=== PATIENT | male | born 1960 | race Hispanic/Latino ===

== ENCOUNTER 2021-09-02 14:38 | Inpatient (IN) | payer MEDICARE ==
[2021-09-02] MEDS ORDERED: FUROSEMIDE 40 MG/4 ML INJ IV ONE ×2 (15:43→17:25)
[2021-09-02] MEDS ORDERED: IPRATROPIUM/ALBUTEROL SULFATE 3 ML AMPUL.NEB IH ONE ×2 (15:46)
--- NOTE | 2021-09-02 15:52 | Emergency Department Report ---
HPI - General Chief Complaint: Dyspnea/Respdistress PUI?: Yes Time Seen by Provider: 09/02/21 15:32 - HPI HPI: 61-year-old morbidly obese male, per nursing staff has past medical history of end stage COPD, on home oxygen with unknown number of liters required daily, current tobacco smoker, congestive heart failure, brought in by EMS for difficulty breathing or shortness of breath. EMS personnel are not readily available as this patient arrived 1 hour prior to the start of this provider shift time. Per nursing report, the patient was given Solu-Medrol and magnesium by EMS prior to arrival and the patient was placed on BiPAP upon arrival to the emergency department. Remainder of HPI and complete ROS are limited from perspective of patient secondary to respiratory distress. ED Past Medical Hx - Past Medical History Hx Congestive Heart Failure: Yes Hx COPD: Yes Additional medical history: Morbid obesity - Family History Family history: other (Unknown patient unable to answer) - Social History Smoking Status: Current Every Day Smoker Substance Use Type: None ED Review of Systems ROS: Stated complaint: LILIANE Other details as noted in HPI Comment: Unobtainable due to pts medical conditions Physical Exam - Physical Exam Vital Signs: Vital Signs 09/02/21 09/02/21 09/02/21 14:55 15:00 15:01 Pulse Rate 101 H 108 H 108 H Respiratory 35 H 34 H 43 H Rate O2 Sat by Pulse 87 94 96 Oximetry 09/02/21 09/02/21 09/02/21 15:15 15:31 15:36 Pulse Rate 109 H 109 H Respiratory 40 H 38 H Rate O2 Sat by Pulse 97 97 97 Oximetry General: Gen: Morbidly obese male, disheveled, clothes are soiled, sitting up in stretcher, BiPAP mask in place, moderate respiratory distress, speaking in moderately short sentences, no drooling no stridor, no accessory muscle usage HEENT: Normocephalic atraumatic pupils equally round and reactive to light extraocular muscles intact sclera anicteric Neck: Full range of motion, no midline spinal tenderness palpation, no JVD, no carotid bruits, no nuchal rigidity CVS: S1-S2 regular rate and rhythm with no gallops rubs or murmurs, chest wall nontender Pulmonary: Diffuse end expiratory wheezes as well as rales or rhonchi auscultated in lung lung seymour Abdomen: Soft nondistended nontender no guarding or rebound tenderness, no palpable deformities or step-offs, normal active bowel sounds, no hepatosplenomegaly, no pulsatile masses : Deferred Extremities: No cyanosis +1 pitting edema to bilateral lower extremities, intact distal peripheral pulses, Integumentary: Skin normal, no petechia no purpura no abscess no lacerations no evidence of trauma no evidence of infection Neuro: Patient is awake alert and oriented to person place time situation, mentating well, cranial nerves II through XII intact, no focal neurodeficits, sensation grossly tact; unable to test gait at this time secondary to patient's current clinical condition Psych: Calm cooperative, mood affect normal ED Course Vital Signs 09/02/21 09/02/21 09/02/21 14:55 15:00 15:01 Pulse Rate 101 H 108 H 108 H Respiratory 35 H 34 H 43 H Rate O2 Sat by Pulse 87 94 96 Oximetry 09/02/21 09/02/21 09/02/21 15:15 15:31 15:36 Pulse Rate 109 H 109 H Respiratory 40 H 38 H Rate O2 Sat by Pulse 97 97 97 Oximetry - Reevaluation(s) Reevaluation #1: 09/02/21 15:52 pt continues to remain on bipap; pt ordered to receive duonebs INH x2 and furosemide 40m IVP - Consultations Consultation #1: 09/02/21 18:14 Case reviewed with vp outcomes, Dr. Felipe. Pt will be evaluated by him in the MICU. - Intubation Time Out Performed: Yes Sedative: Etomidate Mg Given: 20 Paralytic: Rocuronium Mg Given: 125 Laryngoscope: Yobany Size: 4 Assist Device Used: other (none) ET Tube Size: 8 Other Airway Intervention: none Tube Secured Depth (cm): 24 Tube Secured Location: lips Tube Placement Confirmation: visualized tube passing t, equal breath sounds bilat, no breath sounds over epi, confirmation by capnometr Patient Tolerated Procedure: well Intubation Complications: none Additional Comments: pt tolerated procedure without difficulty ED Medical Decision Making - Lab Data Result diagrams: 09/02/21 16:21 09/02/21 16:21 - EKG Data -: EKG Interpreted by Me EKG shows normal: sinus rhythm Rate: tachycardia - EKG Data When compared to previous EKG there are: previous EKG unavailable Interpretation: other (RBBB; q waves in anteroseptal leads; no prior ekg availabe for comparison) 09/02/21 18:15 Patient has EKG interpreted by me: Ventricular rate 103 bpm. P waves are present and proceed every QRS complex. Patient has right bundle branch block. No ST segment depressions elevations. No T wave flattening or inversions. No ectopy. No arrhythmia. Sinus tachycardia with right bundle branch block. No prior EKG available in electronic health record for comparison - Radiology Data Radiology results: report reviewed - Medical Decision Making 61-year-old morbidly obese male with a history of congestive heart failure with unknown EF, end-stage COPD and emphysema on home oxygen, brought in by EMS for shortness of breath and cough. Patient severely dyspneic and tachypneic here with a respiratory rate ranging from 30-44. He was placed on BiPAP by respiratory therapy and given multiple treatments but patient demonstrated no improvement. He manifested declining in his mental status as well as respiratory status. Due to patient's high risk of impending respiratory arrest, he was emergently intubated in the emergency department. Labs reviewed. Hyperkalemia treated. Patient has been accepted by Dr. Barber, admitting hospitalist, to the intensive care unit, for further management. Critical Care Time: Yes Critical care time in (mins) excluding proc time.: 30 Critical care attestation.: If time is entered above; I have spent that time in minutes in the direct care of this critically ill patient, excluding procedure time. ED Disposition Clinical Impression: Acute on chronic respiratory failure with hypoxia and hypercapnia, Acute decompensated heart failure Disposition: ADMITTED INPATIENT Is pt being admited?: Yes Does the pt Need Aspirin: No Condition: Stable Referrals: PRIMARY CARE, [Primary Care Provider] - 3-5 Days
[2021-09-02 16:01] LABS: ABG Base Excess 10.8 mmol/L (-2.0-3.0); ABG HCO3 42.4 mmol/L (20.0-26.0); ABG Methemoglobin 0.6 % (0.0-1.5); ABG Oxygen Saturation 96.7 % (95.0-99.0); ABG PCO2 111.9 mm Hg; ABG PO2 98.8 mm Hg (80.0-90.0)
[2021-09-02 16:04] LABS: ABG PH 7.197 pH Units (7.350-7.450)
--- NOTE | 2021-09-02 16:19 | XRay Report ---
CHEST 1 VIEW 09/02/2021 3:51 PM INDICATION / CLINICAL INFORMATION: COPD, P/W SOB. COMPARISON: None available. FINDINGS: SUPPORT DEVICES: None. HEART / MEDIASTINUM: There is mild generalized cardiomegaly with prominence of the central pulmonary vessels. There is deviation of the trachea to the right. LUNGS / PLEURA: There is right upper lobe atelectasis with associated volume loss. There are mild to moderate patchy parenchymal opacities in both mid to lower lung zones. No significant pleural effusio n. No pneumothorax. ADDITIONAL FINDINGS: No significant additional findings. IMPRESSION: 1. Right upper lobe atelectasis is of uncertain chronicity. Old studies would be invaluable for asiya rison if available. Otherwise CT of the chest with intravenous contrast may be helpful in further hortencia luation. 2. Patchy parenchymal opacities in both mid to lower lung zones may be related to atypical causes of infection or edema. Signer Name: Tremayne Eli MD Signed: 09/02/2021 4:15 PM Workstation Name: [id number]
[2021-09-02] MEDS ORDERED: LORazepam 2 MG/ML VIAL IV ONE (17:08)
[2021-09-02 17:09] LABS: Hemoglobin 11.4 gm/dl (11.8-15.2); Mean Corpuscular HGB Conc 32 % (32-34); Mean Corpuscular Volume 84 fl (84-94); Platelet Count 224 K/mm3 (140-440); Red Blood Count 4.27 M/mm3 (3.65-5.03); Red Cell Distribution Width 18.6 % (13.2-15.2)
[2021-09-02] MEDS ORDERED: ETOMIDATE 20 MG/10 ML INJ IV ONE (17:19)
[2021-09-02] MEDS ORDERED: ROCURONIUM 50 MG/5 ML INJ IV ONE ×2 (17:19→18:03)
[2021-09-02 17:23] LABS: BUN/Creatinine Ratio 23; Blood Urea Nitrogen 18 mg/dL (9-20); Calcium 8.9 mg/dL (8.4-10.2); Hemolysis Index 105
[2021-09-02] MEDS ORDERED: INSULIN REGULAR, HUMAN 100 UNITS/1 ML IV ONE (17:28)
[2021-09-02] MEDS ORDERED: DEXTROSE 50% IN WATER (25GM) 50 ML SYRINGE IV ONE (17:28)
[2021-09-02] MEDS ORDERED: SODIUM BICARB 8.4% 50 MEQ/50 ML SYRINGE IV ONE (17:32)
[2021-09-02] MEDS ORDERED: CALC GLUCONATE 1GM/NS 100 ML 1 GM/100 ML BAG IV ONE (18:00)
--- NOTE | 2021-09-02 18:00 | History and Physical Report ---
History of Present Illness Chief complaint: I cannot breathe History of present illness: 61 YO Male with CHF, COPD on Home Oxygen via [place], Nicotine Dependence, Obesity Hypoventilation Syndrome presents ED for evaluation. Patient reports "cannot breathe". No further history is obtainable due to patient in severe respiratory distress. EMS was notified and upon arrival the patient was found to be in distress with a pulse oximetry in the 60s. Patient placed on submental oxygen and subsequently transported to [facility] for further care and evaluation of the aforementioned symptoms. The patient was seen and evaluated in the emergency department. All lab and imaging studies reviewed. Patient was found to have a pulse oximetry in the 70s on supplemental oxygen without improvement in symptoms. Patient separately placed on noninvasive positive pressure ventilation without improvement in symptoms. Patient was subsequently intubated and placed on ventilatory support. Patient underwent chest x-ray which revealed bilateral pneumonia. Patient also found to have clinical findings consistent with CHF decompensation. Patient admitted to ICU and initiated on CHF protocol as well as pneumonia protocol. No further history is obtainable. Patient was found to be retracting, unable to speak, using accessory muscles to breathe, with audible wheezing. No prior admission for review. No medication listed at time of admission for reconciliation. Advanced care planning conducted in ED. Critical care team consulted in ED, cardiology team consulted in ED. Past History Past Medical History: COPD, heart failure, other (See HPI) Past Surgical History: No surgical history, Other (Reviewed) Social history: single, smoking Family history: hypertension Medications and Allergies Allergies Allergy/AdvReac Type Severity Reaction Status Date / Time levofloxacin [From Levaquin] Allergy Rash Verified 09/02/21 15:43 Active Meds: Active Medications Propofol (Diprivan 10 Mg/Ml) 1,000 mg in 100 mls @ 4.082 mls/hr IV TITR MAE; Pr otocol CALC GLUCONATE 1GM/NS 100 ML (Calcium Gluonate/Ns 1,000mg/100ml) 1 gm in 100 mls @ 600 mls/hr IV ONCE ONE Stop: 09/02/21 18:09 Review of Systems ROS unobtainable: due to endotracheal tube, due to mental status Exam - Constitutional Vitals: Temp Pulse Resp BP Pulse Ox 109 H 38 H 97 09/02/21 15:31 09/02/21 15:31 07/24/22 15:36 General appearance: Present: severe distress - EENT Eyes: Present: PERRL ENT: clear oral mucosa, hearing decreased - Neck Neck: Present: supple - Respiratory Respiratory effort: labored, pursed lips, accessory muscle use, stridor Respiratory: bilateral: diminished, rhonchi - Cardiovascular Heart Sounds: Present: S1 & S2. Absent: rub, click - Extremities Extremity abnormal: edema Peripheral Pulses: within normal limits - Abdominal General gastrointestinal: Present: soft, non-tender, non-distended, normal bowel sounds Male genitourinary: Present: normal - Integumentary Integumentary: Present: clear, dry - Musculoskeletal Musculoskeletal: generalized weakness - Psychiatric Psychiatric: no appropriate mood/affect, no intact judgment & insight, no memory intact - Neurologic Neurologic: CNII-XII intact, no focal deficits, moves all extremities, no gait normal HEART Score - HEART Score Troponin: Troponin T < 0.010 ng/mL (0.00-0.029) 09/02/21 16:21 Results - Labs CBC & Chem 7: 09/02/21 16:21 09/02/21 16:21 Labs: Abnormal lab results 09/02/21 09/02/21 09/02/21 Range/Units 15:50 16:21 16:21 Hgb 11.4 L (11.8-15.2) gm/dl MCH 27 L (28-32) pg RDW 18.6 H (13.2-15.2) % ABG pH 7.197 L* (7.350-7.450) pH Units ABG pO2 98.8 H (80.0-90.0) mm Hg ABG HCO3 42.4 H (20.0-26.0) mmol/L ABG Base Excess 10.8 H (-2.0-3.0) mmol/L ABG Hemoglobin 11.3 L (14.0-18.0) gm/dl Oxyhemoglobin 93.6 L (95.0-99.0) % Potassium 5.9 H (3.6-5.0) mmol/L Chloride 96.4 L (98-107) mmol/L Carbon Dioxide 32 H (22-30) mmol/L Glucose 101 H (75-100) mg/dL POC Glucose (70-105) mg/dL Lactic Acid (0.7-2.0) mmol/L NT-Pro-B Natriuret Pep 4080 H (0-900) pg/mL 09/02/21 09/02/21 Range/Units 16:21 17:42 Hgb (11.8-15.2) gm/dl MCH (28-32) pg RDW (13.2-15.2) % ABG pH (7.350-7.450) pH Units ABG pO2 (80.0-90.0) mm Hg ABG HCO3 (20.0-26.0) mmol/L ABG Base Excess (-2.0-3.0) mmol/L ABG Hemoglobin (14.0-18.0) gm/dl Oxyhemoglobin (95.0-99.0) % Potassium (3.6-5.0) mmol/L Chloride (98-107) mmol/L Carbon Dioxide (22-30) mmol/L Glucose (75-100) mg/dL POC Glucose 113 H (70-105) mg/dL Lactic Acid 0.60 L (0.7-2.0) mmol/L NT-Pro-B Natriuret Pep (0-900) pg/mL Assessment and Plan - Patient Problems (1) Acute on chronic respiratory failure with hypoxia and hypercapnia Current Visit: Yes Status: Acute Plan to address problem: Chest x-ray, supplemental oxygen, pulse oximetry, nebulizer therapy, patient intubated and on ventilatory support. Wean vent as tolerated, daily spontaneous breathing trial, sedation holiday, daily arterial blood gas. The high probability of a clinically significant, sudden or life threatening deterioration of the [cardiac, pulmonary, neuro,] system(s) required my full and direct attention, intervention and personal management. The aggregate critical care time was [95] minutes. This time is in addition to time spent performing reported procedures but includes the following: [x] Data Review and interpretation [x] Patient assessment and monitoring of vital signs [x] Documentation [x] Medication orders and management (2) Acute decompensated heart failure Current Visit: Yes Status: Acute Plan to address problem: Strict I/O, monitor urine output every shift, daily weight, afterload reduction, blood pressure control, diuresis, echocardiogram ordered and pending at time of admission, thyroid panel, magnesium level, cardiology team consulted in ED. (3) Pneumonia Current Visit: Yes Status: Acute Plan to address problem: Pneumonia protocol: Chest x-ray, CBC, CMP, nebulizer therapy, IV antibiotic therapy, pulmonary toilet. (4) Obesity hypoventilation syndrome Current Visit: Yes Status: Acute Plan to address problem: Balanced diet, increase physical activity discharge, outpatient pulmonary follow-up for sleep study. (5) Nicotine dependence Current Visit: Yes Status: Acute Qualifiers: Nicotine product type: cigarettes Substance use status: in withdrawal Qualified Code(s): F17.213 - Nicotine dependence, cigarettes, with withdrawal Plan to address problem: Supportive care, smoking cessation, +15 minutes (6) DVT prophylaxis Current Visit: Yes Status: Acute Plan to address problem: SCDs bilateral lower extremities while in bed, prophylactic anticoagulation (7) Advance care planning Current Visit: Yes Status: Acute Plan to address problem: Disease education done, care plan discussed, diagnoses discussed, prognosis discussed, patient is full code, +30 minutes. (8) Preventative health care Current Visit: Yes Status: Acute Plan to address problem: Patient to follow-up with primary care physician as outpatient for all age and risk factor appropriate screening test, balanced diet, increase physical activity discharge, outpatient follow-up with bariatric surgery. +30 minutes.
--- NOTE | 2021-09-02 18:26 | XRay Report ---
ABDOMEN 1 VIEW 09/02/2021 6:04 PM INDICATION / CLINICAL INFORMATION: NGT placement. COMPARISON: None available. FINDINGS: TUBES / LINES: There is a nasogastric tube with the tip overlying the proximal stomach and the proxim al sidehole below the gastroesophageal junction. BOWEL GAS PATTERN: No significant abnormality. FREE AIR / EXTRALUMINAL GAS: None. ADDITIONAL FINDINGS: No significant additional findings. IMPRESSION: Nasogastric tube tip overlies the proximal stomach. Signer Name: Tremayne Eli MD Signed: 09/02/2021 6:22 PM Workstation Name: [id number]
--- NOTE | 2021-09-02 18:30 | XRay Report ---
CHEST 1 VIEW 09/02/2021 5:15 PM INDICATION / CLINICAL INFORMATION: ET tube placement. COMPARISON: Earlier today at 3:51 PM. FINDINGS: SUPPORT DEVICES: There is a new endotracheal tube with the tip approximately 4 cm above the janett. T here is a new nasogastric tube coursing towards the stomach with the tip not seen. HEART / MEDIASTINUM: Unchanged. LUNGS / PLEURA: Unchanged. No pneumothorax. ADDITIONAL FINDINGS: No significant additional findings. IMPRESSION: New endotracheal tube in satisfactory position. Signer Name: Tremayne Eli MD Signed: 09/02/2021 6:26 PM Workstation Name: [id number]
[2021-09-02] MEDS ORDERED: HYDROmorphone 0.5 MG/0.5 ML INJ IV PRN (18:31)
[2021-09-02] MEDS ORDERED: ACETAMINOPHEN 325 MG TAB PO PRN (18:31)
[2021-09-02] MEDS ORDERED: oxyCODONE /ACETAMINOPHEN 5-325MG TAB PO PRN (18:31)
[2021-09-02] MEDS ORDERED: ALBUTEROL 2.5 MG/3 ML NEBU IH PRN (18:31)
[2021-09-02 18:34] LABS: Band Neutrophils # (Manual) 0.1 K/mm3; Basophils % (Manual) 0 % (0.0-1.8); Eosinophils % (Manual) 0 % (0.0-4.3); Total Cells Counted 100
[2021-09-02 18:36] LABS: Hypochromasia Few; Platelet Estimate Consistent w Auto; Stomatocytes Rare
[2021-09-02 19:04] LABS: ABG Base Excess 11.8 mmol/L (-2.0-3.0); ABG HCO3 39.2 mmol/L (20.0-26.0); ABG Methemoglobin 0.6 % (0.0-1.5); ABG Oxygen Saturation 99.2 % (95.0-99.0); ABG PCO2 66.9 mm Hg; ABG PH 7.385 pH Units (7.350-7.450); ABG PO2 202.5 mm Hg (80.0-90.0)
[2021-09-02 19:23] LABS: Free T4 (Free Thyroxine) 1.27 ng/dL (0.76-1.46)
--- NOTE | 2021-09-02 19:28 | Procedure Note ---
Date of procedure: 09/02/21 Pre-op diagnosis: Acute respiratory failure Post-op diagnosis: same Procedure: Right internal jugular vein triple-lumen catheter under ultrasound guidance The patient was prepped and draped in usual sterile fashion. A timeout was taken with the patient's nurse at bedside to verify the correct patient, the correct procedure, and then the correct operative site. Local anesthesia obtained with 1% lidocaine. The Seldinger technique was utilized under ult rasound guidance to advance a seeker needle into the right internal jugular vein without difficulty. A guidewire was then advanced via the seeker needle into the right internal jugular vein and the seeker needle subsequently removed over the guidewire. A scalpel was used to incise the skin at the insertion site. A dilator was then passed over the guidewire into the right internal jugular vein and subsequently removed. A preflush triple-lumen catheter was then advanced into the right internal jugular vein and the guidewire subsequently removed. A Biopatch was placed at the insertion site. 3-0 silk suture was utilized to suture the triple-lumen catheter in place. All 3 ports flush and drawl with ease. A sterile dressing was placed over the top of the central mid catheter. Postoperative chest x-ray reveals 6 lm catheter in expected position. No evidence of pneumothorax. Estimated blood loss minimal. Specimens none. Complications none. Anesthesia: local Surgeon: ELVIN DE LEÓN Estimated blood loss: minimal Pathology: none Condition: critical Disposition: ICU
--- NOTE | 2021-09-02 19:39 | XRay Report ---
CHEST 1 VIEW INDICATION / CLINICAL INFORMATION: central line placement. COMPARISON: 09/02/2021 FINDINGS: SUPPORT DEVICES: New right internal jugular central line overlies the right upper thorax. Endotrachea l and nasogastric tubes in expected position HEART / MEDIASTINUM: Rightward shift of heart and mediastinum again noted LUNGS / PLEURA: Right upper lobe volume loss with probable mass right hilar region and nodular right pleural thickening suggestive for underlying lung cancer No pneumothorax. ADDITIONAL FINDINGS: No significant additional findings. IMPRESSION: 1. No significant change. Suspect right-sided lung cancer with complete right upper lobe atelectasis, right hilar mass and nodular right pleural thickening, unchanged. 2. Right CVL overlies the right upper hemithorax. Due to the distorted anatomy, the exact location of the CVL is difficult to ascertain but is likely within the SVC which is shifted towards the right. N o pneumothorax Signer Name: Keshawn Garcia MD Signed: 09/02/2021 7:35 PM Workstation Name: [id number]
[2021-09-02] MEDS ORDERED: HEPARIN 5,000 UNIT/1 ML VIAL SUB-Q SCH (22:00)
--- NOTE | 2021-09-02 22:05 | Cat Scan Report ---
CTA CHEST WITH CONTRAST INDICATION / CLINICAL INFORMATION: pt intubated; resp acidosis/failure; eval for PE. TECHNIQUE: Axial CT images were obtained through the chest after injection of 100 cc IV contrast. 3 p maxwell MIP and/or 3D reconstructions were produced. All CT scans at this location are performed using C T dose reduction for ALARA by means of automated exposure control. COMPARISON: None available. FINDINGS: PULMONARY EMBOLUS: None. THORACIC AORTA: No significant abnormality. HEART: No significant abnormality. CORONARY ARTERY CALCIFICATION: Present -- Mild. MEDIASTINUM / LOVE: Enlarged right upper and lower paratracheal nodes up to 1.7 cm PLEURA: No pleural effusion. No pneumothorax. LUNGS: Complete right upper lobe atelectasis likely secondary to obstructing endobronchial mass. Patc hy airspace disease medial aspect left upper, right middle and both lower lobes characteristic for pn eumonia. Moderate scarring right lower lobe ADDITIONAL FINDINGS: The right internal jugular central line has tip in SVC. Endotracheal and nasogas tric tubes in expected position. UPPER ABDOMEN: No acute findings. SKELETAL STRUCTURES: Previous right lower thoracotomy IMPRESSION: 1. No CT evidence for pulmonary embolism. 2. Complete right upper lobe atelectasis possibly secondary to lung cancer with associated right para tracheal adenopathy. Recommend correlation with prior surgical history and/or bronchoscopy 3. Mild bronchopneumonia medial aspect left upper, right middle and both lower lobes Signer Name: Keshawn Garcia MD Signed: 09/02/2021 10:00 PM Workstation Name: [id number]
[2021-09-03 03:09] LABS: Amphetamine Screen,Urine PRESUMPTIVE NEGATIVE; Benzodiazepines Screen,Urine PRESUMPTIVE NEGATIVE; Cannabinoid Screen,Urine PRESUMPTIVE POSITIVE; Cocaine Screen,Urine PRESUMPTIVE NEGATIVE; Methadone Screen,Urine PRESUMPTIVE NEGATIVE; Opiate Screen,Urine PRESUMPTIVE NEGATIVE
[2021-09-03 03:20] LABS: Mucus,Urine FEW /HPF
[2021-09-03 03:23] LABS: Bilirubin,Urine Negative (Negative); Blood,Urine Negative (Negative); Color,Urine Yellow (Yellow); Protein,Urine <15 mg/dL mg/dL (Negative)
[2021-09-03 03:24] LABS: Urobilinogen,Urine < 2.0 mg/dL (<2.0)
[2021-09-03 04:25] LABS: ABG Base Excess 15.7 mmol/L (-2.0-3.0); ABG HCO3 42.5 mmol/L (20.0-26.0); ABG Methemoglobin 0.5 % (0.0-1.5); ABG Oxygen Saturation 96.6 % (95.0-99.0); ABG PCO2 64.6 mm Hg; ABG PH 7.436 pH Units (7.350-7.450)
[2021-09-03] MEDS: methylPREDNISolone Sod Succinate 40 MG/1 ML INJ IV SCH ×3 (04:55→20:23)
[2021-09-03 05:27] LABS: Hematocrit 32.1 % (35.5-45.6); Hemoglobin 10.3 gm/dl (11.8-15.2); Mean Corpuscular HGB Conc 32 % (32-34); Mean Corpuscular Volume 83 fl (84-94); Platelet Count 216 K/mm3 (140-440); Red Blood Count 3.88 M/mm3 (3.65-5.03); Red Cell Distribution Width 18.3 % (13.2-15.2)
[2021-09-03 05:31] LABS: BUN/Creatinine Ratio 31; Blood Urea Nitrogen 25 mg/dL (9-20); Calcium 9.1 mg/dL (8.4-10.2); Hemolysis Index 2
[2021-09-03] MEDS: FUROSEMIDE 20 MG/2 ML INJ IV SCH ×2 (05:55→18:21)
[2021-09-03 06:42] LABS: Anisocytosis 1+; Basophils % (Manual) 0 % (0.0-1.8); Eosinophils % (Manual) 0 % (0.0-4.3); Platelet Estimate Consistent w Auto; Total Cells Counted 100
[2021-09-03] MEDS: ARFORMOTEROL 15 MCG/2 ML NEBU IH SCH ×2 (09:37→22:43)
[2021-09-03] MEDS: BUDESONIDE 0.5 MG/2 ML NEBU IH SCH ×2 (09:37→22:43)
[2021-09-03] MEDS: AZITHROMYCIN 250 MG TAB PO SCH (10:07)
[2021-09-03] MEDS: LEVOTHYROXINE 100 MCG TAB PO SCH (10:10)
--- NOTE | 2021-09-03 11:01 | Consultation ---
History of Present Illness Consult date: 09/03/21 Requesting physician: ELVIN DE LEÓN Reason for consult: other (AHRF on MVS) History of present illness: PULMONARY/CCM CONSULT NOTE (Full dictation # [id number]) Please see dictated notes for full details Past History Past Medical History: COPD, heart failure, other (See HPI) Past Surgical History: No surgical history, Other (Reviewed) Social history: single, smoking Family history: hypertension Medications and Allergies Allergies Allergy/AdvReac Type Severity Reaction Status Date / Time levofloxacin [From Levaquin] Allergy Rash Verified 09/02/21 15:43 Home Medications Medication Instructions Recorded Confirmed Last Taken Type ALBUTEROL NEB's [Proventil 0.083% 2.5 mg IH TID PRN 09/02/21 09/02/21 Unknown History NEBS] Arformoterol Nebu [Brovana Nebu] 15 mcg IH Q12HR 09/02/21 09/02/21 Unknown History Budesonide [Pulmicort] 0.5 mg IH Q12HR 09/02/21 09/02/21 Unknown History Levothyroxine [Synthroid] 100 mcg PO QAM 09/02/21 09/02/21 Unknown History Mometasone/Formoterol [Dulera 200 8.8 gm IH BID 09/02/21 09/02/21 Unknown History Mcg-5 Mcg Inhaler] Active Meds: Active Medications Acetaminophen (Acetaminophen 325 Mg Tab) 650 mg PO Q6H PRN PRN Reason: Pain MILD(1-3)/Fever >100.5/ZAVALA Albuterol (Albuterol 2.5 Mg/3 Ml Nebu) 2.5 mg IH Q3HRT PRN PRN Reason: Shortness Of Breath Last Admin: 09/03/21 00:23 Dose: 2.5 mg Arformoterol Tartrate (Arformoterol 15 Mcg/2 Ml Nebu) 15 mcg IH Q12HR MAE Last Admin: 09/03/21 09:37 Dose: 15 mcg Azithromycin (Azithromycin 250 Mg Tab) 500 mg PO QDAY MAE; Protocol Last Admin: 09/03/21 10:07 Dose: 500 mg Budesonide (Budesonide 0.5 Mg/2 Ml Nebu) 0.5 mg IH Q12HR MAE Last Admin: 09/03/21 09:37 Dose: 0.5 mg Furosemide (Furosemide 20 Mg/2 Ml Inj) 20 mg IV BID@0600,1800 [facility] Last Admin: 09/03/21 05:55 Dose: 20 mg Heparin Sodium (Porcine) (Heparin 5,000 Unit/1 Ml Vial) 5,000 unit SUB-Q Q12HR [facility] Last Admin: 09/03/21 10:06 Dose: 5,000 unit Hydromorphone HCl (Hydromorphone 0.5 Mg/0.5 Ml Inj) 0.5 mg IV Q8H PRN PRN Reason: Pain , Severe (7-10) Propofol (Diprivan 10 Mg/Ml) 1,000 mg in 100 mls @ 4.082 mls/hr IV TITR [facility]; Protocol Last Admin: 09/03/21 06:56 Dose: 25 mcg/kg/min, 20.412 mls/hr Ceftriaxone Sodium (Rocephin/Ns 2 Gm/100 Ml) 2 gm in 100 mls @ 200 mls/hr IV Q24H [facility]; Protocol Levothyroxine Sodium (Levothyroxine 100 Mcg Tab) 100 mcg PO QAM@0600 [facility] Last Admin: 09/03/21 10:10 Dose: 100 mcg Methylprednisolone Sodium Succinate (Methylprednisolone Sod Succinate 40 Mg/1 Ml Inj) 40 mg IV Q8H [facility] Last Admin: 09/03/21 04:55 Dose: 40 mg Oxycodone/Acetaminophen (Oxycodone /Acetaminophen 5-325mg Tab) 1 tab PO Q6H PRN PRN Reason: Pain, Moderate (4-6) Sodium Chloride (Sodium Chloride 0.9% 10 Ml Flush Syringe) 10 ml IV BID [facility] Last Admin: 09/03/21 10:06 Dose: 10 ml Sodium Chloride (Sodium Chloride 0.9% 10 Ml Flush Syringe) 10 ml IV PRN PRN PRN Reason: LINE FLUSH Physical Examination Vital signs: Vital Signs Pulse Resp Pulse Ox 101 H 35 H 87 09/02/21 14:55 09/02/21 14:55 09/02/21 14:55 Results - Laboratory Findings CBC and BMP: 09/03/21 04:53 09/03/21 04:53 ABG ABG pH 7.436 pH Units (7.350-7.450) 09/03/21 04:08 ABG pCO2 64.6 mm Hg 09/03/21 04:08 ABG pO2 69.0 mm Hg (80.0-90.0) L 09/03/21 04:08 ABG O2 Saturation 96.6 % (95.0-99.0) 09/03/21 04:08 Abnormal lab findings: Abnormal Labs 09/02/21 09/02/21 09/02/21 15:50 16:21 16:21 Hgb 11.4 L Hct MCV MCH 27 L RDW 18.6 H Seg Neuts % (Manual) 92.0 H Lymphocytes % (Manual) 1.0 L Seg Neutrophils # Man 7.9 H Lymphocytes # (Manual) 0.1 L ABG pH 7.197 L* ABG pO2 98.8 H ABG HCO3 42.4 H ABG O2 Saturation ABG Base Excess 10.8 H ABG Hemoglobin 11.3 L Oxyhemoglobin 93.6 L Potassium 5.9 H Chloride 96.4 L Carbon Dioxide 32 H BUN Glucose 101 H POC Glucose Lactic Acid NT-Pro-B Natriuret Pep 4080 H 09/02/21 09/02/21 09/02/21 16:21 17:42 18:40 Hgb Hct MCV MCH RDW Seg Neuts % (Manual) Lymphocytes % (Manual) Seg Neutrophils # Man Lymphocytes # (Manual) ABG pH ABG pO2 202.5 H ABG HCO3 39.2 H ABG O2 Saturation 99.2 H ABG Base Excess 11.8 H ABG Hemoglobin 11.0 L Oxyhemoglobin Potassium Chloride Carbon Dioxide BUN Glucose POC Glucose 113 H Lactic Acid 0.60 L NT-Pro-B Natriuret Pep 09/02/21 09/03/21 09/03/21 23:09 04:08 04:53 Hgb 10.3 L Hct 32.1 L MCV 83 L MCH 27 L RDW 18.3 H Seg Neuts % (Manual) 94.0 H Lymphocytes % (Manual) 3.0 L Seg Neutrophils # Man Lymphocytes # (Manual) 0.2 L ABG pH ABG pO2 69.0 L ABG HCO3 42.5 H ABG O2 Saturation ABG Base Excess 15.7 H ABG Hemoglobin 10.6 L Oxyhemoglobin 94.5 L Potassium Chloride Carbon Dioxide BUN Glucose POC Glucose 154 H Lactic Acid NT-Pro-B Natriuret Pep 09/03/21 09/03/21 04:53 06:05 Hgb Hct MCV MCH RDW Seg Neuts % (Manual) Lymphocytes % (Manual) Seg Neutrophils # Man Lymphocytes # (Manual) ABG pH ABG pO2 ABG HCO3 ABG O2 Saturation ABG Base Excess ABG Hemoglobin Oxyhemoglobin Potassium Chloride 96.6 L Carbon Dioxide 38 H BUN 25 H Glucose 130 H POC Glucose 145 H Lactic Acid NT-Pro-B Natriuret Pep
[2021-09-03] MEDS ORDERED: fentaNYL 100 MCG/2 ML INJ IV PRN (12:47)
[2021-09-03] MEDS: fentaNYL DRIP Premix 2,000 MCG/100 ML BAG IV SCH ×3 (13:09→23:30)
[2021-09-03] MEDS ORDERED: METOPROLOL TARTRATE 5 MG/5 ML INJ IV SCH (13:45)
[2021-09-03 13:50] LABS: Albumin 3.2 g/dL (3.9-5); Bilirubin,Direct 0.2 mg/dL (0-0.2)
--- NOTE | 2021-09-03 13:54 | Progress Note ---
<SAVANNAHDAVIS RohitNaomi - Last Filed: 09/03/21 13:54> Assessment and Plan Assessment and plan: This is a 61-year-old male with CHF, COPD on home O2, nicotine dependence and OHS admitted with CHF exacerbation and CAP Neuro: Sedated -Sedated with propofol -add fentanyl for analgesia -RASS goal 0 to -1 -Reorientation as needed -Maintain sleep-wake cycle Cardiac: ST, Acute on Chronic CHF -Cardiology consulted, appreciate recommendations -Blood pressure monitoring per protocol -Echocardiogram shows LVEF of 50 to 55%, flattened septum consistent with right ventricular volume overload, RVSP 37 mmhg -This evening HR went into 140s -Stat EKG showed no changes, RBBB evident on admit EKG, did not respond to vagal -Cardiology aware -ordered 2.5 Metoprolol but converted to SR without intervention -Lasix twice daily -Admit proBNP 4080 Respiratory: Acute on chronic hypoxic respiratory failure, RUL mass, h/o COPD, OHS, nicotine dependence, stage IV lung CA (in remission according to ) -CCM consulted, appreciate recommendations -Intubated on 09/02 with 8.0 OETT at 22 at the lips -A.m. vent settings: AC rate 24, TV 500, Peep 6, FiO2 50% -See RT notes for titration -A.m. ABG and CXR noted -VAP bundle -SPO2 monitoring -Solu-Medrol 40 mg every 8 GI: Morbid obesity, mild protein calorie nutrition -24 hours -1100 mL -PPI -NTR consulted for tube feedings -BR: Colace : NAD, hyperkalemia (resolved) -Monitor intake and output -Renally dose medications -Avoid nephrotoxic medications -Trend BMP ID: CAP, COVID 19 PNA PUI -Covid 19 pcr pending -Antibiotic therapy with azithro and rocephin -Admit CXR showed right upper lobe atelectasis, patchy parenchymal opacities in both mid to lower lung zones -Chest CTA showed complete right upper lobe atelectasis, mild bronchopneumonia medial aspect left upper, right middle and both lower lobes -Droplet and contact precautions -f/u blood culture -Monitor WBC and temperature curve Endo: h/o hypothyroidism -Avoid hypoglycemia -SSI -Accu-Cheks q. 6hr -Restarted home levothyroxine Heme/Oncology: h/o stage IV lung CA -CT chest shows RUL mass -According to patient is in remission -Hem/Onc consulted, appreciate recommendations -Records requested from [facility] and Dr[facility] [address] -Trend CBC -Transfuse hemoglobin less than 7 -SCDs to BLE while in bed The high probability of a clinically significant, sudden or life threatening deterioration of the [cardiac, pulmonary] system(s) required my full and direct attention, intervention and personal management. The aggregate critical care time was [60] minutes. This time is in addition to time spent performing repo rted procedures but includes the following: [x] Data Review and interpretation [x] Patient assessment and monitoring of vital signs [x] Documentation [x] Medication orders and management Disposition Plan: icu Total Time Spent with Patient (Minutes): 60 History Interval history: This is a 71-year-old male with CHF, COPD on home O2, hypothyroidism, stage IV lung CA, nicotine dependence and OHS who presented to the emergency department on 09/02 with complaints of " cannot breathe" via EMS. On EMS arrival patient had a SPO2 in the 60s and was placed on supplemental oxygenation and transported to [facility]. In the emergency department patient's SPO2 was in the 70s with supplemental oxygenation and he did not have much improvement in symptoms and was placed on NiPPV and was intubated in the ED as he was found to be retracting, unable to speak, using accessory muscles to breathe, with audible wheezing and placed on ventilatory support and CXR showed bilateral PNA. He was admitted with CHF excerbation and with PNA to the hospitalist service with consults cardiology and CCM. Hospital course to date: 09/03: Remains on ventilatory support. The afternoon patient heart rate went into the 140s/150s, cardiology aware, stat ECG obtained which showed no acute findings, 2.5 metoprolol ordered. Started on fentanyl drip. Records requested from [facility] and Dr[address], [place] catheter discontinued. Ventilator changes per CCM. Hospitalist Physical - Constitutional Vitals: Temp Pulse Resp BP Pulse Ox 98.4 F 148 H 24 125/74 97 09/03/21 11:36 09/03/21 13:11 09/03/21 13:11 09/03/21 13:11 09/03/21 13:11 General appearance: Present: no acute distress, obese - EENT Eyes: Present: PERRL, EOM intact ENT: hearing intact, clear oral mucosa, dentition normal - Neck Neck: Present: normal ROM - Respiratory Respiratory effort: normal Respiratory: right: wheezing, bilateral: diminished - Cardiovascular Rhythm: regular Heart Sounds: Present: S1 & S2. Absent: systolic murmur, diastolic murmur - Extremities Extremities: no ischemia, pulses intact, pulses symmetrical, normal temperature, normal color Peripheral Pulses: within normal limits - Abdominal General gastrointestinal: soft, tender, normal bowel sounds - Integumentary Integumentary: Present: warm, dry - Psychiatric Psychiatric: cooperative - Neurologic Neurologic: moves all extremities, other (follows commands, perrl) - Allied Health Allied health notes reviewed: nursing, RT, social work HEART Score - HEART Score Troponin: Troponin T < 0.010 ng/mL (0.00-0.029) 09/02/21 16:21 Results - Labs CBC & Chem 7: 09/03/21 04:53 09/03/21 04:53 Labs: Laboratory Last Values WBC 5.8 K/mm3 (4.5-11.0) 09/03/21 04:53 RBC 3.88 M/mm3 (3.65-5.03) 09/03/21 04:53 Hgb 10.3 gm/dl (11.8-15.2) L 09/03/21 04:53 Hct 32.1 % (35.5-45.6) L 09/03/21 04:53 MCV 83 fl (84-94) L 09/03/21 04:53 MCH 27 pg (28-32) L 09/03/21 04:53 MCHC 32 % (32-34) 09/03/21 04:53 RDW 18.3 % (13.2-15.2) H 09/03/21 04:53 Plt Count 216 K/mm3 (140-440) 09/03/21 04:53 Add Manual Diff Complete 09/03/21 04:53 Total Counted 100 09/03/21 04:53 Seg Neutrophils % Career Placement Services Counselor 09/03/21 04:53 Seg Neuts % (Manual) 94.0 % (40.0-70.0) H 09/03/21 04:53 Band Neutrophils % 0 % 09/03/21 04:53 Lymphocytes % (Manual) 3.0 % (13.4-35.0) L 09/03/21 04:53 Reactive Lymphs % (Man) 0 % 09/03/21 04:53 Monocytes % (Manual) 3.0 % (0.0-7.3) 09/03/21 04:53 Eosinophils % (Manual) 0 % (0.0-4.3) 09/03/21 04:53 Basophils % (Manual) 0 % (0.0-1.8) 09/03/21 04:53 Metamyelocytes % 0 % 09/03/21 04:53 Myelocytes % 0 % 09/03/21 04:53 Promyelocytes % 0 % 09/03/21 04:53 Blast Cells % 0 % 09/03/21 04:53 Nucleated RBC % Not Reportable 09/03/21 04:53 Seg Neutrophils # Man 5.5 K/mm3 (1.8-7.7) 09/03/21 04:53 Band Neutrophils # 0.0 K/mm3 09/03/21 04:53 Lymphocytes # (Manual) 0.2 K/mm3 (1.2-5.4) L 09/03/21 04:53 Abs React Lymphs (Man) 0.0 K/mm3 09/03/21 04:53 Monocytes # (Manual) 0.2 K/mm3 (0.0-0.8) 09/03/21 04:53 Eosinophils # (Manual) 0.0 K/mm3 (0.0-0.4) 09/03/21 04:53 Basophils # (Manual) 0.0 K/mm3 (0.0-0.1) 09/03/21 04:53 Metamyelocytes # 0.0 K/mm3 09/03/21 04:53 Myelocytes # 0.0 K/mm3 09/03/21 04:53 Promyelocytes # 0.0 K/mm3 09/03/21 04:53 Blast Cells # 0.0 K/mm3 09/03/21 04:53 WBC Morphology Not Reportable 09/03/21 04:53 Hypersegmented Neuts Not Reportable 09/03/21 04:53 Hyposegmented Neuts Not Reportable 09/03/21 04:53 Hypogranular Neuts Not Reportable 09/03/21 04:53 Smudge Cells Not Reportable 09/03/21 04:53 Toxic Granulation Not Reportable 09/03/21 04:53 Toxic Vacuolation Not Reportable 09/03/21 04:53 Dohle Bodies Not Reportable 09/03/21 04:53 Pelger-Huet Anomaly Not Reportable 09/03/21 04:53 Kaushik Rods Not Reportable 09/03/21 04:53 Platelet Estimate Consistent w auto 09/03/21 04:53 Clumped Platelets Not Reportable 09/03/21 04:53 Plt Clumps, EDTA Not Reportable 09/03/21 04:53 Large Platelets Not Reportable 09/03/21 04:53 Giant Platelets Not Reportable 09/03/21 04:53 Platelet Satelliting Not Reportable 09/03/21 04:53 Plt Morphology Comment Not Reportable 09/03/21 04:53 RBC Morphology Not Reportable 09/03/21 04:53 Dimorphic RBCs Not Reportable 09/03/21 04:53 Polychromasia Not Reportable 09/03/21 04:53 Hypochromasia Not Reportable 09/03/21 04:53 Poikilocytosis Not Reportable 09/03/21 04:53 Anisocytosis 1+ 09/03/21 04:53 Microcytosis Not Reportable 09/03/21 04:53 Macrocytosis Not Reportable 09/03/21 04:53 Spherocytes Not Reportable 09/03/21 04:53 Pappenheimer Bodies Not Reportable 09/03/21 04:53 Sickle Cells Not Reportable 09/03/21 04:53 Target Cells Not Reportable 09/03/21 04:53 Tear Drop Cells Not Reportable 09/03/21 04:53 Ovalocytes Not Reportable 09/03/21 04:53 Stomatocytes Rare 09/02/21 16:21 Helmet Cells Not Reportable 09/03/21 04:53 [place] Bodies Not Reportable 09/03/21 04:53 [place] Rings Not Reportable 09/03/21 04:53 [place] Cells Not Reportable 09/03/21 04:53 Bite Cells Not Reportable 09/03/21 04:53 Crenated Cell Not Reportable 09/03/21 04:53 Elliptocytes Not Reportable 09/03/21 04:53 Acanthocytes (Spur) Not Reportable 09/03/21 04:53 Rouleaux Not Reportable 09/03/21 04:53 Hemoglobin C Crystals Not Reportable 09/03/21 04:53 Schistocytes Not Reportable 09/03/21 04:53 Malaria parasites Not Reportable 09/03/21 04:53 Tanner Bodies Not Reportable 09/03/21 04:53 Hem Pathologist Commnt No 09/03/21 04:53 ABG pH 7.436 pH Units (7.350-7.450) 09/03/21 04:08 ABG pCO2 64.6 mm Hg 09/03/21 04:08 ABG pO2 69.0 mm Hg (80.0-90.0) L 09/03/21 04:08 ABG HCO3 42.5 mmol/L (20.0-26.0) H 09/03/21 04:08 ABG O2 Saturation 96.6 % (95.0-99.0) 09/03/21 04:08 ABG O2 Content 14.1 (0.0-44) 09/03/21 04:08 ABG Base Excess 15.7 mmol/L (-2.0-3.0) H 09/03/21 04:08 ABG Hemoglobin 10.6 gm/dl (14.0-18.0) L 09/03/21 04:08 ABG Carboxyhemoglobin 1.7 % (0.0-5.0) 09/03/21 04:08 ABG Methemoglobin 0.5 % (0.0-1.5) 09/03/21 04:08 Oxyhemoglobin 94.5 % (95.0-99.0) L 09/03/21 04:08 FiO2 45 % 09/03/21 04:08 Sodium 144 mmol/L (137-145) 09/03/21 04:53 Potassium 4.2 mmol/L (3.6-5.0) D 09/03/21 04:53 Chloride 96.6 mmol/L (98-107) L 09/03/21 04:53 Carbon Dioxide 38 mmol/L (22-30) H 09/03/21 04:53 Anion Gap 14 mmol/L 09/03/21 04:53 BUN 25 mg/dL (9-20) H 09/03/21 04:53 Creatinine 0.8 mg/dL (0.8-1.3) 09/03/21 04:53 Estimated GFR > 60 ml/min 09/03/21 04:53 BUN/Creatinine Ratio 31 % 09/03/21 04:53 Glucose 130 mg/dL (75-100) H 09/03/21 04:53 POC Glucose 158 mg/dL (70-105) H 09/03/21 11:11 Lactic Acid 0.60 mmol/L (0.7-2.0) L 09/02/21 16:21 Calcium 9.1 mg/dL (8.4-10.2) 09/03/21 04:53 Magnesium 2.20 mg/dL (1.7-2.3) 09/02/21 18:44 Troponin T < 0.010 ng/mL (0.00-0.029) 09/02/21 16:21 NT-Pro-B Natriuret Pep 4080 pg/mL (0-900) H 09/02/21 16:21 Procalcitonin 0.27 ng/mL (<0.15) 09/03/21 10:13 TSH 0.501 mlU/mL (0.270-4.200) 09/02/21 18:44 Free T4 1.27 ng/dL (0.76-1.46) 09/02/21 18:44 Urine Color Yellow (Yellow) 09/03/21 02:49 Urine Turbidity Slightly cloudy (Clear) 09/03/21 02:49 Urine pH 6.0 (5.0-7.0) 09/03/21 02:49 Ur Specific [place] 1.030 (1.003-1.030) 09/03/21 02:49 Urine Protein <15 mg/dl mg/dL (Negative) 09/03/21 02:49 Urine Glucose (UA) Negative mg/dL (Negative) 09/03/21 02:49 Urine Ketones Negative mg/dL (Negative) 09/03/21 02:49 Urine Blood Negative (Negative) 09/03/21 02:49 Urine Nitrite Negative (Negative) 09/03/21 02:49 Ur Reducing Substances Not Reportable 09/03/21 02:49 Urine Bilirubin Negative (Negative) 09/03/21 02:49 Urine Ictotest Not Reportable 09/03/21 02:49 Urine Urobilinogen < 2.0 mg/dL (<2.0) 09/03/21 02:49 Ur Leukocyte Esterase Negative (Negative) 09/03/21 02:49 Urine WBC (Auto) 1.0 /HPF (0.0-6.0) 09/03/21 02:49 Urine RBC (Auto) 2.0 /HPF (0.0-6.0) 09/03/21 02:49 Urine Mucus Few /HPF 09/03/21 02:49 Urine Opiates Screen Presumptive negative 09/03/21 02:49 Urine Methadone Screen Presumptive negative 09/03/21 02:49 Ur Barbiturates Screen Presumptive negative 09/03/21 02:49 Ur Phencyclidine Scrn Presumptive negative 09/03/21 02:49 Ur Amphetamines Screen Presumptive negative 09/03/21 02:49 U Benzodiazepines Scrn Presumptive negative 09/03/21 02:49 Urine Cocaine Screen Presumptive negative 09/03/21 02:49 U Marijuana (THC) Screen Presumptive positive 09/03/21 02:49 Drugs of Abuse Note Disclamer 09/03/21 02:49 Microbiology: Microbiology 09/02/21 18:50 Sputum - Expectorated Sputum Sputum Culture - Preliminary [place]/IV: Voiding Method Condom Catheter Active Medications - Current Medications Current Medications: Generic Name Dose Route Start Last Admin Trade Name Freq PRN Reason Stop Dose Admin Acetaminophen 650 mg 09/02/21 18:31 Acetaminophen 325 Mg Tab PO Q6H PRN Pain MILD(1-3)/Fever >100.5/ZAVALA Albuterol 2.5 mg 09/02/21 18:31 09/03/21 00:23 Albuterol 2.5 Mg/3 Ml Nebu IH 2.5 mg Q3HRT PRN Administration Shortness Of Breath Arformoterol Tartrate 15 mcg 09/03/21 10:00 09/03/21 09:37 Arformoterol 15 Mcg/2 Ml Nebu IH 15 mcg Q12HR MAE Administration Azithromycin 500 mg 09/02/21 20:00 09/03/21 10:07 Azithromycin 250 Mg Tab PO 500 mg QDAY MAE Administration Protocol Budesonide 0.5 mg 09/03/21 10:00 09/03/21 09:37 Budesonide 0.5 Mg/2 Ml Nebu IH 0.5 mg Q12HR MAE Administration Famotidine 20 mg 09/03/21 22:00 Famotidine 20 Mg Tab FEEDTUBE BID MAE Fentanyl 50 mcg 09/03/21 12:47 09/03/21 13:09 Fentanyl 100 Mcg/2 Ml Inj IV 50 mcg Q10MIN PRN Administration ANALGESIA Furosemide 20 mg 09/03/21 06:00 09/03/21 05:55 Furosemide 20 Mg/2 Ml Inj IV 20 mg BID@0600,1800 [facility] Administration Heparin Sodium (Porcine) 5,000 unit 09/02/21 22:00 09/03/21 10:06 Heparin 5,000 Unit/1 Ml Vial SUB-Q 5,000 unit Q12HR [facility] Administration Hydromorphone HCl 0.5 mg 09/02/21 18:31 Hydromorphone 0.5 Mg/0.5 Ml Inj IV Q8H PRN Pain , Severe (7-10) Propofol 1,000 mg in 100 mls @ 4.082 mls/hr 09/02/21 18:00 09/03/21 13:15 Diprivan 10 Mg/Ml IV 12 mcg/kg/min TITR MAE 9.798 mls/hr Titration Protocol 5 MCG/KG/MIN Ceftriaxone Sodium 2 gm in 100 mls @ 200 mls/hr 09/02/21 20:00 Rocephin/Ns 2 Gm/100 Ml IV Q24H [facility] Protocol Fentanyl Citrate 2,000 mcg in 100 mls @ 6.352 mls/hr 09/03/21 13:00 09/03/21 13:09 Fentanyl Drip Premix IV 1 mcg/kg/hr TITR MAE 6.352 mls/hr Administration Protocol 1 MCG/KG/HR Levothyroxine Sodium 100 mcg 09/03/21 10:00 09/03/21 10:10 Levothyroxine 100 Mcg Tab PO 100 mcg QAM@0600 [facility] Administration Methylprednisolone Sodium Succinate 40 mg 09/02/21 20:00 09/03/21 12:24 Methylprednisolone Sod Succinate 40 Mg/1 Ml Inj IV 40 mg Q8H [facility] Administration Metoprolol Tartrate 2.5 mg 09/03/21 13:45 Metoprolol Tartrate 5 Mg/5 Ml Inj IV 09/03/21 17:45 ONCE@1345 [facility] Oxycodone/Acetaminophen 1 tab 09/02/21 18:31 Oxycodone /Acetaminophen 5-325mg Tab PO Q6H PRN Pain, Moderate (4-6) Sodium Chloride 10 ml 09/02/21 22:00 09/03/21 10:06 Sodium Chloride 0.9% 10 Ml Flush Syringe IV 10 ml BID MAE Administration Sodium Chloride 10 ml 09/02/21 18:31 Sodium Chloride 0.9% 10 Ml Flush Syringe IV PRN PRN LINE FLUSH Nutrition/Malnutrition Assess - Dietary Evaluation Nutrition/Malnutrition Findings: Nutrition Notes Start: 09/03/21 10:38 Freq: Status: Active Protocol: Document 09/03/21 10:39 DALE (Rec: 09/03/21 11:11 DALE [id number]) Nutrition Notes Need for Assessment generated from: MD Order Current Diagnosis COPD,Respiratory Failure Other Pertinent Diagnosis CHF, Pneumonia, OHS. Current Diet NPO (since 09/02 18:32), TF- Promote @ 70 ml/hr (from L ). Labs/Tests 09/03: Cl 96.6, CO2 38, BUN 25 , Glu 130. Pertinent Medications 09/03: Levothyroxine, Propofol @ 20.412 ml/hr (539 Kcal). others nutritionally unremarkable. 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 Weight Status Obese Subjective/Other Information RD consult for write/manage TF . Pt currently on NPO. I will prescribe TF to provide Pt with energy/protein needs during LOS. Pt is on Mechanical Ventilation, O2 saturation @ 99%, according to Physical Assessment History notes. Procedure on 09/02: R-IJV triple-lumen catheter placement, wel tolerated, according to Operative Report notes. Percent of energy/protein needs met: Pt currently on NPO. Prescribed TF-Promote @ 70 ml/ hr provides for energy/protein needs (1,670 Kcal/104 g) during LOS, 77% Kcal; 101% AA. Including Propofol: 102% Kcal ; 101% AA. Burn Absent Trauma Absent GI Symptoms None Food Allergy No Skin Integrity/Comment Assessment WNL. 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 As Evidenced by Signs and Symptoms Pt is currently on NPO. Is patient on ventilator? Yes Is Patient Ambulatory and/or Out of Bed No REE-([facility]-confined to bed) 2533.248 Kcal/Kg value to use for calculation 17 Approximate Energy Requirements Using 2160 kcal/Kg Calculation Used for Recommendations Kcal/kg Additional Notes Protein: 0.8-1 g/Kg AdjBW; 82- 103 g/day. Fluids: 1 ml/Kcal, or as per MD. Nutrition Intervention Nutrition Support: Start TF-Promote @ 70 ml/hr. Flush: 120 ml water Q 4 hr, or as per MD. Kcal 1,595 Protein (gm) 100 Carbohydrates (gm) 147 Fat (gm) 72 Fluid (mL) 1,078 Fiber (gm) 7 % RDI: 77% Kcal; 101% AA. Goal #1 Provide at least 75% of energy /protein needs through Enteral Feeding during LOS. Follow-Up By: 09/05/21 Additional Comments Start monitoring TF tolerance and BM. <CRISTY KING - Last Filed: 09/04/21 07:58> Assessment and Plan Assessment and plan: I saw and evaluated the patient. I agree with the findings and the plan of care as documented in the Nurse Practitioner's~note, with the following corrections and additions. Hospitalist Physical - Constitutional Vitals: Temp Pulse Resp BP Pulse Ox 99.3 F 60 18 114/53 96 09/04/21 07:09 09/04/21 06:01 09/04/21 06:01 09/04/21 06:01 09/04/21 06:01 HEART Score - HEART Score Troponin: Troponin T < 0.010 ng/mL (0.00-0.029) 09/02/21 16:21 Results - Labs CBC & Chem 7: 09/03/21 15:00 09/04/21 04:12 Labs: Laboratory Last Values WBC 5.8 K/mm3 (4.5-11.0) 09/03/21 04:53 RBC 3.88 M/mm3 (3.65-5.03) 09/03/21 04:53 Hgb 10.7 gm/dl (11.8-15.2) L 09/03/21 15:00 Hct 33.1 % (35.5-45.6) L 09/03/21 15:00 MCV 83 fl (84-94) L 09/03/21 04:53 MCH 27 pg (28-32) L 09/03/21 04:53 MCHC 32 % (32-34) 09/03/21 04:53 RDW 18.3 % (13.2-15.2) H 09/03/21 04:53 Plt Count 212 K/mm3 (140-440) 09/03/21 15:00 Add Manual Diff Complete 09/03/21 04:53 Total Counted 100 09/03/21 04:53 Seg Neutrophils % Career Placement Services Counselor 09/03/21 04:53 Seg Neuts % (Manual) 94.0 % (40.0-70.0) H 09/03/21 04:53 Band Neutrophils % 0 % 09/03/21 04:53 Lymphocytes % (Manual) 3.0 % (13.4-35.0) L 09/03/21 04:53 Reactive Lymphs % (Man) 0 % 09/03/21 04:53 Monocytes % (Manual) 3.0 % (0.0-7.3) 09/03/21 04:53 Eosinophils % (Manual) 0 % (0.0-4.3) 09/03/21 04:53 Basophils % (Manual) 0 % (0.0-1.8) 09/03/21 04:53 Metamyelocytes % 0 % 09/03/21 04:53 Myelocytes % 0 % 09/03/21 04:53 Promyelocytes % 0 % 09/03/21 04:53 Blast Cells % 0 % 09/03/21 04:53 Nucleated RBC % Not Reportable 09/03/21 04:53 Seg Neutrophils # Man 5.5 K/mm3 (1.8-7.7) 09/03/21 04:53 Band Neutrophils # 0.0 K/mm3 09/03/21 04:53 Lymphocytes # (Manual) 0.2 K/mm3 (1.2-5.4) L 09/03/21 04:53 Abs React Lymphs (Man) 0.0 K/mm3 09/03/21 04:53 Monocytes # (Manual) 0.2 K/mm3 (0.0-0.8) 09/03/21 04:53 Eosinophils # (Manual) 0.0 K/mm3 (0.0-0.4) 09/03/21 04:53 Basophils # (Manual) 0.0 K/mm3 (0.0-0.1) 09/03/21 04:53 Metamyelocytes # 0.0 K/mm3 09/03/21 04:53 Myelocytes # 0.0 K/mm3 09/03/21 04:53 Promyelocytes # 0.0 K/mm3 09/03/21 04:53 Blast Cells # 0.0 K/mm3 09/03/21 04:53 WBC Morphology Not Reportable 09/03/21 04:53 Hypersegmented Neuts Not Reportable 09/03/21 04:53 Hyposegmented Neuts Not Reportable 09/03/21 04:53 Hypogranular Neuts Not Reportable 09/03/21 04:53 Smudge Cells Not Reportable 09/03/21 04:53 Toxic Granulation Not Reportable 09/03/21 04:53 Toxic Vacuolation Not Reportable 09/03/21 04:53 Dohle Bodies Not Reportable 09/03/21 04:53 Pelger-Huet Anomaly Not Reportable 09/03/21 04:53 Kaushik Rods Not Reportable 09/03/21 04:53 Platelet Estimate Consistent w auto 09/03/21 04:53 Clumped Platelets Not Reportable 09/03/21 04:53 Plt Clumps, EDTA Not Reportable 09/03/21 04:53 Large Platelets Not Reportable 09/03/21 04:53 Giant Platelets Not Reportable 09/03/21 04:53 Platelet Satelliting Not Reportable 09/03/21 04:53 Plt Morphology Comment Not Reportable 09/03/21 04:53 RBC Morphology Not Reportable 09/03/21 04:53 Dimorphic RBCs Not Reportable 09/03/21 04:53 Polychromasia Not Reportable 09/03/21 04:53 Hypochromasia Not Reportable 09/03/21 04:53 Poikilocytosis Not Reportable 09/03/21 04:53 Anisocytosis 1+ 09/03/21 04:53 Microcytosis Not Reportable 09/03/21 04:53 Macrocytosis Not Reportable 09/03/21 04:53 Spherocytes Not Reportable 09/03/21 04:53 Pappenheimer Bodies Not Reportable 09/03/21 04:53 Sickle Cells Not Reportable 09/03/21 04:53 Target Cells Not Reportable 09/03/21 04:53 Tear Drop Cells Not Reportable 09/03/21 04:53 Ovalocytes Not Reportable 09/03/21 04:53 Stomatocytes Rare 09/02/21 16:21 Helmet Cells Not Reportable 09/03/21 04:53 [place] Bodies Not Reportable 09/03/21 04:53 [place] Rings Not Reportable 09/03/21 04:53 [place] Cells Not Reportable 09/03/21 04:53 Bite Cells Not Reportable 09/03/21 04:53 Crenated Cell Not Reportable 09/03/21 04:53 Elliptocytes Not Reportable 09/03/21 04:53 Acanthocytes (Spur) Not Reportable 09/03/21 04:53 Rouleaux Not Reportable 09/03/21 04:53 Hemoglobin C Crystals Not Reportable 09/03/21 04:53 Schistocytes Not Reportable 09/03/21 04:53 Malaria parasites Not Reportable 09/03/21 04:53 Tanner Bodies Not Reportable 09/03/21 04:53 Hem Pathologist Commnt No 09/03/21 04:53 PT 14.3 Sec. (12.2-14.9) 09/03/21 15:00 INR 1.00 (0.87-1.13) 09/03/21 15:00 APTT 22.9 Sec. (24.2-36.6) L 09/03/21 15:00 Heparin Anti-Xa Level 0.21 U.I./ml (0.3-0.7) L 09/04/21 06:21 ABG pH 7.361 pH Units (7.350-7.450) 09/04/21 06:35 ABG pCO2 79.7 mm Hg 09/04/21 06:35 ABG pO2 72.2 mm Hg (80.0-90.0) L 09/04/21 06:35 ABG HCO3 44.2 mmol/L (20.0-26.0) H 09/04/21 06:35 ABG O2 Saturation 94.9 % (95.0-99.0) L 09/04/21 06:35 ABG O2 Content 16.0 (0.0-44) 09/04/21 06:35 ABG Base Excess 15.2 mmol/L (-2.0-3.0) H 09/04/21 06:35 ABG Hemoglobin 12.2 gm/dl (14.0-18.0) L 09/04/21 06:35 ABG Carboxyhemoglobin 1.5 % (0.0-5.0) 09/04/21 06:35 ABG Methemoglobin 0.5 % (0.0-1.5) 09/04/21 06:35 Oxyhemoglobin 93.0 % (95.0-99.0) L 09/04/21 06:35 FiO2 50 % 09/04/21 06:35 Sodium 141 mmol/L (137-145) 09/04/21 04:12 Potassium 4.8 mmol/L (3.6-5.0) 09/04/21 04:12 Chloride 95.3 mmol/L (98-107) L 09/04/21 04:12 Carbon Dioxide 37 mmol/L (22-30) H 09/04/21 04:12 Anion Gap 14 mmol/L 09/04/21 04:12 BUN 43 mg/dL (9-20) H 09/04/21 04:12 Creatinine 1.0 mg/dL (0.8-1.3) 09/04/21 04:12 Estimated GFR > 60 ml/min 09/04/21 04:12 BUN/Creatinine Ratio 43 % 09/04/21 04:12 Glucose 149 mg/dL (75-100) H 09/04/21 04:12 POC Glucose 157 mg/dL (70-105) H 09/04/21 06:13 Lactic Acid 0.60 mmol/L (0.7-2.0) L 09/02/21 16:21 Calcium 8.9 mg/dL (8.4-10.2) 09/04/21 04:12 Phosphorus 4.70 mg/dL (2.5-4.5) H 09/04/21 04:12 Magnesium 2.40 mg/dL (1.7-2.3) H 09/04/21 04:12 Iron 63 ug/dL (49-181) 09/04/21 04:12 TIBC 176 mcg/dL (250-450) L 09/04/21 04:12 Ferritin 194.9 ng/mL (30.0-300.0) 09/04/21 04:12 Total Bilirubin 0.50 mg/dL (0.1-1.2) 09/03/21 10:13 Direct Bilirubin 0.2 mg/dL (0-0.2) 09/03/21 10:13 Indirect Bilirubin 0.3 mg/dL 09/03/21 10:13 AST 18 units/L (5-40) 09/03/21 10:13 ALT 16 units/L (7-56) 09/03/21 10:13 Alkaline Phosphatase 110 units/L (35-129) 09/03/21 10:13 Lactate Dehydrogenase 283 units/L (91-180) H 09/04/21 04:12 Troponin T < 0.010 ng/mL (0.00-0.029) 09/02/21 16:21 NT-Pro-B Natriuret Pep 4080 pg/mL (0-900) H 09/02/21 16:21 Total Protein 6.4 g/dL (6.3-8.2) 09/03/21 10:13 Albumin 3.2 g/dL (3.9-5) L 09/03/21 10:13 Albumin/Globulin Ratio 1.0 % 09/03/21 10:13 Procalcitonin 0.27 ng/mL (<0.15) 09/03/21 10:13 TSH 0.501 mlU/mL (0.270-4.200) 09/02/21 18:44 Free T4 1.27 ng/dL (0.76-1.46) 09/02/21 18:44 Urine Color Yellow (Yellow) 09/03/21 02:49 Urine Turbidity Slightly cloudy (Clear) 09/03/21 02:49 Urine pH 6.0 (5.0-7.0) 09/03/21 02:49 Ur Specific [place] 1.030 (1.003-1.030) 09/03/21 02:49 Urine Protein <15 mg/dl mg/dL (Negative) 09/03/21 02:49 Urine Glucose (UA) Negative mg/dL (Negative) 09/03/21 02:49 Urine Ketones Negative mg/dL (Negative) 09/03/21 02:49 Urine Blood Negative (Negative) 09/03/21 02:49 Urine Nitrite Negative (Negative) 09/03/21 02:49 Ur Reducing Substances Not Reportable 09/03/21 02:49 Urine Bilirubin Negative (Negative) 09/03/21 02:49 Urine Ictotest Not Reportable 09/03/21 02:49 Urine Urobilinogen < 2.0 mg/dL (<2.0) 09/03/21 02:49 Ur Leukocyte Esterase Negative (Negative) 09/03/21 02:49 Urine WBC (Auto) 1.0 /HPF (0.0-6.0) 09/03/21 02:49 Urine RBC (Auto) 2.0 /HPF (0.0-6.0) 09/03/21 02:49 Urine Mucus Few /HPF 09/03/21 02:49 Urine Opiates Screen Presumptive negative 09/03/21 02:49 Urine Methadone Screen Presumptive negative 09/03/21 02:49 Ur Barbiturates Screen Presumptive negative 09/03/21 02:49 Ur Phencyclidine Scrn Presumptive negative 09/03/21 02:49 Ur Amphetamines Screen Presumptive negative 09/03/21 02:49 U Benzodiazepines Scrn Presumptive negative 09/03/21 02:49 Urine Cocaine Screen Presumptive negative 09/03/21 02:49 U Marijuana (THC) Screen Presumptive positive 09/03/21 02:49 Drugs of Abuse Note Disclamer 09/03/21 02:49 Coronavirus (PCR) Negative (Negative) 09/04/21 07:18 Microbiology: Microbiology 09/02/21 18:50 Sputum - Expectorated Sputum Sputum Culture - Preliminary [place]/IV: Voiding Method Condom Catheter Active Medications - Current Medications Current Medications: Generic Name Dose Route Start Last Admin Trade Name Freq PRN Reason Stop Dose Admin Acetaminophen 650 mg 09/02/21 18:31 Acetaminophen 325 Mg Tab PO Q6H PRN Pain MILD(1-3)/Fever >100.5/ZAVALA Albuterol 2.5 mg 09/02/21 18:31 09/03/21 00:23 Albuterol 2.5 Mg/3 Ml Nebu IH 2.5 mg Q3HRT PRN Administration Shortness Of Breath Arformoterol Tartrate 15 mcg 09/03/21 10:00 09/03/21 22:43 Arformoterol 15 Mcg/2 Ml Nebu IH 15 mcg Q12HR MAE Administration Azithromycin 500 mg 09/02/21 20:00 09/03/21 10:07 Azithromycin 250 Mg Tab PO 09/06/21 10:01 500 mg QDAY MAE Administration Protocol Budesonide 0.5 mg 09/03/21 10:00 09/03/21 22:43 Budesonide 0.5 Mg/2 Ml Nebu IH 0.5 mg Q12HR MAE Administration Famotidine 20 mg 09/03/21 22:00 09/03/21 22:21 Famotidine 20 Mg Tab FEEDTUBE 20 mg BID MAE Administration Fentanyl 50 mcg 09/03/21 12:47 09/03/21 13:09 Fentanyl 100 Mcg/2 Ml Inj IV 50 mcg Q10MIN PRN Administration ANALGESIA Furosemide 20 mg 09/03/21 06:00 09/04/21 05:16 Furosemide 20 Mg/2 Ml Inj IV 20 mg BID@0600,1800 MAE Administration Hydromorphone HCl 0.5 mg 09/02/21 18:31 Hydromorphone 0.5 Mg/0.5 Ml Inj IV Q8H PRN Pain , Severe (7-10) Hydrophilic Ointment 1 applic 09/03/21 13:55 Lip Therapy Vaseline TP Q2HR PRN Dry Lips Propofol 1,000 mg in 100 mls @ 4.082 mls/hr 09/02/21 18:00 09/03/21 15:12 Diprivan 10 Mg/Ml IV 0 mcg/kg/min TITR MAE 0 mls/hr Titration Protocol 5 MCG/KG/MIN Ceftriaxone Sodium 2 gm in 100 mls @ 200 mls/hr 09/02/21 20:00 09/03/21 20:24 Rocephin/Ns 2 Gm/100 Ml IV 09/06/21 20:29 200 mls/hr Q24H MAE Administration Protocol Fentanyl Citrate 2,000 mcg in 100 mls @ 6.352 mls/hr 09/03/21 13:00 09/04/21 03:45 Fentanyl Drip Premix IV 3 mcg/kg/hr TITR MAE 19.057 mls/hr Administration Protocol 1 MCG/KG/HR Heparin Sodium/Sodium Chloride 25,000 unit in 500 mls @ 30 mls/hr 09/03/21 15:00 09/04/21 07:10 Heparin/ 0.45% Nacl-25,000 Unit/500 Ml IV 1,750 units/hr TITR MAE 35 mls/hr Administration Protocol 1,500 UNITS/HR Levothyroxine Sodium 100 mcg 09/03/21 10:00 09/04/21 05:16 Levothyroxine 100 Mcg Tab PO 100 mcg QAM@0600 MAE Administration Methylprednisolone Sodium Succinate 40 mg 09/02/21 20:00 09/04/21 04:56 Methylprednisolone Sod Succinate 40 Mg/1 Ml Inj IV 40 mg Q8H MAE Administration Metoprolol Tartrate 12.5 mg 09/03/21 15:00 09/03/21 22:21 Metoprolol Tartrate 25 Mg Tab FEEDTUBE 12.5 mg BID MAE Administration Multi-Ingred Cream/Lotion/Oil/Oint 1 applic 09/03/21 13:55 Mineral Oil/Petrolatum, White Ophth Oint 3.5 Gm OU Q4HR PRN Dry Eye(s) Oxycodone/Acetaminophen 1 tab 09/02/21 18:31 Oxycodone /Acetaminophen 5-325mg Tab PO Q6H PRN Pain, Moderate (4-6) Senna/Docusate Sodium 1 tab 09/03/21 22:00 09/03/21 22:21 Sennosides/Docusate Sodium 8.6/50 Mg Tab FEEDTUBE 1 tab BID MAE Administration Sodium Chloride 10 ml 09/02/21 22:00 09/03/21 22:21 Sodium Chloride 0.9% 10 Ml Flush Syringe IV 10 ml BID MAE Administration Sodium Chloride 10 ml 09/02/21 18:31 Sodium Chloride 0.9% 10 Ml Flush Syringe IV PRN PRN LINE FLUSH Nutrition/Malnutrition Assess - Dietary Evaluation Nutrition/Malnutrition Findings: Nutrition Notes Start: 09/03/21 10:38 Freq: Status: Active Protocol: Document 09/03/21 10:39 DALE (Rec: 09/03/21 11:11 DALE [id number]) Nutrition Notes Need for Assessment generated from: MD Order Current Diagnosis COPD,Respiratory Failure Other Pertinent Diagnosis CHF, Pneumonia, OHS. Current Diet NPO (since 09/02 18:32), TF- Promote @ 70 ml/hr (from L ). Labs/Tests 09/03: Cl 96.6, CO2 38, BUN 25 , Glu 130. Pertinent Medications 09/03: Levothyroxine, Propofol @ 20.412 ml/hr (539 Kcal). others nutritionally unremarkable. 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 Weight Status Obese Subjective/Other Information RD consult for write/manage TF . Pt currently on NPO. I will prescribe TF to provide Pt with energy/protein needs during LOS. Pt is on Mechanical Ventilation, O2 saturation @ 99%, according to Physical Assessment History notes. Procedure on 09/02: R-IJV triple-lumen catheter placement, wel tolerated, according to Operative Report notes. Percent of energy/protein needs met: Pt currently on NPO. Prescribed TF-Promote @ 70 ml/ hr provides for energy/protein needs (1,670 Kcal/104 g) during LOS, 77% Kcal; 101% AA. Including Propofol: 102% Kcal ; 101% AA. Burn Absent Trauma Absent GI Symptoms None Food Allergy No Skin Integrity/Comment Assessment WNL. 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 As Evidenced by Signs and Symptoms Pt is currently on NPO. Is patient on ventilator? Yes Is Patient Ambulatory and/or Out of Bed No REE-([facility]-confined to bed) 2533.248 Kcal/Kg value to use for calculation 17 Approximate Energy Requirements Using 2160 kcal/Kg Calculation Used for Recommendations Kcal/kg Additional Notes Protein: 0.8-1 g/Kg AdjBW; 82- 103 g/day. Fluids: 1 ml/Kcal, or as per MD. Nutrition Intervention Nutrition Support: Start TF-Promote @ 70 ml/hr. Flush: 120 ml water Q 4 hr, or as per MD. Kcal 1,595 Protein (gm) 100 Carbohydrates (gm) 147 Fat (gm) 72 Fluid (mL) 1,078 Fiber (gm) 7 % RDI: 77% Kcal; 101% AA. Goal #1 Provide at least 75% of energy /protein needs through Enteral Feeding during LOS. Follow-Up By: 09/05/21 Additional Comments Start monitoring TF tolerance and BM.
[2021-09-03] MEDS ORDERED: LIP THERAPY VASELINE TP PRN (13:55)
[2021-09-03] MEDS ORDERED: MINERAL OIL/PETROLATUM, WHITE OPHTH OINT 3.5 GM OU PRN (13:55)
[2021-09-03] MEDS ORDERED: HEPARIN 10,000 UNITS/10 ML VIAL IV PRN (13:58)
[2021-09-03] MEDS ORDERED: HEPARIN 10,000 UNITS/10 ML VIAL IV SCH (14:30)
--- NOTE | 2021-09-03 14:32 | Hem/Onc Consultation ---
History of Present Illness - Reason for Consult Consult date: 09/03/21 Lung cancer - History of Present Illness Heme/Onc Consult Note Seen via [facility] CPT [id number] Dx Lung cancer This is a 71 yo male who presented via EMS to [facility] ED with complaints of shortness of breath. Patient was noted with hypoxemia and severe respiratory distress and was subsequently intubated and placed on ventilatory support. Past medical history of CHF, COPD on home oxygen, nicotine dependence, obesity hyp oventilation syndrome, and intubation for respiratory distress due to pneumonia 3 years ago. Chest x-ray revealed bilateral pneumonia. Patient also found to have clinical findings consistent with CHF decompensation. Patient admitted to ICU and initiated on CHF protocol as well as pneumonia protocol. Chest CTA consistent with complete upper lobe atelectasis secondary to lung cancer with right paratracheal adenopathy. No evidence of PE. Oncology was consulted for evaluation of lung cancer. Patient examined at bedside in no acute distress noted, awake, alert, intubated. Case was discussed with , Franci, who states patient was diagnosed in 2009 and received chemotherapy and radiation. Denies followed with Oncologist but completed a bronchoscopy around 1 year ago which showed "scarred tissue." DATA REVIEWED BELOW IMP: Lung cancer, s/p chemotherapy and radiation in 2009 Complete upper lobe atelectasis, obstructing endobronchial mass, 1.7cm paratracheal adenopathy Suspecting recurrence of disease PLAN: Labs iron studies, LDH, retic Consider interventions for bronchial obstruction Transfer for radiation is an option Laboratory Last Values WBC 5.8 K/mm3 (4.5-11.0) 09/03/21 04:53 Hgb 10.3 gm/dl (11.8-15.2) L 09/03/21 04:53 Hct 32.1 % (35.5-45.6) L 09/03/21 04:53 MCV 83 fl (84-94) L 09/03/21 04:53 Plt Count 216 K/mm3 (140-440) 09/03/21 04:53 ABG pH 7.436 pH Units (7.350-7.450) 09/03/21 04:08 ABG pCO2 64.6 mm Hg 09/03/21 04:08 ABG pO2 69.0 mm Hg (80.0-90.0) L 09/03/21 04:08 ABG HCO3 42.5 mmol/L (20.0-26.0) H 09/03/21 04:08 ABG O2 Saturation 96.6 % (95.0-99.0) 09/03/21 04:08 ABG O2 Content 14.1 (0.0-44) 09/03/21 04:08 ABG Base Excess 15.7 mmol/L (-2.0-3.0) H 09/03/21 04:08 ABG Hemoglobin 10.6 gm/dl (14.0-18.0) L 09/03/21 04:08 ABG Carboxyhemoglobin 1.7 % (0.0-5.0) 09/03/21 04:08 ABG Methemoglobin 0.5 % (0.0-1.5) 09/03/21 04:08 Oxyhemoglobin 94.5 % (95.0-99.0) L 09/03/21 04:08 FiO2 45 % 09/03/21 04:08 Creatinine 0.8 mg/dL (0.8-1.3) 09/03/21 04:53 AST 18 units/L (5-40) 09/03/21 10:13 ALT 16 units/L (7-56) 09/03/21 10:13 Alkaline Phosphatase 110 units/L (35-129) 09/03/21 10:13 Troponin T < 0.010 ng/mL (0.00-0.029) 09/02/21 16:21 NT-Pro-B Natriuret Pep 4080 pg/mL (0-900) H 09/02/21 16:21 Drugs of Abuse Note Disclamer 09/03/21 02:49 Past History Past Medical History: COPD, heart failure, other (See HPI) Past Surgical History: No surgical history, Other (Reviewed) Social history: single, smoking Family history: hypertension Medications and Allergies Allergies Allergy/AdvReac Type Severity Reaction Status Date / Time levofloxacin [From Levaquin] Allergy Rash Verified 09/02/21 15:43 Home Medications Medication Instructions Recorded Confirmed Last Taken Type ALBUTEROL NEB's [Proventil 0.083% 2.5 mg IH TID PRN 09/02/21 09/02/21 Unknown History NEBS] Arformoterol Nebu [Brovana Nebu] 15 mcg IH Q12HR 09/02/21 09/02/21 Unknown History Budesonide [Pulmicort] 0.5 mg IH Q12HR 09/02/21 09/02/21 Unknown History Levothyroxine [Synthroid] 100 mcg PO QAM 09/02/21 09/02/21 Unknown History Mometasone/Formoterol [Dulera 200 8.8 gm IH BID 09/02/21 09/02/21 Unknown History Mcg-5 Mcg Inhaler] Active Meds: Active Medications Acetaminophen (Acetaminophen 325 Mg Tab) 650 mg PO Q6H PRN PRN Reason: Pain MILD(1-3)/Fever >100.5/ZAVALA Albuterol (Albuterol 2.5 Mg/3 Ml Nebu) 2.5 mg IH Q3HRT PRN PRN Reason: Shortness Of Breath Last Admin: 09/03/21 00:23 Dose: 2.5 mg Arformoterol Tartrate (Arformoterol 15 Mcg/2 Ml Nebu) 15 mcg IH Q12HR [facility] Last Admin: 09/03/21 09:37 Dose: 15 mcg Azithromycin (Azithromycin 250 Mg Tab) 500 mg PO QDAY [facility]; Protocol Stop: 09/06/21 10:01 Last Admin: 09/03/21 10:07 Dose: 500 mg Budesonide (Budesonide 0.5 Mg/2 Ml Nebu) 0.5 mg IH Q12HR [facility] Last Admin: 09/03/21 09:37 Dose: 0.5 mg Famotidine (Famotidine 20 Mg Tab) 20 mg FEEDTUBE BID [facility] Fentanyl (Fentanyl 100 Mcg/2 Ml Inj) 50 mcg IV Q10MIN PRN PRN Reason: ANALGESIA Last Admin: 09/03/21 13:09 Dose: 50 mcg Furosemide (Furosemide 20 Mg/2 Ml Inj) 20 mg IV BID@0600,1800 [facility] Last Admin: 09/03/21 05:55 Dose: 20 mg Heparin Sodium (Porcine) (Heparin 10,000 Units/10 Ml Vial) 8,900 unit 70 unit/kg (8900 unit) IV ONCE@1430 [facility] Stop: 09/03/21 15:30 Hydromorphone HCl (Hydromorphone 0.5 Mg/0.5 Ml Inj) 0.5 mg IV Q8H PRN PRN Reason: Pain , Severe (7-10) Hydrophilic Ointment (Lip Therapy Vaseline) 1 applic TP Q2HR PRN PRN Reason: Dry Lips Propofol (Diprivan 10 Mg/Ml) 1,000 mg in 100 mls @ 4.082 mls/hr IV TITR [facility]; Protocol Last Titration: 09/03/21 13:58 Dose: 10 mcg/kg/min, 8.165 mls/hr Ceftriaxone Sodium (Rocephin/Ns 2 Gm/100 Ml) 2 gm in 100 mls @ 200 mls/hr IV Q24H [facility]; Protocol Stop: 09/06/21 20:29 Fentanyl Citrate (Fentanyl Drip Premix) 2,000 mcg in 100 mls @ 6.352 mls/hr IV TITR [facility]; Protocol Last Titration: 09/03/21 13:56 Dose: 2 mcg/kg/hr, 12.705 mls/hr Heparin Sodium/Sodium Chloride (Heparin/ 0.45% Nacl-25,000 Unit/500 Ml) 25,000 unit in 500 mls @ 30 mls/hr IV TITR [facility]; Protocol Levothyroxine Sodium (Levothyroxine 100 Mcg Tab) 100 mcg PO QAM@0600 [facility] Last Admin: 09/03/21 10:10 Dose: 100 mcg Methylprednisolone Sodium Succinate (Methylprednisolone Sod Succinate 40 Mg/1 Ml Inj) 40 mg IV Q8H [facility] Last Admin: 09/03/21 12:24 Dose: 40 mg Metoprolol Tartrate (Metoprolol Tartrate 5 Mg/5 Ml Inj) 2.5 mg IV ONCE@1345 [facility] Stop: 09/03/21 17:45 Metoprolol Tartrate (Metoprolol Tartrate 25 Mg Tab) 12.5 mg FEEDTUBE BID [facility] Multi-Ingred Cream/Lotion/Oil/Oint (Mineral Oil/Petrolatum, White Ophth Oint 3.5 Gm) 1 applic OU Q4HR PRN PRN Reason: Dry Eye(s) Oxycodone/Acetaminophen (Oxycodone /Acetaminophen 5-325mg Tab) 1 tab PO Q6H PRN PRN Reason: Pain, Moderate (4-6) Senna/Docusate Sodium (Sennosides/Docusate Sodium 8.6/50 Mg Tab) 1 tab FEEDTUBE BID [facility] Sodium Chloride (Sodium Chloride 0.9% 10 Ml Flush Syringe) 10 ml IV BID [facility] Last Admin: 09/03/21 10:06 Dose: 10 ml Sodium Chloride (Sodium Chloride 0.9% 10 Ml Flush Syringe) 10 ml IV PRN PRN PRN Reason: LINE FLUSH Exam - Constitutional Vitals: Last Vital Signs Temp 98.4 F 09/03/21 11:36 Pulse 148 H 09/03/21 13:11 Resp 24 09/03/21 13:11 BP 125/74 09/03/21 13:11 Pulse Ox 97 09/03/21 13:11 Results - Labs lab Results: Laboratory Results - last 24 hr 09/02/21 09/02/21 09/02/21 15:50 16:21 16:21 WBC 8.6 RBC 4.27 Hgb 11.4 L Hct 36.0 MCV 84 MCH 27 L MCHC 32 RDW 18.6 H Plt Count 224 Add Manual Diff Complete Total Counted 100 Seg Neutrophils % Wine Bottle Inspector Seg Neuts % (Manual) 92.0 H Band Neutrophils % 1.0 Lymphocytes % (Manual) 1.0 L Reactive Lymphs % (Man) 0 Monocytes % (Manual) 5.0 Eosinophils % (Manual) 0 Basophils % (Manual) 0 Metamyelocytes % 1.0 Myelocytes % 0 Promyelocytes % 0 Blast Cells % 0 Nucleated RBC % Not Reportable Seg Neutrophils # Man 7.9 H Band Neutrophils # 0.1 Lymphocytes # (Manual) 0.1 L Abs React Lymphs (Man) 0.0 Monocytes # (Manual) 0.4 Eosinophils # (Manual) 0.0 Basophils # (Manual) 0.0 Metamyelocytes # 0.1 Myelocytes # 0.0 Promyelocytes # 0.0 Blast Cells # 0.0 WBC Morphology Not Reportable Hypersegmented Neuts Not Reportable Hyposegmented Neuts Not Reportable Hypogranular Neuts Not Reportable Smudge Cells Not Reportable Toxic Granulation Not Reportable Toxic Vacuolation Not Reportable Dohle Bodies Not Reportable Pelger-Huet Anomaly Not Reportable Kaushik Rods Not Reportable Platelet Estimate Consistent w auto Clumped Platelets Not Reportable Plt Clumps, EDTA Not Reportable Large Platelets Not Reportable Giant Platelets Not Reportable Platelet Satelliting Not Reportable Plt Morphology Comment Not Reportable RBC Morphology Not Reportable Dimorphic RBCs Not Reportable Polychromasia Few Hypochromasia Few Poikilocytosis Not Reportable Anisocytosis Not Reportable Microcytosis Not Reportable Macrocytosis Not Reportable Spherocytes Not Reportable Pappenheimer Bodies Not Reportable Sickle Cells Not Reportable Target Cells Not Reportable Tear Drop Cells Not Reportable Ovalocytes Not Reportable Stomatocytes Rare Helmet Cells Not Reportable Lim-Warner Bodies Not Reportable [place] Rings Not Reportable Star Cells Not Reportable Bite Cells Not Reportable Crenated Cell Not Reportable Elliptocytes Few Acanthocytes (Spur) Not Reportable Rouleaux Not Reportable Hemoglobin C Crystals Not Reportable Schistocytes Not Reportable Malaria parasites Not Reportable Tanner Bodies Not Reportable Hem Pathologist Commnt No ABG pH 7.197 L* ABG pCO2 111.9 ABG pO2 98.8 H ABG HCO3 42.4 H ABG O2 Saturation 96.7 ABG O2 Content 15.0 ABG Base Excess 10.8 H ABG Hemoglobin 11.3 L ABG Carboxyhemoglobin 2.7 ABG Methemoglobin 0.6 Oxyhemoglobin 93.6 L FiO2 50 Sodium 141 Potassium 5.9 H Chloride 96.4 L Carbon Dioxide 32 H Anion Gap 19 BUN 18 Creatinine 0.8 Estimated GFR > 60 BUN/Creatinine Ratio 23 Glucose 101 H POC Glucose Lactic Acid Calcium 8.9 Magnesium Total Bilirubin Direct Bilirubin Indirect Bilirubin AST ALT Alkaline Phosphatase Troponin T < 0.010 NT-Pro-B Natriuret Pep 4080 H Total Protein Albumin Albumin/Globulin Ratio Procalcitonin TSH Free T4 Urine Color Urine Turbidity Urine pH Ur Specific [place] Urine Protein Urine Glucose (UA) Urine Ketones Urine Blood Urine Nitrite Ur Reducing Substances Urine Bilirubin Urine Ictotest Urine Urobilinogen Ur Leukocyte Esterase Urine WBC (Auto) Urine RBC (Auto) Urine Mucus Urine Opiates Screen Urine Methadone Screen Ur Barbiturates Screen Ur Phencyclidine Scrn Ur Amphetamines Screen U Benzodiazepines Scrn Urine Cocaine Screen U Marijuana (THC) Screen Drugs of Abuse Note 09/02/21 09/02/21 09/02/21 16:21 16:21 17:42 WBC RBC Hgb Hct MCV MCH MCHC RDW Plt Count Add Manual Diff Total Counted Seg Neutrophils % Seg Neuts % (Manual) Band Neutrophils % Lymphocytes % (Manual) Reactive Lymphs % (Man) Monocytes % (Manual) Eosinophils % (Manual) Basophils % (Manual) Metamyelocytes % Myelocytes % Promyelocytes % Blast Cells % Nucleated RBC % Seg Neutrophils # Man Band Neutrophils # Lymphocytes # (Manual) Abs React Lymphs (Man) Monocytes # (Manual) Eosinophils # (Manual) Basophils # (Manual) Metamyelocytes # Myelocytes # Promyelocytes # Blast Cells # WBC Morphology TNR Hypersegmented Neuts Hyposegmented Neuts Hypogranular Neuts Smudge Cells Toxic Granulation Toxic Vacuolation Dohle Bodies Pelger-Huet Anomaly Kaushik Rods Platelet Estimate Clumped Platelets Plt Clumps, EDTA Large Platelets Giant Platelets Platelet Satelliting Plt Morphology Comment RBC Morphology Dimorphic RBCs Polychromasia Hypochromasia Poikilocytosis Anisocytosis Microcytosis Macrocytosis Spherocytes Pappenheimer Bodies Sickle Cells Target Cells Tear Drop Cells Ovalocytes Stomatocytes Helmet Cells Lim-Warner Bodies [place] Rings Star Cells Bite Cells Crenated Cell Elliptocytes Acanthocytes (Spur) Rouleaux Hemoglobin C Crystals Schistocytes Malaria parasites Tanner Bodies Hem Pathologist Commnt ABG pH ABG pCO2 ABG pO2 ABG HCO3 ABG O2 Saturation ABG O2 Content ABG Base Excess ABG Hemoglobin ABG Carboxyhemoglobin ABG Methemoglobin Oxyhemoglobin FiO2 Sodium Potassium Chloride Carbon Dioxide Anion Gap BUN Creatinine Estimated GFR BUN/Creatinine Ratio Glucose POC Glucose 113 H Lactic Acid 0.60 L Calcium Magnesium Total Bilirubin Direct Bilirubin Indirect Bilirubin AST ALT Alkaline Phosphatase Troponin T NT-Pro-B Natriuret Pep Total Protein Albumin Albumin/Globulin Ratio Procalcitonin TSH Free T4 Urine Color Urine Turbidity Urine pH Ur Specific [place] Urine Protein Urine Glucose (UA) Urine Ketones Urine Blood Urine Nitrite Ur Reducing Substances Urine Bilirubin Urine Ictotest Urine Urobilinogen Ur Leukocyte Esterase Urine WBC (Auto) Urine RBC (Auto) Urine Mucus Urine Opiates Screen Urine Methadone Screen Ur Barbiturates Screen Ur Phencyclidine Scrn Ur Amphetamines Screen U Benzodiazepines Scrn Urine Cocaine Screen U Marijuana (THC) Screen Drugs of Abuse Note 09/02/21 09/02/21 09/02/21 18:40 18:44 18:44 WBC RBC Hgb Hct MCV MCH MCHC RDW Plt Count Add Manual Diff Total Counted Seg Neutrophils % Seg Neuts % (Manual) Band Neutrophils % Lymphocytes % (Manual) Reactive Lymphs % (Man) Monocytes % (Manual) Eosinophils % (Manual) Basophils % (Manual) Metamyelocytes % Myelocytes % Promyelocytes % Blast Cells % Nucleated RBC % Seg Neutrophils # Man Band Neutrophils # Lymphocytes # (Manual) Abs React Lymphs (Man) Monocytes # (Manual) Eosinophils # (Manual) Basophils # (Manual) Metamyelocytes # Myelocytes # Promyelocytes # Blast Cells # WBC Morphology Hypersegmented Neuts Hyposegmented Neuts Hypogranular Neuts Smudge Cells Toxic Granulation Toxic Vacuolation Dohle Bodies Pelger-Huet Anomaly Kaushik Rods Platelet Estimate Clumped Platelets Plt Clumps, EDTA Large Platelets Giant Platelets Platelet Satelliting Plt Morphology Comment RBC Morphology Dimorphic RBCs Polychromasia Hypochromasia Poikilocytosis Anisocytosis Microcytosis Macrocytosis Spherocytes Pappenheimer Bodies Sickle Cells Target Cells Tear Drop Cells Ovalocytes Stomatocytes Helmet Cells Lim-Warner Bodies [place] Rings Star Cells Bite Cells Crenated Cell Elliptocytes Acanthocytes (Spur) Rouleaux Hemoglobin C Crystals Schistocytes Malaria parasites Tanner Bodies Hem Pathologist Commnt ABG pH 7.385 ABG pCO2 66.9 ABG pO2 202.5 H ABG HCO3 39.2 H ABG O2 Saturation 99.2 H ABG O2 Content 15.4 ABG Base Excess 11.8 H ABG Hemoglobin 11.0 L ABG Carboxyhemoglobin 2.2 ABG Methemoglobin 0.6 Oxyhemoglobin 96.4 FiO2 100 Sodium Potassium Chloride Carbon Dioxide Anion Gap BUN Creatinine Estimated GFR BUN/Creatinine Ratio Glucose POC Glucose Lactic Acid Calcium Magnesium 2.20 Total Bilirubin Direct Bilirubin Indirect Bilirubin AST ALT Alkaline Phosphatase Troponin T NT-Pro-B Natriuret Pep Total Protein Albumin Albumin/Globulin Ratio Procalcitonin TSH 0.501 Free T4 1.27 Urine Color Urine Turbidity Urine pH Ur Specific [place] Urine Protein Urine Glucose (UA) Urine Ketones Urine Blood Urine Nitrite Ur Reducing Substances Urine Bilirubin Urine Ictotest Urine Urobilinogen Ur Leukocyte Esterase Urine WBC (Auto) Urine RBC (Auto) Urine Mucus Urine Opiates Screen Urine Methadone Screen Ur Barbiturates Screen Ur Phencyclidine Scrn Ur Amphetamines Screen U Benzodiazepines Scrn Urine Cocaine Screen U Marijuana (THC) Screen Drugs of Abuse Note 09/02/21 09/03/21 09/03/21 23:09 02:49 02:49 WBC RBC Hgb Hct MCV MCH MCHC RDW Plt Count Add Manual Diff Total Counted Seg Neutrophils % Seg Neuts % (Manual) Band Neutrophils % Lymphocytes % (Manual) Reactive Lymphs % (Man) Monocytes % (Manual) Eosinophils % (Manual) Basophils % (Manual) Metamyelocytes % Myelocytes % Promyelocytes % Blast Cells % Nucleated RBC % Seg Neutrophils # Man Band Neutrophils # Lymphocytes # (Manual) Abs React Lymphs (Man) Monocytes # (Manual) Eosinophils # (Manual) Basophils # (Manual) Metamyelocytes # Myelocytes # Promyelocytes # Blast Cells # WBC Morphology Hypersegmented Neuts Hyposegmented Neuts Hypogranular Neuts Smudge Cells Toxic Granulation Toxic Vacuolation Dohle Bodies Pelger-Huet Anomaly Kaushik Rods Platelet Estimate Clumped Platelets Plt Clumps, EDTA Large Platelets Giant Platelets Platelet Satelliting Plt Morphology Comment RBC Morphology Dimorphic RBCs Polychromasia Hypochromasia Poikilocytosis Anisocytosis Microcytosis Macrocytosis Spherocytes Pappenheimer Bodies Sickle Cells Target Cells Tear Drop Cells Ovalocytes Stomatocytes Helmet Cells Lim-Warner Bodies [place] Rings Jerry Cells Bite Cells Crenated Cell Elliptocytes Acanthocytes (Spur) Rouleaux Hemoglobin C Crystals Schistocytes Malaria parasites Tanner Bodies Hem Pathologist Commnt ABG pH ABG pCO2 ABG pO2 ABG HCO3 ABG O2 Saturation ABG O2 Content ABG Base Excess ABG Hemoglobin ABG Carboxyhemoglobin ABG Methemoglobin Oxyhemoglobin FiO2 Sodium Potassium Chloride Carbon Dioxide Anion Gap BUN Creatinine Estimated GFR BUN/Creatinine Ratio Glucose POC Glucose 154 H Lactic Acid Calcium Magnesium Total Bilirubin Direct Bilirubin Indirect Bilirubin AST ALT Alkaline Phosphatase Troponin T NT-Pro-B Natriuret Pep Total Protein Albumin Albumin/Globulin Ratio Procalcitonin TSH Free T4 Urine Color Yellow Urine Turbidity Slightly cloudy Urine pH 6.0 Ur Specific [place] 1.030 Urine Protein <15 mg/dl Urine Glucose (UA) Negative Urine Ketones Negative Urine Blood Negative Urine Nitrite Negative Ur Reducing Substances Not Reportable Urine Bilirubin Negative Urine Ictotest Not Reportable Urine Urobilinogen < 2.0 Ur Leukocyte Esterase Negative Urine WBC (Auto) 1.0 Urine RBC (Auto) 2.0 Urine Mucus Few Urine Opiates Screen Presumptive negative Urine Methadone Screen Presumptive negative Ur Barbiturates Screen Presumptive negative Ur Phencyclidine Scrn Presumptive negative Ur Amphetamines Screen Presumptive negative U Benzodiazepines Scrn Presumptive negative Urine Cocaine Screen Presumptive negative U Marijuana (THC) Screen Presumptive positive Drugs of Abuse Note Disclamer 09/03/21 09/03/21 09/03/21 04:08 04:53 04:53 WBC 5.8 RBC 3.88 Hgb 10.3 L Hct 32.1 L MCV 83 L MCH 27 L MCHC 32 RDW 18.3 H Plt Count 216 Add Manual Diff Complete Total Counted 100 Seg Neutrophils % Wine Bottle Inspector Seg Neuts % (Manual) 94.0 H Band Neutrophils % 0 Lymphocytes % (Manual) 3.0 L Reactive Lymphs % (Man) 0 Monocytes % (Manual) 3.0 Eosinophils % (Manual) 0 Basophils % (Manual) 0 Metamyelocytes % 0 Myelocytes % 0 Promyelocytes % 0 Blast Cells % 0 Nucleated RBC % Not Reportable Seg Neutrophils # Man 5.5 Band Neutrophils # 0.0 Lymphocytes # (Manual) 0.2 L Abs React Lymphs (Man) 0.0 Monocytes # (Manual) 0.2 Eosinophils # (Manual) 0.0 Basophils # (Manual) 0.0 Metamyelocytes # 0.0 Myelocytes # 0.0 Promyelocytes # 0.0 Blast Cells # 0.0 WBC Morphology Not Reportable Hypersegmented Neuts Not Reportable Hyposegmented Neuts Not Reportable Hypogranular Neuts Not Reportable Smudge Cells Not Reportable Toxic Granulation Not Reportable Toxic Vacuolation Not Reportable Dohle Bodies Not Reportable Pelger-Huet Anomaly Not Reportable Kaushik Rods Not Reportable Platelet Estimate Consistent w auto Clumped Platelets Not Reportable Plt Clumps, EDTA Not Reportable Large Platelets Not Reportable Giant Platelets Not Reportable Platelet Satelliting Not Reportable Plt Morphology Comment Not Reportable RBC Morphology Not Reportable Dimorphic RBCs Not Reportable Polychromasia Not Reportable Hypochromasia Not Reportable Poikilocytosis Not Reportable Anisocytosis 1+ Microcytosis Not Reportable Macrocytosis Not Reportable Spherocytes Not Reportable Pappenheimer Bodies Not Reportable Sickle Cells Not Reportable Target Cells Not Reportable Tear Drop Cells Not Reportable Ovalocytes Not Reportable Stomatocytes Helmet Cells Not Reportable Lim-Warner Bodies Not Reportable [place] Rings Not Reportable Star Cells Not Reportable Bite Cells Not Reportable Crenated Cell Not Reportable Elliptocytes Not Reportable Acanthocytes (Spur) Not Reportable Rouleaux Not Reportable Hemoglobin C Crystals Not Reportable Schistocytes Not Reportable Malaria parasites Not Reportable Tanner Bodies Not Reportable Hem Pathologist Commnt No ABG pH 7.436 ABG pCO2 64.6 ABG pO2 69.0 L ABG HCO3 42.5 H ABG O2 Saturation 96.6 ABG O2 Content 14.1 ABG Base Excess 15.7 H ABG Hemoglobin 10.6 L ABG Carboxyhemoglobin 1.7 ABG Methemoglobin 0.5 Oxyhemoglobin 94.5 L FiO2 45 Sodium 144 Potassium 4.2 D Chloride 96.6 L Carbon Dioxide 38 H Anion Gap 14 BUN 25 H Creatinine 0.8 Estimated GFR > 60 BUN/Creatinine Ratio 31 Glucose 130 H POC Glucose Lactic Acid Calcium 9.1 Magnesium Total Bilirubin Direct Bilirubin Indirect Bilirubin AST ALT Alkaline Phosphatase Troponin T NT-Pro-B Natriuret Pep Total Protein Albumin Albumin/Globulin Ratio Procalcitonin TSH Free T4 Urine Color Urine Turbidity Urine pH Ur Specific [place] Urine Protein Urine Glucose (UA) Urine Ketones Urine Blood Urine Nitrite Ur Reducing Substances Urine Bilirubin Urine Ictotest Urine Urobilinogen Ur Leukocyte Esterase Urine WBC (Auto) Urine RBC (Auto) Urine Mucus Urine Opiates Screen Urine Methadone Screen Ur Barbiturates Screen Ur Phencyclidine Scrn Ur Amphetamines Screen U Benzodiazepines Scrn Urine Cocaine Screen U Marijuana (THC) Screen Drugs of Abuse Note 09/03/21 09/03/21 09/03/21 06:05 10:13 10:13 WBC RBC Hgb Hct MCV MCH MCHC RDW Plt Count Add Manual Diff Total Counted Seg Neutrophils % Seg Neuts % (Manual) Band Neutrophils % Lymphocytes % (Manual) Reactive Lymphs % (Man) Monocytes % (Manual) Eosinophils % (Manual) Basophils % (Manual) Metamyelocytes % Myelocytes % Promyelocytes % Blast Cells % Nucleated RBC % Seg Neutrophils # Man Band Neutrophils # Lymphocytes # (Manual) Abs React Lymphs (Man) Monocytes # (Manual) Eosinophils # (Manual) Basophils # (Manual) Metamyelocytes # Myelocytes # Promyelocytes # Blast Cells # WBC Morphology Hypersegmented Neuts Hyposegmented Neuts Hypogranular Neuts Smudge Cells Toxic Granulation Toxic Vacuolation Dohle Bodies Pelger-Huet Anomaly Kaushik Rods Platelet Estimate Clumped Platelets Plt Clumps, EDTA Large Platelets Giant Platelets Platelet Satelliting Plt Morphology Comment RBC Morphology Dimorphic RBCs Polychromasia Hypochromasia Poikilocytosis Anisocytosis Microcytosis Macrocytosis Spherocytes Pappenheimer Bodies Sickle Cells Target Cells Tear Drop Cells Ovalocytes Stomatocytes Helmet Cells Lim-Warner Bodies [place] Rings Jerry Cells Bite Cells Crenated Cell Elliptocytes Acanthocytes (Spur) Rouleaux Hemoglobin C Crystals Schistocytes Malaria parasites Tanner Bodies Hem Pathologist Commnt ABG pH ABG pCO2 ABG pO2 ABG HCO3 ABG O2 Saturation ABG O2 Content ABG Base Excess ABG Hemoglobin ABG Carboxyhemoglobin ABG Methemoglobin Oxyhemoglobin FiO2 Sodium Potassium Chloride Carbon Dioxide Anion Gap BUN Creatinine Estimated GFR BUN/Creatinine Ratio Glucose POC Glucose 145 H Lactic Acid Calcium Magnesium Total Bilirubin 0.50 Direct Bilirubin 0.2 Indirect Bilirubin 0.3 AST 18 ALT 16 Alkaline Phosphatase 110 Troponin T NT-Pro-B Natriuret Pep Total Protein 6.4 Albumin 3.2 L Albumin/Globulin Ratio 1.0 Procalcitonin 0.27 TSH Free T4 Urine Color Urine Turbidity Urine pH Ur Specific [place] Urine Protein Urine Glucose (UA) Urine Ketones Urine Blood Urine Nitrite Ur Reducing Substances Urine Bilirubin Urine Ictotest Urine Urobilinogen Ur Leukocyte Esterase Urine WBC (Auto) Urine RBC (Auto) Urine Mucus Urine Opiates Screen Urine Methadone Screen Ur Barbiturates Screen Ur Phencyclidine Scrn Ur Amphetamines Screen U Benzodiazepines Scrn Urine Cocaine Screen U Marijuana (THC) Screen Drugs of Abuse Note 09/03/21 11:11 WBC RBC Hgb Hct MCV MCH MCHC RDW Plt Count Add Manual Diff Total Counted Seg Neutrophils % Seg Neuts % (Manual) Band Neutrophils % Lymphocytes % (Manual) Reactive Lymphs % (Man) Monocytes % (Manual) Eosinophils % (Manual) Basophils % (Manual) Metamyelocytes % Myelocytes % Promyelocytes % Blast Cells % Nucleated RBC % Seg Neutrophils # Man Band Neutrophils # Lymphocytes # (Manual) Abs React Lymphs (Man) Monocytes # (Manual) Eosinophils # (Manual) Basophils # (Manual) Metamyelocytes # Myelocytes # Promyelocytes # Blast Cells # WBC Morphology Hypersegmented Neuts Hyposegmented Neuts Hypogranular Neuts Smudge Cells Toxic Granulation Toxic Vacuolation Dohle Bodies Pelger-Huet Anomaly Kaushik Rods Platelet Estimate Clumped Platelets Plt Clumps, EDTA Large Platelets Giant Platelets Platelet Satelliting Plt Morphology Comment RBC Morphology Dimorphic RBCs Polychromasia Hypochromasia Poikilocytosis Anisocytosis Microcytosis Macrocytosis Spherocytes Pappenheimer Bodies Sickle Cells Target Cells Tear Drop Cells Ovalocytes Stomatocytes Helmet Cells [place] B[place] Rings Star Cells Bite Cells Crenated Cell Elliptocytes Acanthocytes (Spur) Rouleaux Hemoglobin C Crystals Schistocytes Malaria parasites Tanner Bodies Hem Pathologist Commnt ABG pH ABG pCO2 ABG pO2 ABG HCO3 ABG O2 Saturation ABG O2 Content ABG Base Excess ABG Hemoglobin ABG Carboxyhemoglobin ABG Methemoglobin Oxyhemoglobin FiO2 Sodium Potassium Chloride Carbon Dioxide Anion Gap BUN Creatinine Estimated GFR BUN/Creatinine Ratio Glucose POC Glucose 158 H Lactic Acid Calcium Magnesium Total Bilirubin Direct Bilirubin Indirect Bilirubin AST ALT Alkaline Phosphatase Troponin T NT-Pro-B Natriuret Pep Total Protein Albumin Albumin/Globulin Ratio Procalcitonin TSH Free T4 Urine Color Urine Turbidity Urine pH Ur Specific [place] Urine Protein Urine Glucose (UA) Urine Ketones Urine Blood Urine Nitrite Ur Reducing Substances Urine Bilirubin Urine Ictotest Urine Urobilinogen Ur Leukocyte Esterase Urine WBC (Auto) Urine RBC (Auto) Urine Mucus Urine Opiates Screen Urine Methadone Screen Ur Barbiturates Screen Ur Phencyclidine Scrn Ur Amphetamines Screen U Benzodiazepines Scrn Urine Cocaine Screen U Marijuana (THC) Screen Drugs of Abuse Note
--- NOTE | 2021-09-03 14:34 | Consultation ---
History of Present Illness Consult date: 09/03/21 Requesting physician: ELVIN DE LEÓN History of present illness: Patient is a 61-year-old male with a reported past medical history of COPD on home O2, CHF, nicotine dependence reported to the ED with a complaint of difficulty in breathing. History was taken from chart due to patient being intubated and sedated at time of interview. Per documentation EMS was notified and came to evaluate patient and found patient to be in respiratory distress with a pulse ox in the 60s patient was transferred to the ED for further evaluation patient was eventually intubated and placed on 2 ventilator support due to respiratory distress. CXR showed pneumonia. CT chest showed suspected lung malignancy. Patient is previously unknown to our practice. Cardiology consulted for CHF. Past History Past Medical History: COPD, heart failure, other (See HPI) Past Surgical History: No surgical history, Other (Reviewed) Social history: single, smoking Family history: hypertension Medications and Allergies Allergies Allergy/AdvReac Type Severity Reaction Status Date / Time levofloxacin [From Levaquin] Allergy Rash Verified 09/02/21 15:43 Home Medications Medication Instructions Recorded Confirmed Last Taken Type ALBUTEROL NEB's [Proventil 0.083% 2.5 mg IH TID PRN 09/02/21 09/02/21 Unknown History NEBS] Arformoterol Nebu [Brovana Nebu] 15 mcg IH Q12HR 09/02/21 09/02/21 Unknown History Budesonide [Pulmicort] 0.5 mg IH Q12HR 09/02/21 09/02/21 Unknown History Levothyroxine [Synthroid] 100 mcg PO QAM 09/02/21 09/02/21 Unknown History Mometasone/Formoterol [Dulera 200 8.8 gm IH BID 09/02/21 09/02/21 Unknown Hi story Mcg-5 Mcg Inhaler] Active Meds: Active Medications Acetaminophen (Acetaminophen 325 Mg Tab) 650 mg PO Q6H PRN PRN Reason: Pain MILD(1-3)/Fever >100.5/ZAVALA Albuterol (Albuterol 2.5 Mg/3 Ml Nebu) 2.5 mg IH Q3HRT PRN PRN Reason: Shortness Of Breath Last Admin: 09/03/21 00:23 Dose: 2.5 mg Arformoterol Tartrate (Arformoterol 15 Mcg/2 Ml Nebu) 15 mcg IH Q12HR MAE Last Admin: 09/03/21 09:37 Dose: 15 mcg Azithromycin (Azithromycin 250 Mg Tab) 500 mg PO QDAY [facility]; Protocol Stop: 09/06/21 10:01 Last Admin: 09/03/21 10:07 Dose: 500 mg Budesonide (Budesonide 0.5 Mg/2 Ml Nebu) 0.5 mg IH Q12HR MAE Last Admin: 09/03/21 09:37 Dose: 0.5 mg Famotidine (Famotidine 20 Mg Tab) 20 mg FEEDTUBE BID MAE Fentanyl (Fentanyl 100 Mcg/2 Ml Inj) 50 mcg IV Q10MIN PRN PRN Reason: ANALGESIA Last Admin: 09/03/21 13:09 Dose: 50 mcg Furosemide (Furosemide 20 Mg/2 Ml Inj) 20 mg IV BID@0600,1800 [facility] Last Admin: 09/03/21 05:55 Dose: 20 mg Heparin Sodium (Porcine) (Heparin 10,000 Units/10 Ml Vial) 8,900 unit 70 unit/kg (8900 unit) IV ONCE@1430 [facility] Stop: 09/03/21 15:30 Hydromorphone HCl (Hydromorphone 0.5 Mg/0.5 Ml Inj) 0.5 mg IV Q8H PRN PRN Reason: Pain , Severe (7-10) Hydrophilic Ointment (Lip Therapy Vaseline) 1 applic TP Q2HR PRN PRN Reason: Dry Lips Propofol (Diprivan 10 Mg/Ml) 1,000 mg in 100 mls @ 4.082 mls/hr IV TITR [facility]; Protocol Last Titration: 09/03/21 13:58 Dose: 10 mcg/kg/min, 8.165 mls/hr Ceftriaxone Sodium (Rocephin/Ns 2 Gm/100 Ml) 2 gm in 100 mls @ 200 mls/hr IV Q24H [facility]; Protocol Stop: 09/06/21 20:29 Fentanyl Citrate (Fentanyl Drip Premix) 2,000 mcg in 100 mls @ 6.352 mls/hr IV TITR [facility]; Protocol Last Titration: 09/03/21 13:56 Dose: 2 mcg/kg/hr, 12.705 mls/hr Heparin Sodium/Sodium Chloride (Heparin/ 0.45% Nacl-25,000 Unit/500 Ml) 25,000 unit in 500 mls @ 30 mls/hr IV TITR [facility]; Protocol Levothyroxine Sodium (Levothyroxine 100 Mcg Tab) 100 mcg PO QAM@0600 [facility] Last Admin: 09/03/21 10:10 Dose: 100 mcg Methylprednisolone Sodium Succinate (Methylprednisolone Sod Succinate 40 Mg/1 Ml Inj) 40 mg IV Q8H [facility] Last Admin: 09/03/21 12:24 Dose: 40 mg Metoprolol Tartrate (Metoprolol Tartrate 5 Mg/5 Ml Inj) 2.5 mg IV ONCE@1345 [facility] Stop: 09/03/21 17:45 Metoprolol Tartrate (Metoprolol Tartrate 25 Mg Tab) 12.5 mg FEEDTUBE BID [facility] Multi-Ingred Cream/Lotion/Oil/Oint (Mineral Oil/Petrolatum, White Ophth Oint 3.5 Gm) 1 applic OU Q4HR PRN PRN Reason: Dry Eye(s) Oxycodone/Acetaminophen (Oxycodone /Acetaminophen 5-325mg Tab) 1 tab PO Q6H PRN PRN Reason: Pain, Moderate (4-6) Senna/Docusate Sodium (Sennosides/Docusate Sodium 8.6/50 Mg Tab) 1 tab FEEDTUBE BID [facility] Sodium Chloride (Sodium Chloride 0.9% 10 Ml Flush Syringe) 10 ml IV BID [facility] Last Admin: 09/03/21 10:06 Dose: 10 ml Sodium Chloride (Sodium Chloride 0.9% 10 Ml Flush Syringe) 10 ml IV PRN PRN PRN Reason: LINE FLUSH Review of Systems ROS unobtainable: due to endotracheal tube Physical Examination Vital Signs Pulse Resp Pulse Ox 101 H 35 H 87 09/02/21 14:55 09/02/21 14:55 09/02/21 14:55 General appearance: other (intubated and sedated) HEENT: Positive: Mucus Membranes Moist Neck: Positive: trachea midline Cardiac: Positive: Reg Rate and Rhythm Lungs: Positive: Ventilated Respirations Neuro: Positive: Other (unable to assess) Abdomen: Positive: Soft Skin: Negative: Rash, Suspicious Lesions, Ulceration Extremities: Present: upper extr. pulses, edema Results 09/03/21 04:53 09/03/21 04:53 Cardiac Enzymes 09/03/21 Range/Units 10:13 AST 18 (5-40) units/L CBC 09/02/21 09/03/21 Range/Units 16:21 04:53 WBC 8.6 5.8 (4.5-11.0) K/mm3 RBC 4.27 3.88 (3.65-5.03) M/mm3 Hgb 11.4 L 10.3 L (11.8-15.2) gm/dl Hct 36.0 32.1 L (35.5-45.6) % Plt Count 224 216 (140-440) K/mm3 Comprehensive Metabolic Panel 09/02/21 09/03/21 09/03/21 Range/Units 16:21 04:53 10:13 Sodium 141 144 (137-145) mmol/L Potassium 5.9 H 4.2 D (3.6-5.0) mmol/L Chloride 96.4 L 96.6 L (98-107) mmol/L Carbon Dioxide 32 H 38 H (22-30) mmol/L BUN 18 25 H (9-20) mg/dL Creatinine 0.8 0.8 (0.8-1.3) mg/dL Glucose 101 H 130 H (75-100) mg/dL Calcium 8.9 9.1 (8.4-10.2) mg/dL Direct Bilirubin 0.2 (0-0.2) mg/dL Indirect Bilirubin 0.3 mg/dL AST 18 (5-40) units/L ALT 16 (7-56) units/L Alkaline Phosphatase 110 (35-129) units/L Total Protein 6.4 (6.3-8.2) g/dL Albumin 3.2 L (3.9-5) g/dL - Imaging and Cardiology Echo: report reviewed EKG interpretations - Telemetry EKG Rhythm: Sinus Rhythm - EKG Sinus rhythms and dysrhythmias: sinus rhythm AV and intraventricular conduction: right bundle branch block Assessment and Plan Patient is a 61-year-old male with a reported past medical history of COPD on home O2, CHF, nicotine dependence reported to the ED with a complaint of difficulty in breathing Acute on chronic respiratory failure-pulmonology following Acute HFpEF Right upper lung mass History of lung cancer (per documentation patient is in remission) A flutter with RVR PUI Obesity Nicotine dependence Echo 09/02/2021-EF 50 to 55% transmitral Doppler flow (impaired relaxation. Flattened septum consistent with right ventricular volume overload. Right ventricle is dilated. Mild aortic stenosis. Trace tricuspid regurgitation. Mild pulmonary hypertension Plan: EKG shows sinus tach with PAC, RBBB. No acute ischemic change. Troponins negative x1 BNP noted to be elevated, and echo consistent with right ventricular volume overload. Agree with diuresis with Lasix IV Strict I&O's, daily weights, close monitoring of renal function This afternoon patient had a brief episode of what appears to be a flutter with 2-1 conduction we will initiate anticoagulation with heparin drip Initiate metoprolol 12.5 mg p.o. twice daily for rate control Will hold ISA or ARB due to soft BPs Patient seen in conjunction with Dr. Lund who agrees with this plan of care 30min of critical care time spent in care and coordination of patient
[2021-09-03] MEDS: HEPARIN/ 0.45% NACL DRIP 25,000 UNIT/500 ML BAG IV SCH (15:10)
[2021-09-03] MEDS: METOPROLOL TARTRATE 25 MG TAB FEEDTUBE SCH ×2 (15:10→22:21)
[2021-09-03 15:53] LABS: Hematocrit 33.1 % (35.5-45.6); Hemoglobin 10.7 gm/dl (11.8-15.2)
[2021-09-03 16:09] LABS: Partial Thromboplastin Time 22.9 Sec. (24.2-36.6)
[2021-09-03] MEDS: cefTRIAXone/NS 2 GM/100 ML 2 GM/100 ML BAG IV SCH (20:24)
[2021-09-03] MEDS: SENNOSIDES/DOCUSATE SODIUM 8.6/50 MG TAB FEEDTUBE SCH (22:21)
[2021-09-03] MEDS: FAMOTIDINE 20 MG TAB FEEDTUBE SCH (22:21)
[2021-09-04] MEDS: fentaNYL DRIP Premix 2,000 MCG/100 ML BAG IV SCH ×4 (03:45→22:09)
[2021-09-04] MEDS: methylPREDNISolone Sod Succinate 40 MG/1 ML INJ IV SCH ×2 (04:56→22:43)
[2021-09-04] MEDS: FUROSEMIDE 20 MG/2 ML INJ IV SCH ×2 (05:16→17:00)
[2021-09-04] MEDS: LEVOTHYROXINE 100 MCG TAB PO SCH (05:16)
[2021-09-04 05:18] LABS: BUN/Creatinine Ratio 43; Blood Urea Nitrogen 43 mg/dL (9-20); Calcium 8.9 mg/dL (8.4-10.2); Hemolysis Index 17; Iron 63 ug/dL (49-181); Total Iron Binding Capacity 176 mcg/dL (250-450)
--- NOTE | 2021-09-04 05:36 | XRay Report ---
CHEST 1 VIEW INDICATION / CLINICAL INFORMATION: follow up respiratory failure. COMPARISON: Chest x-ray 09/02/2021 FINDINGS: SUPPORT DEVICES: Tubes are stable in position and satisfactory in position. HEART / MEDIASTINUM: Cardiomegaly unchanged. LUNGS / PLEURA: Improving basilar markings and improving lung opacities persist opacities right lung base. BONES: No significant osseous abnormality. ADDITIONAL FINDINGS: No significant additional findings. IMPRESSION: 1. Interval improvement. Signer Name: Rip Cresw II, MD Signed: 09/04/2021 5:32 AM Workstation Name: [id number]
[2021-09-04 06:42] LABS: ABG Base Excess 15.2 mmol/L (-2.0-3.0); ABG HCO3 44.2 mmol/L (20.0-26.0); ABG Methemoglobin 0.5 % (0.0-1.5); ABG Oxygen Saturation 94.9 % (95.0-99.0); ABG PCO2 79.7 mm Hg; ABG PH 7.361 pH Units (7.350-7.450); ABG PO2 72.2 mm Hg (80.0-90.0)
[2021-09-04] MEDS: HEPARIN/ 0.45% NACL DRIP 25,000 UNIT/500 ML BAG IV SCH ×2 (07:10→22:42)
[2021-09-04] MEDS ORDERED: LEVOTHYROXINE 100 MCG INJ IV SCH (07:25)
[2021-09-04] MEDS ORDERED: DEXTROSE 50% IN WATER (25GM) 50 ML SYRINGE IV PRN (08:02)
[2021-09-04] MEDS: INSULIN REGULAR, HUMAN 100 UNITS/1 ML SUB-Q SCH ×4 (09:27→17:21)
[2021-09-04] MEDS: SENNOSIDES/DOCUSATE SODIUM 8.6/50 MG TAB FEEDTUBE SCH ×2 (09:33→22:45)
[2021-09-04] MEDS: METOPROLOL TARTRATE 25 MG TAB FEEDTUBE SCH ×2 (09:33→22:44)
[2021-09-04] MEDS: FAMOTIDINE 20 MG TAB FEEDTUBE SCH ×2 (09:34→22:43)
[2021-09-04] MEDS: AZITHROMYCIN 250 MG TAB PO SCH (09:34)
--- NOTE | 2021-09-04 09:39 | Electrocardiograph Report ---
[facility] Test Date: 2021-09-03 Test Time: 12:58:34 Pat Name: LACY DE LA TORRE Department: Room: A256 1 Gender: M Back End Engineer: NURSE : [id number] Requested By: DAVIS NUÑEZ Order Number: [id number] Reading MD: Gregorio Lund Measurements Intervals [place] Rate: 146 P: 0 TN: 34 QRS: 99 QRSD: 138 T: 36 QT: 338 QTc: 527 Interpretive Statements Sinus tachycardia Right bundle branch block Probable posterior infarct, acute Lateral leads are also involved Compared to ECG 09/02/2021 14:54:02 Atrial premature complex(es) no longer present Myocardial infarct finding still present Electronically Signed On 09-04-2021 9:38:53 EDT by Gregorio Lund
[2021-09-04] MEDS: ARFORMOTEROL 15 MCG/2 ML NEBU IH SCH ×2 (10:39→23:31)
[2021-09-04] MEDS: BUDESONIDE 0.5 MG/2 ML NEBU IH SCH ×2 (10:40→23:31)
--- NOTE | 2021-09-04 11:18 | Progress Note ---
Assessment and Plan - reduced FiO2 to 40% - reduced set rate to 20/min - begin Doxazosin re: retention - reduce Solumedrol to 40 mg q12h - 2D ECHO reveals HFpEF and Pulm HTN (mild to moderate) - Heme/Onc evaluation ongoing - continue to wean supplemental oxygen for target O2 sat's > 90% acutely - VAP bundle addressed - continue lung protective strategies - continue bronchodilators with pulmonary hygiene per RT - wean per pulmonary driven protocols otherwise - avoid nephrotoxins, renally dose all medications - continue Daily SAT and SBT assessment as tolerated - continue accuchecks with glycemic control per SSI (While critically ill target blood glucose of 140-180 mg/dL; avoid hypoglycemia) - sedation prn for target RASS 0 to -1 - continue to avoid benzodiazepine's, reduce the possibility of delirium - AB's per ID rec's (Rocephin and Vancomycin) - prn analgesia per CPOT score - Maintenance of sleep-wake cycle, avoid delirium - continue enteral nutritional support at goal rate as tolerated - G.I. & VTE prophylaxis - PT/OT/ROM exercises - continue mobility protocols for pressure ulcer prophylaxis - Monitor hemodynamics closely - continue other care per attending / other consultants - discharge planning ongoing concurrently COVID SPECIFIC INTERVENTIONS - COVID-19 PCR negative .... Re-evaluate in am & prn CONDITION: CRITICAL PROGNOSIS: GUARDED CODE STATUS: FULL CODE The high probability of a clinically significant, sudden or life-threatening deterioration of the [respiratory, cardiovascular, GI & neurologic] system(s) required my full and direct attention, intervention and personal management. The aggregate critical care time was [33] minutes without overlap. Time includes spent on; [x] Data Review and interpretation [x] Patient assessment and monitoring of vital signs [x] Documentation [x] Medication orders and management Subjective Date of service: 09/04/21 Interval history: Patient is seen today for: Seen and examined at bedside; 24hour events reviewed; nursing and respiratory care staff consulted; no adverse overnight events reported to me; resting in bed; remains on MVS; COVID-19 PCR negative; following commands well; FiO2 at 50% with room to wean; gillette replaced due to urinary retention; No N/V/F/C Objective Vital Signs - 12hr 09/03/21 09/03/21 09/03/21 23:19 23:21 23:30 Temperature Pulse Rate 63 63 62 Pulse Rate [ Anterior Left] Pulse Rate [ From Monitor] Respiratory 21 25 H 7 L Rate Respiratory Rate [Anterior Left] Blood Pressure 107/54 107/54 108/46 O2 Sat by Pulse 96 97 96 Oximetry 09/03/21 09/03/21 09/03/21 23:40 23:51 23:56 Temperature 97.6 F Pulse Rate 62 61 Pulse Rate [ Anterior Left] Pulse Rate [ From Monitor] Respiratory 24 10 L Rate Respiratory Rate [Anterior Left] Blood Pressure 108/46 100/41 O2 Sat by Pulse 96 97 Oximetry 09/04/21 09/04/21 09/04/21 00:00 00:11 00:21 Temperature Pulse Rate 60 60 61 Pulse Rate [ Anterior Left] Pulse Rate [ 63 From Monitor] Respiratory 11 L 24 24 Rate Respiratory Rate [Anterior Left] Blood Pressure 107/52 108/46 104/53 O2 Sat by Pulse 96 97 97 Oximetry 09/04/21 09/04/21 09/04/21 00:31 00:41 00:51 Temperature Pulse Rate 62 62 61 Pulse Rate [ Anterior Left] Pulse Rate [ From Monitor] Respiratory 12 8 L 24 Rate Respiratory Rate [Anterior Left] Blood Pressure 98/61 98/61 110/55 O2 Sat by Pulse 97 98 97 Oximetry 09/04/21 09/04/21 09/04/21 01:01 01:11 01:21 Temperature Pulse Rate 61 59 L 61 Pulse Rate [ Anterior Left] Pulse Rate [ From Monitor] Respiratory 24 24 18 Rate Respiratory Rate [Anterior Left] Blood Pressure 106/55 106/55 106/55 O2 Sat by Pulse 98 97 97 Oximetry 09/04/21 09/04/21 09/04/21 01:30 01:41 01:51 Temperature Pulse Rate 60 61 60 Pulse Rate [ Anterior Left] Pulse Rate [ From Monitor] Respiratory 7 L 20 21 Rate Respiratory Rate [Anterior Left] Blood Pressure 101/51 101/51 109/49 O2 Sat by Pulse 97 97 96 Oximetry 09/04/21 09/04/21 09/04/21 02:01 02:11 02:21 Temperature Pulse Rate 60 59 L 62 Pulse Rate [ Anterior Left] Pulse Rate [ From Monitor] Respiratory 21 19 12 Rate Respiratory Rate [Anterior Left] Blood Pressure 103/56 103/56 93/63 O2 Sat by Pulse 97 97 97 Oximetry 09/04/21 09/04/21 09/04/21 02:30 02:41 02:51 Temperature Pulse Rate 60 60 62 Pulse Rate [ Anterior Left] Pulse Rate [ From Monitor] Respiratory 24 11 L 21 Rate Respiratory Rate [Anterior Left] Blood Pressure 105/54 105/54 107/50 O2 Sat by Pulse 97 97 99 Oximetry 09/04/21 09/04/21 09/04/21 03:01 03:11 03:21 Temperature Pulse Rate 64 61 62 Pulse Rate [ Anterior Left] Pulse Rate [ From Monitor] Respiratory 24 18 9 L Rate Respiratory Rate [Anterior Left] Blood Pressure 111/48 111/48 108/54 O2 Sat by Pulse 98 97 97 Oximetry 09/04/21 09/04/21 09/04/21 03:30 03:41 03:51 Temperature Pulse Rate 60 61 65 Pulse Rate [ Anterior Left] Pulse Rate [ From Monitor] Respiratory 14 8 L 19 Rate Respiratory Rate [Anterior Left] Blood Pressure 111/59 108/54 105/59 O2 Sat by Pulse 99 97 99 Oximetry 09/04/21 09/04/21 09/04/21 04:00 04:01 04:11 Temperature 98.6 F Pulse Rate 62 63 Pulse Rate [ Anterior Left] Pulse Rate [ 63 From Monitor] Respiratory 24 24 24 Rate Respiratory Rate [Anterior Left] Blood Pressure 115/69 105/59 O2 Sat by Pulse 99 97 96 Oximetry 09/04/21 09/04/21 09/04/21 04:21 04:29 04:31 Temperature Pulse Rate 62 62 63 Pulse Rate [ Anterior Left] Pulse Rate [ From Monitor] Respiratory 21 14 Rate Respiratory Rate [Anterior Left] Blood Pressure 96/57 118/61 118/61 O2 Sat by Pulse 96 96 96 Oximetry 09/04/21 09/04/21 09/04/21 04:41 04:51 05:01 Temperature Pulse Rate 64 62 62 Pulse Rate [ Anterior Left] Pulse Rate [ From Monitor] Respiratory 18 16 12 Rate Respiratory Rate [Anterior Left] Blood Pressure 115/69 113/56 116/59 O2 Sat by Pulse 100 96 97 Oximetry 09/04/21 09/04/21 09/04/21 05:11 05:21 05:31 Temperature Pulse Rate 65 61 63 Pulse Rate [ Anterior Left] Pulse Rate [ From Monitor] Respiratory 13 6 L 11 L Rate Respiratory Rate [Anterior Left] Blood Pressure 116/59 125/59 118/67 O2 Sat by Pulse 98 96 96 Oximetry 07/26/22 07/26/22 07/26/22 05:41 05:51 06:01 Temperature Pulse Rate 63 60 60 Pulse Rate [ Anterior Left] Pulse Rate [ From Monitor] Respiratory 24 18 18 Rate Respiratory Rate [Anterior Left] Blood Pressure 118/67 106/50 114/53 O2 Sat by Pulse 96 96 96 Oximetry 09/04/21 09/04/21 09/04/21 06:11 06:21 06:31 Temperature Pulse Rate 61 62 62 Pulse Rate [ Anterior Left] Pulse Rate [ From Monitor] Respiratory 11 L 24 12 Rate Respiratory Rate [Anterior Left] Blood Pressure 114/53 113/63 98/60 O2 Sat by Pulse 95 98 96 Oximetry 09/04/21 09/04/21 09/04/21 06:41 06:51 07:01 Temperature Pulse Rate 62 62 61 Pulse Rate [ Anterior Left] Pulse Rate [ From Monitor] Respiratory 20 24 24 Rate Respiratory Rate [Anterior Left] Blood Pressure 98/60 110/57 119/57 O2 Sat by Pulse 96 95 98 Oximetry 09/04/21 09/04/21 09/04/21 07:09 07:11 07:21 Temperature 99.3 F Pulse Rate 62 60 Pulse Rate [ Anterior Left] Pulse Rate [ From Monitor] Respiratory 24 24 Rate Respiratory Rate [Anterior Left] Blood Pressure 119/57 111/52 O2 Sat by Pulse 97 98 Oximetry 09/04/21 09/04/21 09/04/21 07:30 07:40 07:51 Temperature Pulse Rate 60 60 61 Pulse Rate [ Anterior Left] Pulse Rate [ From Monitor] Respiratory 13 17 24 Rate Respiratory Rate [Anterior Left] Blood Pressure 111/58 111/58 120/71 O2 Sat by Pulse 98 97 100 Oximetry 09/04/21 09/04/21 09/04/21 08:00 08:01 08:11 Temperature Pulse Rate 62 59 L Pulse Rate [ Anterior Left] Pulse Rate [ 63 From Monitor] Respiratory 24 12 20 Rate Respiratory Rate [Anterior Left] Blood Pressure 111/51 111/51 O2 Sat by Pulse 99 96 97 Oximetry 09/04/21 09/04/21 09/04/21 08:15 08:21 08:31 Temperature Pulse Rate 60 62 68 Pulse Rate [ Anterior Left] Pulse Rate [ From Monitor] Respiratory 24 13 Rate Respiratory Rate [Anterior Left] Blood Pressure 119/57 103/56 112/69 O2 Sat by Pulse 97 98 100 Oximetry 09/04/21 09/04/21 09/04/21 08:41 08:51 09:01 Temperature Pulse Rate 64 64 63 Pulse Rate [ Anterior Left] Pulse Rate [ From Monitor] Respiratory 21 14 21 Rate Respiratory Rate [Anterior Left] Blood Pressure 112/69 111/73 111/60 O2 Sat by Pulse 97 97 97 Oximetry 09/04/21 09/04/21 09/04/21 09:11 09:33 10:41 Temperature Pulse Rate 61 59 L Pulse Rate [ 66 Anterior Left] Pulse Rate [ From Monitor] Respiratory 24 Rate Respiratory 24 Rate [Anterior Left] Blood Pressure 111/60 O2 Sat by Pulse 97 Oximetry 09/04/21 11:00 Temperature Pulse Rate 63 Pulse Rate [ Anterior Left] Pulse Rate [ From Monitor] Respiratory Rate Respiratory Rate [Anterior Left] Blood Pressure O2 Sat by Pulse 98 Oximetry Constitutional: no acute distress, other (middle aged morbidly obese male with mildly increased respiratory effort at rest) Eyes: non-icteric ENT: oropharynx moist, other (ETT 24 cm KIMBERLYN) Neck: supple, no lymphadenopathy, no JVD, other (large circumference) Effort: mildly labored Ascultation: Bilateral: diminished breath sounds, rhonchi Percussion: Bilateral: not dull Cardiovascular: regular rate and rhythm Gastrointestinal: normoactive bowel sounds, soft, non-tender, non-distended (protuberant) Integumentary: normal Extremities: no cyanosis, pink and warm, pulses normal, no ischemia or petechiae, edema Neurologic: non-focal exam (grossly), pupils equal and round, CN II-XII normal, motor strength normal and Psychiatric: other (unasble to assess re: AMS) CBC and BMP: 09/03/21 15:00 09/04/21 04:12 ABG, PT/INR, D-dimer: ABG ABG pH 7.361 pH Units (7.350-7.450) 09/04/21 06:35 ABG pCO2 79.7 mm Hg 09/04/21 06:35 ABG pO2 72.2 mm Hg (80.0-90.0) L 09/04/21 06:35 ABG O2 Saturation 94.9 % (95.0-99.0) L 09/04/21 06:35 PT/INR, D-dimer PT 14.3 Sec. (12.2-14.9) 09/03/21 15:00 INR 1.00 (0.87-1.13) 09/03/21 15:00 Abnormal lab findings: Abnormal Labs 09/02/21 09/02/21 09/02/21 15:50 16:21 16:21 Hgb 11.4 L Hct MCV MCH 27 L RDW 18.6 H Seg Neuts % (Manual) 92.0 H Lymphocytes % (Manual) 1.0 L Seg Neutrophils # Man 7.9 H Lymphocytes # (Manual) 0.1 L APTT Heparin Anti-Xa Level ABG pH 7.197 L* ABG pO2 98.8 H ABG HCO3 42.4 H ABG O2 Saturation ABG Base Excess 10.8 H ABG Hemoglobin 11.3 L Oxyhemoglobin 93.6 L Potassium 5.9 H Chloride 96.4 L Carbon Dioxide 32 H BUN Glucose 101 H POC Glucose Lactic Acid Phosphorus Magnesium TIBC Lactate Dehydrogenase NT-Pro-B Natriuret Pep 4080 H Albumin 09/02/21 09/02/21 09/02/21 16:21 17:42 18:40 Hgb Hct MCV MCH RDW Seg Neuts % (Manual) Lymphocytes % (Manual) Seg Neutrophils # Man Lymphocytes # (Manual) APTT Heparin Anti-Xa Level ABG pH ABG pO2 202.5 H ABG HCO3 39.2 H ABG O2 Saturation 99.2 H ABG Base Excess 11.8 H ABG Hemoglobin 11.0 L Oxyhemoglobin Potassium Chloride Carbon Dioxide BUN Glucose POC Glucose 113 H Lactic Acid 0.60 L Phosphorus Magnesium TIBC Lactate Dehydrogenase NT-Pro-B Natriuret Pep Albumin 09/02/21 09/03/21 09/03/21 23:09 04:08 04:53 Hgb 10.3 L Hct 32.1 L MCV 83 L MCH 27 L RDW 18.3 H Seg Neuts % (Manual) 94.0 H Lymphocytes % (Manual) 3.0 L Seg Neutrophils # Man Lymphocytes # (Manual) 0.2 L APTT Heparin Anti-Xa Level ABG pH ABG pO2 69.0 L ABG HCO3 42.5 H ABG O2 Saturation ABG Base Excess 15.7 H ABG Hemoglobin 10.6 L Oxyhemoglobin 94.5 L Potassium Chloride Carbon Dioxide BUN Glucose POC Glucose 154 H Lactic Acid Phosphorus Magnesium TIBC Lactate Dehydrogenase NT-Pro-B Natriuret Pep Albumin 09/03/21 09/03/21 09/03/21 04:53 06:05 10:13 Hgb Hct MCV MCH RDW Seg Neuts % (Manual) Lymphocytes % (Manual) Seg Neutrophils # Man Lymphocytes # (Manual) APTT Heparin Anti-Xa Level ABG pH ABG pO2 ABG HCO3 ABG O2 Saturation ABG Base Excess ABG Hemoglobin Oxyhemoglobin Potassium Chloride 96.6 L Carbon Dioxide 38 H BUN 25 H Glucose 130 H POC Glucose 145 H Lactic Acid Phosphorus Magnesium TIBC Lactate Dehydrogenase NT-Pro-B Natriuret Pep Albumin 3.2 L 09/03/21 09/03/21 09/03/21 11:11 15:00 15:00 Hgb 10.7 L Hct 33.1 L MCV MCH RDW Seg Neuts % (Manual) Lymphocytes % (Manual) Seg Neutrophils # Man Lymphocytes # (Manual) APTT 22.9 L Heparin Anti-Xa Level ABG pH ABG pO2 ABG HCO3 ABG O2 Saturation ABG Base Excess ABG Hemoglobin Oxyhemoglobin Potassium Chloride Carbon Dioxide BUN Glucose POC Glucose 158 H Lactic Acid Phosphorus Magnesium TIBC Lactate Dehydrogenase NT-Pro-B Natriuret Pep Albumin 09/03/21 09/03/21 09/03/21 16:39 20:52 23:55 Hgb Hct MCV MCH RDW Seg Neuts % (Manual) Lymphocytes % (Manual) Seg Neutrophils # Man Lymphocytes # (Manual) APTT Heparin Anti-Xa Level < 0.10 L ABG pH ABG pO2 ABG HCO3 ABG O2 Saturation ABG Base Excess ABG Hemoglobin Oxyhemoglobin Potassium Chloride Carbon Dioxide BUN Glucose POC Glucose 139 H 157 H Lactic Acid Phosphorus Magnesium TIBC Lactate Dehydrogenase NT-Pro-B Natriuret Pep Albumin 09/04/21 09/04/21 09/04/21 04:12 06:13 06:21 Hgb Hct MCV MCH RDW Seg Neuts % (Manual) Lymphocytes % (Manual) Seg Neutrophils # Man Lymphocytes # (Manual) APTT Heparin Anti-Xa Level 0.21 L ABG pH ABG pO2 ABG HCO3 ABG O2 Saturation ABG Base Excess ABG Hemoglobin Oxyhemoglobin Potassium Chloride 95.3 L Carbon Dioxide 37 H BUN 43 H Glucose 149 H POC Glucose 157 H Lactic Acid Phosphorus 4.70 H Magnesium 2.40 H TIBC 176 L Lactate Dehydrogenase 283 H NT-Pro-B Natriuret Pep Albumin 09/04/21 06:35 Hgb Hct MCV MCH RDW Seg Neuts % (Manual) Lymphocytes % (Manual) Seg Neutrophils # Man Lymphocytes # (Manual) APTT Heparin Anti-Xa Level ABG pH ABG pO2 72.2 L ABG HCO3 44.2 H ABG O2 Saturation 94.9 L ABG Base Excess 15.2 H ABG Hemoglobin 12.2 L Oxyhemoglobin 93.0 L Potassium Chloride Carbon Dioxide BUN Glucose POC Glucose Lactic Acid Phosphorus Magnesium TIBC Lactate Dehydrogenase NT-Pro-B Natriuret Pep Albumin Chest x-ray: image reviewed (RUL atelectasis; improving interstitial infiltrates) Allied health notes reviewed: nursing
--- NOTE | 2021-09-04 12:32 | Electrocardiograph Report ---
[facility] Test Date: 2021-09-02 Test Time: 14:54:02 Pat Name: LACY DE LA TORRE Department: Room: A256 1 Gender: M Payroll Auditor: JUAN : 1960 Requested By: GWENDOLYN CHESTER Order Number: [id number] Reading MD: Jannie Enamorado Measurements Intervals [place] Rate: 103 P: 62 MD: 147 QRS: 108 QRSD: 141 T: 43 QT: 357 QTc: 466 Interpretive Statements Sinus tachycardia Atrial premature complex Right bundle branch block Anteroseptal infarct, age indeterminate No previous ECG available for comparison Electronically Signed On 09-04-2021 12:32:00 EDT by Jannie Enamorado
--- NOTE | 2021-09-04 12:58 | Progress Note ---
Assessment and Plan Patient is a 61-year-old male with a reported past medical history of COPD on home O2, CHF, nicotine dependence reported to the ED with a complaint of difficulty in breathing Acute on chronic respiratory failure-pulmonology following Acute HFpEF Right upper lung mass History of lung cancer (per documentation patient is in remission) A flutter with RVR PUI Obesity Nicotine dependence Echo 09/02/2021-EF 50 to 55% transmitral Doppler flow (impaired relaxation. Flattened septum consistent with right ventricular volume overload. Right ventricle is dilated. Mild aortic stenosis. Trace tricuspid regurgitation. Mild pulmonary hypertension Plan: BNP noted to be elevated, and echo consistent with right ventricular volume overload. Patient has rales upon examination will increase Lasix to 40 mg IV twice daily Strict I&O's, daily weights, close monitoring of renal function Patient has had no further episodes of a flutter. Continue metoprolol 12.5 mg p.o. twice daily Continue anticoagulation with heparin drip Will hold ISA or ARB due to soft BPs Patient seen in conjunction with Dr. Lund who agrees with this plan of care 30min of critical care time spent in care and coordination of patient - Patient Problems (1) (HFpEF) heart failure with preserved ejection fraction Current Visit: Yes Status: Acute (2) Acute on chronic respiratory failure with hypoxia and hypercapnia Current Visit: Yes Status: Acute (3) Nicotine dependence Current Visit: Yes Status: Acute Qualifiers: Nicotine product type: cigarettes Substance use status: in withdrawal Qualified Code(s): F17.213 - Nicotine dependence, cigarettes, with withdrawal (4) Obesity hypoventilation syndrome Current Visit: Yes Status: Acute (5) Pneumonia Current Visit: Yes Status: Acute Subjective Date of service: 09/04/21 Principal diagnosis: Acute respiratory failure, acute HFpEF Interval history: Patient remains intubated and sedated Sinus 60s on monitor with episode of NSVT Objective Vital Signs Temp Pulse Pulse Pulse Resp Resp BP 09/04/21 12:21 65 17 99/51 09/04/21 12:11 63 24 88/55 09/04/21 12:00 63 24 82/54 09/04/21 11:51 63 23 99/51 09/04/21 11:41 60 12 103/51 09/04/21 11:37 98.4 F 09/04/21 11:30 60 20 103/51 07/26/22 11:21 61 24 97/52 07/26/22 11:11 61 23 110/57 09/04/21 11:01 62 24 110/57 09/04/21 11:00 63 09/04/21 10:51 67 24 112/57 09/04/21 10:41 64 66 21 24 112/52 09/04/21 10:31 62 24 112/52 09/04/21 10:21 63 24 111/57 09/04/21 10:11 66 24 129/60 09/04/21 10:01 77 16 111/58 09/04/21 10:00 64 09/04/21 09:51 73 16 111/58 09/04/21 09:41 62 24 110/59 09/04/21 09:33 59 L 09/04/21 09:31 63 24 110/59 09/04/21 09:21 62 17 111/73 09/04/21 09:11 61 24 111/60 09/04/21 09:01 63 21 111/60 09/04/21 08:51 64 14 111/73 09/04/21 08:41 64 21 112/69 09/04/21 08:31 68 13 112/69 09/04/21 08:21 62 24 103/56 09/04/21 08:15 60 119/57 09/04/21 08:11 59 L 20 111/51 09/04/21 08:01 62 12 111/51 09/04/21 08:00 63 24 09/04/21 07:51 61 24 120/71 09/04/21 07:40 60 17 111/58 09/04/21 07:30 60 13 111/58 09/04/21 07:21 60 24 111/52 09/04/21 07:11 62 24 119/57 09/04/21 07:09 99.3 F 09/04/21 07:01 61 24 119/57 09/04/21 06:51 62 24 110/57 09/04/21 06:41 62 20 98/60 09/04/21 06:31 62 12 98/60 09/04/21 06:21 62 24 113/63 09/04/21 06:11 61 11 L 114/53 09/04/21 06:01 60 18 114/53 09/04/21 05:51 60 18 106/50 09/04/21 05:41 63 24 118/67 09/04/21 05:31 63 11 L 118/67 09/04/21 05:21 61 6 L 125/59 09/04/21 05:11 65 13 116/59 09/04/21 05:01 62 12 116/59 09/04/21 04:51 62 16 113/56 09/04/21 04:41 64 18 115/69 09/04/21 04:31 63 14 118/61 09/04/21 04:29 62 118/61 09/04/21 04:21 62 21 96/57 09/04/21 04:11 63 24 105/59 09/04/21 04:01 62 24 115/69 09/04/21 04:00 98.6 F 63 24 09/04/21 03:51 65 19 105/59 09/04/21 03:41 61 8 L 108/54 09/04/21 03:30 60 14 111/59 09/04/21 03:21 62 9 L 108/54 09/04/21 03:11 61 18 111/48 09/04/21 03:01 64 24 111/48 09/04/21 02:51 62 21 107/50 09/04/21 02:41 60 11 L 105/54 09/04/21 02:30 60 24 105/54 09/04/21 02:21 62 12 93/63 09/04/21 02:11 59 L 19 103/56 09/04/21 02:01 60 21 103/56 09/04/21 01:51 60 21 109/49 09/04/21 01:41 61 20 101/51 09/04/21 01:30 60 7 L 101/51 09/04/21 01:21 61 18 106/55 09/04/21 01:11 59 L 24 106/55 09/04/21 01:01 61 24 106/55 09/04/21 00:51 61 24 110/55 09/04/21 00:41 62 8 L 98/61 09/04/21 00:31 62 12 98/61 09/04/21 00:21 61 24 104/53 09/04/21 00:11 60 24 108/46 09/04/21 00:00 60 63 11 L 107/52 09/03/21 23:56 97.6 F 07/25/22 23:51 61 10 L 100/41 09/03/21 23:40 62 24 108/46 09/03/21 23:30 62 7 L 108/46 09/03/21 23:21 63 25 H 107/54 09/03/21 23:19 63 21 107/54 09/03/21 23:11 62 10 L 115/53 09/03/21 23:05 63 115/53 09/03/21 23:01 63 21 115/53 09/03/21 22:51 61 24 111/52 09/03/21 22:43 63 24 09/03/21 22:41 62 21 102/50 09/03/21 22:31 61 8 L 102/50 09/03/21 22:21 62 18 110/52 09/03/21 22:11 61 20 105/60 09/03/21 22:00 63 18 105/60 09/03/21 21:51 62 8 L 105/53 09/03/21 21:41 64 22 102/49 09/03/21 21:30 62 15 102/49 09/03/21 21:21 63 20 108/52 09/03/21 21:11 65 21 105/50 09/03/21 21:00 63 13 105/50 09/03/21 20:51 65 24 112/57 09/03/21 20:41 63 21 103/56 09/03/21 20:30 63 12 103/56 09/03/21 20:21 63 14 107/51 09/03/21 20:11 63 24 111/51 09/03/21 20:01 64 23 111/51 09/03/21 20:00 98.8 F 63 24 09/03/21 19:51 64 21 106/60 09/03/21 19:41 67 17 96/57 09/03/21 19:30 64 6 L 96/57 09/03/21 19:20 70 16 98/55 09/03/21 19:18 98/55 09/03/21 19:11 67 24 112/52 09/03/21 19:01 65 18 112/52 09/03/21 18:51 64 18 108/54 09/03/21 18:41 63 15 104/52 09/03/21 18:30 63 25 H 104/52 09/03/21 18:21 63 23 107/56 09/03/21 18:11 63 24 101/50 09/03/21 18:00 63 11 L 101/50 09/03/21 17:51 63 18 110/49 09/03/21 17:41 63 21 106/52 09/03/21 17:30 63 17 106/52 09/03/21 17:21 63 17 104/51 09/03/21 17:11 65 11 L 105/53 09/03/21 17:00 63 8 L 105/53 09/03/21 16:51 64 10 L 105/56 09/03/21 16:47 98.9 F 09/03/21 16:41 65 24 109/57 09/03/21 16:30 66 12 109/57 09/03/21 16:21 70 16 107/51 09/03/21 16:11 65 25 H 108/52 09/03/21 16:01 66 18 108/52 09/03/21 16:00 63 24 09/03/21 15:51 66 24 116/51 09/03/21 15:41 67 21 113/54 09/03/21 15:30 72 16 113/54 09/03/21 15:21 73 16 123/60 09/03/21 15:11 74 23 114/62 09/03/21 15:10 72 114/62 09/03/21 15:01 74 19 114/62 09/03/21 14:51 72 24 119/67 09/03/21 14:41 72 13 128/66 09/03/21 14:31 74 12 128/66 09/03/21 14:21 76 8 L 122/64 09/03/21 14:15 71 107/51 09/03/21 14:11 81 15 111/58 09/03/21 14:00 72 32 H 111/58 09/03/21 13:51 74 23 113/60 09/03/21 13:41 70 24 119/71 09/03/21 13:30 146 H 24 119/71 09/03/21 13:21 148 H 24 107/68 09/03/21 13:11 148 H 24 125/74 09/03/21 13:00 146 H 22 125/74 Pulse Ox 09/04/21 12:21 97 09/04/21 12:11 98 09/04/21 12:00 96 09/04/21 11:51 96 09/04/21 11:41 97 09/04/21 11:37 09/04/21 11:30 97 09/04/21 11:21 97 09/04/21 11:11 97 09/04/21 11:01 97 09/04/21 11:00 98 09/04/21 10:51 98 09/04/21 10:41 96 09/04/21 10:31 95 09/04/21 10:21 95 09/04/21 10:11 96 09/04/21 10:01 97 09/04/21 10:00 09/04/21 09:51 99 09/04/21 09:41 98 09/04/21 09:33 09/04/21 09:31 98 09/04/21 09:21 98 09/04/21 09:11 97 09/04/21 09:01 97 09/04/21 08:51 97 09/04/21 08:41 97 09/04/21 08:31 100 09/04/21 08:21 98 09/04/21 08:15 97 09/04/21 08:11 97 09/04/21 08:01 96 09/04/21 08:00 99 09/04/21 07:51 100 09/04/21 07:40 97 09/04/21 07:30 98 09/04/21 07:21 98 09/04/21 07:11 97 09/04/21 07:09 09/04/21 07:01 98 09/04/21 06:51 95 09/04/21 06:41 96 09/04/21 06:31 96 09/04/21 06:21 98 09/04/21 06:11 95 09/04/21 06:01 96 09/04/21 05:51 96 09/04/21 05:41 96 09/04/21 05:31 96 09/04/21 05:21 96 09/04/21 05:11 98 09/04/21 05:01 97 09/04/21 04:51 96 09/04/21 04:41 100 09/04/21 04:31 96 09/04/21 04:29 96 09/04/21 04:21 96 09/04/21 04:11 96 09/04/21 04:01 97 09/04/21 04:00 99 09/04/21 03:51 99 09/04/21 03:41 97 09/04/21 03:30 99 09/04/21 03:21 97 09/04/21 03:11 97 09/04/21 03:01 98 09/04/21 02:51 99 09/04/21 02:41 97 09/04/21 02:30 97 09/04/21 02:21 97 09/04/21 02:11 97 09/04/21 02:01 97 09/04/21 01:51 96 09/04/21 01:41 97 09/04/21 01:30 97 09/04/21 01:21 97 09/04/21 01:11 97 09/04/21 01:01 98 09/04/21 00:51 97 09/04/21 00:41 98 09/04/21 00:31 97 09/04/21 00:21 97 09/04/21 00:11 97 09/04/21 00:00 96 09/03/21 23:56 09/03/21 23:51 97 09/03/21 23:40 96 09/03/21 23:30 96 09/03/21 23:21 97 09/03/21 23:19 96 09/03/21 23:11 97 09/03/21 23:05 96 09/03/21 23:01 99 09/03/21 22:51 100 09/03/21 22:43 09/03/21 22:41 98 09/03/21 22:31 99 09/03/21 22:21 98 09/03/21 22:11 98 09/03/21 22:00 98 09/03/21 21:51 97 09/03/21 21:41 98 09/03/21 21:30 97 09/03/21 21:21 97 09/03/21 21:11 96 09/03/21 21:00 98 09/03/21 20:51 97 09/03/21 20:41 97 09/03/21 20:30 97 09/03/21 20:21 96 09/03/21 20:11 96 09/03/21 20:01 96 09/03/21 20:00 99 09/03/21 19:51 96 09/03/21 19:41 95 09/03/21 19:30 97 09/03/21 19:20 96 09/03/21 19:18 98 09/03/21 19:11 97 09/03/21 19:01 96 09/03/21 18:51 97 09/03/21 18:41 97 09/03/21 18:30 97 09/03/21 18:21 97 09/03/21 18:11 96 09/03/21 18:00 96 09/03/21 17:51 97 09/03/21 17:41 97 09/03/21 17:30 97 09/03/21 17:21 96 09/03/21 17:11 97 09/03/21 17:00 97 09/03/21 16:51 97 09/03/21 16:47 09/03/21 16:41 98 09/03/21 16:30 97 09/03/21 16:21 99 09/03/21 16:11 95 09/03/21 16:01 94 09/03/21 16:00 99 09/03/21 15:51 94 09/03/21 15:41 93 09/03/21 15:30 94 09/03/21 15:21 94 09/03/21 15:11 96 09/03/21 15:10 09/03/21 15:01 97 09/03/21 14:51 100 09/03/21 14:41 97 09/03/21 14:31 99 09/03/21 14:21 97 09/03/21 14:15 99 09/03/21 14:11 100 09/03/21 14:00 98 09/03/21 13:51 98 09/03/21 13:41 97 09/03/21 13:30 96 09/03/21 13:21 96 09/03/21 13:11 97 09/03/21 13:00 98 - Physical Examination General: Other (Intubated and sedated) HEENT: Positive: Mucus Membranes Moist Neck: Positive: trachea midline Cardiac: Positive: Reg Rate and Rhythm Lungs: Positive: Rales, Ventilated Respirations Neuro: Positive: Other (unable to assess) Abdomen: Positive: Soft Skin: Negative: Rash, Suspicious Lesions, Ulceration Extremities: Present: upper extr. pulses, edema - Labs and Meds Cardiac Enzymes 09/03/21 09/04/21 Range/Units 10:13 04:12 AST 18 (5-40) units/L Lactate Dehydrogenase 283 H (91-180) units/L Coagulation 09/03/21 Range/Units 15:00 PT 14.3 (12.2-14.9) Sec. INR 1.00 (0.87-1.13) APTT 22.9 L (24.2-36.6) Sec. CBC 09/03/21 Range/Units 15:00 Hgb 10.7 L (11.8-15.2) gm/dl Hct 33.1 L (35.5-45.6) % Plt Count 212 (140-440) K/mm3 Comprehensive Metabolic Panel 09/03/21 09/04/21 Range/Units 10:13 04:12 Sodium 141 (137-145) mmol/L Potassium 4.8 (3.6-5.0) mmol/L Chloride 95.3 L (98-107) mmol/L Carbon Dioxide 37 H (22-30) mmol/L BUN 43 H (9-20) mg/dL Creatinine 1.0 (0.8-1.3) mg/dL Glucose 149 H (75-100) mg/dL Calcium 8.9 (8.4-10.2) mg/dL Direct Bilirubin 0.2 (0-0.2) mg/dL Indirect Bilirubin 0.3 mg/dL AST 18 (5-40) units/L ALT 16 (7-56) units/L Alkaline Phosphatase 110 (35-129) units/L Total Protein 6.4 (6.3-8.2) g/dL Albumin 3.2 L (3.9-5) g/dL - Imaging and Cardiology Echo: report reviewed - Telemetry EKG Rhythm: Sinus Rhythm - EKG Sinus rhythms and dysrhythmias: sinus rhythm AV and intraventricular conduction: right bundle branch block - Allied health notes Allied health notes reviewed: nursing
[2021-09-04] MEDS ORDERED: SODIUM CHLORIDE 0.9% 1000 ML 1,000 ML IV ONE (13:19)
[2021-09-04] MEDS: DOXAZOSIN 1 MG TAB FEEDTUBE SCH (13:49)
[2021-09-04] MEDS ORDERED: diphenhydrAMINE/ZINC ACET 2% CREAM 28.4 GM TP PRN (13:56)
[2021-09-04] MEDS ORDERED: diphenhydrAMINE 50 MG/ML VIAL IV SCH (14:15)
--- NOTE | 2021-09-04 15:24 | Progress Note ---
<SAVANNAHDAVIS RohitNaomi - Last Filed: 09/04/21 15:20> Assessment and Plan Assessment and plan: This is a 61-year-old male with CHF, COPD on home O2, nicotine dependence and OHS admitted with CHF exacerbation and CAP Neuro: Sedated -Sedated with Fentanyl -RASS goal 0 to -1 -Reorientation as needed -Maintain sleep-wake cycle Cardiac: Aflutter, Acute on Chronic CHF -Cardiology consulted, appreciate recommendations -Blood pressure monitoring per protocol -Echocardiogram shows LVEF of 50 to 55%, flattened septum consistent with right ventricular volume overload, RVSP 37 mmhg -BB PO -Heparin gtt -Lasix twice daily -Admit proBNP 4080 Respiratory: Acute on chronic hypoxic respiratory failure, RUL mass, h/o COPD, OHS, nicotine dependence, stage IV lung CA (in remission according to ) -CCM consulted, appreciate recommendations -Intubated on 09/02 with 8.0 OETT at 22 at the lips -A.m. vent settings: AC rate 20, TV 400, Peep 8, FiO2 40% -See RT notes for titration -A.m. ABG and CXR noted -VAP bundle -SPO2 monitoring -Solu-Medrol 40 mg every 12 GI: Morbid obesity, mild protein calorie nutrition -24 hours -995 mL -PPI -NTR consulted for tube feedings -BR: Colace : Urinary retention -Monitor intake and output -Renally dose medications -Avoid nephrotoxic medications -[place] replaced 09/04 -Doxazosin -Trend BMP ID: CAP, Post obstructive ? -Covid 19 pcr negative -Antibiotic therapy with azithro and rocephin -Admit CXR showed right upper lobe atelectasis, patchy parenchymal opacities in both mid to lower lung zones -Chest CTA showed complete right upper lobe atelectasis, mild bronchopneumonia medial aspect left upper, right middle and both lower lobes -f/u blood culture -Monitor WBC and temperature curve Endo: h/o hypothyroidism -Avoid hypoglycemia -SSI -Accu-Cheks q. 6hr -Restarted home levothyroxine Heme/Oncology: h/o stage IV lung CA -CT chest shows RUL mass -According to patient is in remission pose radiation and chemo -Hem/Onc consulted, appreciate recommendations -Records requested from Dr. Ave Jenkins -Trend CBC -Transfuse hemoglobin less than 7 -SCDs to BLE while in bed The high probability of a clinically significant, sudden or life threatening deterioration of the [cardiac, pulmonary] system(s) required my full and direct attention, intervention and personal management. The aggregate critical care time was [60] minutes. This time is in addition to time spent performing re ported procedures but includes the following: [x] Data Review and interpretation [x] Patient assessment and monitoring of vital signs [x] Documentation [x] Medication orders and management Disposition Plan: icu Total Time Spent with Patient (Minutes): 60 History Interval history: This is a 71-year-old male with CHF, COPD on home O2, hypothyroidism, stage IV lung CA, nicotine dependence and OHS who presented to the emergency department on 09/02 with complaints of " cannot breathe" via EMS. On EMS arrival patient had a SPO2 in the 60s and was placed on supplemental oxygenation and transported to [facility]. In the emergency department patient's SPO2 was in the 70s with supplemental oxygenation and he did not have much improvement in symptoms and was placed on NiPPV and was intubated in the ED as he was found to be retracting, unable to speak, using accessory muscles to breathe, with audible wheezing and placed on ventilatory support and CXR showed bilateral PNA. He was admitted with CHF excerbation and with PNA to the hospitalist service with consults cardiology and CCM. Hospital course to date: 09/03: Remains on ventilatory support. The afternoon patient heart rate went into the 140s/150s, cardiology aware, stat ECG obtained which showed no acute findings, 2.5 metoprolol ordered. Started on fentanyl drip. Records requested from [facility] and Dr. Ave Jenkins, [place] catheter discontinued. Ventilator changes per CCM. 09/04: CCM made vent changes, decrease Solu-Medrol, COVID-19 PCR negative. [place] catheter replaced. Hospitalist Physical - Constitutional Vitals: Temp Pulse Resp BP Pulse Ox 98.4 F 72 18 112/52 93 09/04/21 11:37 09/04/21 15:00 09/04/21 14:21 09/04/21 15:00 09/04/21 15:00 General appearance: Present: obese, other (intubated and sedated) - EENT Eyes: Present: PERRL, EOM intact ENT: dentition normal - Neck Neck: Present: normal ROM - Respiratory Respiratory effort: normal Respiratory: bilateral: diminished, wheezing - Cardiovascular Rhythm: regular Heart Sounds: Present: S1 & S2. Absent: systolic murmur, diastolic murmur - Extremities Extremities: no ischemia, pulses intact, pulses symmetrical, normal temperature, normal color Peripheral Pulses: within normal limits - Abdominal General gastrointestinal: soft, non-tender, non-distended, normal bowel sounds - Integumentary Integumentary: Present: warm, dry - Psychiatric Psychiatric: cooperative - Neurologic Neurologic: CNII-XII intact, no focal deficits, moves all extremities - Allied Health Allied health notes reviewed: nursing, RT, social work HEART Score - HEART Score Troponin: Troponin T < 0.010 ng/mL (0.00-0.029) 09/02/21 16:21 Results - Labs CBC & Chem 7: 09/03/21 15:00 09/04/21 04:12 Labs: Laboratory Last Values WBC 5.8 K/mm3 (4.5-11.0) 09/03/21 04:53 RBC 3.88 M/mm3 (3.65-5.03) 09/03/21 04:53 Hgb 10.7 gm/dl (11.8-15.2) L 09/03/21 15:00 Hct 33.1 % (35.5-45.6) L 09/03/21 15:00 MCV 83 fl (84-94) L 09/03/21 04:53 MCH 27 pg (28-32) L 09/03/21 04:53 MCHC 32 % (32-34) 09/03/21 04:53 RDW 18.3 % (13.2-15.2) H 09/03/21 04:53 Plt Count 212 K/mm3 (140-440) 09/03/21 15:00 Add Manual Diff Complete 09/03/21 04:53 Total Counted 100 09/03/21 04:53 Seg Neutrophils % Keyboard Instrument Repairer 09/03/21 04:53 Seg Neuts % (Manual) 94.0 % (40.0-70.0) H 09/03/21 04:53 Band Neutrophils % 0 % 09/03/21 04:53 Lymphocytes % (Manual) 3.0 % (13.4-35.0) L 09/03/21 04:53 Reactive Lymphs % (Man) 0 % 09/03/21 04:53 Monocytes % (Manual) 3.0 % (0.0-7.3) 09/03/21 04:53 Eosinophils % (Manual) 0 % (0.0-4.3) 09/03/21 04:53 Basophils % (Manual) 0 % (0.0-1.8) 09/03/21 04:53 Metamyelocytes % 0 % 09/03/21 04:53 Myelocytes % 0 % 09/03/21 04:53 Promyelocytes % 0 % 09/03/21 04:53 Blast Cells % 0 % 09/03/21 04:53 Nucleated RBC % Not Reportable 09/03/21 04:53 Seg Neutrophils # Man 5.5 K/mm3 (1.8-7.7) 09/03/21 04:53 Band Neutrophils # 0.0 K/mm3 09/03/21 04:53 Lymphocytes # (Manual) 0.2 K/mm3 (1.2-5.4) L 09/03/21 04:53 Abs React Lymphs (Man) 0.0 K/mm3 09/03/21 04:53 Monocytes # (Manual) 0.2 K/mm3 (0.0-0.8) 09/03/21 04:53 Eosinophils # (Manual) 0.0 K/mm3 (0.0-0.4) 09/03/21 04:53 Basophils # (Manual) 0.0 K/mm3 (0.0-0.1) 09/03/21 04:53 Metamyelocytes # 0.0 K/mm3 09/03/21 04:53 Myelocytes # 0.0 K/mm3 09/03/21 04:53 Promyelocytes # 0.0 K/mm3 09/03/21 04:53 Blast Cells # 0.0 K/mm3 09/03/21 04:53 WBC Morphology Not Reportable 09/03/21 04:53 Hypersegmented Neuts Not Reportable 09/03/21 04:53 Hyposegmented Neuts Not Reportable 09/03/21 04:53 Hypogranular Neuts Not Reportable 09/03/21 04:53 Smudge Cells Not Reportable 09/03/21 04:53 Toxic Granulation Not Reportable 09/03/21 04:53 Toxic Vacuolation Not Reportable 09/03/21 04:53 Dohle Bodies Not Reportable 09/03/21 04:53 Pelger-Huet Anomaly Not Reportable 09/03/21 04:53 Kaushik Rods Not Reportable 09/03/21 04:53 Platelet Estimate Consistent w auto 09/03/21 04:53 Clumped Platelets Not Reportable 09/03/21 04:53 Plt Clumps, EDTA Not Reportable 09/03/21 04:53 Large Platelets Not Reportable 09/03/21 04:53 Giant Platelets Not Reportable 09/03/21 04:53 Platelet Satelliting Not Reportable 09/03/21 04:53 Plt Morphology Comment Not Reportable 09/03/21 04:53 RBC Morphology Not Reportable 09/03/21 04:53 Dimorphic RBCs Not Reportable 09/03/21 04:53 Polychromasia Not Reportable 09/03/21 04:53 Hypochromasia Not Reportable 09/03/21 04:53 Poikilocytosis Not Reportable 09/03/21 04:53 Anisocytosis 1+ 09/03/21 04:53 Microcytosis Not Reportable 09/03/21 04:53 Macrocytosis Not Reportable 09/03/21 04:53 Spherocytes Not Reportable 09/03/21 04:53 Pappenheimer Bodies Not Reportable 09/03/21 04:53 Sickle Cells Not Reportable 09/03/21 04:53 Target Cells Not Reportable 09/03/21 04:53 Tear Drop Cells Not Reportable 09/03/21 04:53 Ovalocytes Not Reportable 09/03/21 04:53 Stomatocytes Rare 09/02/21 16:21 Helmet Cells Not Reportable 09/03/21 04:53 [place] Bodies Not Reportable 09/03/21 04:53 [place] Rings Not Reportable 09/03/21 04:53 [place] Cells Not Reportable 09/03/21 04:53 Bite Cells Not Reportable 09/03/21 04:53 Crenated Cell Not Reportable 09/03/21 04:53 Elliptocytes Not Reportable 09/03/21 04:53 Acanthocytes (Spur) Not Reportable 09/03/21 04:53 Rouleaux Not Reportable 09/03/21 04:53 Hemoglobin C Crystals Not Reportable 09/03/21 04:53 Schistocytes Not Reportable 09/03/21 04:53 Malaria parasites Not Reportable 09/03/21 04:53 Percent Retic 1.37 % (0.78-2.58) 09/04/21 10:56 Tanner Bodies Not Reportable 09/03/21 04:53 Hem Pathologist Commnt No 09/03/21 04:53 PT 14.3 Sec. (12.2-14.9) 09/03/21 15:00 INR 1.00 (0.87-1.13) 09/03/21 15:00 APTT 22.9 Sec. (24.2-36.6) L 09/03/21 15:00 Heparin Anti-Xa Level 0.21 U.I./ml (0.3-0.7) L 09/04/21 06:21 ABG pH 7.361 pH Units (7.350-7.450) 09/04/21 06:35 ABG pCO2 79.7 mm Hg 09/04/21 06:35 ABG pO2 72.2 mm Hg (80.0-90.0) L 09/04/21 06:35 ABG HCO3 44.2 mmol/L (20.0-26.0) H 09/04/21 06:35 ABG O2 Saturation 94.9 % (95.0-99.0) L 09/04/21 06:35 ABG O2 Content 16.0 (0.0-44) 09/04/21 06:35 ABG Base Excess 15.2 mmol/L (-2.0-3.0) H 09/04/21 06:35 ABG Hemoglobin 12.2 gm/dl (14.0-18.0) L 09/04/21 06:35 ABG Carboxyhemoglobin 1.5 % (0.0-5.0) 09/04/21 06:35 ABG Methemoglobin 0.5 % (0.0-1.5) 09/04/21 06:35 Oxyhemoglobin 93.0 % (95.0-99.0) L 09/04/21 06:35 FiO2 50 % 09/04/21 06:35 Sodium 141 mmol/L (137-145) 09/04/21 04:12 Potassium 4.8 mmol/L (3.6-5.0) 09/04/21 04:12 Chloride 95.3 mmol/L (98-107) L 09/04/21 04:12 Carbon Dioxide 37 mmol/L (22-30) H 09/04/21 04:12 Anion Gap 14 mmol/L 09/04/21 04:12 BUN 43 mg/dL (9-20) H 09/04/21 04:12 Creatinine 1.0 mg/dL (0.8-1.3) 09/04/21 04:12 Estimated GFR > 60 ml/min 09/04/21 04:12 BUN/Creatinine Ratio 43 % 09/04/21 04:12 Glucose 149 mg/dL (75-100) H 09/04/21 04:12 POC Glucose 163 mg/dL (70-105) H 09/04/21 12:13 Lactic Acid 0.60 mmol/L (0.7-2.0) L 09/02/21 16:21 Calcium 8.9 mg/dL (8.4-10.2) 09/04/21 04:12 Phosphorus 4.70 mg/dL (2.5-4.5) H 09/04/21 04:12 Magnesium 2.40 mg/dL (1.7-2.3) H 09/04/21 04:12 Iron 63 ug/dL (49-181) 09/04/21 04:12 TIBC 176 mcg/dL (250-450) L 09/04/21 04:12 Ferritin 194.9 ng/mL (30.0-300.0) 09/04/21 04:12 Total Bilirubin 0.50 mg/dL (0.1-1.2) 09/03/21 10:13 Direct Bilirubin 0.2 mg/dL (0-0.2) 09/03/21 10:13 Indirect Bilirubin 0.3 mg/dL 09/03/21 10:13 AST 18 units/L (5-40) 09/03/21 10:13 ALT 16 units/L (7-56) 09/03/21 10:13 Alkaline Phosphatase 110 units/L (35-129) 09/03/21 10:13 Lactate Dehydrogenase 283 units/L (91-180) H 09/04/21 04:12 Troponin T < 0.010 ng/mL (0.00-0.029) 09/02/21 16:21 NT-Pro-B Natriuret Pep 4080 pg/mL (0-900) H 09/02/21 16:21 Total Protein 6.4 g/dL (6.3-8.2) 09/03/21 10:13 Albumin 3.2 g/dL (3.9-5) L 09/03/21 10:13 Albumin/Globulin Ratio 1.0 % 09/03/21 10:13 Procalcitonin 0.27 ng/mL (<0.15) 09/03/21 10:13 TSH 0.501 mlU/mL (0.270-4.200) 09/02/21 18:44 Free T4 1.27 ng/dL (0.76-1.46) 09/02/21 18:44 Urine Color Yellow (Yellow) 09/03/21 02:49 Urine Turbidity Slightly cloudy (Clear) 09/03/21 02:49 Urine pH 6.0 (5.0-7.0) 09/03/21 02:49 Ur Specific [place] 1.030 (1.003-1.030) 09/03/21 02:49 Urine Protein <15 mg/dl mg/dL (Negative) 09/03/21 02:49 Urine Glucose (UA) Negative mg/dL (Negative) 09/03/21 02:49 Urine Ketones Negative mg/dL (Negative) 09/03/21 02:49 Urine Blood Negative (Negative) 09/03/21 02:49 Urine Nitrite Negative (Negative) 09/03/21 02:49 Ur Reducing Substances Not Reportable 09/03/21 02:49 Urine Bilirubin Negative (Negative) 09/03/21 02:49 Urine Ictotest Not Reportable 09/03/21 02:49 Urine Urobilinogen < 2.0 mg/dL (<2.0) 09/03/21 02:49 Ur Leukocyte Esterase Negative (Negative) 09/03/21 02:49 Urine WBC (Auto) 1.0 /HPF (0.0-6.0) 09/03/21 02:49 Urine RBC (Auto) 2.0 /HPF (0.0-6.0) 09/03/21 02:49 Urine Mucus Few /HPF 09/03/21 02:49 Urine Opiates Screen Presumptive negative 09/03/21 02:49 Urine Methadone Screen Presumptive negative 09/03/21 02:49 Ur Barbiturates Screen Presumptive negative 09/03/21 02:49 Ur Phencyclidine Scrn Presumptive negative 09/03/21 02:49 Ur Amphetamines Screen Presumptive negative 09/03/21 02:49 U Benzodiazepines Scrn Presumptive negative 09/03/21 02:49 Urine Cocaine Screen Presumptive negative 09/03/21 02:49 U Marijuana (THC) Screen Presumptive positive 09/03/21 02:49 Drugs of Abuse Note Disclamer 09/03/21 02:49 Coronavirus (PCR) Negative (Negative) 09/04/21 07:18 Microbiology: Microbiology 09/02/21 18:50 Sputum - Expectorated Sputum Sputum Culture - Preliminary [place]/IV: Voiding Method Condom Catheter Active Medications - Current Medications Current Medications: Generic Name Dose Route Start Last Admin Trade Name Freq PRN Reason Stop Dose Admin Acetaminophen 650 mg 09/02/21 18:31 Acetaminophen 325 Mg Tab PO Q6H PRN Pain MILD(1-3)/Fever >100.5/ZAVALA Albuterol 2.5 mg 09/02/21 18:31 09/03/21 00:23 Albuterol 2.5 Mg/3 Ml Nebu IH 2.5 mg Q3HRT PRN Administration Shortness Of Breath Arformoterol Tartrate 15 mcg 09/03/21 10:00 09/04/21 10:39 Arformoterol 15 Mcg/2 Ml Nebu IH 15 mcg Q12HR MAE Administration Azithromycin 500 mg 09/02/21 20:00 09/04/21 09:34 Azithromycin 250 Mg Tab PO 09/06/21 10:01 500 mg QDAY MAE Administration Protocol Budesonide 0.5 mg 09/03/21 10:00 09/04/21 10:40 Budesonide 0.5 Mg/2 Ml Nebu IH 0.5 mg Q12HR MAE Administration Dextrose 50 ml 09/04/21 08:02 Dextrose 50% In Water (25gm) 50 Ml Syringe IV Q30MIN PRN Hypoglycemia Protocol Diphenhydramine HCl 25 mg 09/04/21 14:15 09/04/21 14:16 Diphenhydramine 50 Mg/Ml Vial IV 09/04/21 16:15 25 mg ONCE@1415 MAE Administration Doxazosin Mesylate 1 mg 09/04/21 12:00 09/04/21 13:49 Doxazosin 1 Mg Tab FEEDTUBE 1 mg QDAY MAE Administration Famotidine 20 mg 09/03/21 22:00 09/04/21 09:34 Famotidine 20 Mg Tab FEEDTUBE 20 mg BID MAE Administration Fentanyl 50 mcg 09/03/21 12:47 09/03/21 13:09 Fentanyl 100 Mcg/2 Ml Inj IV 50 mcg Q10MIN PRN Administration ANALGESIA Furosemide 40 mg 09/04/21 12:54 Furosemide 20 Mg/2 Ml Inj IV BID@0600,1800 MAE Hydromorphone HCl 0.5 mg 09/02/21 18:31 Hydromorphone 0.5 Mg/0.5 Ml Inj IV Q8H PRN Pain , Severe (7-10) Hydrophilic Ointment 1 applic 09/03/21 13:55 Lip Therapy Vaseline TP Q2HR PRN Dry Lips Propofol 1,000 mg in 100 mls @ 4.082 mls/hr 09/02/21 18:00 09/03/21 15:12 Diprivan 10 Mg/Ml IV 0 mcg/kg/min TITR MAE 0 mls/hr Titration Protocol 5 MCG/KG/MIN Ceftriaxone Sodium 2 gm in 100 mls @ 200 mls/hr 09/02/21 20:00 09/03/21 20:24 Rocephin/Ns 2 Gm/100 Ml IV 09/06/21 20:29 200 mls/hr Q24H MAE Administration Protocol Fentanyl Citrate 2,000 mcg in 100 mls @ 6.352 mls/hr 09/03/21 13:00 09/04/21 14:16 Fentanyl Drip Premix IV 2 mcg/kg/hr TITR MAE 12.705 mls/hr Administration Protocol 1 MCG/KG/HR Heparin Sodium/Sodium Chloride 25,000 unit in 500 mls @ 30 mls/hr 09/03/21 15:00 09/04/21 07:10 Heparin/ 0.45% Nacl-25,000 Unit/500 Ml IV 1,750 units/hr TITR MAE 35 mls/hr Administration Protocol 1,500 UNITS/HR Insulin Human Regular 0 units 09/04/21 09:00 09/04/21 12:20 Insulin Regular, Human 100 Units/1 Ml SUB-Q 1 units Q6HR MAE Administration Protocol Levothyroxine Sodium 100 mcg 09/03/21 10:00 09/04/21 05:16 Levothyroxine 100 Mcg Tab PO 100 mcg QAM@0600 MAE Administration Methylprednisolone Sodium Succinate 40 mg 09/04/21 22:00 Methylprednisolone Sod Succinate 40 Mg/1 Ml Inj IV Q12HR MAE Metoprolol Tartrate 12.5 mg 09/03/21 15:00 09/04/21 09:33 Metoprolol Tartrate 25 Mg Tab FEEDTUBE Not Given BID MAE Multi-Ingred Cream/Lotion/Oil/Oint 1 applic 09/03/21 13:55 Mineral Oil/Petrolatum, White Ophth Oint 3.5 Gm OU Q4HR PRN Dry Eye(s) Oxycodone/Acetaminophen 1 tab 09/02/21 18:31 Oxycodone /Acetaminophen 5-325mg Tab PO Q6H PRN Pain, Moderate (4-6) Senna/Docusate Sodium 1 tab 09/03/21 22:00 09/04/21 09:33 Sennosides/Docusate Sodium 8.6/50 Mg Tab FEEDTUBE 1 tab BID MAE Administration Sodium Chloride 10 ml 09/02/21 22:00 09/04/21 09:34 Sodium Chloride 0.9% 10 Ml Flush Syringe IV 10 ml BID MAE Administration Sodium Chloride 10 ml 09/02/21 18:31 Sodium Chloride 0.9% 10 Ml Flush Syringe IV PRN PRN LINE FLUSH Nutrition/Malnutrition Assess - Dietary Evaluation Nutrition/Malnutrition Findings: Nutrition Notes Start: 09/03/21 10:38 Freq: Status: Active Protocol: Document 09/03/21 10:39 DALE (Rec: 09/03/21 11:11 DALE [id number]) Nutrition Notes Need for Assessment generated from: MD Order Current Diagnosis COPD,Respiratory Failure Other Pertinent Diagnosis CHF, Pneumonia, OHS. Current Diet NPO (since 09/02 18:32), TF- Promote @ 70 ml/hr (from L ). Labs/Tests 09/03: Cl 96.6, CO2 38, BUN 25 , Glu 130. Pertinent Medications 09/03: Levothyroxine, Propofol @ 20.412 ml/hr (539 Kcal). others nutritionally unremarkable. 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 Weight Status Obese Subjective/Other Information RD consult for write/manage TF . Pt currently on NPO. I will prescribe TF to provide Pt with energy/protein needs during LOS. Pt is on Mechanical Ventilation, O2 saturation @ 99%, according to Physical Assessment History notes. Procedure on 09/02: R-IJV triple-lumen catheter placement, wel tolerated, according to Operative Report notes. Percent of energy/protein needs met: Pt currently on NPO. Prescribed TF-Promote @ 70 ml/ hr provides for energy/protein needs (1,670 Kcal/104 g) during LOS, 77% Kcal; 101% AA. Including Propofol: 102% Kcal ; 101% AA. Burn Absent Trauma Absent GI Symptoms None Food Allergy No Skin Integrity/Comment Assessment WNL. 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 As Evidenced by Signs and Symptoms Pt is currently on NPO. Is patient on ventilator? Yes Is Patient Ambulatory and/or Out of Bed No REE-([facility]-confined to bed) 2533.248 Kcal/Kg value to use for calculation 17 Approximate Energy Requirements Using 2160 kcal/Kg Calculation Used for Recommendations Kcal/kg Additional Notes Protein: 0.8-1 g/Kg AdjBW; 82- 103 g/day. Fluids: 1 ml/Kcal, or as per MD. Nutrition Intervention Nutrition Support: Start TF-Promote @ 70 ml/hr. Flush: 120 ml water Q 4 hr, or as per MD. Kcal 1,595 Protein (gm) 100 Carbohydrates (gm) 147 Fat (gm) 72 Fluid (mL) 1,078 Fiber (gm) 7 % RDI: 77% Kcal; 101% AA. Goal #1 Provide at least 75% of energy /protein needs through Enteral Feeding during LOS. Follow-Up By: 09/05/21 Additional Comments Start monitoring TF tolerance and BM. <BRANDYN VÁZQUEZ - Last Filed: 09/06/21 14:22> Assessment and Plan Assessment and plan: I saw and evaluated the patient. Discussed with the nurse practitioner and agree with their findings and plan as documented in this note. Hospitalist Physical - Constitutional Vitals: Temp Pulse Resp BP Pulse Ox 98 F 66 21 111/63 96 09/06/21 12:00 09/06/21 13:00 09/06/21 13:00 09/06/21 13:00 09/06/21 13:00 HEART Score - HEART Score Troponin: Troponin T < 0.010 ng/mL (0.00-0.029) 09/02/21 16:21 Results - Labs CBC & Chem 7: 09/05/21 03:08 09/06/21 04:14 Labs: Laboratory Last Values WBC 7.9 K/mm3 (4.5-11.0) 09/05/21 03:08 RBC 4.01 M/mm3 (3.65-5.03) 09/05/21 03:08 Hgb 10.5 gm/dl (11.8-15.2) L 09/05/21 03:08 Hct 33.2 % (35.5-45.6) L 09/05/21 03:08 MCV 83 fl (84-94) L 09/05/21 03:08 MCH 26 pg (28-32) L 09/05/21 03:08 MCHC 32 % (32-34) 09/05/21 03:08 RDW 18.2 % (13.2-15.2) H 09/05/21 03:08 Plt Count 213 K/mm3 (140-440) 09/05/21 03:08 Add Manual Diff Complete 09/03/21 04:53 Total Counted 100 09/03/21 04:53 Seg Neutrophils % Keyboard Instrument Repairer 09/03/21 04:53 Seg Neuts % (Manual) 94.0 % (40.0-70.0) H 09/03/21 04:53 Band Neutrophils % 0 % 09/03/21 04:53 Lymphocytes % (Manual) 3.0 % (13.4-35.0) L 09/03/21 04:53 Reactive Lymphs % (Man) 0 % 09/03/21 04:53 Monocytes % (Manual) 3.0 % (0.0-7.3) 09/03/21 04:53 Eosinophils % (Manual) 0 % (0.0-4.3) 09/03/21 04:53 Basophils % (Manual) 0 % (0.0-1.8) 09/03/21 04:53 Metamyelocytes % 0 % 09/03/21 04:53 Myelocytes % 0 % 09/03/21 04:53 Promyelocytes % 0 % 09/03/21 04:53 Blast Cells % 0 % 09/03/21 04:53 Nucleated RBC % Not Reportable 09/03/21 04:53 Seg Neutrophils # Man 5.5 K/mm3 (1.8-7.7) 09/03/21 04:53 Band Neutrophils # 0.0 K/mm3 09/03/21 04:53 Lymphocytes # (Manual) 0.2 K/mm3 (1.2-5.4) L 09/03/21 04:53 Abs React Lymphs (Man) 0.0 K/mm3 09/03/21 04:53 Monocytes # (Manual) 0.2 K/mm3 (0.0-0.8) 09/03/21 04:53 Eosinophils # (Manual) 0.0 K/mm3 (0.0-0.4) 09/03/21 04:53 Basophils # (Manual) 0.0 K/mm3 (0.0-0.1) 09/03/21 04:53 Metamyelocytes # 0.0 K/mm3 09/03/21 04:53 Myelocytes # 0.0 K/mm3 09/03/21 04:53 Promyelocytes # 0.0 K/mm3 09/03/21 04:53 Blast Cells # 0.0 K/mm3 09/03/21 04:53 WBC Morphology Not Reportable 09/03/21 04:53 Hypersegmented Neuts Not Reportable 09/03/21 04:53 Hyposegmented Neuts Not Reportable 09/03/21 04:53 Hypogranular Neuts Not Reportable 09/03/21 04:53 Smudge Cells Not Reportable 09/03/21 04:53 Toxic Granulation Not Reportable 09/03/21 04:53 Toxic Vacuolation Not Reportable 09/03/21 04:53 Dohle Bodies Not Reportable 09/03/21 04:53 Pelger-Huet Anomaly Not Reportable 09/03/21 04:53 Kaushik Rods Not Reportable 09/03/21 04:53 Platelet Estimate Consistent w auto 09/03/21 04:53 Clumped Platelets Not Reportable 09/03/21 04:53 Plt Clumps, EDTA Not Reportable 09/03/21 04:53 Large Platelets Not Reportable 09/03/21 04:53 Giant Platelets Not Reportable 09/03/21 04:53 Platelet Satelliting Not Reportable 09/03/21 04:53 Plt Morphology Comment Not Reportable 09/03/21 04:53 RBC Morphology Not Reportable 09/03/21 04:53 Dimorphic RBCs Not Reportable 09/03/21 04:53 Polychromasia Not Reportable 09/03/21 04:53 Hypochromasia Not Reportable 09/03/21 04:53 Poikilocytosis Not Reportable 09/03/21 04:53 Anisocytosis 1+ 09/03/21 04:53 Microcytosis Not Reportable 09/03/21 04:53 Macrocytosis Not Reportable 09/03/21 04:53 Spherocytes Not Reportable 09/03/21 04:53 Pappenheimer Bodies Not Reportable 09/03/21 04:53 Sickle Cells Not Reportable 09/03/21 04:53 Target Cells Not Reportable 09/03/21 04:53 Tear Drop Cells Not Reportable 09/03/21 04:53 Ovalocytes Not Reportable 09/03/21 04:53 Stomatocytes Rare 09/02/21 16:21 Helmet Cells Not Reportable 09/03/21 04:53 [place] Bodies Not Reportable 09/03/21 04:53 [place] Rings Not Reportable 09/03/21 04:53 Jerry Cells Not Reportable 09/03/21 04:53 Bite Cells Not Reportable 09/03/21 04:53 Crenated Cell Not Reportable 09/03/21 04:53 Elliptocytes Not Reportable 09/03/21 04:53 Acanthocytes (Spur) Not Reportable 09/03/21 04:53 Rouleaux Not Reportable 09/03/21 04:53 Hemoglobin C Crystals Not Reportable 09/03/21 04:53 Schistocytes Not Reportable 09/03/21 04:53 Malaria parasites Not Reportable 09/03/21 04:53 Percent Retic 1.37 % (0.78-2.58) 09/04/21 10:56 [place] Bodies Not Reportable 09/03/21 04:53 Hem Pathologist Commnt No 09/03/21 04:53 PT 14.3 Sec. (12.2-14.9) 09/03/21 15:00 INR 1.00 (0.87-1.13) 09/03/21 15:00 APTT 22.9 Sec. (24.2-36.6) L 09/03/21 15:00 Heparin Anti-Xa Level 0.43 U.I./ml (0.3-0.7) 09/06/21 04:14 ABG pH 7.331 pH Units (7.350-7.450) L 09/05/21 05:45 ABG pCO2 84.1 mm Hg 09/05/21 05:45 ABG pO2 124.8 mm Hg (80.0-90.0) H 09/05/21 05:45 ABG HCO3 43.5 mmol/L (20.0-26.0) H 09/05/21 05:45 ABG O2 Saturation 98.0 % (95.0-99.0) 09/05/21 05:45 ABG O2 Content 14.7 (0.0-44) 09/05/21 05:45 ABG Base Excess 14.5 mmol/L (-2.0-3.0) H 09/05/21 05:45 ABG Hemoglobin 10.7 gm/dl (14.0-18.0) L 09/05/21 05:45 ABG Carboxyhemoglobin 1.5 % (0.0-5.0) 09/05/21 05:45 ABG Methemoglobin 0.4 % (0.0-1.5) 09/05/21 05:45 Oxyhemoglobin 96.1 % (95.0-99.0) 09/05/21 05:45 FiO2 40 % 09/05/21 05:45 Sodium 148 mmol/L (137-145) H 09/06/21 04:14 Potassium 4.5 mmol/L (3.6-5.0) 09/06/21 04:14 Chloride 97.2 mmol/L (98-107) L 09/06/21 04:14 Carbon Dioxide 44 mmol/L (22-30) H* 09/06/21 04:14 Anion Gap 11 mmol/L 09/06/21 04:14 BUN 45 mg/dL (9-20) H 09/06/21 04:14 Creatinine 0.9 mg/dL (0.8-1.3) 09/06/21 04:14 Estimated GFR > 60 ml/min 09/06/21 04:14 BUN/Creatinine Ratio 50 % 09/06/21 04:14 Glucose 89 mg/dL (75-100) 09/06/21 04:14 POC Glucose 110 mg/dL (70-105) H 09/06/21 11:46 Lactic Acid 0.60 mmol/L (0.7-2.0) L 09/02/21 16:21 Calcium 8.9 mg/dL (8.4-10.2) 09/06/21 04:14 Phosphorus 3.90 mg/dL (2.5-4.5) 09/06/21 04:14 Magnesium 2.50 mg/dL (1.7-2.3) H 09/06/21 04:14 Iron 63 ug/dL (49-181) 09/04/21 04:12 TIBC 176 mcg/dL (250-450) L 09/04/21 04:12 Ferritin 194.9 ng/mL (30.0-300.0) 09/04/21 04:12 Total Bilirubin 0.50 mg/dL (0.1-1.2) 09/03/21 10:13 Direct Bilirubin 0.2 mg/dL (0-0.2) 09/03/21 10:13 Indirect Bilirubin 0.3 mg/dL 09/03/21 10:13 AST 18 units/L (5-40) 09/03/21 10:13 ALT 16 units/L (7-56) 09/03/21 10:13 Alkaline Phosphatase 110 units/L (35-129) 09/03/21 10:13 Lactate Dehydrogenase 283 units/L (91-180) H 09/04/21 04:12 Troponin T < 0.010 ng/mL (0.00-0.029) 09/02/21 16:21 NT-Pro-B Natriuret Pep 4080 pg/mL (0-900) H 09/02/21 16:21 Total Protein 6.4 g/dL (6.3-8.2) 09/03/21 10:13 Albumin 3.2 g/dL (3.9-5) L 09/03/21 10:13 Albumin/Globulin Ratio 1.0 % 09/03/21 10:13 Procalcitonin 0.27 ng/mL (<0.15) 09/03/21 10:13 TSH 0.501 mlU/mL (0.270-4.200) 09/02/21 18:44 Free T4 1.27 ng/dL (0.76-1.46) 09/02/21 18:44 Urine Color Yellow (Yellow) 09/03/21 02:49 Urine Turbidity Slightly cloudy (Clear) 09/03/21 02:49 Urine pH 6.0 (5.0-7.0) 09/03/21 02:49 Ur Specific [place] 1.030 (1.003-1.030) 09/03/21 02:49 Urine Protein <15 mg/dl mg/dL (Negative) 09/03/21 02:49 Urine Glucose (UA) Negative mg/dL (Negative) 09/03/21 02:49 Urine Ketones Negative mg/dL (Negative) 09/03/21 02:49 Urine Blood Negative (Negative) 09/03/21 02:49 Urine Nitrite Negative (Negative) 09/03/21 02:49 Ur Reducing Substances Not Reportable 09/03/21 02:49 Urine Bilirubin Negative (Negative) 09/03/21 02:49 Urine Ictotest Not Reportable 09/03/21 02:49 Urine Urobilinogen < 2.0 mg/dL (<2.0) 09/03/21 02:49 Ur Leukocyte Esterase Negative (Negative) 09/03/21 02:49 Urine WBC (Auto) 1.0 /HPF (0.0-6.0) 09/03/21 02:49 Urine RBC (Auto) 2.0 /HPF (0.0-6.0) 09/03/21 02:49 Urine Mucus Few /HPF 09/03/21 02:49 Urine Opiates Screen Presumptive negative 09/03/21 02:49 Urine Methadone Screen Presumptive negative 09/03/21 02:49 Ur Barbiturates Screen Presumptive negative 09/03/21 02:49 Ur Phencyclidine Scrn Presumptive negative 09/03/21 02:49 Ur Amphetamines Screen Presumptive negative 09/03/21 02:49 U Benzodiazepines Scrn Presumptive negative 09/03/21 02:49 Urine Cocaine Screen Presumptive negative 09/03/21 02:49 U Marijuana (THC) Screen Presumptive positive 09/03/21 02:49 Drugs of Abuse Note Disclamer 09/03/21 02:49 Coronavirus (PCR) Negative (Negative) 09/04/21 07:18 Microbiology: Microbiology 09/02/21 18:50 Sputum - Expectorated Sputum Sputum Culture - Preliminary [place]/IV: Voiding Method Indwelling Catheter Active Medications - Current Medications Current Medications: Generic Name Dose Route Start Last Admin Trade Name Freq PRN Reason Stop Dose Admin Acetaminophen 650 mg 09/02/21 18:31 Acetaminophen 325 Mg Tab PO Q6H PRN Pain MILD(1-3)/Fever >100.5/ZAVALA Acetazolamide 250 mg 09/06/21 11:00 09/06/21 12:18 Acetazolamide 500 Mg Vial IV 09/07/21 12:00 250 mg Q12HR MAE Administration Albuterol 2.5 mg 09/06/21 09:42 Albuterol 2.5 Mg/3 Ml Nebu IH Q4HRT PRN Shortness Of Breath Albuterol/Ipratropium 1 ampul 09/06/21 14:00 Ipratropium/Albuterol Sulfate 3 Ml Ampul.Neb IH Q6HRT MAE Budesonide 0.5 mg 09/03/21 10:00 09/06/21 09:13 Budesonide 0.5 Mg/2 Ml Nebu IH 0.5 mg Q12HR MAE Administration Dextrose 50 ml 09/04/21 08:02 Dextrose 50% In Water (25gm) 50 Ml Syringe IV Q30MIN PRN Hypoglycemia Protocol Diphenhydramine HCl 25 mg 09/05/21 00:16 09/06/21 05:41 Diphenhydramine 50 Mg/Ml Vial IV 25 mg Q6H PRN Administration Itching Doxazosin Mesylate 1 mg 09/06/21 10:00 09/06/21 10:15 Doxazosin 1 Mg Tab PO 1 mg QDAY MAE Administration Famotidine 20 mg 09/06/21 10:00 09/06/21 10:14 Famotidine 20 Mg Tab PO 20 mg BID MAE Administration Furosemide 40 mg 09/04/21 12:54 09/06/21 05:27 Furosemide 20 Mg/2 Ml Inj IV 40 mg BID@0600,1800 MAE Administration Heparin Sodium (Porcine) 5,000 unit 09/06/21 22:00 Heparin 5,000 Unit/1 Ml Vial SUB-Q Q12HR [facility] Hydromorphone HCl 0.5 mg 09/02/21 18:31 Hydromorphone 0.5 Mg/0.5 Ml Inj IV Q8H PRN Pain , Severe (7-10) Hydrophilic Ointment 1 applic 09/03/21 13:55 Lip Therapy Vaseline TP Q2HR PRN Dry Lips Ceftriaxone Sodium 2 gm in 100 mls @ 200 mls/hr 09/02/21 20:00 09/05/21 23:00 Rocephin/Ns 2 Gm/100 Ml IV 09/06/21 20:29 200 mls/hr Q24H [facility] Administration Protocol Insulin Human Regular 0 units 09/04/21 09:00 09/06/21 12:05 Insulin Regular, Human 100 Units/1 Ml SUB-Q Not Given Q6HR [facility] Protocol Levothyroxine Sodium 100 mcg 09/03/21 10:00 09/06/21 05:24 Levothyroxine 100 Mcg Tab PO 100 mcg QAM@0600 [facility] Administration Metoprolol Tartrate 12.5 mg 09/06/21 10:00 09/06/21 10:12 Metoprolol Tartrate 25 Mg Tab PO 12.5 mg BID [facility] Administration Multi-Ingred Cream/Lotion/Oil/Oint 1 applic 09/03/21 13:55 Mineral Oil/Petrolatum, White Ophth Oint 3.5 Gm OU Q4HR PRN Dry Eye(s) Nicotine 21 mg 09/06/21 11:00 09/06/21 10:10 Nicotine 21 Mg/24 Hr Patch TD 21 mg QDAY [facility] Administration Oxycodone/Acetaminophen 1 tab 09/02/21 18:31 Oxycodone /Acetaminophen 5-325mg Tab PO Q6H PRN Pain, Moderate (4-6) Prednisone 15 mg 09/07/21 10:00 Prednisone 5 Mg Tab PO 09/07/21 10:01 QDAY [facility] Prednisone 10 mg 09/08/21 10:00 Prednisone 10 Mg Tab PO 09/08/21 10:01 QDAY [facility] Prednisone 7.5 mg 09/09/21 10:00 Prednisone 5 Mg Tab PO 09/09/21 10:01 QDAY [facility] Prednisone 5 mg 09/10/21 10:00 Prednisone 5 Mg Tab PO 09/12/21 10:01 QDAY MAE Senna/Docusate Sodium 1 tab 09/06/21 10:00 09/06/21 10:16 Sennosides/Docusate Sodium 8.6/50 Mg Tab PO 1 tab BID MAE Administration Sodium Chloride 10 ml 09/02/21 22:00 09/06/21 12:18 Sodium Chloride 0.9% 10 Ml Flush Syringe IV 10 ml BID MAE Administration Sodium Chloride 10 ml 09/02/21 18:31 Sodium Chloride 0.9% 10 Ml Flush Syringe IV PRN PRN LINE FLUSH Sterile Water 5 ml 09/06/21 12:26 Water For Inj Sterile (Pf) 10 Ml IV 09/07/21 12:25 Q12H PRN FOR DIAMONX DILUTION Nutrition/Malnutrition Assess - Dietary Evaluation Nutrition/Malnutrition Findings: Nutrition Notes Start: 09/03/21 10:38 Freq: Status: Active Protocol: Document 09/05/21 09:43 DALE (Rec: 09/05/21 10:02 DALE [id number]) Nutrition Notes Initial or Follow up Brief Note Current Diagnosis COPD,Respiratory Failure, Malnutrition Other Pertinent Diagnosis HFpEF, CAP, Atrial Flutter/RVR , OHS, Urinary Retention, Lung Cancer, .... Current Diet TF-Promote @ 70 ml/hr (from L 09/03) Labs/Tests 09/05: Na 146, CO2 40, BUN 54, Glu 141. Pertinent Medications 09/05: Humulin R 1U, Levothyroxine, others nutritionally unremarkable. Height 5 ft 11 in Weight 127.047 kg Drew Body Weight (kg) 78.18 BMI 39.0 Weight change and time frame No body weight change reported in 2 days. Weight Status Obese Subjective/Other Information RD consult for routine F/U on TF tolerance/continuation. TF continues as prescribed, no further information available at the time, will assess at F /U. Pt is on Mechanical Ventilation, O2 saturation @ 96%, according to Physical Assessment History notes. Percent of energy/protein needs met: Prescribed TF-Promote @ 70 ml/ hr provides for energy/protein needs (1,670 Kcal/104 g) during LOS, 77% Kcal; 101% AA. #1 Nutrition Diagnosis Inadequate oral intake Diagnosis Progress(for reassessment Continues documentation) Is patient on ventilator? Yes Is Patient Ambulatory and/or Out of Bed No REE-(Kent-St. Jeor-confined to bed) 2533.248 Kcal/Kg value to use for calculation 17 Approximate Energy Requirements Using 2160 kcal/Kg Calculation Used for Recommendations Kcal/kg Additional Notes Protein: 0.8-1 g/Kg AdjBW; 82- 103 g/day. Fluids: 1 ml/Kcal, or as per MD. Nutrition Intervention Nutrition Support: Continue TF-Promote @ 70 ml/hr . Flush: 120 ml water Q 4 hr, or as per MD. Kcal 1,595 Protein (gm) 100 Carbohydrates (gm) 147 Fat (gm) 72 Fluid (mL) 1,078 Fiber (gm) 7 % RDI: 77% Kcal; 101% AA. Goal #1 Provide at least 75% of energy /protein needs through Enteral Feeding during LOS. Follow-Up By: 09/12/21 Additional Comments Continue monitoring TF tolerance and BM.
--- NOTE | 2021-09-04 17:59 | Consultation ---
DATE OF CONSULTATION: 09/03/2021 PULMONARY CRITICAL CARE CONSULT NOTE CONSULTING PHYSICIAN: Dr. Edgar Barber. REASON FOR CONSULTATION: Acute hypoxemic respiratory failure, on mechanical ventilatory support, history of end-stage chronic obstructive pulmonary disease. CHIEF COMPLAINT AND HISTORY OF PRESENT ILLNESS: As follows. The patient is a now 61-year-old obese male with a past medical history according to the records significant for end-stage COPD, on home oxygen, but according to his , also a history of in her words stage IV lung cancer that was diagnosed in 2009 for which he has been treated and all he has left is scar tissue. 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 He has a history also, it seems a 10+ pack year tobacco smoking history, continues to smoke. Emergency Medical Services were called to the house for shortness of breath. His states he gets recurrent pneumonias. He was treated with COPD exacerbation and in the Emergency Room, he was found to be hypoxemic. O2 sats in the 70s on supplemental oxygen. He had been placed on noninvasive ventilation without improvement in his symptoms. Subsequently, he was intubated and stabilized and transferred to the intensive care unit. When I stopped by to see him, he was resting in bed, was on the mechanical ventilator, assist control. I believe tidal volumes were set at 500. PEEP was set at 6. He was on about 60% FiO2. Mildly increased respiratory effort at rest. He was on a Versed drip, I believe, not really following commands. I do not have any history of vomiting or overt aspiration. That really is as much of the history of presentation as I have. PAST MEDICAL HISTORY: Stage IV lung cancer, chronic obstructive lung disease, cardiomyopathy, obesity hypoventilation syndrome, morbid obesity, home oxygen dependent, COPD, recurrent pneumonias. PAST SURGICAL HISTORY: Unknown. MEDICATIONS: He was on at the time I stopped by to see him, according to the medication administration record included the following: Tylenol 650 mg p.o. q. 6 hours p.r.n. mild pain or fevers. All p.o. meds via the feeding tube. Albuterol 2.5 mg nebulized q. 3 hours p.r.n. shortness of breath, Brovana 15 mcg nebulized q. 12 hours, azithromycin 500 mg p.o. daily, Pulmicort 0.5 mg nebulized q. 12 hours, Pepcid 20 mg p.o. daily. Again, Rocephin 2 grams IV daily, Lasix 20 mg IV b.i.d., heparin 5000 units subcutaneous q. 12 hours, Dilaudid 0.5 mg IV q. 8 hours p.r.n. severe pain, Levoxyl 100 mcg p.o. daily, Solu-Medrol 40 mg IV q. 8 hours, Percocet 5/325 one tablet p.o. q. 6 hours p.r.n. moderate pain, propofol drip was going at 25 mcg per kilogram per minute. ALLERGIES: LEVAQUIN. Nature of this allergy is unknown. DIET: Morbidly obese, acute weight loss or gain history is unknown. FAMILY AND SOCIAL HISTORY: Apparently lives in the community. He is . He continues to smoke tobacco, 10+ pack year tobacco smoking history. Alcohol, illicit drug use or abuse history unknown. REVIEW OF SYSTEMS: Unobtainable secondary to the patient's medical and mental condition. Since he has been here, no gross hematochezia or melena, no gross hematuria, no hematemesis, no bloody tracheal secretions, no witnessed seizures. Review of systems otherwise unobtainable or as in the body of the history above. PHYSICAL EXAMINATION: VITAL SIGNS: At presentation in the Emergency Room revealed vital signs shows that he was afebrile. The first temperature I do have on this gentleman is 98.0 degrees Fahrenheit with a pulse of 101, respiratory rate of 35, blood pressure 120/55, O2 sats were about 95% on 60% FiO2. GENERAL: He is a middle-aged, morbidly obese male. Normocephalic, atraumatic on the mechanical ventilator with mildly increased respiratory effort at rest. HEAD, EYES, EARS, NOSE AND THROAT: Anicteric. No conjunctival erythema. Oropharynx was moist. Endotracheal tube was taped at the lips around 24-25 cm. No gross jugular venous distention, no thyromegaly. He does have a large neck circumference. Grossly, there were no palpable lymph nodes in the supraclavicular or submandibular lymph node chains. LUNGS: Auscultation of both lung seymour significant for bilateral rhonchi and expiratory wheezes bilaterally with a prolonged expiratory phase. HEART: Sounds 1 and 2 are heard, regular; tachycardia at the time of my evaluation without overt rubs or murmurs. ABDOMEN: Soft, full, protuberant. Bowel sounds are positive, nontender, no palpable hepatosplenomegaly. EXTREMITIES: Without overt digital clubbing or cyanosis. He had a trace to 1+ bipedal pitting edema. Pedal pulses are 2+ bilaterally. NEUROLOGIC: Pupils were equal, round, about 3 mm, reactive to light. Extraocular muscle movements cannot be assessed. He did have spontaneous movements to all extremities. I attempted to move his head to verbal stimuli. SKIN: Normal turgor in the areas I examined without overt cellulitis or rash. Please see the wound care nurses' notes for full description of his skin. PSYCHIATRIC: Mood and affect could not be assessed. He had intact judgment and insight. LABORATORY DATA: From my review as follows: White cell count 8600, hemoglobin 11.4, hematocrit 36.0, platelet count 224, 1% band forms on the manual differential. Arterial blood gas showed a pH of 7.39, pCO2 of 67, pO2 of 203 that was on 100% FiO2 and I believe the above-mentioned vent settings. Serum sodium was 141, potassium 5.9, chloride 96, bicarbonate 32, BUN 18, creatinine 0.8, glucose 101. Lactic acid level within normal limits. BNP is elevated at 4080. TSH within normal limits. Urinalysis was negative for nitrites and leukocyte esterase. Urine drug screen was presumptive positive for THC. No microbiology studies for my review. Chest x-ray shows right upper lobe collapse, traction of the trachea to the right side. The film is rotated to the right. He does have gross cardiomegaly, increased interstitial markings, in particular in the bases, and that was the pre-intubation chest x-ray. Post-intubation chest x-ray showed ET tube tip just about 1 cm above the janett. I believe that has been retracted and is now about 5 cm above the janett. A CT angio of the chest was done. I have reviewed the images, not the best contrast phase timing. However, I do not see any large ____ gross filling defects consistent with clear pulmonary emboli. He has what appears to be an endobronchial occlusion of the right upper lobe. There is a mass laterally as well as right upper lobe atelectasis. Lung windows show some areas of bronchiectatic change in the right lower lobe, in particular. Mild ground glass opacification, in particular in the bases, but large bleb in the right lower lobe, some pleural thickening. Radiologist's interpretation, no CT evidence for PE, complete right upper lobe atelectasis, right paratracheal adenopathy, mild bronchopneumonia, medial aspect left upper lobe, and both lower lobes. ASSESSMENT: * Acute hypoxemic respiratory failure, on mechanical ventilatory support. * Acute respiratory distress syndrome. * History of end-stage IV lung cancer. * Acute exacerbation of chronic obstructive pulmonary disease. * Bilateral pneumonia. * History of tobacco abuse. * History of obesity hypoventilation syndrome. * Congestive heart failure exacerbation. * Acute on chronic hypercapnic respiratory failure. * Hyperkalemia, now resolved. PLAN: We will keep him on full mechanical ventilatory support. His peak pressures are running on the high side, but plateau pressures within target range at 27. I will reduce the tidal volume to 450, but increase the PEEP to 8. We will continue long and shorter-acting bronchodilators. Pulmonary hygiene will be per the respiratory therapist. Ventilator-associated pneumonia bundle has been introduced. I will repeat an arterial [facility] and make changes from there. The tentative plan had been to do a bronchoscopy; however, with history obtained from the , I will be recording. 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 I believe the phone number there is [phone]. I will also be trying to get records from [place], [place]. He does not have oncologist as far as his mentions. Glycemic control will be for target blood glucose of about 140-180 mg/dL while critically ill. Again, we will also continue systemic steroids and inhaled corticosteroids. We will complete empiric community-acquired pneumonia therapy. A procalcitonin level will be ordered to help guide clinical decision making. We will continue diuresis while following electrolytes. Chest x-ray also suggests gross cardiomegaly. I will go ahead and get a 2D echo to better understand his cardiovascular hemodynamics. He has not been at this facility before. He has just gotten to [facility]. He does have a right bundle-branch initially at presentation. The 12-lead EKG suggests possible acute myocardial infarction. I really doubt it. A stat troponin will be ordered. Cardiology evaluation and consultation will be placed. Adjusted particulars to also check for significant cor pulmonale. Enteral nutrition will be the feeding modality of choice. He is on GI prophylaxis with Pepcid, DVT prophylaxis with heparin. Flu and pneumonia vaccination will be addressed per protocol. I do think he may benefit from Oncology evaluation. This gentleman with a history of known cancer and does not have oncologist at this point, I will go ahead and consult Hematology/Oncology. The does also mention that he do not have somebody following them at this time. Flu and pneumonia vaccination will be addressed per protocol. Thank you very much for the consult. We will follow along with further recommendations as picture progresses/becomes clearer. He is critically ill on life-sustaining interventions including mechanical ventilatory support. I should mention I will be stopping the Versed drip and go with a fentanyl drip along with the propofol. At this time, I spent about 40 minutes of critical care time without overlap and excluding any procedural time that may be necessary TID: [id number] RECEIPT: [id number] JOSE/DWAYNE/JOSEY/NIS
[2021-09-04] MEDS: cefTRIAXone/NS 2 GM/100 ML 2 GM/100 ML BAG IV SCH (20:45)
[2021-09-05] MEDS: diphenhydrAMINE 50 MG/ML VIAL IV PRN ×2 (00:22→07:35)
[2021-09-05] MEDS: INSULIN REGULAR, HUMAN 100 UNITS/1 ML SUB-Q SCH ×4 (00:52→17:29)
--- NOTE | 2021-09-05 03:44 | XRay Report ---
CHEST 1 VIEW INDICATION / CLINICAL INFORMATION: follow up respiratory failure. COMPARISON: Chest x-ray 09/04/2021 FINDINGS: SUPPORT DEVICES: Endotracheal tube, esophagogastric tube demonstrates satisfactory position. Right IJ central venous catheter tip near the confluence of superior vena cava and subclavian vein. Stable. HEART / MEDIASTINUM: Stable interval appearance of the cardiomediastinal silhouette. LUNGS / PLEURA: Increasing density right upper lung thought to reflect worsening right upper lobe ate lectasis. Mild prominence of left hilar vasculature. Additional airspace opacities right lung base. W orsened BONES: No significant osseous abnormality. ADDITIONAL FINDINGS: No significant additional findings. IMPRESSION: 1. Increasing density right upper lung and right lung base compatible with worsening atelectasis of t he right upper lobe, the lower lobe opacities have additional considerations of edema and infection. 2. Prominence of left perihilar vasculature increased since comparison study may reflect volume overl oad. Signer Name: Rip Crews II, MD Signed: 09/05/2021 3:40 AM Workstation Name: [id number]
[2021-09-05 03:50] LABS: Hematocrit 33.2 % (35.5-45.6); Hemoglobin 10.5 gm/dl (11.8-15.2); Mean Corpuscular HGB Conc 32 % (32-34); Mean Corpuscular Volume 83 fl (84-94); Platelet Count 213 K/mm3 (140-440); Red Blood Count 4.01 M/mm3 (3.65-5.03); Red Cell Distribution Width 18.2 % (13.2-15.2)
[2021-09-05 04:02] LABS: BUN/Creatinine Ratio 49; Blood Urea Nitrogen 54 mg/dL (9-20); Calcium 8.5 mg/dL (8.4-10.2); Hemolysis Index 6
[2021-09-05] MEDS: fentaNYL DRIP Premix 2,000 MCG/100 ML BAG IV SCH (05:34)
[2021-09-05] MEDS: FUROSEMIDE 20 MG/2 ML INJ IV SCH ×2 (05:35→17:16)
[2021-09-05] MEDS: LEVOTHYROXINE 100 MCG TAB PO SCH (05:36)
[2021-09-05 06:44] LABS: ABG Base Excess 14.5 mmol/L (-2.0-3.0); ABG HCO3 43.5 mmol/L (20.0-26.0); ABG Methemoglobin 0.4 % (0.0-1.5); ABG PCO2 84.1 mm Hg; ABG PH 7.331 pH Units (7.350-7.450); ABG PO2 124.8 mm Hg (80.0-90.0)
[2021-09-05] MEDS: cefTRIAXone/NS 2 GM/100 ML 2 GM/100 ML BAG IV SCH ×2 (07:55→23:00)
[2021-09-05] MEDS: DOXAZOSIN 1 MG TAB FEEDTUBE SCH (09:02)
[2021-09-05] MEDS: SENNOSIDES/DOCUSATE SODIUM 8.6/50 MG TAB FEEDTUBE SCH ×2 (09:23→23:01)
[2021-09-05] MEDS: METOPROLOL TARTRATE 25 MG TAB FEEDTUBE SCH ×2 (09:23→23:01)
[2021-09-05] MEDS: AZITHROMYCIN 250 MG TAB PO SCH (09:23)
[2021-09-05] MEDS: methylPREDNISolone Sod Succinate 40 MG/1 ML INJ IV SCH ×2 (09:23→23:00)
[2021-09-05] MEDS: FAMOTIDINE 20 MG TAB FEEDTUBE SCH ×2 (09:24→23:01)
--- NOTE | 2021-09-05 12:18 | Progress Note ---
<SAVANNAHDAVIS RohitNaomi - Last Filed: 09/05/21 16:13> Assessment and Plan Assessment and plan: This is a 61-year-old male with CHF, COPD on home O2, nicotine dependence and OHS admitted with CHF exacerbation and CAP Neuro: Sedated -Sedated with Fentanyl -RASS goal 0 to -1 -Reorientation as needed -Maintain sleep-wake cycle Cardiac: Aflutter, Acute on Chronic CHF -Cardiology consulted, appreciate recommendations -Blood pressure monitoring per protocol -Echocardiogram shows LVEF of 50 to 55%, flattened septum consistent with right ventricular volume overload, RVSP 37 mmhg -BB PO -Heparin gtt -Lasix twice daily -Admit proBNP 4080 Respiratory: Acute on chronic hypoxic respiratory failure, RUL mass, h/o COPD, OHS, nicotine dependence, stage IV lung CA (in remission according to ) -CCM consulted, appreciate recommendations -Intubated on 09/02 with 8.0 OETT at 22 at the lips -A.m. vent settings: AC rate 20, TV 400, Peep 8, FiO2 35 % -See RT notes for titration -A.m. ABG and CXR noted -VAP bundle -SPO2 monitoring -Solu-Medrol 40 mg every 12 GI: Morbid obesity, mild protein calorie nutrition -24 hours +1451 mL -PPI -NTR consulted for tube feedings -BR: Colace : Urinary retention -Monitor intake and output -Renally dose medications -Avoid nephrotoxic medications -[place] replaced 09/04 -Doxazosin -Trend BMP ID: CAP, Post obstructive ? -Covid 19 pcr negative -Antibiotic therapy with azithro and rocephin -Admit CXR showed right upper lobe atelectasis, patchy parenchymal opacities in both mid to lower lung zones -Chest CTA showed complete right upper lobe atelectasis, mild bronchopneumonia medial aspect left upper, right middle and both lower lobes -f/u blood culture -Monitor WBC and temperature curve Endo: h/o hypothyroidism -Avoid hypoglycemia -SSI -Accu-Cheks q. 6hr -Resume home levothyroxine Heme/Oncology: h/o stage IV lung CA -CT chest shows RUL mass -According to patient is in remission pose radiation and chemo -Hem/Onc consulted, appreciate recommendations -Records requested from Dr. Ave Jenkins -unable to get a hold -Trend CBC -Transfuse hemoglobin less than 7 -SCDs to BLE while in bed The high probability of a clinically significant, sudden or life threatening deterioration of the [cardiac, pulmonary] system(s) required my full and direct attention, intervention and personal management. The aggregate critical care time was [60] minutes. This time is in addition to time spent performing reported procedures but includes the following: [x] Data Review and interpretation [x] Patient assessment and monitoring of vital signs [x] Documentation [x] Medication orders and management Disposition Plan: icu Total Time Spent with Patient (Minutes): 60 History Interval history: This is a 71-year-old male with CHF, COPD on home O2, hypothyroidism, stage IV lung CA, nicotine dependence and OHS who presented to the emergency department on 09/02 with complaints of " cannot breathe" via EMS. On EMS arrival patient had a SPO2 in the 60s and was placed on supplemental oxygenation and transported to [facility]. In the emergency department patient's SPO2 was in the 70s with supplemental oxygenation and he did not have much improvement in symptoms and was placed on NiPPV and was intubated in the ED as he was found to be retracting, unable to speak, using accessory muscles to breathe, with audible wheezing and placed on ventilatory support and CXR showed bilateral PNA. He was admitted with CHF excerbation and with PNA to the hospitalist service with consults cardiology and CCM. Hospital course to date: 09/03: Remains on ventilatory support. The afternoon patient heart rate went into the 140s/150s, cardiology aware, stat ECG obtained which showed no acute findings, 2.5 metoprolol ordered. Started on fentanyl drip. Records requested from [facility] and Dr. Ave Jenkins, [place] catheter discontinued. Ventilator changes per CCM. 09/04: CCM made vent changes, decrease Solu-Medrol, COVID-19 PCR negative. [place] catheter replaced. 09/05: Patient currently on vent settings and only sedated on fentanyl. No acute events reported overnight. PSV versus remaining on AC for bronchoscopy. Hospitalist Physical - Constitutional Vitals: Temp Pulse Resp BP Pulse Ox 98.7 F 78 20 116/53 91 09/05/21 12:00 09/05/21 12:00 09/05/21 12:00 09/05/21 12:00 09/05/21 12:00 General appearance: Present: no acute distress, obese, other (intubated ) - EENT Eyes: Present: PERRL, EOM intact ENT: hearing intact, dentition normal - Neck Neck: Present: normal ROM - Respiratory Respiratory effort: normal Respiratory: bilateral: diminished, wheezing - Cardiovascular Rhythm: regular Heart Sounds: Present: S1 & S2. Absent: systolic murmur, diastolic murmur - Extremities Extremities: no ischemia, pulses intact, pulses symmetrical, No edema, normal temperature, normal color Peripheral Pulses: within normal limits - Abdominal General gastrointestinal: soft, non-tender, non-distended, normal bowel sounds - Integumentary Integumentary: Present: warm, dry HEART Score - HEART Score Troponin: Troponin T < 0.010 ng/mL (0.00-0.029) 09/02/21 16:21 Results - Labs CBC & Chem 7: 09/05/21 03:08 09/05/21 03:08 Labs: Laboratory Last Values WBC 7.9 K/mm3 (4.5-11.0) 09/05/21 03:08 RBC 4.01 M/mm3 (3.65-5.03) 09/05/21 03:08 Hgb 10.5 gm/dl (11.8-15.2) L 09/05/21 03:08 Hct 33.2 % (35.5-45.6) L 09/05/21 03:08 MCV 83 fl (84-94) L 09/05/21 03:08 MCH 26 pg (28-32) L 09/05/21 03:08 MCHC 32 % (32-34) 09/05/21 03:08 RDW 18.2 % (13.2-15.2) H 09/05/21 03:08 Plt Count 213 K/mm3 (140-440) 09/05/21 03:08 Add Manual Diff Complete 09/03/21 04:53 Total Counted 100 09/03/21 04:53 Seg Neutrophils % Machine Operator Transplanter 09/03/21 04:53 Seg Neuts % (Manual) 94.0 % (40.0-70.0) H 09/03/21 04:53 Band Neutrophils % 0 % 09/03/21 04:53 Lymphocytes % (Manual) 3.0 % (13.4-35.0) L 09/03/21 04:53 Reactive Lymphs % (Man) 0 % 09/03/21 04:53 Monocytes % (Manual) 3.0 % (0.0-7.3) 09/03/21 04:53 Eosinophils % (Manual) 0 % (0.0-4.3) 09/03/21 04:53 Basophils % (Manual) 0 % (0.0-1.8) 09/03/21 04:53 Metamyelocytes % 0 % 09/03/21 04:53 Myelocytes % 0 % 09/03/21 04:53 Promyelocytes % 0 % 09/03/21 04:53 Blast Cells % 0 % 09/03/21 04:53 Nucleated RBC % Not Reportable 09/03/21 04:53 Seg Neutrophils # Man 5.5 K/mm3 (1.8-7.7) 09/03/21 04:53 Band Neutrophils # 0.0 K/mm3 09/03/21 04:53 Lymphocytes # (Manual) 0.2 K/mm3 (1.2-5.4) L 09/03/21 04:53 Abs React Lymphs (Man) 0.0 K/mm3 09/03/21 04:53 Monocytes # (Manual) 0.2 K/mm3 (0.0-0.8) 09/03/21 04:53 Eosinophils # (Manual) 0.0 K/mm3 (0.0-0.4) 09/03/21 04:53 Basophils # (Manual) 0.0 K/mm3 (0.0-0.1) 09/03/21 04:53 Metamyelocytes # 0.0 K/mm3 09/03/21 04:53 Myelocytes # 0.0 K/mm3 09/03/21 04:53 Promyelocytes # 0.0 K/mm3 09/03/21 04:53 Blast Cells # 0.0 K/mm3 09/03/21 04:53 WBC Morphology Not Reportable 09/03/21 04:53 Hypersegmented Neuts Not Reportable 09/03/21 04:53 Hyposegmented Neuts Not Reportable 09/03/21 04:53 Hypogranular Neuts Not Reportable 09/03/21 04:53 Smudge Cells Not Reportable 09/03/21 04:53 Toxic Granulation Not Reportable 09/03/21 04:53 Toxic Vacuolation Not Reportable 09/03/21 04:53 Dohle Bodies Not Reportable 09/03/21 04:53 Pelger-Huet Anomaly Not Reportable 09/03/21 04:53 Kaushik Rods Not Reportable 09/03/21 04:53 Platelet Estimate Consistent w auto 09/03/21 04:53 Clumped Platelets Not Reportable 09/03/21 04:53 Plt Clumps, EDTA Not Reportable 09/03/21 04:53 Large Platelets Not Reportable 09/03/21 04:53 Giant Platelets Not Reportable 09/03/21 04:53 Platelet Satelliting Not Reportable 09/03/21 04:53 Plt Morphology Comment Not Reportable 09/03/21 04:53 RBC Morphology Not Reportable 09/03/21 04:53 Dimorphic RBCs Not Reportable 09/03/21 04:53 Polychromasia Not Reportable 09/03/21 04:53 Hypochromasia Not Reportable 09/03/21 04:53 Poikilocytosis Not Reportable 09/03/21 04:53 Anisocytosis 1+ 09/03/21 04:53 Microcytosis Not Reportable 09/03/21 04:53 Macrocytosis Not Reportable 09/03/21 04:53 Spherocytes Not Reportable 09/03/21 04:53 Pappenheimer Bodies Not Reportable 09/03/21 04:53 Sickle Cells Not Reportable 09/03/21 04:53 Target Cells Not Reportable 09/03/21 04:53 Tear Drop Cells Not Reportable 09/03/21 04:53 Ovalocytes Not Reportable 09/03/21 04:53 Stomatocytes Rare 09/02/21 16:21 Helmet Cells Not Reportable 09/03/21 04:53 Lim[place] Bodies Not Reportable 09/03/21 04:53 Morris Rings Not Reportable 09/03/21 04:53 Jerry Cells Not Reportable 09/03/21 04:53 Bite Cells Not Reportable 09/03/21 04:53 Crenated Cell Not Reportable 09/03/21 04:53 Elliptocytes Not Reportable 09/03/21 04:53 Acanthocytes (Spur) Not Reportable 09/03/21 04:53 Rouleaux Not Reportable 09/03/21 04:53 Hemoglobin C Crystals Not Reportable 09/03/21 04:53 Schistocytes Not Reportable 09/03/21 04:53 Malaria parasites Not Reportable 09/03/21 04:53 Percent Retic 1.37 % (0.78-2.58) 09/04/21 10:56 Tanner Bodies Not Reportable 09/03/21 04:53 Hem Pathologist Commnt No 09/03/21 04:53 PT 14.3 Sec. (12.2-14.9) 09/03/21 15:00 INR 1.00 (0.87-1.13) 09/03/21 15:00 APTT 22.9 Sec. (24.2-36.6) L 09/03/21 15:00 Heparin Anti-Xa Level 0.28 U.I./ml (0.3-0.7) L 09/05/21 03:08 ABG pH 7.331 pH Units (7.350-7.450) L 09/05/21 05:45 ABG pCO2 84.1 mm Hg 09/05/21 05:45 ABG pO2 124.8 mm Hg (80.0-90.0) H 09/05/21 05:45 ABG HCO3 43.5 mmol/L (20.0-26.0) H 09/05/21 05:45 ABG O2 Saturation 98.0 % (95.0-99.0) 09/05/21 05:45 ABG O2 Content 14.7 (0.0-44) 09/05/21 05:45 ABG Base Excess 14.5 mmol/L (-2.0-3.0) H 09/05/21 05:45 ABG Hemoglobin 10.7 gm/dl (14.0-18.0) L 09/05/21 05:45 ABG Carboxyhemoglobin 1.5 % (0.0-5.0) 09/05/21 05:45 ABG Methemoglobin 0.4 % (0.0-1.5) 09/05/21 05:45 Oxyhemoglobin 96.1 % (95.0-99.0) 09/05/21 05:45 FiO2 40 % 09/05/21 05:45 Sodium 146 mmol/L (137-145) H 09/05/21 03:08 Potassium 5.0 mmol/L (3.6-5.0) 09/05/21 03:08 Chloride 99.8 mmol/L (98-107) 09/05/21 03:08 Carbon Dioxide 40 mmol/L (22-30) H 09/05/21 03:08 Anion Gap 11 mmol/L 09/05/21 03:08 BUN 54 mg/dL (9-20) H 09/05/21 03:08 Creatinine 1.1 mg/dL (0.8-1.3) 09/05/21 03:08 Estimated GFR > 60 ml/min 09/05/21 03:08 BUN/Creatinine Ratio 49 % 09/05/21 03:08 Glucose 141 mg/dL (75-100) H 09/05/21 03:08 POC Glucose 152 mg/dL (70-105) H 09/05/21 11:32 Lactic Acid 0.60 mmol/L (0.7-2.0) L 09/02/21 16:21 Calcium 8.5 mg/dL (8.4-10.2) 09/05/21 03:08 Phosphorus 4.70 mg/dL (2.5-4.5) H 09/04/21 04:12 Magnesium 2.40 mg/dL (1.7-2.3) H 09/04/21 04:12 Iron 63 ug/dL (49-181) 09/04/21 04:12 TIBC 176 mcg/dL (250-450) L 09/04/21 04:12 Ferritin 194.9 ng/mL (30.0-300.0) 09/04/21 04:12 Total Bilirubin 0.50 mg/dL (0.1-1.2) 09/03/21 10:13 Direct Bilirubin 0.2 mg/dL (0-0.2) 09/03/21 10:13 Indirect Bilirubin 0.3 mg/dL 09/03/21 10:13 AST 18 units/L (5-40) 09/03/21 10:13 ALT 16 units/L (7-56) 09/03/21 10:13 Alkaline Phosphatase 110 units/L (35-129) 09/03/21 10:13 Lactate Dehydrogenase 283 units/L (91-180) H 09/04/21 04:12 Troponin T < 0.010 ng/mL (0.00-0.029) 09/02/21 16:21 NT-Pro-B Natriuret Pep 4080 pg/mL (0-900) H 09/02/21 16:21 Total Protein 6.4 g/dL (6.3-8.2) 09/03/21 10:13 Albumin 3.2 g/dL (3.9-5) L 09/03/21 10:13 Albumin/Globulin Ratio 1.0 % 09/03/21 10:13 Procalcitonin 0.27 ng/mL (<0.15) 09/03/21 10:13 TSH 0.501 mlU/mL (0.270-4.200) 09/02/21 18:44 Free T4 1.27 ng/dL (0.76-1.46) 09/02/21 18:44 Urine Color Yellow (Yellow) 09/03/21 02:49 Urine Turbidity Slightly cloudy (Clear) 09/03/21 02:49 Urine pH 6.0 (5.0-7.0) 09/03/21 02:49 Ur Specific [place] 1.030 (1.003-1.030) 09/03/21 02:49 Urine Protein <15 mg/dl mg/dL (Negative) 09/03/21 02:49 Urine Glucose (UA) Negative mg/dL (Negative) 09/03/21 02:49 Urine Ketones Negative mg/dL (Negative) 09/03/21 02:49 Urine Blood Negative (Negative) 09/03/21 02:49 Urine Nitrite Negative (Negative) 09/03/21 02:49 Ur Reducing Substances Not Reportable 09/03/21 02:49 Urine Bilirubin Negative (Negative) 09/03/21 02:49 Urine Ictotest Not Reportable 09/03/21 02:49 Urine Urobilinogen < 2.0 mg/dL (<2.0) 09/03/21 02:49 Ur Leukocyte Esterase Negative (Negative) 09/03/21 02:49 Urine WBC (Auto) 1.0 /HPF (0.0-6.0) 09/03/21 02:49 Urine RBC (Auto) 2.0 /HPF (0.0-6.0) 09/03/21 02:49 Urine Mucus Few /HPF 09/03/21 02:49 Urine Opiates Screen Presumptive negative 09/03/21 02:49 Urine Methadone Screen Presumptive negative 09/03/21 02:49 Ur Barbiturates Screen Presumptive negative 09/03/21 02:49 Ur Phencyclidine Scrn Presumptive negative 09/03/21 02:49 Ur Amphetamines Screen Presumptive negative 09/03/21 02:49 U Benzodiazepines Scrn Presumptive negative 09/03/21 02:49 Urine Cocaine Screen Presumptive negative 09/03/21 02:49 U Marijuana (THC) Screen Presumptive positive 09/03/21 02:49 Drugs of Abuse Note Disclamer 09/03/21 02:49 Coronavirus (PCR) Negative (Negative) 09/04/21 07:18 [place]/IV: Voiding Method Indwelling Catheter Active Medications - Current Medications Current Medications: Generic Name Dose Route Start Last Admin Trade Name Freq PRN Reason Stop Dose Admin Acetaminophen 650 mg 09/02/21 18:31 Acetaminophen 325 Mg Tab PO Q6H PRN Pain MILD(1-3)/Fever >100.5/ZAVALA Albuterol 2.5 mg 09/02/21 18:31 09/03/21 00:23 Albuterol 2.5 Mg/3 Ml Nebu IH 2.5 mg Q3HRT PRN Administration Shortness Of Breath Arformoterol Tartrate 15 mcg 09/03/21 10:00 09/04/21 23:31 Arformoterol 15 Mcg/2 Ml Nebu IH 15 mcg Q12HR MAE Administration Azithromycin 500 mg 09/02/21 20:00 09/05/21 09:23 Azithromycin 250 Mg Tab PO 09/06/21 10:01 500 mg QDAY MAE Administration Protocol Budesonide 0.5 mg 09/03/21 10:00 09/04/21 23:31 Budesonide 0.5 Mg/2 Ml Nebu IH 0.5 mg Q12HR MAE Administration Dextrose 50 ml 09/04/21 08:02 Dextrose 50% In Water (25gm) 50 Ml Syringe IV Q30MIN PRN Hypoglycemia Protocol Diphenhydramine HCl 25 mg 09/05/21 00:16 09/05/21 07:35 Diphenhydramine 50 Mg/Ml Vial IV 25 mg Q6H PRN Administration Itching Doxazosin Mesylate 1 mg 09/04/21 12:00 09/05/21 09:02 Doxazosin 1 Mg Tab FEEDTUBE Not Given QDAY MAE Famotidine 20 mg 09/03/21 22:00 09/05/21 09:24 Famotidine 20 Mg Tab FEEDTUBE 20 mg BID MAE Administration Fentanyl 50 mcg 09/03/21 12:47 09/03/21 13:09 Fentanyl 100 Mcg/2 Ml Inj IV 50 mcg Q10MIN PRN Administration ANALGESIA Furosemide 40 mg 09/04/21 12:54 09/05/21 05:35 Furosemide 20 Mg/2 Ml Inj IV 40 mg BID@0600,1800 MAE Administration Hydromorphone HCl 0.5 mg 09/02/21 18:31 Hydromorphone 0.5 Mg/0.5 Ml Inj IV Q8H PRN Pain , Severe (7-10) Hydrophilic Ointment 1 applic 09/03/21 13:55 Lip Therapy Vaseline TP Q2HR PRN Dry Lips Propofol 1,000 mg in 100 mls @ 4.082 mls/hr 09/02/21 18:00 09/03/21 15:12 Diprivan 10 Mg/Ml IV 0 mcg/kg/min TITR MAE 0 mls/hr Titration Protocol 5 MCG/KG/MIN Ceftriaxone Sodium 2 gm in 100 mls @ 200 mls/hr 09/02/21 20:00 09/05/21 07:55 Rocephin/Ns 2 Gm/100 Ml IV 09/06/21 20:29 Not Given Q24H MAE Protocol Fentanyl Citrate 2,000 mcg in 100 mls @ 6.352 mls/hr 09/03/21 13:00 09/05/21 10:40 Fentanyl Drip Premix IV 0 mcg/kg/hr TITR MAE 0 mls/hr Titration Protocol 1 MCG/KG/HR Heparin Sodium/Sodium Chloride 25,000 unit in 500 mls @ 30 mls/hr 09/03/21 15:00 09/05/21 05:59 Heparin/ 0.45% Nacl-25,000 Unit/500 Ml IV 1,750 units/hr TITR MAE 35 mls/hr Titration Protocol 1,500 UNITS/HR Insulin Human Regular 0 units 09/04/21 09:00 09/05/21 11:35 Insulin Regular, Human 100 Units/1 Ml SUB-Q 1 units Q6HR MAE Administration Protocol Levothyroxine Sodium 100 mcg 09/03/21 10:00 09/05/21 05:36 Levothyroxine 100 Mcg Tab PO 100 mcg QAM@0600 MAE Administration Methylprednisolone Sodium Succinate 40 mg 09/04/21 22:00 09/05/21 09:23 Methylprednisolone Sod Succinate 40 Mg/1 Ml Inj IV 40 mg Q12HR MAE Administration Metoprolol Tartrate 12.5 mg 09/03/21 15:00 09/05/21 09:23 Metoprolol Tartrate 25 Mg Tab FEEDTUBE 12.5 mg BID MAE Administration Multi-Ingred Cream/Lotion/Oil/Oint 1 applic 09/03/21 13:55 Mineral Oil/Petrolatum, White Ophth Oint 3.5 Gm OU Q4HR PRN Dry Eye(s) Oxycodone/Acetaminophen 1 tab 09/02/21 18:31 Oxycodone /Acetaminophen 5-325mg Tab PO Q6H PRN Pain, Moderate (4-6) Senna/Docusate Sodium 1 tab 09/03/21 22:00 09/05/21 09:23 Sennosides/Docusate Sodium 8.6/50 Mg Tab FEEDTUBE 1 tab BID MAE Administration Sodium Chloride 10 ml 09/02/21 22:00 09/05/21 09:24 Sodium Chloride 0.9% 10 Ml Flush Syringe IV 10 ml BID MAE Administration Sodium Chloride 10 ml 09/02/21 18:31 Sodium Chloride 0.9% 10 Ml Flush Syringe IV PRN PRN LINE FLUSH Nutrition/Malnutrition Assess - Dietary Evaluation Nutrition/Malnutrition Findings: Nutrition Notes Start: 09/03/21 10:38 Freq: Status: Active Protocol: Document 09/05/21 09:43 DALE (Rec: 09/05/21 10:02 DALE [id number]) Nutrition Notes Initial or Follow up Brief Note Current Diagnosis COPD,Respiratory Failure, Malnutrition Other Pertinent Diagnosis HFpEF, CAP, Atrial Flutter/RVR , OHS, Urinary Retention, Lung Cancer, .... Current Diet TF-Promote @ 70 ml/hr (from L 09/03) Labs/Tests 09/05: Na 146, CO2 40, BUN 54, Glu 141. Pertinent Medications 09/05: Humulin R 1U, Levothyroxine, others nutritionally unremarkable. Height 5 ft 11 in Weight 127.047 kg [place] Body Weight (kg) 78.18 BMI 39.0 Weight change and time frame No body weight change reported in 2 days. Weight Status Obese Subjective/Other Information RD consult for routine F/U on TF tolerance/continuation. TF continues as prescribed, no further information available at the time, will assess at F /U. Pt is on Mechanical Ventilation, O2 saturation @ 96%, according to Physical Assessment History notes. Percent of energy/protein needs met: Prescribed TF-Promote @ 70 ml/ hr provides for energy/protein needs (1,670 Kcal/104 g) during LOS, 77% Kcal; 101% AA. #1 Nutrition Diagnosis Inadequate oral intake Diagnosis Progress(for reassessment Continues documentation) Is patient on ventilator? Yes Is Patient Ambulatory and/or Out of Bed No REE-([facility]-confined to bed) 2533.248 Kcal/Kg value to use for calculation 17 Approximate Energy Requirements Using 2160 kcal/Kg Calculation Used for Recommendations Kcal/kg Additional Notes Protein: 0.8-1 g/Kg AdjBW; 82- 103 g/day. Fluids: 1 ml/Kcal, or as per MD. Nutrition Intervention Nutrition Support: Continue TF-Promote @ 70 ml/hr . Flush: 120 ml water Q 4 hr, or as per MD. Kcal 1,595 Protein (gm) 100 Carbohydrates (gm) 147 Fat (gm) 72 Fluid (mL) 1,078 Fiber (gm) 7 % RDI: 77% Kcal; 101% AA. Goal #1 Provide at least 75% of energy /protein needs through Enteral Feeding during LOS. Follow-Up By: 09/12/21 Additional Comments Continue monitoring TF tolerance and BM. <BRANDYN VÁZQUEZ - Last Filed: 09/06/21 14:22> Assessment and Plan Assessment and plan: I saw and evaluated the patient. Discussed with the nurse practitioner and agree with their findings and plan as documented in this note. Hospitalist Physical - Constitutional Vitals: Temp Pulse Resp BP Pulse Ox 98 F 66 21 111/63 96 09/06/21 12:00 09/06/21 13:00 09/06/21 13:00 09/06/21 13:00 09/06/21 13:00 HEART Score - HEART Score Troponin: Troponin T < 0.010 ng/mL (0.00-0.029) 09/02/21 16:21 Results - Labs CBC & Chem 7: 09/05/21 03:08 09/06/21 04:14 Labs: Laboratory Last Values WBC 7.9 K/mm3 (4.5-11.0) 09/05/21 03:08 RBC 4.01 M/mm3 (3.65-5.03) 09/05/21 03:08 Hgb 10.5 gm/dl (11.8-15.2) L 09/05/21 03:08 Hct 33.2 % (35.5-45.6) L 09/05/21 03:08 MCV 83 fl (84-94) L 09/05/21 03:08 MCH 26 pg (28-32) L 09/05/21 03:08 MCHC 32 % (32-34) 09/05/21 03:08 RDW 18.2 % (13.2-15.2) H 09/05/21 03:08 Plt Count 213 K/mm3 (140-440) 09/05/21 03:08 Add Manual Diff Complete 09/03/21 04:53 Total Counted 100 09/03/21 04:53 Seg Neutrophils % Machine Operator Transplanter 09/03/21 04:53 Seg Neuts % (Manual) 94.0 % (40.0-70.0) H 09/03/21 04:53 Band Neutrophils % 0 % 09/03/21 04:53 Lymphocytes % (Manual) 3.0 % (13.4-35.0) L 09/03/21 04:53 Reactive Lymphs % (Man) 0 % 09/03/21 04:53 Monocytes % (Manual) 3.0 % (0.0-7.3) 09/03/21 04:53 Eosinophils % (Manual) 0 % (0.0-4.3) 09/03/21 04:53 Basophils % (Manual) 0 % (0.0-1.8) 09/03/21 04:53 Metamyelocytes % 0 % 09/03/21 04:53 Myelocytes % 0 % 09/03/21 04:53 Promyelocytes % 0 % 09/03/21 04:53 Blast Cells % 0 % 09/03/21 04:53 Nucleated RBC % Not Reportable 09/03/21 04:53 Seg Neutrophils # Man 5.5 K/mm3 (1.8-7.7) 09/03/21 04:53 Band Neutrophils # 0.0 K/mm3 09/03/21 04:53 Lymphocytes # (Manual) 0.2 K/mm3 (1.2-5.4) L 09/03/21 04:53 Abs React Lymphs (Man) 0.0 K/mm3 09/03/21 04:53 Monocytes # (Manual) 0.2 K/mm3 (0.0-0.8) 09/03/21 04:53 Eosinophils # (Manual) 0.0 K/mm3 (0.0-0.4) 09/03/21 04:53 Basophils # (Manual) 0.0 K/mm3 (0.0-0.1) 09/03/21 04:53 Metamyelocytes # 0.0 K/mm3 09/03/21 04:53 Myelocytes # 0.0 K/mm3 09/03/21 04:53 Promyelocytes # 0.0 K/mm3 09/03/21 04:53 Blast Cells # 0.0 K/mm3 09/03/21 04:53 WBC Morphology Not Reportable 09/03/21 04:53 Hypersegmented Neuts Not Reportable 09/03/21 04:53 Hyposegmented Neuts Not Reportable 09/03/21 04:53 Hypogranular Neuts Not Reportable 09/03/21 04:53 Smudge Cells Not Reportable 09/03/21 04:53 Toxic Granulation Not Reportable 09/03/21 04:53 Toxic Vacuolation Not Reportable 09/03/21 04:53 Dohle Bodies Not Reportable 09/03/21 04:53 Pelger-Huet Anomaly Not Reportable 09/03/21 04:53 Kaushik Rods Not Reportable 09/03/21 04:53 Platelet Estimate Consistent w auto 09/03/21 04:53 Clumped Platelets Not Reportable 09/03/21 04:53 Plt Clumps, EDTA Not Reportable 09/03/21 04:53 Large Platelets Not Reportable 09/03/21 04:53 Giant Platelets Not Reportable 09/03/21 04:53 Platelet Satelliting Not Reportable 09/03/21 04:53 Plt Morphology Comment Not Reportable 09/03/21 04:53 RBC Morphology Not Reportable 09/03/21 04:53 Dimorphic RBCs Not Reportable 09/03/21 04:53 Polychromasia Not Reportable 09/03/21 04:53 Hypochromasia Not Reportable 09/03/21 04:53 Poikilocytosis Not Reportable 09/03/21 04:53 Anisocytosis 1+ 09/03/21 04:53 Microcytosis Not Reportable 09/03/21 04:53 Macrocytosis Not Reportable 09/03/21 04:53 Spherocytes Not Reportable 09/03/21 04:53 Pappenheimer Bodies Not Reportable 09/03/21 04:53 Sickle Cells Not Reportable 09/03/21 04:53 Target Cells Not Reportable 09/03/21 04:53 Tear Drop Cells Not Reportable 09/03/21 04:53 Ovalocytes Not Reportable 09/03/21 04:53 Stomatocytes Rare 09/02/21 16:21 Helmet Cells Not Reportable 09/03/21 04:53 [place] Bodies Not Reportable 09/03/21 04:53 Morris Rings Not Reportable 09/03/21 04:53 Jerry Cells Not Reportable 09/03/21 04:53 Bite Cells Not Reportable 09/03/21 04:53 Crenated Cell Not Reportable 09/03/21 04:53 Elliptocytes Not Reportable 09/03/21 04:53 Acanthocytes (Spur) Not Reportable 09/03/21 04:53 Rouleaux Not Reportable 09/03/21 04:53 Hemoglobin C Crystals Not Reportable 09/03/21 04:53 Schistocytes Not Reportable 09/03/21 04:53 Malaria parasites Not Reportable 09/03/21 04:53 Percent Retic 1.37 % (0.78-2.58) 09/04/21 10:56 Tanner Bodies Not Reportable 09/03/21 04:53 Hem Pathologist Commnt No 09/03/21 04:53 PT 14.3 Sec. (12.2-14.9) 09/03/21 15:00 INR 1.00 (0.87-1.13) 09/03/21 15:00 APTT 22.9 Sec. (24.2-36.6) L 09/03/21 15:00 Heparin Anti-Xa Level 0.43 U.I./ml (0.3-0.7) 09/06/21 04:14 ABG pH 7.331 pH Units (7.350-7.450) L 09/05/21 05:45 ABG pCO2 84.1 mm Hg 09/05/21 05:45 ABG pO2 124.8 mm Hg (80.0-90.0) H 09/05/21 05:45 ABG HCO3 43.5 mmol/L (20.0-26.0) H 09/05/21 05:45 ABG O2 Saturation 98.0 % (95.0-99.0) 09/05/21 05:45 ABG O2 Content 14.7 (0.0-44) 09/05/21 05:45 ABG Base Excess 14.5 mmol/L (-2.0-3.0) H 09/05/21 05:45 ABG Hemoglobin 10.7 gm/dl (14.0-18.0) L 09/05/21 05:45 ABG Carboxyhemoglobin 1.5 % (0.0-5.0) 09/05/21 05:45 ABG Methemoglobin 0.4 % (0.0-1.5) 09/05/21 05:45 Oxyhemoglobin 96.1 % (95.0-99.0) 09/05/21 05:45 FiO2 40 % 09/05/21 05:45 Sodium 148 mmol/L (137-145) H 09/06/21 04:14 Potassium 4.5 mmol/L (3.6-5.0) 09/06/21 04:14 Chloride 97.2 mmol/L (98-107) L 09/06/21 04:14 Carbon Dioxide 44 mmol/L (22-30) H* 09/06/21 04:14 Anion Gap 11 mmol/L 09/06/21 04:14 BUN 45 mg/dL (9-20) H 09/06/21 04:14 Creatinine 0.9 mg/dL (0.8-1.3) 09/06/21 04:14 Estimated GFR > 60 ml/min 09/06/21 04:14 BUN/Creatinine Ratio 50 % 09/06/21 04:14 Glucose 89 mg/dL (75-100) 09/06/21 04:14 POC Glucose 110 mg/dL (70-105) H 09/06/21 11:46 Lactic Acid 0.60 mmol/L (0.7-2.0) L 09/02/21 16:21 Calcium 8.9 mg/dL (8.4-10.2) 09/06/21 04:14 Phosphorus 3.90 mg/dL (2.5-4.5) 09/06/21 04:14 Magnesium 2.50 mg/dL (1.7-2.3) H 09/06/21 04:14 Iron 63 ug/dL (49-181) 09/04/21 04:12 TIBC 176 mcg/dL (250-450) L 09/04/21 04:12 Ferritin 194.9 ng/mL (30.0-300.0) 09/04/21 04:12 Total Bilirubin 0.50 mg/dL (0.1-1.2) 09/03/21 10:13 Direct Bilirubin 0.2 mg/dL (0-0.2) 09/03/21 10:13 Indirect Bilirubin 0.3 mg/dL 09/03/21 10:13 AST 18 units/L (5-40) 09/03/21 10:13 ALT 16 units/L (7-56) 09/03/21 10:13 Alkaline Phosphatase 110 units/L (35-129) 09/03/21 10:13 Lactate Dehydrogenase 283 units/L (91-180) H 09/04/21 04:12 Troponin T < 0.010 ng/mL (0.00-0.029) 09/02/21 16:21 NT-Pro-B Natriuret Pep 4080 pg/mL (0-900) H 09/02/21 16:21 Total Protein 6.4 g/dL (6.3-8.2) 09/03/21 10:13 Albumin 3.2 g/dL (3.9-5) L 09/03/21 10:13 Albumin/Globulin Ratio 1.0 % 09/03/21 10:13 Procalcitonin 0.27 ng/mL (<0.15) 09/03/21 10:13 TSH 0.501 mlU/mL (0.270-4.200) 09/02/21 18:44 Free T4 1.27 ng/dL (0.76-1.46) 09/02/21 18:44 Urine Color Yellow (Yellow) 09/03/21 02:49 Urine Turbidity Slightly cloudy (Clear) 09/03/21 02:49 Urine pH 6.0 (5.0-7.0) 09/03/21 02:49 Ur Specific [place] 1.030 (1.003-1.030) 09/03/21 02:49 Urine Protein <15 mg/dl mg/dL (Negative) 09/03/21 02:49 Urine Glucose (UA) Negative mg/dL (Negative) 09/03/21 02:49 Urine Ketones Negative mg/dL (Negative) 09/03/21 02:49 Urine Blood Negative (Negative) 09/03/21 02:49 Urine Nitrite Negative (Negative) 09/03/21 02:49 Ur Reducing Substances Not Reportable 09/03/21 02:49 Urine Bilirubin Negative (Negative) 09/03/21 02:49 Urine Ictotest Not Reportable 09/03/21 02:49 Urine Urobilinogen < 2.0 mg/dL (<2.0) 09/03/21 02:49 Ur Leukocyte Esterase Negative (Negative) 09/03/21 02:49 Urine WBC (Auto) 1.0 /HPF (0.0-6.0) 09/03/21 02:49 Urine RBC (Auto) 2.0 /HPF (0.0-6.0) 09/03/21 02:49 Urine Mucus Few /HPF 09/03/21 02:49 Urine Opiates Screen Presumptive negative 09/03/21 02:49 Urine Methadone Screen Presumptive negative 09/03/21 02:49 Ur Barbiturates Screen Presumptive negative 09/03/21 02:49 Ur Phencyclidine Scrn Presumptive negative 09/03/21 02:49 Ur Amphetamines Screen Presumptive negative 09/03/21 02:49 U Benzodiazepines Scrn Presumptive negative 09/03/21 02:49 Urine Cocaine Screen Presumptive negative 09/03/21 02:49 U Marijuana (THC) Screen Presumptive positive 09/03/21 02:49 Drugs of Abuse Note Disclamer 09/03/21 02:49 Coronavirus (PCR) Negative (Negative) 09/04/21 07:18 Microbiology: Microbiology 09/02/21 18:50 Sputum - Expectorated Sputum Sputum Culture - Preliminary [place]/IV: Voiding Method Indwelling Catheter Active Medications - Current Medications Current Medications: Generic Name Dose Route Start Last Admin Trade Name Freq PRN Reason Stop Dose Admin Acetaminophen 650 mg 09/02/21 18:31 Acetaminophen 325 Mg Tab PO Q6H PRN Pain MILD(1-3)/Fever >100.5/ZAVALA Acetazolamide 250 mg 09/06/21 11:00 09/06/21 12:18 Acetazolamide 500 Mg Vial IV 09/07/21 12:00 250 mg Q12HR MAE Administration Albuterol 2.5 mg 09/06/21 09:42 Albuterol 2.5 Mg/3 Ml Nebu IH Q4HRT PRN Shortness Of Breath Albuterol/Ipratropium 1 ampul 09/06/21 14:00 Ipratropium/Albuterol Sulfate 3 Ml Ampul.Neb IH Q6HRT MAE Budesonide 0.5 mg 09/03/21 10:00 09/06/21 09:13 Budesonide 0.5 Mg/2 Ml Nebu IH 0.5 mg Q12HR MAE Administration Dextrose 50 ml 09/04/21 08:02 Dextrose 50% In Water (25gm) 50 Ml Syringe IV Q30MIN PRN Hypoglycemia Protocol Diphenhydramine HCl 25 mg 09/05/21 00:16 09/06/21 05:41 Diphenhydramine 50 Mg/Ml Vial IV 25 mg Q6H PRN Administration Itching Doxazosin Mesylate 1 mg 09/06/21 10:00 09/06/21 10:15 Doxazosin 1 Mg Tab PO 1 mg QDAY MAE Administration Famotidine 20 mg 09/06/21 10:00 09/06/21 10:14 Famotidine 20 Mg Tab PO 20 mg BID MAE Administration Furosemide 40 mg 09/04/21 12:54 09/06/21 05:27 Furosemide 20 Mg/2 Ml Inj IV 40 mg BID@0600,1800 MAE Administration Heparin Sodium (Porcine) 5,000 unit 09/06/21 22:00 Heparin 5,000 Unit/1 Ml Vial SUB-Q Q12HR MAE Hydromorphone HCl 0.5 mg 09/02/21 18:31 Hydromorphone 0.5 Mg/0.5 Ml Inj IV Q8H PRN Pain , Severe (7-10) Hydrophilic Ointment 1 applic 09/03/21 13:55 Lip Therapy Vaseline TP Q2HR PRN Dry Lips Ceftriaxone Sodium 2 gm in 100 mls @ 200 mls/hr 09/02/21 20:00 09/05/21 23:00 Rocephin/Ns 2 Gm/100 Ml IV 09/06/21 20:29 200 mls/hr Q24H MAE Administration Protocol Insulin Human Regular 0 units 09/04/21 09:00 09/06/21 12:05 Insulin Regular, Human 100 Units/1 Ml SUB-Q Not Given Q6HR [facility] Protocol Levothyroxine Sodium 100 mcg 09/03/21 10:00 09/06/21 05:24 Levothyroxine 100 Mcg Tab PO 100 mcg QAM@0600 [facility] Administration Metoprolol Tartrate 12.5 mg 09/06/21 10:00 09/06/21 10:12 Metoprolol Tartrate 25 Mg Tab PO 12.5 mg BID MAE Administration Multi-Ingred Cream/Lotion/Oil/Oint 1 applic 09/03/21 13:55 Mineral Oil/Petrolatum, White Ophth Oint 3.5 Gm OU Q4HR PRN Dry Eye(s) Nicotine 21 mg 09/06/21 11:00 09/06/21 10:10 Nicotine 21 Mg/24 Hr Patch TD 21 mg QDAY [facility] Administration Oxycodone/Acetaminophen 1 tab 09/02/21 18:31 Oxycodone /Acetaminophen 5-325mg Tab PO Q6H PRN Pain, Moderate (4-6) Prednisone 15 mg 09/07/21 10:00 Prednisone 5 Mg Tab PO 09/07/21 [facility] mg 09/08/21 10:00 Prednisone 10 Mg Tab PO 09/08/21 10:01 QDAY [facility] Prednisone 7.5 mg 09/09/21 10:00 Prednisone 5 Mg Tab PO 09/09/21 [facility] 5 mg 09/10/21 10:00 Prednisone 5 Mg Tab PO 09/12/21 10:01 QDAY [facility] Senna/Docusate Sodium 1 tab 09/06/21 10:00 09/06/21 10:16 Sennosides/Docusate Sodium 8.6/50 Mg Tab PO 1 tab BID MAE Administration Sodium Chloride 10 ml 09/02/21 22:00 09/06/21 12:18 Sodium Chloride 0.9% 10 Ml Flush Syringe IV 10 ml BID MAE Administration Sodium Chloride 10 ml 09/02/21 18:31 Sodium Chloride 0.9% 10 Ml Flush Syringe IV PRN PRN LINE FLUSH Sterile Water 5 ml 09/06/21 12:26 Water For Inj Sterile (Pf) 10 Ml IV 09/07/21 12:25 Q12H PRN FOR DIAMONX DILUTION Nutrition/Malnutrition Assess - Dietary Evaluation Nutrition/Malnutrition Findings: Nutrition Notes Start: 09/03/21 10:38 Freq: Status: Active Protocol: Document 09/05/21 09:43 DALE (Rec: 09/05/21 10:02 DALE [id number]) Nutrition Notes Initial or Follow up Brief Note Current Diagnosis COPD,Respiratory Failure, Malnutrition Other Pertinent Diagnosis HFpEF, CAP, Atrial Flutter/RVR , OHS, Urinary Retention, Lung Cancer, .... Current Diet TF-Promote @ 70 ml/hr (from L 09/03) Labs/Tests 09/05: Na 146, CO2 40, BUN 54, Glu 141. Pertinent Medications 09/05: Humulin R 1U, Levothyroxine, others nutritionally unremarkable. Height 5 ft 11 in Weight 127.047 kg [place] Body Weight (kg) 78.18 BMI 39.0 Weight change and time frame No body weight change reported in 2 days. Weight Status Obese Subjective/Other Information RD consult for routine F/U on TF tolerance/continuation. TF continues as prescribed, no further information available at the time, will assess at F /U. Pt is on Mechanical Ventilation, O2 saturation @ 96%, according to Physical Assessment History notes. Percent of energy/protein needs met: Prescribed TF-Promote @ 70 ml/ hr provides for energy/protein needs (1,670 Kcal/104 g) during LOS, 77% Kcal; 101% AA. #1 Nutrition Diagnosis Inadequate oral intake Diagnosis Progress(for reassessment Continues documentation) Is patient on ventilator? Yes Is Patient Ambulatory and/or Out of Bed No REE-([facility]-confined to bed) 2533.248 Kcal/Kg value to use for calculation 17 Approximate Energy Requirements Using 2160 kcal/Kg Calculation Used for Recommendations Kcal/kg Additional Notes Protein: 0.8-1 g/Kg AdjBW; 82- 103 g/day. Fluids: 1 ml/Kcal, or as per MD. Nutrition Intervention Nutrition Support: Continue TF-Promote @ 70 ml/hr . Flush: 120 ml water Q 4 hr, or as per MD. Kcal 1,595 Protein (gm) 100 Carbohydrates (gm) 147 Fat (gm) 72 Fluid (mL) 1,078 Fiber (gm) 7 % RDI: 77% Kcal; 101% AA. Goal #1 Provide at least 75% of energy /protein needs through Enteral Feeding during LOS. Follow-Up By: 09/12/21 Additional Comments Continue monitoring TF tolerance and BM.
--- NOTE | 2021-09-05 12:24 | Progress Note ---
Assessment and Plan Patient is a 61-year-old male with a reported past medical history of COPD on home O2, CHF, nicotine dependence reported to the ED with a complaint of difficulty in breathing Acute on chronic respiratory failure-pulmonology following Acute HFpEF Right upper lung mass History of lung cancer (per documentation patient is in remission)-heme-onc following A flutter with RVR PUI Obesity Nicotine dependence Echo 09/02/2021-EF 50 to 55% transmitral Doppler flow (impaired relaxation. Flattened septum consistent with right ventricular volume overload. Right ventricle is dilated. Mild aortic stenosis. Trace tricuspid regurgitation. Mild pulmonary hypertension Plan: BNP noted to be elevated, and echo consistent with right ventricular volume overload. Per conversation with nurse patient having good urine output and while improved patient continues to rales upon examination Will continue Lasix to 40 mg IV twice daily Strict I&O's, daily weights, close monitoring of renal function Patient has had no further episodes of a flutter. Continue metoprolol 12.5 mg p.o. twice daily Continue anticoagulation with heparin drip Discussed plan of care with patient and patient's was at bedside Patient seen in conjunction with Dr. Lund who agrees with this plan of care 30min of critical care time spent in care and coordination of patient - Patient Problems (1) (HFpEF) heart failure with preserved ejection fraction Current Visit: Yes Status: Acute (2) Acute on chronic respiratory failure with hypoxia and hypercapnia Current Visit: Yes Status: Acute (3) Nicotine dependence Current Visit: Yes Status: Acute Qualifiers: Nicotine product type: cigarettes Substance use status: in withdrawal Qualified Code(s): F17.213 - Nicotine dependence, cigarettes, with withdrawal (4) Obesity hypoventilation syndrome Current Visit: Yes Status: Acute (5) Pneumonia Current Visit: Yes Status: Acute Subjective Date of service: 09/05/21 Principal diagnosis: Acute respiratory failure, acute HFpEF Interval history: Patient remains intubated however patient is awake and appears alert this a.m. Sinus 70s-80s on monitor with episode of NSVT Objective Vital Signs Temp Pulse Pulse Pulse Resp Resp BP 09/05/21 12:00 98.7 F 76 78 16 116/53 09/05/21 11:00 68 15 127/44 09/05/21 10:36 99.6 F 09/05/21 10:00 81 20 118/43 09/05/21 09:23 82 139/66 07/27/22 09:02 84 125/57 09/05/21 09:00 90 19 117/57 09/05/21 08:00 61 77 17 111/52 09/05/21 07:59 67 111/52 09/05/21 07:39 67 09/05/21 07:35 99.9 F H 09/05/21 07:00 67 14 107/54 09/05/21 06:00 72 13 109/49 09/05/21 05:00 60 20 94/50 09/05/21 04:00 62 63 20 88/58 09/05/21 03:48 63 104/52 09/05/21 03:00 63 20 104/52 09/05/21 02:00 66 19 100/49 09/05/21 01:00 67 20 92/55 09/05/21 00:00 77 63 14 89/39 09/04/21 23:32 67 20 09/04/21 23:18 72 110/54 09/04/21 23:02 62 12 85/42 09/04/21 23:00 60 8 L 85/42 09/04/21 22:44 63 94/45 09/04/21 22:00 63 20 102/54 09/04/21 21:00 64 9 L 86/43 09/04/21 20:00 65 63 15 94/52 09/04/21 19:00 70 15 97/47 09/04/21 18:00 75 17 98/53 09/04/21 17:15 64 10 L 101/49 09/04/21 17:00 63 12 91/50 09/04/21 16:45 63 13 96/48 09/04/21 16:41 63 19 91/46 09/04/21 16:35 62 13 91/46 09/04/21 16:31 62 9 L 91/46 09/04/21 16:30 99.3 F 09/04/21 16:25 62 14 107/51 09/04/21 16:21 63 11 L 107/51 09/04/21 16:15 68 15 107/51 09/04/21 16:11 64 19 92/46 09/04/21 16:05 64 14 92/46 09/04/21 16:00 98.5 F 64 63 17 92/46 09/04/21 15:55 65 16 98/50 09/04/21 15:51 65 15 98/50 09/04/21 15:45 67 10 L 98/50 09/04/21 15:41 66 15 93/48 09/04/21 15:35 67 11 L 93/48 09/04/21 15:30 67 12 93/48 09/04/21 15:25 67 14 92/48 09/04/21 15:21 67 14 92/48 09/04/21 15:15 64 15 92/48 09/04/21 15:11 69 12 91/44 09/04/21 15:05 72 20 91/44 09/04/21 15:01 76 16 91/44 09/04/21 15:00 72 112/52 09/04/21 14:55 77 15 92/47 09/04/21 14:51 79 16 92/47 09/04/21 14:45 79 12 112/52 09/04/21 14:41 76 11 L 112/52 09/04/21 14:35 69 14 112/52 09/04/21 14:31 71 20 112/52 09/04/21 14:21 73 18 117/76 09/04/21 14:11 70 13 118/57 09/04/21 14:00 69 12 118/57 09/04/21 13:51 73 13 123/51 09/04/21 13:49 77 123/51 09/04/21 13:41 81 20 118/61 09/04/21 13:31 70 20 118/61 09/04/21 13:21 75 17 143/74 09/04/21 13:11 72 9 L 133/79 09/04/21 13:01 67 14 118/46 09/04/21 12:51 67 20 118/46 09/04/21 12:41 64 20 122/75 09/04/21 12:31 65 21 122/75 Pulse Ox 09/05/21 12:00 93 09/05/21 11:00 94 09/05/21 10:36 09/05/21 10:00 96 09/05/21 09:23 09/05/21 09:02 09/05/21 09:00 92 09/05/21 08:00 94 09/05/21 07:59 97 09/05/21 07:39 09/05/21 07:35 09/05/21 07:00 94 09/05/21 06:00 99 09/05/21 05:00 96 09/05/21 04:00 96 09/05/21 03:48 96 09/05/21 03:00 95 09/05/21 02:00 95 09/05/21 01:00 93 09/05/21 00:00 100 09/04/21 23:32 09/04/21 23:18 96 09/04/21 23:02 98 09/04/21 23:00 98 09/04/21 22:44 09/04/21 22:00 97 09/04/21 21:00 98 09/04/21 20:00 94 09/04/21 19:00 94 09/04/21 18:00 94 09/04/21 17:15 96 09/04/21 17:00 95 09/04/21 16:45 94 09/04/21 16:41 94 09/04/21 16:35 95 09/04/21 16:31 94 09/04/21 16:30 09/04/21 16:25 94 09/04/21 16:21 94 09/04/21 16:15 94 09/04/21 16:11 94 09/04/21 16:05 93 09/04/21 16:00 93 09/04/21 15:55 93 09/04/21 15:51 93 09/04/21 15:45 93 09/04/21 15:41 93 09/04/21 15:35 93 09/04/21 15:30 92 09/04/21 15:25 92 09/04/21 15:21 92 09/04/21 15:15 92 09/04/21 15:11 91 09/04/21 15:05 92 09/04/21 15:01 94 09/04/21 15:00 93 09/04/21 14:55 92 09/04/21 14:51 91 09/04/21 14:45 95 09/04/21 14:41 94 09/04/21 14:35 94 09/04/21 14:31 94 09/04/21 14:21 95 09/04/21 14:11 94 09/04/21 14:00 94 09/04/21 13:51 96 09/04/21 13:49 09/04/21 13:41 96 09/04/21 13:31 96 09/04/21 13:21 94 09/04/21 13:11 98 09/04/21 13:01 95 09/04/21 12:51 94 09/04/21 12:41 95 09/04/21 12:31 96 - Physical Examination General: Other (Intubated and sedated) HEENT: Positive: Mucus Membranes Moist Neck: Positive: trachea midline Cardiac: Positive: Reg Rate and Rhythm Lungs: Positive: Rales, Ventilated Respirations Neuro: Positive: Grossly Intact Abdomen: Positive: Soft Skin: Negative: Rash, Suspicious Lesions, Ulceration Extremities: Present: upper extr. pulses, edema - Labs and Meds CBC 09/05/21 Range/Units 03:08 WBC 7.9 (4.5-11.0) K/mm3 RBC 4.01 (3.65-5.03) M/mm3 Hgb 10.5 L (11.8-15.2) gm/dl Hct 33.2 L (35.5-45.6) % Plt Count 213 (140-440) K/mm3 Comprehensive Metabolic Panel 09/05/21 Range/Units 03:08 Sodium 146 H (137-145) mmol/L Potassium 5.0 (3.6-5.0) mmol/L Chloride 99.8 (98-107) mmol/L Carbon Dioxide 40 H (22-30) mmol/L BUN 54 H (9-20) mg/dL Creatinine 1.1 (0.8-1.3) mg/dL Glucose 141 H (75-100) mg/dL Calcium 8.5 (8.4-10.2) mg/dL - Imaging and Cardiology Echo: report reviewed - Telemetry EKG Rhythm: Sinus Rhythm - EKG Sinus rhythms and dysrhythmias: sinus rhythm AV and intraventricular conduction: right bundle branch block - Allied health notes Allied health notes reviewed: nursing
[2021-09-05] MEDS: HEPARIN/ 0.45% NACL DRIP 25,000 UNIT/500 ML BAG IV SCH (13:10)
[2021-09-05] MEDS: ARFORMOTEROL 15 MCG/2 ML NEBU IH SCH ×2 (14:09→21:18)
[2021-09-05] MEDS: BUDESONIDE 0.5 MG/2 ML NEBU IH SCH ×2 (14:10→21:18)
--- NOTE | 2021-09-05 17:04 | Progress Note ---
Assessment and Plan Acute on chronic hypoxic respiratory failure, RUL mass, COPD on home O2 at 2-3L LEYDA/OHS h/o nicotine dependence stage IV lung CA (in remission according to ) h/o stage IV lung CA -CT chest shows RUL mass Morbid obesity BMI 37.5 Urinary retention CAP vs Post obstructive PNA h/o hypothyroidism SBT today and if he meets criteria, will liberate from MVS. Will need BIPAP support qhs and prn post extubation He does not need bronchoscopy as an inpatient. 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 for possible bronch Needs out patient Oncology follow up - continue to titrate supplemental oxygen to keep SpO2 88-90% - VAP bundle addressed, aspiration precautions HOB >40 - continue lung protective strategies - continue bronchodilators with pulmonary hygiene per RT - wean per pulmonary driven protocols otherwise - Continue wiht LABA/ICS adn steroids - continue accuchecks with glycemic control per SSI (While critically ill target blood glucose of 140-180 mg/dL; avoid hypoglycemia) - continue to avoid benzodiazepines, reduce the possibility of delirium - Antibiotics per ID (Rocephin and Ceftriaxone) - prn analgesia per CPOT score - Maintenance of sleep-wake cycle, avoid delirium - continue enteral nutritional support at goal rate as tolerated - Stress ulcer prophylaxis -VTE prophylaxis - 2D ECHO reveals HFpEF and Pulm HTN (mild to moderate) - Heme/Onc evaluation ongoing - continue mobility, off loading per facility protocol to prevent pressure ulcers - Monitor hemodynamics closely - continue other care per attending / other consultants - discharge planning ongoing concurrently COVID SPECIFIC INTERVENTIONS - COVID-19 PCR negative CONDITION: CRITICAL PROGNOSIS: GUARDED CODE STATUS: FULL CODE The high probability of a clinically significant, sudden or life-threatening deterioration of the respiratory system(s) required my full and direct attention, intervention and personal management. The aggregate critical care time was [33] minutes without overlap. Time includes spent on; [x] Data Review and interpretation [x] Patient assessment and monitoring of vital signs [x] Documentation [x] Medication orders and management Subjective Date of service: 09/05/21 Principal diagnosis: Acute respiratory failure, acute HFpEF Interval history: 61-year-old male with CHF, COPD on home O2, nicotine dependence and OHS admitted with CHF exacerbation and CAP Patient is seen today for: acute and chronic resp failure on MVS; Seen and examined at bedside; 24hour events reviewed; nursing and respiratory care staff consulted; no adverse overnight events reported to me; resting in bed; remains on MVS; following commands well; No N/V/F/C On heparin infusion per Cardiology for Afib/flutter Objective Vital Signs - 12hr 09/05/21 09/05/21 09/05/21 06:00 07:00 07:35 Temperature 99.9 F H Pulse Rate 72 67 Pulse Rate [ Anterior Left] Pulse Rate [ From Monitor] Respiratory 13 14 Rate Respiratory Rate [Anterior Left] Blood Pressure 109/49 107/54 O2 Sat by Pulse 99 94 Oximetry 09/05/21 09/05/21 09/05/21 07:39 07:59 08:00 Temperature Pulse Rate 67 67 61 Pulse Rate [ Anterior Left] Pulse Rate [ 77 From Monitor] Respiratory 17 Rate Respiratory Rate [Anterior Left] Blood Pressure 111/52 111/52 O2 Sat by Pulse 97 94 Oximetry 09/05/21 09/05/21 09/05/21 09:00 09:02 09:23 Temperature Pulse Rate 90 84 82 Pulse Rate [ Anterior Left] Pulse Rate [ From Monitor] Respiratory 19 Rate Respiratory Rate [Anterior Left] Blood Pressure 117/57 125/57 139/66 O2 Sat by Pulse 92 Oximetry 09/05/21 09/05/21 09/05/21 10:00 10:36 11:00 Temperature 99.6 F Pulse Rate 81 68 Pulse Rate [ Anterior Left] Pulse Rate [ From Monitor] Respiratory 20 15 Rate Respiratory Rate [Anterior Left] Blood Pressure 118/43 127/44 O2 Sat by Pulse 96 94 Oximetry 09/05/21 09/05/21 09/05/21 12:00 12:15 12:30 Temperature 98.7 F Pulse Rate 76 82 76 Pulse Rate [ Anterior Left] Pulse Rate [ 78 From Monitor] Respiratory 16 20 16 Rate Respiratory Rate [Anterior Left] Blood Pressure 116/53 111/57 111/57 O2 Sat by Pulse 93 91 95 Oximetry 09/05/21 09/05/21 09/05/21 12:46 13:00 13:16 Temperature Pulse Rate 72 68 88 Pulse Rate [ Anterior Left] Pulse Rate [ From Monitor] Respiratory 20 16 21 Rate Respiratory Rate [Anterior Left] Blood Pressure 109/55 109/55 129/66 O2 Sat by Pulse 97 91 93 Oximetry 09/05/21 09/05/21 09/05/21 13:30 13:46 14:00 Temperature Pulse Rate 68 78 76 Pulse Rate [ Anterior Left] Pulse Rate [ From Monitor] Respiratory 11 L 20 20 Rate Respiratory Rate [Anterior Left] Blood Pressure 42/15 140/55 131/58 O2 Sat by Pulse 93 76 L Oximetry 09/05/21 09/05/21 09/05/21 14:16 14:19 14:30 Temperature Pulse Rate 76 85 Pulse Rate [ 73 Anterior Left] Pulse Rate [ From Monitor] Respiratory 21 24 Rate Respiratory 96 H Rate [Anterior Left] Blood Pressure 163/77 128/42 O2 Sat by Pulse 95 92 Oximetry 09/05/21 09/05/21 09/05/21 14:46 15:00 15:15 Temperature Pulse Rate 80 82 70 Pulse Rate [ Anterior Left] Pulse Rate [ From Monitor] Respiratory 17 23 17 Rate Respiratory Rate [Anterior Left] Blood Pressure 128/42 124/55 119/49 O2 Sat by Pulse 94 90 91 Oximetry 09/05/21 09/05/21 09/05/21 15:30 15:46 16:00 Temperature 99.2 F Pulse Rate 76 67 67 Pulse Rate [ Anterior Left] Pulse Rate [ 67 From Monitor] Respiratory 17 17 13 Rate Respiratory Rate [Anterior Left] Blood Pressure 119/49 119/49 114/50 O2 Sat by Pulse 96 94 93 Oximetry Constitutional: no acute distress, other (middle aged morbidly obese male with mildly increased respiratory effort at rest) Eyes: non-icteric ENT: oropharynx moist, other (ETT 24 cm KIMBERLYN) Neck: supple, no lymphadenopathy, no JVD, other (large circumference) Effort: mildly labored Ascultation: Bilateral: diminished breath sounds, rhonchi Percussion: Bilateral: not dull Cardiovascular: irregular rhythm, other (S1,S2) Gastrointestinal: normoactive bowel sounds, soft, non-tender, non-distended (protuberant) Integumentary: normal Extremities: no cyanosis, pink and warm, pulses normal, no ischemia or petechiae, edema Neurologic: normal mental status, non-focal exam (grossly), pupils equal and round, CN II-XII normal, motor strength normal and Psychiatric: mood appropriate, affect normal, other CBC and BMP: 09/05/21 03:08 09/06/21 04:14 ABG, PT/INR, D-dimer: ABG ABG pH 7.331 pH Units (7.350-7.450) L 09/05/21 05:45 ABG pCO2 84.1 mm Hg 09/05/21 05:45 ABG pO2 124.8 mm Hg (80.0-90.0) H 09/05/21 05:45 ABG O2 Saturation 98.0 % (95.0-99.0) 09/05/21 05:45 PT/INR, D-dimer PT 14.3 Sec. (12.2-14.9) 09/03/21 15:00 INR 1.00 (0.87-1.13) 09/03/21 15:00 Abnormal lab findings: Abnormal Labs 09/02/21 09/02/21 09/02/21 15:50 16:21 16:21 Hgb 11.4 L Hct MCV MCH 27 L RDW 18.6 H Seg Neuts % (Manual) 92.0 H Lymphocytes % (Manual) 1.0 L Seg Neutrophils # Man 7.9 H Lymphocytes # (Manual) 0.1 L APTT Heparin Anti-Xa Level ABG pH 7.197 L* ABG pO2 98.8 H ABG HCO3 42.4 H ABG O2 Saturation ABG Base Excess 10.8 H ABG Hemoglobin 11.3 L Oxyhemoglobin 93.6 L Sodium Potassium 5.9 H Chloride 96.4 L Carbon Dioxide 32 H BUN Glucose 101 H POC Glucose Lactic Acid Phosphorus Magnesium TIBC Lactate Dehydrogenase NT-Pro-B Natriuret Pep 4080 H Albumin 09/02/21 09/02/21 09/02/21 16:21 17:42 18:40 Hgb Hct MCV MCH RDW Seg Neuts % (Manual) Lymphocytes % (Manual) Seg Neutrophils # Man Lymphocytes # (Manual) APTT Heparin Anti-Xa Level ABG pH ABG pO2 202.5 H ABG HCO3 39.2 H ABG O2 Saturation 99.2 H ABG Base Excess 11.8 H ABG Hemoglobin 11.0 L Oxyhemoglobin Sodium Potassium Chloride Carbon Dioxide BUN Glucose POC Glucose 113 H Lactic Acid 0.60 L Phosphorus Magnesium TIBC Lactate Dehydrogenase NT-Pro-B Natriuret Pep Albumin 09/02/21 09/03/21 09/03/21 23:09 04:08 04:53 Hgb 10.3 L Hct 32.1 L MCV 83 L MCH 27 L RDW 18.3 H Seg Neuts % (Manual) 94.0 H Lymphocytes % (Manual) 3.0 L Seg Neutrophils # Man Lymphocytes # (Manual) 0.2 L APTT Heparin Anti-Xa Level ABG pH ABG pO2 69.0 L ABG HCO3 42.5 H ABG O2 Saturation ABG Base Excess 15.7 H ABG Hemoglobin 10.6 L Oxyhemoglobin 94.5 L Sodium Potassium Chloride Carbon Dioxide BUN Glucose POC Glucose 154 H Lactic Acid Phosphorus Magnesium TIBC Lactate Dehydrogenase NT-Pro-B Natriuret Pep Albumin 09/03/21 09/03/21 09/03/21 04:53 06:05 10:13 Hgb Hct MCV MCH RDW Seg Neuts % (Manual) Lymphocytes % (Manual) Seg Neutrophils # Man Lymphocytes # (Manual) APTT Heparin Anti-Xa Level ABG pH ABG pO2 ABG HCO3 ABG O2 Saturation ABG Base Excess ABG Hemoglobin Oxyhemoglobin Sodium Potassium Chloride 96.6 L Carbon Dioxide 38 H BUN 25 H Glucose 130 H POC Glucose 145 H Lactic Acid Phosphorus Magnesium TIBC Lactate Dehydrogenase NT-Pro-B Natriuret Pep Albumin 3.2 L 09/03/21 09/03/21 09/03/21 11:11 15:00 15:00 Hgb 10.7 L Hct 33.1 L MCV MCH RDW Seg Neuts % (Manual) Lymphocytes % (Manual) Seg Neutrophils # Man Lymphocytes # (Manual) APTT 22.9 L Heparin Anti-Xa Level ABG pH ABG pO2 ABG HCO3 ABG O2 Saturation ABG Base Excess ABG Hemoglobin Oxyhemoglobin Sodium Potassium Chloride Carbon Dioxide BUN Glucose POC Glucose 158 H Lactic Acid Phosphorus Magnesium TIBC Lactate Dehydrogenase NT-Pro-B Natriuret Pep Albumin 09/03/21 09/03/21 09/03/21 16:39 20:52 23:55 Hgb Hct MCV MCH RDW Seg Neuts % (Manual) Lymphocytes % (Manual) Seg Neutrophils # Man Lymphocytes # (Manual) APTT Heparin Anti-Xa Level < 0.10 L ABG pH ABG pO2 ABG HCO3 ABG O2 Saturation ABG Base Excess ABG Hemoglobin Oxyhemoglobin Sodium Potassium Chloride Carbon Dioxide BUN Glucose POC Glucose 139 H 157 H Lactic Acid Phosphorus Magnesium TIBC Lactate Dehydrogenase NT-Pro-B Natriuret Pep Albumin 09/04/21 09/04/21 09/04/21 04:12 06:13 06:21 Hgb Hct MCV MCH RDW Seg Neuts % (Manual) Lymphocytes % (Manual) Seg Neutrophils # Man Lymphocytes # (Manual) APTT Heparin Anti-Xa Level 0.21 L ABG pH ABG pO2 ABG HCO3 ABG O2 Saturation ABG Base Excess ABG Hemoglobin Oxyhemoglobin Sodium Potassium Chloride 95.3 L Carbon Dioxide 37 H BUN 43 H Glucose 149 H POC Glucose 157 H Lactic Acid Phosphorus 4.70 H Magnesium 2.40 H TIBC 176 L Lactate Dehydrogenase 283 H NT-Pro-B Natriuret Pep Albumin 09/04/21 09/04/21 09/04/21 06:35 12:13 16:50 Hgb Hct MCV MCH RDW Seg Neuts % (Manual) Lymphocytes % (Manual) Seg Neutrophils # Man Lymphocytes # (Manual) APTT Heparin Anti-Xa Level ABG pH ABG pO2 72.2 L ABG HCO3 44.2 H ABG O2 Saturation 94.9 L ABG Base Excess 15.2 H ABG Hemoglobin 12.2 L Oxyhemoglobin 93.0 L Sodium Potassium Chloride Carbon Dioxide BUN Glucose POC Glucose 163 H 121 H Lactic Acid Phosphorus Magnesium TIBC Lactate Dehydrogenase NT-Pro-B Natriuret Pep Albumin 09/05/21 09/05/21 09/05/21 00:24 03:08 03:08 Hgb 10.5 L Hct 33.2 L MCV 83 L MCH 26 L RDW 18.2 H Seg Neuts % (Manual) Lymphocytes % (Manual) Seg Neutrophils # Man Lymphocytes # (Manual) APTT Heparin Anti-Xa Level ABG pH ABG pO2 ABG HCO3 ABG O2 Saturation ABG Base Excess ABG Hemoglobin Oxyhemoglobin Sodium 146 H Potassium Chloride Carbon Dioxide 40 H BUN 54 H Glucose 141 H POC Glucose 144 H Lactic Acid Phosphorus Magnesium TIBC Lactate Dehydrogenase NT-Pro-B Natriuret Pep Albumin 09/05/21 09/05/21 09/05/21 03:08 05:45 05:58 Hgb Hct MCV MCH RDW Seg Neuts % (Manual) Lymphocytes % (Manual) Seg Neutrophils # Man Lymphocytes # (Manual) APTT Heparin Anti-Xa Level 0.28 L ABG pH 7.331 L ABG pO2 124.8 H ABG HCO3 43.5 H ABG O2 Saturation ABG Base Excess 14.5 H ABG Hemoglobin 10.7 L Oxyhemoglobin Sodium Potassium Chloride Carbon Dioxide BUN Glucose POC Glucose 183 H Lactic Acid Phosphorus Magnesium TIBC Lactate Dehydrogenase NT-Pro-B Natriuret Pep Albumin 09/05/21 11:32 Hgb Hct MCV MCH RDW Seg Neuts % (Manual) Lymphocytes % (Manual) Seg Neutrophils # Man Lymphocytes # (Manual) APTT Heparin Anti-Xa Level ABG pH ABG pO2 ABG HCO3 ABG O2 Saturation ABG Base Excess ABG Hemoglobin Oxyhemoglobin Sodium Potassium Chloride Carbon Dioxide BUN Glucose POC Glucose 152 H Lactic Acid Phosphorus Magnesium TIBC Lactate Dehydrogenase NT-Pro-B Natriuret Pep Albumin Chest x-ray: image reviewed
[2021-09-06] MEDS: INSULIN REGULAR, HUMAN 100 UNITS/1 ML SUB-Q SCH ×3 (00:31→12:05)
[2021-09-06] MEDS: HEPARIN/ 0.45% NACL DRIP 25,000 UNIT/500 ML BAG IV SCH (02:13)
[2021-09-06 05:12] LABS: BUN/Creatinine Ratio 50; Blood Urea Nitrogen 45 mg/dL (9-20); Calcium 8.9 mg/dL (8.4-10.2); Hemolysis Index 20
[2021-09-06] MEDS: LEVOTHYROXINE 100 MCG TAB PO SCH (05:24)
[2021-09-06] MEDS: FUROSEMIDE 20 MG/2 ML INJ IV SCH ×2 (05:27→17:31)
[2021-09-06] MEDS: diphenhydrAMINE 50 MG/ML VIAL IV PRN (05:41)
[2021-09-06] MEDS: BUDESONIDE 0.5 MG/2 ML NEBU IH SCH (09:13)
[2021-09-06] MEDS: ARFORMOTEROL 15 MCG/2 ML NEBU IH SCH (09:13)
[2021-09-06] MEDS ORDERED: ALBUTEROL 2.5 MG/3 ML NEBU IH PRN (09:42)
--- NOTE | 2021-09-06 09:52 | Progress Note ---
Assessment and Plan Acute on chronic hypoxic respiratory failure s/p MVS RUL mass COPD on home O2 at 2-3L LEYDA/OHS h/o nicotine dependence- Tobacco use disorder- ongoing stage IV lung CA (in remission according to ) h/o stage IV lung CA-s/p chemoradiation -CT chest shows RUL mass Morbid obesity BMI 37.5 Urinary retention-[place] catheter CAP vs Post obstructive PNA h/o hypothyroidism HFpEF and Pulm HTN (mild to moderate) Hypernatremia Treat metabolic alkalosis- give a few doses of Acetazolamide Change IV Solumedrol to oral prednisone with taper Smoking cessation counselling done for 8 minutes at the bedside Discuss with Cardiology re oral anticoagulation Trial of void- discontinue [place] tomorrow and monitor with serial bladder scans Stop Brovana and start MARTIN/IVIS OOB to chair CXR,ABG as clinically indicated - continue to titrate supplemental oxygen to keep SpO2 88-90% - continue bronchodilators with pulmonary hygiene per RT - continue accuchecks with glycemic control per SSI (Target blood glucose of 140-180 mg/dL; avoid hypoglycemia) - continue to avoid benzodiazepines, reduce the possibility of delirium - Antibiotics per ID (Rocephin and Ceftriaxone) - Maintenance of sleep-wake cycle, avoid delirium - continue enteral nutritional support at goal rate as tolerated - Stress ulcer prophylaxis -VTE prophylaxis- on therapeutic heparin. - Monitor hemodynamics closely while on Furosemide- monitor electrolytes and renal function -Water for hypernatremia - continue other care per attending / other consultants - discharge planning ongoing concurrently COVID SPECIFIC INTERVENTIONS - COVID-19 PCR negative CONDITION: FAIR PROGNOSIS: GUARDED CODE STATUS: FULL CODE Subjective Date of service: 09/06/21 Principal diagnosis: Acute respiratory failure, acute HFpEF Interval history: 61-year-old male with CHF, COPD on home O2, nicotine dependence and OHS admitted with CHF exacerbation and CAP Patient is seen today for: acute and chronic resp failure on MVS; Seen and examined at bedside; 24hour events reviewed; nursing and respiratory care staff consulted; no adverse overnight events reported to me; resting in bed; s/p extubation, on BIPAP following commands well; No N/V/F/C. Has constipation- no BM since admission On heparin infusion per Cardiology for Afib/flutter He states that he is still smoking 1PPD Objective Vital Signs - 12hr 09/05/21 09/05/21 09/05/21 21:46 22:00 22:16 Temperature Pulse Rate 65 63 65 Pulse Rate [ Anterior Left] Pulse Rate [ From Monitor] Respiratory 18 20 14 Rate Respiratory Rate [Anterior Left] Blood Pressure 103/58 117/57 117/57 O2 Sat by Pulse 94 95 96 Oximetry 09/05/21 09/05/21 09/05/21 22:30 22:46 23:00 Temperature Pulse Rate 64 66 Pulse Rate [ Anterior Left] Pulse Rate [ From Monitor] Respiratory 17 15 Rate Respiratory Rate [Anterior Left] Blood Pressure 117/57 117/57 121/58 O2 Sat by Pulse 94 97 97 Oximetry 09/05/21 09/05/21 09/05/21 23:16 23:30 23:46 Temperature Pulse Rate 67 Pulse Rate [ Anterior Left] Pulse Rate [ From Monitor] Respiratory 13 Rate Respiratory Rate [Anterior Left] Blood Pressure 121/58 121/58 121/58 O2 Sat by Pulse 94 95 95 Oximetry 09/06/21 09/06/21 09/06/21 00:00 00:16 00:30 Temperature 98.9 F Pulse Rate 65 Pulse Rate [ Anterior Left] Pulse Rate [ 65 From Monitor] Respiratory 19 Rate Respiratory Rate [Anterior Left] Blood Pressure 117/59 117/59 117/59 O2 Sat by Pulse 96 95 95 Oximetry 09/06/21 09/06/21 09/06/21 00:46 01:00 01:16 Temperature Pulse Rate Pulse Rate [ Anterior Left] Pulse Rate [ From Monitor] Respiratory Rate Respiratory Rate [Anterior Left] Blood Pressure 117/59 112/57 112/57 O2 Sat by Pulse 95 96 96 Oximetry 09/06/21 09/06/21 09/06/21 01:30 01:46 02:00 Temperature Pulse Rate 64 62 73 Pulse Rate [ Anterior Left] Pulse Rate [ From Monitor] Respiratory 18 19 22 Rate Respiratory Rate [Anterior Left] Blood Pressure 112/57 112/57 125/61 O2 Sat by Pulse 96 95 92 Oximetry 09/06/21 09/06/21 09/06/21 02:16 02:30 02:46 Temperature Pulse Rate 66 67 64 Pulse Rate [ Anterior Left] Pulse Rate [ From Monitor] Respiratory 20 20 13 Rate Respiratory Rate [Anterior Left] Blood Pressure 125/61 125/61 125/61 O2 Sat by Pulse 95 93 96 Oximetry 09/06/21 09/06/21 09/06/21 03:00 03:16 03:30 Temperature Pulse Rate 65 68 67 Pulse Rate [ Anterior Left] Pulse Rate [ From Monitor] Respiratory 18 21 19 Rate Respiratory Rate [Anterior Left] Blood Pressure 112/55 112/55 112/55 O2 Sat by Pulse 93 96 93 Oximetry 09/06/21 09/06/21 09/06/21 03:46 04:00 04:02 Temperature 98.4 F Pulse Rate 65 65 61 Pulse Rate [ Anterior Left] Pulse Rate [ 65 From Monitor] Respiratory 19 22 16 Rate Respiratory Rate [Anterior Left] Blood Pressure 112/55 112/55 110/53 O2 Sat by Pulse 94 98 95 Oximetry 09/06/21 09/06/21 09/06/21 04:16 04:30 04:46 Temperature Pulse Rate 61 66 65 Pulse Rate [ Anterior Left] Pulse Rate [ From Monitor] Respiratory 11 L 20 20 Rate Respiratory Rate [Anterior Left] Blood Pressure 112/49 112/49 112/49 O2 Sat by Pulse 98 90 90 Oximetry 09/06/21 09/06/21 09/06/21 05:00 05:16 05:30 Temperature Pulse Rate 64 76 66 Pulse Rate [ Anterior Left] Pulse Rate [ From Monitor] Respiratory 19 22 15 Rate Respiratory Rate [Anterior Left] Blood Pressure 116/56 116/56 116/56 O2 Sat by Pulse 90 97 97 Oximetry 09/06/21 09/06/21 09/06/21 05:46 06:00 06:16 Temperature Pulse Rate 66 58 L 64 Pulse Rate [ Anterior Left] Pulse Rate [ From Monitor] Respiratory 19 17 24 Rate Respiratory Rate [Anterior Left] Blood Pressure 116/56 126/60 126/60 O2 Sat by Pulse 98 99 99 Oximetry 09/06/21 09/06/21 09/06/21 06:30 06:46 07:00 Temperature Pulse Rate 63 64 60 Pulse Rate [ Anterior Left] Pulse Rate [ From Monitor] Respiratory 19 18 17 Rate Respiratory Rate [Anterior Left] Blood Pressure 126/60 126/60 125/64 O2 Sat by Pulse 98 98 98 Oximetry 09/06/21 09/06/21 09/06/21 07:16 07:30 07:46 Temperature Pulse Rate 65 70 78 Pulse Rate [ Anterior Left] Pulse Rate [ From Monitor] Respiratory 20 14 16 Rate Respiratory Rate [Anterior Left] Blood Pressure 125/64 125/64 125/64 O2 Sat by Pulse 94 93 96 Oximetry 09/06/21 09/06/21 09/06/21 08:00 08:16 09:13 Temperature 98.2 F Pulse Rate 75 74 Pulse Rate [ 67 Anterior Left] Pulse Rate [ From Monitor] Respiratory 18 18 Rate Respiratory 19 Rate [Anterior Left] Blood Pressure 130/59 130/59 O2 Sat by Pulse 97 95 Oximetry Constitutional: no acute distress, alert, other (middle aged morbidly obese male with mildly increased respiratory effort at rest) Eyes: non-icteric ENT: oropharynx moist, other (BIPAP with FFM) Neck: supple, no lymphadenopathy, no JVD, other (large circumference) Effort: mildly labored Ascultation: Bilateral: diminished breath sounds, rhonchi Percussion: Bilateral: not dull Cardiovascular: irregular rhythm, other (S1,S2) Gastrointestinal: normoactive bowel sounds, soft, non-tender, non-distended (protuberant) Integumentary: normal Extremities: no cyanosis, pink and warm, pulses normal, no ischemia or petechiae, edema Neurologic: normal mental status, non-focal exam (grossly), pupils equal and round, CN II-XII normal, motor strength normal and Psychiatric: mood appropriate, affect normal, other CBC and BMP: 09/05/21 03:08 09/06/21 04:14 ABG, PT/INR, D-dimer: ABG ABG pH 7.331 pH Units (7.350-7.450) L 09/05/21 05:45 ABG pCO2 84.1 mm Hg 09/05/21 05:45 ABG pO2 124.8 mm Hg (80.0-90.0) H 09/05/21 05:45 ABG O2 Saturation 98.0 % (95.0-99.0) 09/05/21 05:45 PT/INR, D-dimer PT 14.3 Sec. (12.2-14.9) 09/03/21 15:00 INR 1.00 (0.87-1.13) 09/03/21 15:00 Abnormal lab findings: Abnormal Labs 09/02/21 09/02/21 09/02/21 15:50 16:21 16:21 Hgb 11.4 L Hct MCV MCH 27 L RDW 18.6 H Seg Neuts % (Manual) 92.0 H Lymphocytes % (Manual) 1.0 L Seg Neutrophils # Man 7.9 H Lymphocytes # (Manual) 0.1 L APTT Heparin Anti-Xa Level ABG pH 7.197 L* ABG pO2 98.8 H ABG HCO3 42.4 H ABG O2 Saturation ABG Base Excess 10.8 H ABG Hemoglobin 11.3 L Oxyhemoglobin 93.6 L Sodium Potassium 5.9 H Chloride 96.4 L Carbon Dioxide 32 H BUN Glucose 101 H POC Glucose Lactic Acid Phosphorus Magnesium TIBC Lactate Dehydrogenase NT-Pro-B Natriuret Pep 4080 H Albumin 09/02/21 09/02/21 09/02/21 16:21 17:42 18:40 Hgb Hct MCV MCH RDW Seg Neuts % (Manual) Lymphocytes % (Manual) Seg Neutrophils # Man Lymphocytes # (Manual) APTT Heparin Anti-Xa Level ABG pH ABG pO2 202.5 H ABG HCO3 39.2 H ABG O2 Saturation 99.2 H ABG Base Excess 11.8 H ABG Hemoglobin 11.0 L Oxyhemoglobin Sodium Potassium Chloride Carbon Dioxide BUN Glucose POC Glucose 113 H Lactic Acid 0.60 L Phosphorus Magnesium TIBC Lactate Dehydrogenase NT-Pro-B Natriuret Pep Albumin 09/02/21 09/03/21 09/03/21 23:09 04:08 04:53 Hgb 10.3 L Hct 32.1 L MCV 83 L MCH 27 L RDW 18.3 H Seg Neuts % (Manual) 94.0 H Lymphocytes % (Manual) 3.0 L Seg Neutrophils # Man Lymphocytes # (Manual) 0.2 L APTT Heparin Anti-Xa Level ABG pH ABG pO2 69.0 L ABG HCO3 42.5 H ABG O2 Saturation ABG Base Excess 15.7 H ABG Hemoglobin 10.6 L Oxyhemoglobin 94.5 L Sodium Potassium Chloride Carbon Dioxide BUN Glucose POC Glucose 154 H Lactic Acid Phosphorus Magnesium TIBC Lactate Dehydrogenase NT-Pro-B Natriuret Pep Albumin 09/03/21 09/03/21 09/03/21 04:53 06:05 10:13 Hgb Hct MCV MCH RDW Seg Neuts % (Manual) Lymphocytes % (Manual) Seg Neutrophils # Man Lymphocytes # (Manual) APTT Heparin Anti-Xa Level ABG pH ABG pO2 ABG HCO3 ABG O2 Saturation ABG Base Excess ABG Hemoglobin Oxyhemoglobin Sodium Potassium Chloride 96.6 L Carbon Dioxide 38 H BUN 25 H Glucose 130 H POC Glucose 145 H Lactic Acid Phosphorus Magnesium TIBC Lactate Dehydrogenase NT-Pro-B Natriuret Pep Albumin 3.2 L 09/03/21 09/03/21 09/03/21 11:11 15:00 15:00 Hgb 10.7 L Hct 33.1 L MCV MCH RDW Seg Neuts % (Manual) Lymphocytes % (Manual) Seg Neutrophils # Man Lymphocytes # (Manual) APTT 22.9 L Heparin Anti-Xa Level ABG pH ABG pO2 ABG HCO3 ABG O2 Saturation ABG Base Excess ABG Hemoglobin Oxyhemoglobin Sodium Potassium Chloride Carbon Dioxide BUN Glucose POC Glucose 158 H Lactic Acid Phosphorus Magnesium TIBC Lactate Dehydrogenase NT-Pro-B Natriuret Pep Albumin 09/03/21 09/03/21 09/03/21 16:39 20:52 23:55 Hgb Hct MCV MCH RDW Seg Neuts % (Manual) Lymphocytes % (Manual) Seg Neutrophils # Man Lymphocytes # (Manual) APTT Heparin Anti-Xa Level < 0.10 L ABG pH ABG pO2 ABG HCO3 ABG O2 Saturation ABG Base Excess ABG Hemoglobin Oxyhemoglobin Sodium Potassium Chloride Carbon Dioxide BUN Glucose POC Glucose 139 H 157 H Lactic Acid Phosphorus Magnesium TIBC Lactate Dehydrogenase NT-Pro-B Natriuret Pep Albumin 09/04/21 09/04/21 09/04/21 04:12 06:13 06:21 Hgb Hct MCV MCH RDW Seg Neuts % (Manual) Lymphocytes % (Manual) Seg Neutrophils # Man Lymphocytes # (Manual) APTT Heparin Anti-Xa Level 0.21 L ABG pH ABG pO2 ABG HCO3 ABG O2 Saturation ABG Base Excess ABG Hemoglobin Oxyhemoglobin Sodium Potassium Chloride 95.3 L Carbon Dioxide 37 H BUN 43 H Glucose 149 H POC Glucose 157 H Lactic Acid Phosphorus 4.70 H Magnesium 2.40 H TIBC 176 L Lactate Dehydrogenase 283 H NT-Pro-B Natriuret Pep Albumin 09/04/21 09/04/21 09/04/21 06:35 12:13 16:50 Hgb Hct MCV MCH RDW Seg Neuts % (Manual) Lymphocytes % (Manual) Seg Neutrophils # Man Lymphocytes # (Manual) APTT Heparin Anti-Xa Level ABG pH ABG pO2 72.2 L ABG HCO3 44.2 H ABG O2 Saturation 94.9 L ABG Base Excess 15.2 H ABG Hemoglobin 12.2 L Oxyhemoglobin 93.0 L Sodium Potassium Chloride Carbon Dioxide BUN Glucose POC Glucose 163 H 121 H Lactic Acid Phosphorus Magnesium TIBC Lactate Dehydrogenase NT-Pro-B Natriuret Pep Albumin 09/05/21 09/05/21 09/05/21 00:24 03:08 03:08 Hgb 10.5 L Hct 33.2 L MCV 83 L MCH 26 L RDW 18.2 H Seg Neuts % (Manual) Lymphocytes % (Manual) Seg Neutrophils # Man Lymphocytes # (Manual) APTT Heparin Anti-Xa Level ABG pH ABG pO2 ABG HCO3 ABG O2 Saturation ABG Base Excess ABG Hemoglobin Oxyhemoglobin Sodium 146 H Potassium Chloride Carbon Dioxide 40 H BUN 54 H Glucose 141 H POC Glucose 144 H Lactic Acid Phosphorus Magnesium TIBC Lactate Dehydrogenase NT-Pro-B Natriuret Pep Albumin 09/05/21 09/05/21 09/05/21 03:08 05:45 05:58 Hgb Hct MCV MCH RDW Seg Neuts % (Manual) Lymphocytes % (Manual) Seg Neutrophils # Man Lymphocytes # (Manual) APTT Heparin Anti-Xa Level 0.28 L ABG pH 7.331 L ABG pO2 124.8 H ABG HCO3 43.5 H ABG O2 Saturation ABG Base Excess 14.5 H ABG Hemoglobin 10.7 L Oxyhemoglobin Sodium Potassium Chloride Carbon Dioxide BUN Glucose POC Glucose 183 H Lactic Acid Phosphorus Magnesium TIBC Lactate Dehydrogenase NT-Pro-B Natriuret Pep Albumin 09/05/21 09/05/21 09/06/21 11:32 17:27 04:14 Hgb Hct MCV MCH RDW Seg Neuts % (Manual) Lymphocytes % (Manual) Seg Neutrophils # Man Lymphocytes # (Manual) APTT Heparin Anti-Xa Level ABG pH ABG pO2 ABG HCO3 ABG O2 Saturation ABG Base Excess ABG Hemoglobin Oxyhemoglobin Sodium 148 H Potassium Chloride 97.2 L Carbon Dioxide 44 H* BUN 45 H Glucose POC Glucose 152 H 130 H Lactic Acid Phosphorus Magnesium 2.50 H TIBC Lactate Dehydrogenase NT-Pro-B Natriuret Pep Albumin Chest x-ray: image reviewed Allied health notes reviewed: RT
[2021-09-06] MEDS ORDERED: predniSONE 20 MG TAB PO SCH (10:00)
[2021-09-06] MEDS: NICOTINE 21 MG/24 HR PATCH TD SCH (10:10)
[2021-09-06] MEDS: METOPROLOL TARTRATE 25 MG TAB PO SCH ×2 (10:12→21:20)
[2021-09-06] MEDS: FAMOTIDINE 20 MG TAB PO SCH ×2 (10:14→21:20)
[2021-09-06] MEDS: DOXAZOSIN 1 MG TAB PO SCH (10:15)
[2021-09-06] MEDS: SENNOSIDES/DOCUSATE SODIUM 8.6/50 MG TAB PO SCH ×2 (10:16→21:20)
[2021-09-06] MEDS: AZITHROMYCIN 250 MG TAB PO SCH ×2 (10:16→12:15)
--- NOTE | 2021-09-06 11:44 | Progress Note ---
Assessment and Plan Assessment and plan: This is a 61-year-old male with CHF, COPD on home O2, nicotine dependence and OHS admitted with CHF exacerbation and CAP Neuro: NAD -Reorientation as needed -Maintain sleep-wake cycle Cardiac: Aflutter, Acute on Chronic CHF -Cardiology consulted, appreciate recommendations -Blood pressure monitoring per protocol -Echocardiogram shows LVEF of 50 to 55%, flattened septum consistent with right ventricular volume overload, RVSP 37 mmhg -BB PO -s/p Heparin gtt->subq heparin -Lasix twice daily -Admit proBNP 4080 Respiratory: Acute on chronic hypoxic respiratory failure, RUL mass, h/o COPD, OHS, nicotine dependence, stage IV lung CA (in remission according to ) -CCM consulted, appreciate recommendations -Intubated on 09/02 with 8.0 OETT at 22 at the lips and extubated 09/05 -Currently on NC -Pulmonary hygiene -SPO2 monitoring -Solu-Medrol PO -MARTIN/LABA GI: Morbid obesity, mild protein calorie nutrition -24 hours -1340 mL -PPI -Passed bedside swallow eval and started on PO diet -BR: Colace : Urinary retention -Monitor intake and output -Renally dose medications -Avoid nephrotoxic medications -[place] replaced 09/04 -Doxazosin -Trend BMP ID: CAP, Post obstructive ? -Covid 19 pcr negative -Antibiotic therapy with azithro and rocephin -Admit CXR showed right upper lobe atelectasis, patchy parenchymal opacities in both mid to lower lung zones -Chest CTA showed complete right upper lobe atelectasis, mild bronchopneumonia medial aspect left upper, right middle and both lower lobes -f/u blood culture -Monitor WBC and temperature curve Endo: h/o hypothyroidism -Avoid hypoglycemia -SSI -Accu-Cheks q. 6hr -Resume home levothyroxine Heme/Oncology: h/o stage IV lung CA -CT chest shows RUL mass -According to patient is in remission pose radiation and chemo -Hem/Onc consulted, appreciate recommendations -Records requested from Dr. Ave Jenkins -unable to get a hold -Will need outpatient follow up with out patient oncology -Trend CBC -Transfuse hemoglobin less than 7 -SCDs to BLE while in bed The high probability of a clinically significant, sudden or life threatening deterioration of the [cardiac, pulmonary] system(s) required my full and direct attention, intervention and personal management. The aggregate critical care time was [60] minutes. This time is in addition to time spent performing reported procedures but includes the following: [x] Data Review and interpretation [x] Patient assessment and monitoring of vital signs [x] Documentation [x] Medication orders and management Total Time Spent with Patient (Minutes): 60 History Interval history: This is a 71-year-old male with CHF, COPD on home O2, hypothyroidism, stage IV lung CA, nicotine dependence and OHS who presented to the emergency department on 09/02 with complaints of " cannot breathe" via EMS. On EMS arrival patient had a SPO2 in the 60s and was placed on supplemental oxygenation and transported to [facility]. In the emergency department patient's SPO2 was in the 70s with supplemental oxygenation and he did not have much improvement in symptoms and was placed on NiPPV and was intubated in the ED as he was found to be r etracting, unable to speak, using accessory muscles to breathe, with audible wheezing and placed on ventilatory support and CXR showed bilateral PNA. He was admitted with CHF excerbation and with PNA to the hospitalist service with consults cardiology and CCM. Hospital course to date: 09/03: Remains on ventilatory support. The afternoon patient heart rate went into the 140s/150s, cardiology aware, stat ECG obtained which showed no acute findings, 2.5 metoprolol ordered. Started on fentanyl drip. Records requested from [facility] and Dr. Ave Jenkins, [place] catheter discontinued. Ventilator changes per CCM. 09/04: CCM made vent changes, decrease Solu-Medrol, COVID-19 PCR negative. [place] catheter replaced. 09/05: Patient currently on vent settings and only sedated on fentanyl. No acute events reported overnight. PSV versus remaining on AC for bronchoscopy. 09/06: Patient was extubated yesterday evening and is currently on nasal cannula, steroids will be resumed and transition to p.o., cardiology will continue Lasix. PT/OT consulted. Hospitalist Physical - Constitutional Vitals: Temp Pulse Resp BP Pulse Ox 98.2 F 66 20 113/57 96 09/06/21 08:00 09/06/21 11:00 09/06/21 11:00 09/06/21 11:00 09/06/21 11:00 General appearance: Present: no acute distress, obese, other (intubated ) - EENT Eyes: Present: PERRL, EOM intact ENT: hearing intact, clear oral mucosa - Neck Neck: Present: supple, normal ROM - Respiratory Respiratory effort: normal Respiratory: bilateral: diminished, wheezing - Cardiovascular Rhythm: regular Heart Sounds: Present: S1 & S2. Absent: systolic murmur, diastolic murmur - Extremities Extremities: no ischemia, pulses intact, pulses symmetrical, No edema, normal temperature, normal color, Full ROM Peripheral Pulses: within normal limits - Abdominal General gastrointestinal: soft, non-tender, normal bowel sounds - Integumentary Integumentary: Present: warm, dry - Psychiatric Psychiatric: appropriate mood/affect, cooperative - Neurologic Neurologic: CNII-XII intact, no focal deficits, moves all extremities - Allied Health Allied health notes reviewed: nursing, RT, social work HEART Score - HEART Score Troponin: Troponin T < 0.010 ng/mL (0.00-0.029) 09/02/21 16:21 Results - Labs CBC & Chem 7: 09/05/21 03:08 09/06/21 04:14 Labs: Laboratory Last Values WBC 7.9 K/mm3 (4.5-11.0) 09/05/21 03:08 RBC 4.01 M/mm3 (3.65-5.03) 09/05/21 03:08 Hgb 10.5 gm/dl (11.8-15.2) L 09/05/21 03:08 Hct 33.2 % (35.5-45.6) L 09/05/21 03:08 MCV 83 fl (84-94) L 09/05/21 03:08 MCH 26 pg (28-32) L 09/05/21 03:08 MCHC 32 % (32-34) 09/05/21 03:08 RDW 18.2 % (13.2-15.2) H 09/05/21 03:08 Plt Count 213 K/mm3 (140-440) 09/05/21 03:08 Add Manual Diff Complete 09/03/21 04:53 Total Counted 100 09/03/21 04:53 Seg Neutrophils % Security Operations Engineer 09/03/21 04:53 Seg Neuts % (Manual) 94.0 % (40.0-70.0) H 09/03/21 04:53 Band Neutrophils % 0 % 09/03/21 04:53 Lymphocytes % (Manual) 3.0 % (13.4-35.0) L 09/03/21 04:53 Reactive Lymphs % (Man) 0 % 09/03/21 04:53 Monocytes % (Manual) 3.0 % (0.0-7.3) 09/03/21 04:53 Eosinophils % (Manual) 0 % (0.0-4.3) 09/03/21 04:53 Basophils % (Manual) 0 % (0.0-1.8) 09/03/21 04:53 Metamyelocytes % 0 % 09/03/21 04:53 Myelocytes % 0 % 09/03/21 04:53 Promyelocytes % 0 % 09/03/21 04:53 Blast Cells % 0 % 09/03/21 04:53 Nucleated RBC % Not Reportable 09/03/21 04:53 Seg Neutrophils # Man 5.5 K/mm3 (1.8-7.7) 09/03/21 04:53 Band Neutrophils # 0.0 K/mm3 09/03/21 04:53 Lymphocytes # (Manual) 0.2 K/mm3 (1.2-5.4) L 09/03/21 04:53 Abs React Lymphs (Man) 0.0 K/mm3 09/03/21 04:53 Monocytes # (Manual) 0.2 K/mm3 (0.0-0.8) 09/03/21 04:53 Eosinophils # (Manual) 0.0 K/mm3 (0.0-0.4) 09/03/21 04:53 Basophils # (Manual) 0.0 K/mm3 (0.0-0.1) 09/03/21 04:53 Metamyelocytes # 0.0 K/mm3 09/03/21 04:53 Myelocytes # 0.0 K/mm3 09/03/21 04:53 Promyelocytes # 0.0 K/mm3 09/03/21 04:53 Blast Cells # 0.0 K/mm3 09/03/21 04:53 WBC Morphology Not Reportable 09/03/21 04:53 Hypersegmented Neuts Not Reportable 09/03/21 04:53 Hyposegmented Neuts Not Reportable 09/03/21 04:53 Hypogranular Neuts Not Reportable 09/03/21 04:53 Smudge Cells Not Reportable 09/03/21 04:53 Toxic Granulation Not Reportable 09/03/21 04:53 Toxic Vacuolation Not Reportable 09/03/21 04:53 Dohle Bodies Not Reportable 09/03/21 04:53 Pelger-Huet Anomaly Not Reportable 09/03/21 04:53 Kaushik Rods Not Reportable 09/03/21 04:53 Platelet Estimate Consistent w auto 09/03/21 04:53 Clumped Platelets Not Reportable 09/03/21 04:53 Plt Clumps, EDTA Not Reportable 09/03/21 04:53 Large Platelets Not Reportable 09/03/21 04:53 Giant Platelets Not Reportable 09/03/21 04:53 Platelet Satelliting Not Reportable 09/03/21 04:53 Plt Morphology Comment Not Reportable 09/03/21 04:53 RBC Morphology Not Reportable 09/03/21 04:53 Dimorphic RBCs Not Reportable 09/03/21 04:53 Polychromasia Not Reportable 09/03/21 04:53 Hypochromasia Not Reportable 09/03/21 04:53 Poikilocytosis Not Reportable 09/03/21 04:53 Anisocytosis 1+ 09/03/21 04:53 Microcytosis Not Reportable 09/03/21 04:53 Macrocytosis Not Reportable 09/03/21 04:53 Spherocytes Not Reportable 09/03/21 04:53 Pappenheimer Bodies Not Reportable 09/03/21 04:53 Sickle Cells Not Reportable 09/03/21 04:53 Target Cells Not Reportable 09/03/21 04:53 Tear Drop Cells Not Reportable 09/03/21 04:53 Ovalocytes Not Reportable 09/03/21 04:53 Stomatocytes Rare 09/02/21 16:21 Helmet Cells Not Reportable 09/03/21 04:53 [place] Bodies Not Reportable 09/03/21 04:53 [place] Rings Not Reportable 09/03/21 04:53 Jerry Cells Not Reportable 09/03/21 04:53 Bite Cells Not Reportable 09/03/21 04:53 Crenated Cell Not Reportable 09/03/21 04:53 Elliptocytes Not Reportable 09/03/21 04:53 Acanthocytes (Spur) Not Reportable 09/03/21 04:53 Rouleaux Not Reportable 09/03/21 04:53 Hemoglobin C Crystals Not Reportable 09/03/21 04:53 Schistocytes Not Reportable 09/03/21 04:53 Malaria parasites Not Reportable 09/03/21 04:53 Percent Retic 1.37 % (0.78-2.58) 09/04/21 10:56 Tanner Bodies Not Reportable 09/03/21 04:53 Hem Pathologist Commnt No 09/03/21 04:53 PT 14.3 Sec. (12.2-14.9) 09/03/21 15:00 INR 1.00 (0.87-1.13) 09/03/21 15:00 APTT 22.9 Sec. (24.2-36.6) L 09/03/21 15:00 Heparin Anti-Xa Level 0.43 U.I./ml (0.3-0.7) 09/06/21 04:14 ABG pH 7.331 pH Units (7.350-7.450) L 09/05/21 05:45 ABG pCO2 84.1 mm Hg 09/05/21 05:45 ABG pO2 124.8 mm Hg (80.0-90.0) H 09/05/21 05:45 ABG HCO3 43.5 mmol/L (20.0-26.0) H 09/05/21 05:45 ABG O2 Saturation 98.0 % (95.0-99.0) 09/05/21 05:45 ABG O2 Content 14.7 (0.0-44) 09/05/21 05:45 ABG Base Excess 14.5 mmol/L (-2.0-3.0) H 09/05/21 05:45 ABG Hemoglobin 10.7 gm/dl (14.0-18.0) L 09/05/21 05:45 ABG Carboxyhemoglobin 1.5 % (0.0-5.0) 09/05/21 05:45 ABG Methemoglobin 0.4 % (0.0-1.5) 09/05/21 05:45 Oxyhemoglobin 96.1 % (95.0-99.0) 09/05/21 05:45 FiO2 40 % 09/05/21 05:45 Sodium 148 mmol/L (137-145) H 09/06/21 04:14 Potassium 4.5 mmol/L (3.6-5.0) 09/06/21 04:14 Chloride 97.2 mmol/L (98-107) L 09/06/21 04:14 Carbon Dioxide 44 mmol/L (22-30) H* 09/06/21 04:14 Anion Gap 11 mmol/L 09/06/21 04:14 BUN 45 mg/dL (9-20) H 09/06/21 04:14 Creatinine 0.9 mg/dL (0.8-1.3) 09/06/21 04:14 Estimated GFR > 60 ml/min 09/06/21 04:14 BUN/Creatinine Ratio 50 % 09/06/21 04:14 Glucose 89 mg/dL (75-100) 09/06/21 04:14 POC Glucose 103 mg/dL (70-105) 09/06/21 01:22 Lactic Acid 0.60 mmol/L (0.7-2.0) L 09/02/21 16:21 Calcium 8.9 mg/dL (8.4-10.2) 09/06/21 04:14 Phosphorus 3.90 mg/dL (2.5-4.5) 09/06/21 04:14 Magnesium 2.50 mg/dL (1.7-2.3) H 09/06/21 04:14 Iron 63 ug/dL (49-181) 09/04/21 04:12 TIBC 176 mcg/dL (250-450) L 09/04/21 04:12 Ferritin 194.9 ng/mL (30.0-300.0) 09/04/21 04:12 Total Bilirubin 0.50 mg/dL (0.1-1.2) 09/03/21 10:13 Direct Bilirubin 0.2 mg/dL (0-0.2) 09/03/21 10:13 Indirect Bilirubin 0.3 mg/dL 09/03/21 10:13 AST 18 units/L (5-40) 09/03/21 10:13 ALT 16 units/L (7-56) 09/03/21 10:13 Alkaline Phosphatase 110 units/L (35-129) 09/03/21 10:13 Lactate Dehydrogenase 283 units/L (91-180) H 09/04/21 04:12 Troponin T < 0.010 ng/mL (0.00-0.029) 09/02/21 16:21 NT-Pro-B Natriuret Pep 4080 pg/mL (0-900) H 09/02/21 16:21 Total Protein 6.4 g/dL (6.3-8.2) 09/03/21 10:13 Albumin 3.2 g/dL (3.9-5) L 09/03/21 10:13 Albumin/Globulin Ratio 1.0 % 09/03/21 10:13 Procalcitonin 0.27 ng/mL (<0.15) 09/03/21 10:13 TSH 0.501 mlU/mL (0.270-4.200) 09/02/21 18:44 Free T4 1.27 ng/dL (0.76-1.46) 09/02/21 18:44 Urine Color Yellow (Yellow) 09/03/21 02:49 Urine Turbidity Slightly cloudy (Clear) 09/03/21 02:49 Urine pH 6.0 (5.0-7.0) 09/03/21 02:49 Ur Specific [place] 1.030 (1.003-1.030) 09/03/21 02:49 Urine Protein <15 mg/dl mg/dL (Negative) 09/03/21 02:49 Urine Glucose (UA) Negative mg/dL (Negative) 09/03/21 02:49 Urine Ketones Negative mg/dL (Negative) 09/03/21 02:49 Urine Blood Negative (Negative) 09/03/21 02:49 Urine Nitrite Negative (Negative) 09/03/21 02:49 Ur Reducing Substances Not Reportable 09/03/21 02:49 Urine Bilirubin Negative (Negative) 09/03/21 02:49 Urine Ictotest Not Reportable 09/03/21 02:49 Urine Urobilinogen < 2.0 mg/dL (<2.0) 09/03/21 02:49 Ur Leukocyte Esterase Negative (Negative) 09/03/21 02:49 Urine WBC (Auto) 1.0 /HPF (0.0-6.0) 09/03/21 02:49 Urine RBC (Auto) 2.0 /HPF (0.0-6.0) 09/03/21 02:49 Urine Mucus Few /HPF 09/03/21 02:49 Urine Opiates Screen Presumptive negative 09/03/21 02:49 Urine Methadone Screen Presumptive negative 09/03/21 02:49 Ur Barbiturates Screen Presumptive negative 09/03/21 02:49 Ur Phencyclidine Scrn Presumptive negative 09/03/21 02:49 Ur Amphetamines Screen Presumptive negative 09/03/21 02:49 U Benzodiazepines Scrn Presumptive negative 09/03/21 02:49 Urine Cocaine Screen Presumptive negative 09/03/21 02:49 U Marijuana (THC) Screen Presumptive positive 09/03/21 02:49 Drugs of Abuse Note Disclamer 09/03/21 02:49 Coronavirus (PCR) Negative (Negative) 09/04/21 07:18 Microbiology: Microbiology 09/02/21 18:50 Sputum - Expectorated Sputum Sputum Culture - Preliminary [place]/IV: Voiding Method Indwelling Catheter Active Medications - Current Medications Current Medications: Generic Name Dose Route Start Last Admin Trade Name Freq PRN Reason Stop Dose Admin Acetaminophen 650 mg 09/02/21 18:31 Acetaminophen 325 Mg Tab PO Q6H PRN Pain MILD(1-3)/Fever >100.5/ZAVALA Acetazolamide 250 mg 09/06/21 11:00 Acetazolamide 500 Mg Vial IV 09/07/21 12:00 Q12HR MAE Albuterol 2.5 mg 09/06/21 09:42 Albuterol 2.5 Mg/3 Ml Nebu IH Q4HRT PRN Shortness Of Breath Albuterol/Ipratropium 1 ampul 09/06/21 14:00 Ipratropium/Albuterol Sulfate 3 Ml Ampul.Neb IH Q6HRT MAE Budesonide 0.5 mg 09/03/21 10:00 09/06/21 09:13 Budesonide 0.5 Mg/2 Ml Nebu IH 0.5 mg Q12HR MAE Administration Dextrose 50 ml 09/04/21 08:02 Dextrose 50% In Water (25gm) 50 Ml Syringe IV Q30MIN PRN Hypoglycemia Protocol Diphenhydramine HCl 25 mg 09/05/21 00:16 09/06/21 05:41 Diphenhydramine 50 Mg/Ml Vial IV 25 mg Q6H PRN Administration Itching Doxazosin Mesylate 1 mg 09/06/21 10:00 09/06/21 10:15 Doxazosin 1 Mg Tab PO 1 mg QDAY [facility] Administration Famotidine 20 mg 09/06/21 10:00 09/06/21 10:14 Famotidine 20 Mg Tab PO 20 mg BID [facility] Administration Furosemide 40 mg 09/04/21 12:54 09/06/21 05:27 Furosemide 20 Mg/2 Ml Inj IV 40 mg BID@0600,1800 [facility] Administration Heparin Sodium (Porcine) 5,000 unit 09/06/21 22:00 Heparin 5,000 Unit/1 Ml Vial SUB-Q Q12HR [facility] Hydromorphone HCl 0.5 mg 09/02/21 18:31 Hydromorphone 0.5 Mg/0.5 Ml Inj IV Q8H PRN Pain , Severe (7-10) Hydrophilic Ointment 1 applic 09/03/21 13:55 Lip Therapy Vaseline TP Q2HR PRN Dry Lips Ceftriaxone Sodium 2 gm in 100 mls @ 200 mls/hr 09/02/21 20:00 09/05/21 23:00 Rocephin/Ns 2 Gm/100 Ml IV 09/06/21 20:29 200 mls/hr Q24H [facility] Administration Protocol Insulin Human Regular 0 units 09/04/21 09:00 09/06/21 06:03 Insulin Regular, Human 100 Units/1 Ml SUB-Q Not Given Q6HR [facility] Protocol Levothyroxine Sodium 100 mcg 09/03/21 10:00 09/06/21 05:24 Levothyroxine 100 Mcg Tab PO 100 mcg QAM@0600 [facility] Administration Metoprolol Tartrate 12.5 mg 09/06/21 10:00 09/06/21 10:12 Metoprolol Tartrate 25 Mg Tab PO 12.5 mg BID [facility] Administration Multi-Ingred Cream/Lotion/Oil/Oint 1 applic 09/03/21 13:55 Mineral Oil/Petrolatum, White Ophth Oint 3.5 Gm OU Q4HR PRN Dry Eye(s) Nicotine 21 mg 09/06/21 11:00 09/06/21 10:10 Nicotine 21 Mg/24 Hr Patch TD 21 mg QDAY [facility] Administration Oxycodone/Acetaminophen 1 tab 09/02/21 18:31 Oxycodone /Acetaminophen 5-325mg Tab PO Q6H PRN Pain, Moderate (4-6) Prednisone 15 mg 09/07/21 10:00 Prednisone 5 Mg Tab PO 09/07/21 10:01 QDAY MAE Prednisone 10 mg 09/08/21 10:00 Prednisone 10 Mg Tab PO 09/08/21 10:01 QDAY MAE Prednisone 7.5 mg 09/09/21 10:00 Prednisone 5 Mg Tab PO 09/09/21 10:01 QDAY MAE Prednisone 5 mg 09/10/21 10:00 Prednisone 5 Mg Tab PO 09/12/21 10:01 QDAY MAE Senna/Docusate Sodium 1 tab 09/06/21 10:00 09/06/21 10:16 Sennosides/Docusate Sodium 8.6/50 Mg Tab PO 1 tab BID MAE Administration Sodium Chloride 10 ml 09/02/21 22:00 09/05/21 22:20 Sodium Chloride 0.9% 10 Ml Flush Syringe IV 10 ml BID MAE Administration Sodium Chloride 10 ml 09/02/21 18:31 Sodium Chloride 0.9% 10 Ml Flush Syringe IV PRN PRN LINE FLUSH Nutrition/Malnutrition Assess - Dietary Evaluation Nutrition/Malnutrition Findings: Nutrition Notes Start: 09/03/21 10:38 Freq: Status: Active Protocol: Document 09/05/21 09:43 DALE (Rec: 09/05/21 10:02 DALE [id number]) Nutrition Notes Initial or Follow up Brief Note Current Diagnosis COPD,Respiratory Failure, Malnutrition Other Pertinent Diagnosis HFpEF, CAP, Atrial Flutter/RVR , OHS, Urinary Retention, Lung Cancer, .... Current Diet TF-Promote @ 70 ml/hr (from L 09/03) Labs/Tests 09/05: Na 146, CO2 40, BUN 54, Glu 141. Pertinent Medications 09/05: Humulin R 1U, Levothyroxine, others nutritionally unremarkable. Height 5 ft 11 in Weight 127.047 kg [place] Body Weight (kg) 78.18 BMI 39.0 Weight change and time frame No body weight change reported in 2 days. Weight Status Obese Subjective/Other Information RD consult for routine F/U on TF tolerance/continuation. TF continues as prescribed, no further information available at the time, will assess at F /U. Pt is on Mechanical Ventilation, O2 saturation @ 96%, according to Physical Assessment History notes. Percent of energy/protein needs met: Prescribed TF-Promote @ 70 ml/ hr provides for energy/protein needs (1,670 Kcal/104 g) during LOS, 77% Kcal; 101% AA. #1 Nutrition Diagnosis Inadequate oral intake Diagnosis Progress(for reassessment Continues documentation) Is patient on ventilator? Yes Is Patient Ambulatory and/or Out of Bed No REE-([place]-St. Jeor-confined to bed) 2533.248 Kcal/Kg value to use for calculation 17 Approximate Energy Requirements Using 2160 kcal/Kg Calculation Used for Recommendations Kcal/kg Additional Notes Protein: 0.8-1 g/Kg AdjBW; 82- 103 g/day. Fluids: 1 ml/Kcal, or as per MD. Nutrition Intervention Nutrition Support: Continue TF-Promote @ 70 ml/hr . Flush: 120 ml water Q 4 hr, or as per MD. Kcal 1,595 Protein (gm) 100 Carbohydrates (gm) 147 Fat (gm) 72 Fluid (mL) 1,078 Fiber (gm) 7 % RDI: 77% Kcal; 101% AA. Goal #1 Provide at least 75% of energy /protein needs through Enteral Feeding during LOS. Follow-Up By: 09/12/21 Additional Comments Continue monitoring TF tolerance and BM.
[2021-09-06] MEDS ORDERED: WATER FOR INJ Sterile (PF) 10 ML ONE (12:09)
--- NOTE | 2021-09-06 12:25 | Progress Note ---
Assessment and Plan Patient is a 61-year-old male with a reported past medical history of COPD on home O2, CHF, nicotine dependence reported to the ED with a complaint of difficulty in breathing Acute on chronic respiratory failure-pulmonology following Acute HFpEF Right upper lung mass History of lung cancer (per documentation patient is in remission)-heme-onc following A flutter with RVR vs SVT PUI Obesity Nicotine dependence Echo 09/02/2021-EF 50 to 55% transmitral Doppler flow (impaired relaxation. Flattened septum consistent with right ventricular volume overload. Right ventricle is dilated. Mild aortic stenosis. Trace tricuspid regurgitation. Mild pulmonary hypertension Plan: BNP noted to be elevated, and echo consistent with right ventricular volume overload. Patient having significant urine output and while improved patient continues to rales upon examination Will continue Lasix to 40 mg IV twice daily Strict I&O's, daily weights, close monitoring of renal function Patient had episode of RVR versus SVT previously that lasted only for a few minutes. Patient has had no further events and has remained in sinus rhythm. Anticoagulation not indicated Will discontinue heparin drip. Will initiate heparin subcu for DVT prophylaxis Continue metoprolol 12.5 mg p.o. twice daily Discussed plan of care with patient who verbalized understanding and acknowledgment Patient seen in conjunction with Dr. Lund who agrees with this plan of care 30min of critical care time spent in care and coordination of patient - Patient Problems (1) (HFpEF) heart failure with preserved ejection fraction Current Visit: Yes Status: Acute (2) Acute on chronic respiratory failure with hypoxia and hypercapnia Current Visit: Yes Status: Acute (3) Nicotine dependence Current Visit: Yes Status: Acute Qualifiers: Nicotine product type: cigarettes Substance use status: in withdrawal Qualified Code(s): F17.213 - Nicotine dependence, cigarettes, with withdrawal (4) Obesity hypoventilation syndrome Current Visit: Yes Status: Acute (5) Pneumonia Current Visit: Yes Status: Acute Subjective Date of service: 09/06/21 Principal diagnosis: Acute respiratory failure, acute HFpEF Interval history: Patient extubated. Patient resting in bed in no acute distress patient reports feeling much better Sinus 70s-80s on monitor with no event Objective Vital Signs Temp Pulse Pulse Pulse Resp Resp BP 09/06/21 11:00 66 20 113/57 09/06/21 10:46 67 19 126/58 09/06/21 10:30 69 19 126/58 09/06/21 10:16 70 18 126/58 09/06/21 10:15 73 119/57 09/06/21 10:12 74 119/57 09/06/21 10:00 66 18 119/57 09/06/21 09:46 64 17 126/58 09/06/21 09:30 68 16 126/58 09/06/21 09:16 69 18 126/58 09/06/21 09:13 68 66 18 19 126/58 09/06/21 09:00 69 18 126/58 09/06/21 08:46 74 19 130/59 09/06/21 08:30 76 17 130/59 09/06/21 08:16 74 18 130/59 09/06/21 08:00 98.2 F 75 68 21 130/59 09/06/21 07:46 78 16 125/64 09/06/21 07:30 70 14 125/64 09/06/21 07:16 65 20 125/64 09/06/21 07:00 60 17 125/64 09/06/21 06:46 64 18 126/60 09/06/21 06:30 63 19 126/60 09/06/21 06:16 64 24 126/60 09/06/21 06:00 58 L 17 126/60 09/06/21 05:46 66 19 116/56 09/06/21 05:30 66 15 116/56 09/06/21 05:16 76 22 116/56 09/06/21 05:00 64 19 116/56 09/06/21 04:46 65 20 112/49 09/06/21 04:30 66 20 112/49 09/06/21 04:16 61 11 L 112/49 09/06/21 04:02 61 16 110/53 09/06/21 04:00 98.4 F 65 65 22 112/55 09/06/21 03:46 65 19 112/55 09/06/21 03:30 67 19 112/55 09/06/21 03:16 68 21 112/55 09/06/21 03:00 65 18 112/55 09/06/21 02:46 64 13 125/61 09/06/21 02:30 67 20 125/61 09/06/21 02:16 66 20 125/61 09/06/21 02:00 73 22 125/61 09/06/21 01:46 62 19 112/57 09/06/21 01:30 64 18 112/57 09/06/21 01:16 112/57 09/06/21 01:00 112/57 09/06/21 00:46 117/59 09/06/21 00:30 117/59 09/06/21 00:16 117/59 09/06/21 00:00 98.9 F 65 65 19 117/59 09/05/21 23:46 121/58 09/05/21 23:30 121/58 09/05/21 23:16 67 13 121/58 09/05/21 23:00 121/58 09/05/21 22:46 66 15 117/57 09/05/21 22:30 64 17 117/57 09/05/21 22:16 65 14 117/57 09/05/21 22:00 63 20 117/57 09/05/21 21:46 65 18 103/58 09/05/21 21:30 65 17 103/58 09/05/21 21:18 63 16 09/05/21 21:16 64 15 103/58 09/05/21 21:00 62 18 103/58 09/05/21 20:46 63 18 112/55 09/05/21 20:41 59 L 16 112/55 09/05/21 20:30 112/55 09/05/21 20:16 88 20 112/55 09/05/21 20:00 98.9 F 66 71 19 112/55 09/05/21 19:46 67 22 104/72 09/05/21 19:30 67 17 104/72 09/05/21 19:16 104/72 09/05/21 19:00 75 14 103/58 09/05/21 18:46 70 21 103/58 09/05/21 18:30 78 22 103/58 09/05/21 18:16 103/58 09/05/21 18:00 65 16 103/58 09/05/21 17:46 111/54 09/05/21 17:30 81 25 H 111/54 09/05/21 17:16 67 16 111/54 09/05/21 17:05 09/05/21 17:00 65 11 L 111/54 09/05/21 16:46 70 11 L 114/50 09/05/21 16:30 76 14 114/50 09/05/21 16:16 65 12 114/50 09/05/21 16:00 99.2 F 67 67 13 114/50 09/05/21 15:46 67 17 119/49 09/05/21 15:30 76 17 119/49 09/05/21 15:15 70 17 119/49 09/05/21 15:00 82 23 124/55 09/05/21 14:46 80 17 128/42 09/05/21 14:30 85 24 128/42 09/05/21 14:19 73 96 H 09/05/21 14:16 76 21 163/77 09/05/21 14:00 76 20 131/58 09/05/21 13:46 78 20 140/55 09/05/21 13:30 68 11 L 42/15 09/05/21 13:16 88 21 129/66 09/05/21 13:00 68 16 109/55 09/05/21 12:46 72 20 109/55 09/05/21 12:30 76 16 111/57 Pulse Ox 09/06/21 11:00 96 09/06/21 10:46 96 09/06/21 10:30 93 09/06/21 10:16 94 09/06/21 10:15 09/06/21 10:12 09/06/21 10:00 96 09/06/21 09:46 97 09/06/21 09:30 97 09/06/21 09:16 96 09/06/21 09:13 95 09/06/21 09:00 96 09/06/21 08:46 93 09/06/21 08:30 96 09/06/21 08:16 95 09/06/21 08:00 98 09/06/21 07:46 96 09/06/21 07:30 93 09/06/21 07:16 94 09/06/21 07:00 98 09/06/21 06:46 98 09/06/21 06:30 98 09/06/21 06:16 99 09/06/21 06:00 99 09/06/21 05:46 98 09/06/21 05:30 97 09/06/21 05:16 97 09/06/21 05:00 90 09/06/21 04:46 90 09/06/21 04:30 90 09/06/21 04:16 98 09/06/21 04:02 95 09/06/21 04:00 98 09/06/21 03:46 94 09/06/21 03:30 93 09/06/21 03:16 96 09/06/21 03:00 93 09/06/21 02:46 96 09/06/21 02:30 93 09/06/21 02:16 95 09/06/21 02:00 92 09/06/21 01:46 95 09/06/21 01:30 96 09/06/21 01:16 96 09/06/21 01:00 96 09/06/21 00:46 95 09/06/21 00:30 95 09/06/21 00:16 95 09/06/21 00:00 96 09/05/21 23:46 95 09/05/21 23:30 95 09/05/21 23:16 94 09/05/21 23:00 97 09/05/21 22:46 97 09/05/21 22:30 94 09/05/21 22:16 96 09/05/21 22:00 95 09/05/21 21:46 94 09/05/21 21:30 95 09/05/21 21:18 09/05/21 21:16 95 09/05/21 21:00 97 09/05/21 20:46 93 09/05/21 20:41 95 09/05/21 20:30 94 09/05/21 20:16 93 09/05/21 20:00 97 09/05/21 19:46 96 09/05/21 19:30 94 09/05/21 19:16 97 09/05/21 19:00 94 09/05/21 18:46 94 09/05/21 18:30 94 09/05/21 18:16 93 09/05/21 18:00 96 09/05/21 17:46 94 09/05/21 17:30 89 09/05/21 17:16 97 09/05/21 17:05 93 09/05/21 17:00 91 09/05/21 16:46 94 09/05/21 16:30 92 09/05/21 16:16 94 09/05/21 16:00 93 09/05/21 15:46 94 09/05/21 15:30 96 09/05/21 15:15 91 09/05/21 15:00 90 09/05/21 14:46 94 09/05/21 14:30 92 09/05/21 14:19 09/05/21 14:16 95 09/05/21 14:00 76 L 09/05/21 13:46 09/05/21 13:30 93 09/05/21 13:16 93 09/05/21 13:00 91 09/05/21 12:46 97 09/05/21 12:30 95 - Physical Examination General: No Apparent Distress HEENT: Positive: Normocephaly Neck: Positive: trachea midline Cardiac: Positive: Reg Rate and Rhythm Lungs: Positive: Rales, Wheezes Neuro: Positive: Grossly Intact Abdomen: Positive: Soft Skin: Negative: Rash, Suspicious Lesions, Ulceration Extremities: Present: upper extr. pulses, edema - Labs and Meds Comprehensive Metabolic Panel 09/06/21 Range/Units 04:14 Sodium 148 H (137-145) mmol/L Potassium 4.5 (3.6-5.0) mmol/L Chloride 97.2 L (98-107) mmol/L Carbon Dioxide 44 H* (22-30) mmol/L BUN 45 H (9-20) mg/dL Creatinine 0.9 (0.8-1.3) mg/dL Glucose 89 (75-100) mg/dL Calcium 8.9 (8.4-10.2) mg/dL - Imaging and Cardiology Echo: report reviewed - Telemetry EKG Rhythm: Sinus Rhythm - EKG Sinus rhythms and dysrhythmias: sinus rhythm AV and intraventricular conduction: right bundle branch block - Allied health notes Allied health notes reviewed: RT
[2021-09-06] MEDS ORDERED: WATER FOR INJ Sterile (PF) 10 ML IV PRN (12:26)
[2021-09-06] MEDS: IPRATROPIUM/ALBUTEROL SULFATE 3 ML AMPUL.NEB IH SCH ×2 (15:30→20:21)
[2021-09-06] MEDS: cefTRIAXone/NS 2 GM/100 ML 2 GM/100 ML BAG IV SCH (20:20)
[2021-09-06] MEDS: HEPARIN 5,000 UNIT/1 ML VIAL SUB-Q SCH (21:20)
[2021-09-07] MEDS: IPRATROPIUM/ALBUTEROL SULFATE 3 ML AMPUL.NEB IH SCH ×4 (02:48→19:36)
[2021-09-07 05:14] LABS: Hematocrit 37.7 % (35.5-45.6); Hemoglobin 11.7 gm/dl (11.8-15.2)
[2021-09-07 05:32] LABS: BUN/Creatinine Ratio 44; Blood Urea Nitrogen 40 mg/dL (9-20); Hemolysis Index 2
[2021-09-07] MEDS: FUROSEMIDE 20 MG/2 ML INJ IV SCH (05:50)
[2021-09-07] MEDS: LEVOTHYROXINE 100 MCG TAB PO SCH (05:51)
[2021-09-07] MEDS: BUDESONIDE 0.5 MG/2 ML NEBU IH SCH ×4 (07:02→19:36)
[2021-09-07] MEDS ORDERED: predniSONE 5 MG TAB PO SCH (10:00)
[2021-09-07] MEDS: SENNOSIDES/DOCUSATE SODIUM 8.6/50 MG TAB PO SCH ×2 (10:01→21:44)
[2021-09-07] MEDS: NICOTINE 21 MG/24 HR PATCH TD SCH (10:01)
[2021-09-07] MEDS: METOPROLOL TARTRATE 25 MG TAB PO SCH ×2 (10:02→21:44)
[2021-09-07] MEDS: FAMOTIDINE 20 MG TAB PO SCH ×2 (10:02→21:41)
[2021-09-07] MEDS: HEPARIN 5,000 UNIT/1 ML VIAL SUB-Q SCH ×2 (10:03→21:41)
[2021-09-07] MEDS: DOXAZOSIN 1 MG TAB PO SCH (10:03)
--- NOTE | 2021-09-07 11:23 | Progress Note ---
Assessment and Plan Patient is a 61-year-old male with a reported past medical history of COPD on home O2, CHF, nicotine dependence reported to the ED with a complaint of difficulty in breathing Acute on chronic respiratory failure-pulmonology following Acute HFpEF Right upper lung mass History of lung cancer (per documentation patient is in remission)-heme-onc following A flutter with RVR vs SVT PUI Obesity Nicotine dependence Echo 09/02/2021-EF 50 to 55% transmitral Doppler flow (impaired relaxation. Flattened septum consistent with right ventricular volume overload. Right ventricle is dilated. Mild aortic stenosis. Trace tricuspid regurgitation. Mild pulmonary hypertension Plan: Patient still having significant urine output. Upon auscultation patient has improved but still has some rales and wheezing will continue diuresis however will decrease to Lasix 40 mg IV daily Strict I&O's, daily weights, close monitoring of renal function Patient had episode of RVR versus SVT previously that lasted only for a few minutes. Patient has had no further events and has remained in sinus rhythm. Anticoagulation not indicated Continue heparin subcu for DVT prophylaxis Continue metoprolol 12.5 mg p.o. twice daily Discussed plan of care with patient who verbalized understanding and acknowledgment Patient seen in conjunction with Dr. Lund who agrees with this plan of care 30min of critical care time spent in care and coordination of patient - Patient Problems (1) (HFpEF) heart failure with preserved ejection fraction Current Visit: Yes Status: Acute (2) Acute on chronic respiratory failure with hypoxia and hypercapnia Current Visit: Yes Status: Acute (3) Nicotine dependence Current Visit: Yes Status: Acute Qualifiers: Nicotine product type: cigarettes Substance use status: in withdrawal Qualified Code(s): F17.213 - Nicotine dependence, cigarettes, with withdrawal (4) Obesity hypoventilation syndrome Current Visit: Yes Status: Acute (5) Pneumonia Current Visit: Yes Status: Acute Subjective Date of service: 09/07/21 Principal diagnosis: Acute respiratory failure, acute HFpEF Interval history: Patient resting in bed in no acute distress patient continues to report improvement in respiratory status Sinus 70s-80s on monitor with no event Objective Vital Signs Temp Pulse Pulse Pulse Pulse Resp Resp 09/07/21 10:05 67 23 09/07/21 10:03 69 09/07/21 10:02 70 09/07/21 10:00 70 23 09/07/21 09:55 70 22 09/07/21 09:51 72 24 09/07/21 09:45 72 20 09/07/21 09:41 73 16 09/07/21 09:35 71 26 H 09/07/21 09:31 73 25 H 09/07/21 09:25 74 26 H 09/07/21 09:21 71 17 09/07/21 09:15 68 24 09/07/21 09:11 74 24 09/07/21 09:05 73 24 09/07/21 09:00 73 22 09/07/21 08:55 71 24 09/07/21 08:51 73 24 09/07/21 08:45 71 23 09/07/21 08:41 68 25 H 09/07/21 08:35 70 25 H 09/07/21 08:31 74 16 09/07/21 08:25 66 22 09/07/21 08:21 66 24 09/07/21 08:15 70 14 09/07/21 08:11 69 15 09/07/21 08:05 68 14 09/07/21 08:01 68 16 09/07/21 08:00 97.8 F 09/07/21 07:55 77 16 09/07/21 07:51 76 16 09/07/21 07:45 67 15 09/07/21 07:41 65 18 09/07/21 07:35 67 21 09/07/21 07:31 67 14 09/07/21 07:25 65 17 09/07/21 07:21 68 22 09/07/21 07:15 67 23 09/07/21 07:11 67 21 09/07/21 07:05 71 23 09/07/21 07:03 72 70 24 09/07/21 07:00 69 21 09/07/21 06:55 69 23 09/07/21 06:51 69 21 09/07/21 06:45 65 20 09/07/21 06:41 64 20 09/07/21 06:35 67 20 09/07/21 06:31 66 21 09/07/21 06:25 62 19 09/07/21 06:21 65 22 09/07/21 06:15 62 21 09/07/21 06:11 67 22 09/07/21 06:05 63 22 09/07/21 06:00 59 L 12 09/07/21 05:55 63 18 09/07/21 05:51 66 20 09/07/21 05:45 61 20 09/07/21 05:41 64 21 09/07/21 05:35 64 21 09/07/21 05:31 60 19 09/07/21 05:25 64 19 09/07/21 05:21 65 22 09/07/21 05:15 62 22 09/07/21 05:11 63 22 09/07/21 05:05 64 21 09/07/21 05:00 64 22 09/07/21 04:55 66 21 09/07/21 04:51 59 L 20 09/07/21 04:45 77 20 09/07/21 04:41 64 18 09/07/21 04:35 62 20 09/07/21 04:31 67 15 09/07/21 04:25 68 11 L 09/07/21 04:21 66 20 09/07/21 04:15 62 20 09/07/21 04:11 60 22 09/07/21 04:05 66 22 09/07/21 04:00 62 10 L 09/07/21 03:55 64 14 09/07/21 03:51 59 L 17 09/07/21 03:50 97.9 F 64 16 09/07/21 03:45 64 19 09/07/21 03:41 69 18 09/07/21 03:35 63 20 09/07/21 03:31 64 20 09/07/21 03:25 64 22 09/07/21 03:21 60 19 09/07/21 03:15 66 21 09/07/21 03:11 59 L 16 09/07/21 03:05 65 21 09/07/21 03:00 64 21 09/07/21 02:55 65 22 09/07/21 02:51 66 21 09/07/21 02:45 65 21 09/07/21 02:41 64 21 09/07/21 02:35 63 23 09/07/21 02:31 63 20 09/07/21 02:25 63 22 09/07/21 02:21 60 15 09/07/21 02:15 59 L 9 L 09/07/21 02:11 60 20 09/07/21 02:05 66 22 09/07/21 02:02 59 L 09/07/21 02:00 59 L 64 19 20 09/07/21 01:55 67 21 09/07/21 01:51 66 23 09/07/21 01:45 67 21 09/07/21 01:41 71 10 L 09/07/21 01:35 62 21 09/07/21 01:31 66 13 09/07/21 01:25 59 L 22 09/07/21 01:21 56 L 20 09/07/21 01:15 68 18 09/07/21 01:11 61 22 09/07/21 01:05 57 L 22 09/07/21 01:01 65 13 09/07/21 00:55 61 18 09/07/21 00:51 61 20 09/07/21 00:45 62 19 09/07/21 00:41 63 19 09/07/21 00:35 61 21 09/07/21 00:31 61 21 09/07/21 00:25 59 L 20 09/07/21 00:21 61 19 09/07/21 00:15 63 20 09/07/21 00:11 58 L 18 09/07/21 00:05 61 21 09/07/21 00:00 98 F 61 20 09/06/21 23:55 62 19 09/06/21 23:51 61 20 09/06/21 23:45 61 21 09/06/21 23:41 62 18 09/06/21 23:35 63 22 09/06/21 23:31 63 20 09/06/21 23:25 61 18 09/06/21 23:21 63 19 09/06/21 23:15 61 20 09/06/21 23:11 64 18 09/06/21 23:05 65 11 L 09/06/21 23:00 62 20 09/06/21 22:55 60 19 09/06/21 22:51 66 15 09/06/21 22:45 67 15 09/06/21 22:41 69 8 L 09/06/21 22:35 62 21 09/06/21 22:31 60 19 09/06/21 22:25 61 9 L 09/06/21 22:23 55 L 15 09/06/21 22:21 66 16 09/06/21 22:15 63 22 09/06/21 22:11 61 20 09/06/21 22:05 61 16 09/06/21 22:00 62 18 09/06/21 21:55 62 19 09/06/21 21:51 63 18 09/06/21 21:45 59 L 16 09/06/21 21:41 65 17 09/06/21 21:35 65 22 09/06/21 21:31 69 16 09/06/21 21:25 69 10 L 09/06/21 21:21 66 15 09/06/21 21:15 64 20 09/06/21 21:11 67 21 09/06/21 21:05 70 15 09/06/21 21:00 66 12 09/06/21 20:55 67 16 09/06/21 20:51 65 16 09/06/21 20:45 64 8 L 09/06/21 20:41 64 15 09/06/21 20:35 63 14 09/06/21 20:31 64 17 09/06/21 20:25 59 L 15 09/06/21 20:23 65 15 09/06/21 20:21 64 22 09/06/21 20:15 61 20 09/06/21 20:11 59 L 16 09/06/21 20:05 65 18 09/06/21 20:00 62 21 09/06/21 19:55 63 21 09/06/21 19:51 63 21 09/06/21 19:45 63 20 09/06/21 19:41 62 21 09/06/21 19:35 63 22 09/06/21 19:31 61 20 09/06/21 19:25 64 21 09/06/21 19:21 64 20 09/06/21 19:15 64 19 09/06/21 19:11 67 21 09/06/21 19:10 97.4 F L 63 86 20 09/06/21 19:05 65 11 L 09/06/21 19:00 65 23 09/06/21 18:55 62 20 09/06/21 18:51 62 21 09/06/21 18:45 63 21 09/06/21 18:41 64 22 09/06/21 18:35 63 20 09/06/21 18:30 65 22 09/06/21 18:25 62 20 09/06/21 18:21 68 18 09/06/21 18:15 65 21 09/06/21 18:11 61 16 09/06/21 18:05 60 20 09/06/21 18:03 61 22 09/06/21 17:56 68 21 09/06/21 17:50 64 9 L 09/06/21 17:46 66 12 09/06/21 17:40 64 17 09/06/21 17:36 65 12 09/06/21 17:30 66 12 09/06/21 17:26 65 12 09/06/21 17:20 65 21 09/06/21 17:16 62 14 09/06/21 17:10 61 16 09/06/21 17:00 81 09/06/21 16:00 98.4 F 78 86 15 09/06/21 15:30 68 15 09/06/21 15:00 66 20 09/06/21 14:04 79 09/06/21 13:00 66 21 09/06/21 12:46 65 19 09/06/21 12:30 64 21 09/06/21 12:16 61 22 09/06/21 12:00 98 F 66 68 19 09/06/21 11:46 68 18 09/06/21 11:30 64 20 Resp Resp BP Pulse Ox 09/07/21 10:05 107/46 93 09/07/21 10:03 107/46 09/07/21 10:02 107/46 09/07/21 10:00 107/46 93 09/07/21 09:55 105/45 91 09/07/21 09:51 105/45 90 09/07/21 09:45 105/45 91 09/07/21 09:41 105/45 94 09/07/21 09:35 105/45 92 09/07/21 09:31 105/45 90 09/07/21 09:25 105/45 91 09/07/21 09:21 105/45 95 09/07/21 09:15 105/45 94 09/07/21 09:11 105/45 94 09/07/21 09:05 105/45 92 09/07/21 09:00 105/45 92 09/07/21 08:55 113/36 92 09/07/21 08:51 113/36 91 09/07/21 08:45 113/36 91 09/07/21 08:41 113/36 92 09/07/21 08:35 113/36 90 09/07/21 08:31 113/36 94 09/07/21 08:25 113/36 89 09/07/21 08:21 113/36 89 09/07/21 08:15 113/36 97 09/07/21 08:11 113/36 87 09/07/21 08:05 113/36 91 09/07/21 08:01 113/36 90 09/07/21 08:00 09/07/21 07:55 112/50 90 09/07/21 07:51 112/50 91 09/07/21 07:45 112/50 97 09/07/21 07:41 112/50 95 09/07/21 07:35 112/50 89 09/07/21 07:31 112/50 92 09/07/21 07:25 112/50 93 09/07/21 07:21 112/50 92 09/07/21 07:15 112/50 93 09/07/21 07:11 112/50 92 09/07/21 07:05 112/50 93 09/07/21 07:03 16 09/07/21 07:00 113/56 95 09/07/21 06:55 112/50 93 09/07/21 06:51 112/50 93 09/07/21 06:45 112/50 93 09/07/21 06:41 112/50 97 09/07/21 06:35 112/50 97 09/07/21 06:31 112/50 96 09/07/21 06:25 112/50 94 09/07/21 06:21 112/50 95 09/07/21 06:15 112/50 95 09/07/21 06:11 112/50 93 09/07/21 06:05 112/50 92 09/07/21 06:00 112/50 99 09/07/21 05:55 106/49 96 09/07/21 05:51 106/49 92 09/07/21 05:45 106/49 93 09/07/21 05:41 106/49 93 09/07/21 05:35 106/49 93 09/07/21 05:31 18 106/49 95 09/07/21 05:25 106/49 92 09/07/21 05:21 106/49 92 09/07/21 05:15 106/49 93 09/07/21 05:11 106/49 92 09/07/21 05:05 106/49 92 09/07/21 05:00 106/49 95 09/07/21 04:55 96/49 94 09/07/21 04:51 96/49 98 09/07/21 04:45 96/49 96 09/07/21 04:41 96/49 97 09/07/21 04:35 96/49 96 09/07/21 04:31 96/49 97 09/07/21 04:25 96/49 92 09/07/21 04:21 96/49 91 09/07/21 04:15 96/49 93 09/07/21 04:11 96/49 96 09/07/21 04:05 96/49 95 09/07/21 04:00 96/49 94 09/07/21 03:55 92/42 95 09/07/21 03:51 92/42 97 09/07/21 03:50 97 09/07/21 03:45 92/42 94 09/07/21 03:41 92/42 95 09/07/21 03:35 92/42 93 09/07/21 03:31 92/42 92 09/07/21 03:25 92/42 93 09/07/21 03:21 92/42 97 09/07/21 03:15 92/42 97 09/07/21 03:11 92/42 97 09/07/21 03:05 92/42 95 09/07/21 03:00 92/42 95 09/07/21 02:55 117/52 94 09/07/21 02:51 117/52 94 09/07/21 02:45 117/52 93 09/07/21 02:41 117/52 93 09/07/21 02:35 117/52 93 09/07/21 02:31 117/52 93 09/07/21 02:25 117/52 93 09/07/21 02:21 117/52 99 09/07/21 02:15 117/52 96 09/07/21 02:11 117/52 100 09/07/21 02:05 117/52 97 09/07/21 02:02 09/07/21 02:00 117/52 100 09/07/21 01:55 112/50 99 07/29/22 01:51 112/50 100 09/07/21 01:45 112/50 94 09/07/21 01:41 112/50 92 09/07/21 01:35 112/50 96 09/07/21 01:31 112/50 95 09/07/21 01:25 112/50 94 09/07/21 01:21 112/50 97 09/07/21 01:15 112/50 94 09/07/21 01:11 112/50 95 09/07/21 01:05 112/50 97 09/07/21 01:01 112/50 99 09/07/21 00:55 100/47 96 09/07/21 00:51 100/47 96 09/07/21 00:45 100/47 95 09/07/21 00:41 100/47 95 09/07/21 00:35 100/47 96 09/07/21 00:31 100/47 96 09/07/21 00:25 100/47 95 09/07/21 00:21 100/47 94 09/07/21 00:15 100/47 95 09/07/21 00:11 100/47 98 09/07/21 00:05 100/47 94 09/07/21 00:00 100/47 94 09/06/21 23:55 99/50 94 09/06/21 23:51 99/50 93 09/06/21 23:45 99/50 94 09/06/21 23:41 99/50 95 09/06/21 23:35 99/50 95 09/06/21 23:31 99/50 95 09/06/21 23:25 99/50 95 22 23:21 99/50 94 09/06/21 23:15 99/50 95 22 23:11 99/50 95 09/06/21 23:05 99/50 92 09/06/21 23:00 18 99/50 93 09/06/21 22:55 101/46 98 0722 22:51 101/46 97 09/06/21 22:45 101/46 95 [id number] 22:41 101/46 91 [id number] 22:35 101/46 93 22 22:31 101/46 93 09/06/21 22:25 101/46 95 09/06/21 22:23 101/46 99 09/06/21 22:21 101/46 95 09/06/21 22:15 101/46 94 09/06/21 22:11 101/46 96 09/06/21 22:05 101/46 97 09/06/21 22:00 101/46 97 09/06/21 21:55 95/42 96 09/06/21 21:51 95/42 95 09/06/21 21:45 95/42 95 09/06/21 21:41 95/42 95 09/06/21 21:35 95/42 95 09/06/21 21:31 95/42 94 09/06/21 21:25 95/42 93 09/06/21 21:21 95/42 95 09/06/21 21:15 96/45 93 09/06/21 21:11 96/45 93 09/06/21 21:05 96/45 94 09/06/21 21:00 96/45 94 09/06/21 20:55 95/42 95 09/06/21 20:51 95/42 96 09/06/21 20:45 95/42 98 09/06/21 20:41 95/42 97 09/06/21 20:35 95/42 98 09/06/21 20:31 95/42 98 09/06/21 20:25 95/42 97 09/06/21 20:23 09/06/21 20:21 95/42 96 09/06/21 20:15 95/42 95 09/06/21 20:11 95/42 95 09/06/21 20:05 95/42 95 09/06/21 20:00 95/42 98 09/06/21 19:55 99/50 97 09/06/21 19:51 99/50 97 09/06/21 19:45 99/50 97 09/06/21 19:41 99/50 97 09/06/21 19:35 99/50 97 09/06/21 19:31 99/50 96 09/06/21 19:25 99/50 96 22 19:21 99/50 95 22 19:15 99/50 95 09/06/21 19:11 99/50 94 09/06/21 19:10 97 09/06/21 19:05 99/50 94 09/06/21 19:00 99/50 95 09/06/21 18:55 98/46 95 09/06/21 18:51 98/46 93 09/06/21 18:45 98/46 93 09/06/21 18:41 98/46 93 09/06/21 18:35 98/46 92 09/06/21 18:30 98/46 92 09/06/21 18:25 119/51 94 09/06/21 18:21 119/51 91 09/06/21 18:15 119/51 91 09/06/21 18:11 105/46 91 09/06/21 18:05 105/46 94 09/06/21 18:03 95 09/06/21 17:56 112/55 98 09/06/21 17:50 93 09/06/21 17:46 112/55 92 09/06/21 17:40 112/55 93 09/06/21 17:36 112/55 93 09/06/21 17:30 112/55 94 09/06/21 17:26 112/55 93 09/06/21 17:20 112/55 97 09/06/21 17:16 112/55 97 09/06/21 17:10 112/55 96 09/06/21 17:00 100/48 93 09/06/21 16:00 100/48 96 09/06/21 15:30 09/06/21 15:00 111/63 92 09/06/21 14:04 111/63 91 09/06/21 13:00 111/63 96 09/06/21 12:46 120/65 97 09/06/21 12:30 120/65 95 09/06/21 12:16 120/65 96 09/06/21 12:00 120/65 96 09/06/21 11:46 113/57 95 09/06/21 11:30 113/57 96 - Physical Examination General: No Apparent Distress HEENT: Positive: Normocephaly Neck: Positive: trachea midline Cardiac: Positive: Reg Rate and Rhythm Lungs: Positive: Rales, Wheezes Neuro: Positive: Grossly Intact Abdomen: Positive: Soft Skin: Negative: Rash, Suspicious Lesions, Ulceration Extremities: Present: upper extr. pulses, edema - Labs and Meds CBC 09/07/21 Range/Units 04:09 Hgb 11.7 L (11.8-15.2) gm/dl Hct 37.7 (35.5-45.6) % Plt Count 171 (140-440) K/mm3 Comprehensive Metabolic Panel 09/07/21 Range/Units 04:09 Sodium 140 D (137-145) mmol/L Potassium 4.2 (3.6-5.0) mmol/L Chloride 93.7 L (98-107) mmol/L Carbon Dioxide 40 H (22-30) mmol/L BUN 40 H (9-20) mg/dL Creatinine 0.9 (0.8-1.3) mg/dL Glucose 75 (75-100) mg/dL Calcium 9.0 (8.4-10.2) mg/dL - Imaging and Cardiology Echo: report reviewed - Telemetry EKG Rhythm: Sinus Rhythm - EKG Sinus rhythms and dysrhythmias: sinus rhythm AV and intraventricular conduction: right bundle branch block - Allied health notes Allied health notes reviewed: RT
--- NOTE | 2021-09-07 12:38 | Progress Note ---
Assessment and Plan Assessment and plan: This is a 61-year-old male with CHF, COPD on home O2, nicotine dependence and OHS admitted with CHF exacerbation and CAP Neuro: NAD -Reorientation as needed -Maintain sleep-wake cycle -PT/OT consulted, appreciate recommendations -Home health physical therapy Cardiac: Aflutter, Acute on Chronic CHF -Cardiology consulted, appreciate recommendations -Blood pressure monitoring per protocol -Echocardiogram shows LVEF of 50 to 55%, flattened septum consistent with right ventricular volume overload, RVSP 37 mmhg -BB PO -s/p Heparin gtt->subq heparin -Lasix daily -Admit proBNP 4080 Respiratory: Acute on chronic hypoxic respiratory failure, RUL mass, h/o COPD, OHS, nicotine dependence, stage IV lung CA (in remission according to ) -CCM consulted, appreciate recommendations -Intubated on 09/02 with 8.0 OETT at 22 at the lips and extubated 09/05 -Currently on NC -Bipap qhs -Pulmonary hygiene -SPO2 monitoring -Solu-Medrol PO -MARTIN/LABA GI: Morbid obesity, mild protein calorie nutrition -24 hours -3413 mL -PPI -Passed bedside swallow eval and started on PO diet -BR: Colace : Urinary retention -Monitor intake and output -Renally dose medications -Avoid nephrotoxic medications -[place] replaced 09/04 but DC 09/07 -Doxazosin -s/p Diamox x2 -Trend BMP ID: CAP, Post obstructive ? -Covid 19 pcr negative -Antibiotic therapy with azithro and rocephin -Admit CXR showed right upper lobe atelectasis, patchy parenchymal opacities in both mid to lower lung zones -Chest CTA showed complete right upper lobe atelectasis, mild bronchopneumonia medial aspect left upper, right middle and both lower lobes -f/u blood culture -Monitor WBC and temperature curve Endo: h/o hypothyroidism -Avoid hypoglycemia -Resume home levothyroxine Heme/Oncology: h/o stage IV lung CA -CT chest shows RUL mass -According to patient is in remission pose radiation and chemo -Hem/Onc consulted, appreciate recommendations -Records requested from Dr. Ave Jenkins -unable to get a hold -Will need outpatient follow up with out patient oncology -Trend CBC -Transfuse hemoglobin less than 7 -SCDs to BLE while in bed The high probability of a clinically significant, sudden or life threatening deterioration of the [cardiac, pulmonary] system(s) required my full and direct attention, intervention and personal management. The aggregate critical care time was [60] minutes. This time is in addition to time spent performing reported procedures but includes the following: [x] Data Review and interpretation [x] Patient assessment and monitoring of vital signs [x] Documentation [x] Medication orders and management Disposition Plan: telemetry bed Total Time Spent with Patient (Minutes): 60 History Interval history: This is a 71-year-old male with CHF, COPD on home O2, hypothyroidism, stage IV lung CA, nicotine dependence and OHS who presented to the emergency department on 09/02 with complaints of " cannot breathe" via EMS. On EMS arrival patient had a SPO2 in the 60s and was placed on supplemental oxygenation and transported to [facility]. In the emergency department patient's SPO2 was in the 70s with supplemental oxygenation and he did not have much improvement in symptoms and was placed on NiPPV and was intubated in the ED as he was found to be retracting, unable to speak, using accessory muscles to breathe, with audible wheezing and placed on ventilatory support and CXR showed bilateral PNA. He was admitted with CHF excerbation and with PNA to the hospitalist service with consults cardiology and CCM. Hospital course to date: 09/03: Remains on ventilatory support. The afternoon patient heart rate went into the 140s/150s, cardiology aware, stat ECG obtained which showed no acute findings, 2.5 metoprolol ordered. Started on fentanyl drip. Records requested from [facility] and Dr. Ave Jenkins, [place] catheter discontinued. Ventilator changes per CCM. 09/04: CCM made vent changes, decrease Solu-Medrol, COVID-19 PCR negative. [place] catheter replaced. 09/05: Patient currently on vent settings and only sedated on fentanyl. No acute events reported overnight. PSV versus remaining on AC for bronchoscopy. 09/06: Patient was extubated yesterday evening and is currently on nasal cannula, steroids will be resumed and transition to p.o., cardiology will continue Lasi x. PT/OT consulted. 09/07: Cardiology has decreased Lasix to once a day, got 2 doses of Diamox. Miguel mcgee wore CPAP overnight and is currently on oxygen via nasal cannula. No acute events reported overnight. Still awaiting telemetry bed. Hospitalist Physical - Constitutional Vitals: Temp Pulse Resp BP Pulse Ox 97.8 F 67 23 107/46 93 09/07/21 08:00 09/07/21 10:05 09/07/21 10:05 09/07/21 10:05 09/07/21 10:05 General appearance: Present: no acute distress, obese, other (intubated ) - EENT Eyes: Present: PERRL, EOM intact ENT: hearing intact, dentition normal - Neck Neck: Present: normal ROM - Respiratory Respiratory effort: normal Respiratory: bilateral: diminished, rhonchi - Cardiovascular Rhythm: regular Heart Sounds: Present: S1 & S2. Absent: systolic murmur, diastolic murmur - Extremities Extremities: no ischemia, pulses intact, pulses symmetrical, No edema, normal temperature, normal color, Full ROM Peripheral Pulses: within normal limits - Abdominal General gastrointestinal: soft, non-tender, non-distended, normal bowel sounds - Integumentary Integumentary: Present: warm, dry - Psychiatric Psychiatric: appropriate mood/affect, cooperative - Neurologic Neurologic: CNII-XII intact, no focal deficits, moves all extremities - Allied Health Allied health notes reviewed: nursing, PT, OT, RT, social work HEART Score - HEART Score Troponin: Troponin T < 0.010 ng/mL (0.00-0.029) 09/02/21 16:21 Results - Labs CBC & Chem 7: 09/07/21 04:09 09/07/21 04:09 Labs: Laboratory Last Values WBC 7.9 K/mm3 (4.5-11.0) 09/05/21 03:08 RBC 4.01 M/mm3 (3.65-5.03) 09/05/21 03:08 Hgb 11.7 gm/dl (11.8-15.2) L 09/07/21 04:09 Hct 37.7 % (35.5-45.6) 09/07/21 04:09 MCV 83 fl (84-94) L 09/05/21 03:08 MCH 26 pg (28-32) L 09/05/21 03:08 MCHC 32 % (32-34) 09/05/21 03:08 RDW 18.2 % (13.2-15.2) H 09/05/21 03:08 Plt Count 171 K/mm3 (140-440) 09/07/21 04:09 Add Manual Diff Complete 09/03/21 04:53 Total Counted 100 09/03/21 04:53 Seg Neutrophils % Lehr Loader 09/03/21 04:53 Seg Neuts % (Manual) 94.0 % (40.0-70.0) H 09/03/21 04:53 Band Neutrophils % 0 % 09/03/21 04:53 Lymphocytes % (Manual) 3.0 % (13.4-35.0) L 09/03/21 04:53 Reactive Lymphs % (Man) 0 % 09/03/21 04:53 Monocytes % (Manual) 3.0 % (0.0-7.3) 09/03/21 04:53 Eosinophils % (Manual) 0 % (0.0-4.3) 09/03/21 04:53 Basophils % (Manual) 0 % (0.0-1.8) 09/03/21 04:53 Metamyelocytes % 0 % 09/03/21 04:53 Myelocytes % 0 % 09/03/21 04:53 Promyelocytes % 0 % 09/03/21 04:53 Blast Cells % 0 % 09/03/21 04:53 Nucleated RBC % Not Reportable 09/03/21 04:53 Seg Neutrophils # Man 5.5 K/mm3 (1.8-7.7) 09/03/21 04:53 Band Neutrophils # 0.0 K/mm3 09/03/21 04:53 Lymphocytes # (Manual) 0.2 K/mm3 (1.2-5.4) L 09/03/21 04:53 Abs React Lymphs (Man) 0.0 K/mm3 09/03/21 04:53 Monocytes # (Manual) 0.2 K/mm3 (0.0-0.8) 09/03/21 04:53 Eosinophils # (Manual) 0.0 K/mm3 (0.0-0.4) 09/03/21 04:53 Basophils # (Manual) 0.0 K/mm3 (0.0-0.1) 09/03/21 04:53 Metamyelocytes # 0.0 K/mm3 09/03/21 04:53 Myelocytes # 0.0 K/mm3 09/03/21 04:53 Promyelocytes # 0.0 K/mm3 09/03/21 04:53 Blast Cells # 0.0 K/mm3 09/03/21 04:53 WBC Morphology Not Reportable 09/03/21 04:53 Hypersegmented Neuts Not Reportable 09/03/21 04:53 Hyposegmented Neuts Not Reportable 09/03/21 04:53 Hypogranular Neuts Not Reportable 09/03/21 04:53 Smudge Cells Not Reportable 09/03/21 04:53 Toxic Granulation Not Reportable 09/03/21 04:53 Toxic Vacuolation Not Reportable 09/03/21 04:53 Dohle Bodies Not Reportable 09/03/21 04:53 Pelger-Huet Anomaly Not Reportable 09/03/21 04:53 Kaushik Rods Not Reportable 09/03/21 04:53 Platelet Estimate Consistent w auto 09/03/21 04:53 Clumped Platelets Not Reportable 09/03/21 04:53 Plt Clumps, EDTA Not Reportable 09/03/21 04:53 Large Platelets Not Reportable 09/03/21 04:53 Giant Platelets Not Reportable 09/03/21 04:53 Platelet Satelliting Not Reportable 09/03/21 04:53 Plt Morphology Comment Not Reportable 09/03/21 04:53 RBC Morphology Not Reportable 09/03/21 04:53 Dimorphic RBCs Not Reportable 09/03/21 04:53 Polychromasia Not Reportable 09/03/21 04:53 Hypochromasia Not Reportable 09/03/21 04:53 Poikilocytosis Not Reportable 09/03/21 04:53 Anisocytosis 1+ 09/03/21 04:53 Microcytosis Not Reportable 09/03/21 04:53 Macrocytosis Not Reportable 09/03/21 04:53 Spherocytes Not Reportable 09/03/21 04:53 Pappenheimer Bodies Not Reportable 09/03/21 04:53 Sickle Cells Not Reportable 09/03/21 04:53 Target Cells Not Reportable 09/03/21 04:53 Tear Drop Cells Not Reportable 09/03/21 04:53 Ovalocytes Not Reportable 09/03/21 04:53 Stomatocytes Rare 09/02/21 16:21 Helmet Cells Not Reportable 09/03/21 04:53 Lim-[place] Bodies Not Reportable 09/03/21 04:53 [place] Rings Not Reportable 09/03/21 04:53 Jerry Cells Not Reportable 09/03/21 04:53 Bite Cells Not Reportable 09/03/21 04:53 Crenated Cell Not Reportable 09/03/21 04:53 Elliptocytes Not Reportable 09/03/21 04:53 Acanthocytes (Spur) Not Reportable 09/03/21 04:53 Rouleaux Not Reportable 09/03/21 04:53 Hemoglobin C Crystals Not Reportable 09/03/21 04:53 Schistocytes Not Reportable 09/03/21 04:53 Malaria parasites Not Reportable 09/03/21 04:53 Percent Retic 1.37 % (0.78-2.58) 09/04/21 10:56 Tanner Bodies Not Reportable 09/03/21 04:53 Hem Pathologist Commnt No 09/03/21 04:53 PT 14.3 Sec. (12.2-14.9) 09/03/21 15:00 INR 1.00 (0.87-1.13) 09/03/21 15:00 APTT 22.9 Sec. (24.2-36.6) L 09/03/21 15:00 Heparin Anti-Xa Level 0.43 U.I./ml (0.3-0.7) 09/06/21 04:14 ABG pH 7.331 pH Units (7.350-7.450) L 09/05/21 05:45 ABG pCO2 84.1 mm Hg 09/05/21 05:45 ABG pO2 124.8 mm Hg (80.0-90.0) H 09/05/21 05:45 ABG HCO3 43.5 mmol/L (20.0-26.0) H 09/05/21 05:45 ABG O2 Saturation 98.0 % (95.0-99.0) 09/05/21 05:45 ABG O2 Content 14.7 (0.0-44) 09/05/21 05:45 ABG Base Excess 14.5 mmol/L (-2.0-3.0) H 09/05/21 05:45 ABG Hemoglobin 10.7 gm/dl (14.0-18.0) L 09/05/21 05:45 ABG Carboxyhemoglobin 1.5 % (0.0-5.0) 09/05/21 05:45 ABG Methemoglobin 0.4 % (0.0-1.5) 09/05/21 05:45 Oxyhemoglobin 96.1 % (95.0-99.0) 09/05/21 05:45 FiO2 40 % 09/05/21 05:45 Sodium 140 mmol/L (137-145) D 09/07/21 04:09 Potassium 4.2 mmol/L (3.6-5.0) 09/07/21 04:09 Chloride 93.7 mmol/L (98-107) L 09/07/21 04:09 Carbon Dioxide 40 mmol/L (22-30) H 09/07/21 04:09 Anion Gap 11 mmol/L 09/07/21 04:09 BUN 40 mg/dL (9-20) H 09/07/21 04:09 Creatinine 0.9 mg/dL (0.8-1.3) 09/07/21 04:09 Estimated GFR > 60 ml/min 09/07/21 04:09 BUN/Creatinine Ratio 44 % 09/07/21 04:09 Glucose 75 mg/dL (75-100) 09/07/21 04:09 POC Glucose 79 mg/dL (70-105) 09/07/21 05:29 Lactic Acid 0.60 mmol/L (0.7-2.0) L 09/02/21 16:21 Calcium 9.0 mg/dL (8.4-10.2) 09/07/21 04:09 Phosphorus 3.90 mg/dL (2.5-4.5) 09/06/21 04:14 Magnesium 2.50 mg/dL (1.7-2.3) H 09/06/21 04:14 Iron 63 ug/dL (49-181) 09/04/21 04:12 TIBC 176 mcg/dL (250-450) L 09/04/21 04:12 Ferritin 194.9 ng/mL (30.0-300.0) 09/04/21 04:12 Total Bilirubin 0.50 mg/dL (0.1-1.2) 09/03/21 10:13 Direct Bilirubin 0.2 mg/dL (0-0.2) 09/03/21 10:13 Indirect Bilirubin 0.3 mg/dL 09/03/21 10:13 AST 18 units/L (5-40) 09/03/21 10:13 ALT 16 units/L (7-56) 09/03/21 10:13 Alkaline Phosphatase 110 units/L (35-129) 09/03/21 10:13 Lactate Dehydrogenase 283 units/L (91-180) H 09/04/21 04:12 Troponin T < 0.010 ng/mL (0.00-0.029) 09/02/21 16:21 NT-Pro-B Natriuret Pep 4080 pg/mL (0-900) H 09/02/21 16:21 Total Protein 6.4 g/dL (6.3-8.2) 09/03/21 10:13 Albumin 3.2 g/dL (3.9-5) L 09/03/21 10:13 Albumin/Globulin Ratio 1.0 % 09/03/21 10:13 Procalcitonin 0.27 ng/mL (<0.15) 09/03/21 10:13 TSH 0.501 mlU/mL (0.270-4.200) 09/02/21 18:44 Free T4 1.27 ng/dL (0.76-1.46) 09/02/21 18:44 Urine Color Yellow (Yellow) 09/03/21 02:49 Urine Turbidity Slightly cloudy (Clear) 09/03/21 02:49 Urine pH 6.0 (5.0-7.0) 09/03/21 02:49 Ur Specific [place] 1.030 (1.003-1.030) 09/03/21 02:49 Urine Protein <15 mg/dl mg/dL (Negative) 09/03/21 02:49 Urine Glucose (UA) Negative mg/dL (Negative) 09/03/21 02:49 Urine Ketones Negative mg/dL (Negative) 09/03/21 02:49 Urine Blood Negative (Negative) 09/03/21 02:49 Urine Nitrite Negative (Negative) 09/03/21 02:49 Ur Reducing Substances Not Reportable 09/03/21 02:49 Urine Bilirubin Negative (Negative) 09/03/21 02:49 Urine Ictotest Not Reportable 09/03/21 02:49 Urine Urobilinogen < 2.0 mg/dL (<2.0) 09/03/21 02:49 Ur Leukocyte Esterase Negative (Negative) 09/03/21 02:49 Urine WBC (Auto) 1.0 /HPF (0.0-6.0) 09/03/21 02:49 Urine RBC (Auto) 2.0 /HPF (0.0-6.0) 09/03/21 02:49 Urine Mucus Few /HPF 09/03/21 02:49 Urine Opiates Screen Presumptive negative 09/03/21 02:49 Urine Methadone Screen Presumptive negative 09/03/21 02:49 Ur Barbiturates Screen Presumptive negative 09/03/21 02:49 Ur Phencyclidine Scrn Presumptive negative 09/03/21 02:49 Ur Amphetamines Screen Presumptive negative 09/03/21 02:49 U Benzodiazepines Scrn Presumptive negative 09/03/21 02:49 Urine Cocaine Screen Presumptive negative 09/03/21 02:49 U Marijuana (THC) Screen Presumptive positive 09/03/21 02:49 Drugs of Abuse Note Disclamer 09/03/21 02:49 Coronavirus (PCR) Negative (Negative) 09/04/21 07:18 Microbiology: Microbiology 09/02/21 18:50 Sputum - Expectorated Sputum Sputum Culture - Preliminary [place]/IV: Voiding Method Indwelling Catheter Active Medications - Current Medications Current Medications: Generic Name Dose Route Start Last Admin Trade Name Freq PRN Reason Stop Dose Admin Acetaminophen 650 mg 09/02/21 18:31 Acetaminophen 325 Mg Tab PO Q6H PRN Pain MILD(1-3)/Fever >100.5/ZAVALA Albuterol 2.5 mg 09/06/21 09:42 Albuterol 2.5 Mg/3 Ml Nebu IH Q4HRT PRN Shortness Of Breath Albuterol/Ipratropium 1 ampul 09/06/21 14:00 09/07/21 07:02 Ipratropium/Albuterol Sulfate 3 Ml Ampul.Neb IH 1 ampul Q6HRT MAE Administration Budesonide 0.5 mg 09/03/21 10:00 09/07/21 10:14 Budesonide 0.5 Mg/2 Ml Nebu IH Not Given Q12HR MAE Dextrose 50 ml 09/04/21 08:02 Dextrose 50% In Water (25gm) 50 Ml Syringe IV Q30MIN PRN Hypoglycemia Protocol Diphenhydramine HCl 25 mg 09/05/21 00:16 09/06/21 05:41 Diphenhydramine 50 Mg/Ml Vial IV 25 mg Q6H PRN Administration Itching Doxazosin Mesylate 1 mg 09/06/21 10:00 09/07/21 10:03 Doxazosin 1 Mg Tab PO 1 mg QDAY MAE Administration Famotidine 20 mg 09/06/21 10:00 09/07/21 10:02 Famotidine 20 Mg Tab PO 20 mg BID MAE Administration Furosemide 40 mg 09/08/21 10:00 Furosemide 40 Mg/4 Ml Inj IV DAILY [facility] Heparin Sodium (Porcine) 5,000 unit 09/06/21 22:00 09/07/21 10:03 Heparin 5,000 Unit/1 Ml Vial SUB-Q 5,000 unit Q12HR [facility] Administration Hydromorphone HCl 0.5 mg 09/02/21 18:31 Hydromorphone 0.5 Mg/0.5 Ml Inj IV Q8H PRN Pain , Severe (7-10) Hydrophilic Ointment 1 applic 09/03/21 13:55 Lip Therapy Vaseline TP Q2HR PRN Dry Lips Levothyroxine Sodium 100 mcg 09/03/21 10:00 09/07/21 05:51 Levothyroxine 100 Mcg Tab PO 100 mcg QAM@0600 [facility] Administration Metoprolol Tartrate 12.5 mg 09/06/21 10:00 09/07/21 10:02 Metoprolol Tartrate 25 Mg Tab PO Not Given BID [facility] Multi-Ingred Cream/Lotion/Oil/Oint 1 applic 09/03/21 13:55 Mineral Oil/Petrolatum, White Ophth Oint 3.5 Gm OU Q4HR PRN Dry Eye(s) Nicotine 21 mg 09/06/21 11:00 09/07/21 10:01 Nicotine 21 Mg/24 Hr Patch TD 21 mg QDAY [facility] Administration Oxycodone/Acetaminophen 1 tab 09/02/21 18:31 Oxycodone /Acetaminophen 5-325mg Tab PO Q6H PRN Pain, Moderate (4-6) Prednisone 10 mg 09/08/21 10:00 Prednisone 10 Mg Tab PO 09/08/21 10:01 QDAY [facility] Prednisone 7.5 mg 09/09/21 10:00 Prednisone 5 Mg Tab PO 09/09/21 10:01 QDAY MAE Prednisone 5 mg 09/10/21 10:00 Prednisone 5 Mg Tab PO 09/12/21 10:01 QDAY MEA Senna/Docusate Sodium 1 tab 09/06/21 10:00 09/07/21 10:01 Sennosides/Docusate Sodium 8.6/50 Mg Tab PO 1 tab BID MAE Administration Sodium Chloride 10 ml 09/02/21 22:00 09/07/21 10:06 Sodium Chloride 0.9% 10 Ml Flush Syringe IV 10 ml BID MAE Administration Sodium Chloride 10 ml 09/02/21 18:31 Sodium Chloride 0.9% 10 Ml Flush Syringe IV PRN PRN LINE FLUSH Nutrition/Malnutrition Assess - Dietary Evaluation Nutrition/Malnutrition Findings: Nutrition Notes Start: 09/03/21 10:38 Freq: Status: Active Protocol: Document 09/05/21 09:43 DALE (Rec: 09/05/21 10:02 DALE [id number]) Nutrition Notes Initial or Follow up Brief Note Current Diagnosis COPD,Respiratory Failure, Malnutrition Other Pertinent Diagnosis HFpEF, CAP, Atrial Flutter/RVR , OHS, Urinary Retention, Lung Cancer, .... Current Diet TF-Promote @ 70 ml/hr (from L 09/03) Labs/Tests 09/05: Na 146, CO2 40, BUN 54, Glu 141. Pertinent Medications 09/05: Humulin R 1U, Levothyroxine, others nutritionally unremarkable. Height 5 ft 11 in Weight 127.047 kg [place] Body Weight (kg) 78.18 BMI 39.0 Weight change and time frame No body weight change reported in 2 days. Weight Status Obese Subjective/Other Information RD consult for routine F/U on TF tolerance/continuation. TF continues as prescribed, no further information available at the time, will assess at F /U. Pt is on Mechanical Ventilation, O2 saturation @ 96%, according to Physical Assessment History notes. Percent of energy/protein needs met: Prescribed TF-Promote @ 70 ml/ hr provides for energy/protein needs (1,670 Kcal/104 g) during LOS, 77% Kcal; 101% AA. #1 Nutrition Diagnosis Inadequate oral intake Diagnosis Progress(for reassessment Continues documentation) Is patient on ventilator? Yes Is Patient Ambulatory and/or Out of Bed No REE-(Tate-St. Jeor-confined to bed) 2533.248 Kcal/Kg value to use for calculation 17 Approximate Energy Requirements Using 2160 kcal/Kg Calculation Used for Recommendations Kcal/kg Additional Notes Protein: 0.8-1 g/Kg AdjBW; 82- 103 g/day. Fluids: 1 ml/Kcal, or as per MD. Nutrition Intervention Nutrition Support: Continue TF-Promote @ 70 ml/hr . Flush: 120 ml water Q 4 hr, or as per MD. Kcal 1,595 Protein (gm) 100 Carbohydrates (gm) 147 Fat (gm) 72 Fluid (mL) 1,078 Fiber (gm) 7 % RDI: 77% Kcal; 101% AA. Goal #1 Provide at least 75% of energy /protein needs through Enteral Feeding during LOS. Follow-Up By: 09/12/21 Additional Comments Continue monitoring TF tolerance and BM.
--- NOTE | 2021-09-07 14:32 | Progress Note ---
Assessment and Plan Acute on chronic hypoxic respiratory failure s/p MVS RUL mass COPD on home O2 at 2-3L LEYDA/OHS h/o nicotine dependence- Tobacco use disorder- ongoing stage IV lung CA (in remission according to ) h/o stage IV lung CA-s/p chemoradiation -CT chest shows RUL mass Morbid obesity BMI 37.5 Urinary retention-[place] catheter CAP vs Post obstructive PNA h/o hypothyroidism HFpEF and Pulm HTN (mild to moderate) Hypernatremia Coniteu with bronchodilators, BIPAP qhs Smoking cessation counselling done for 8 minutes at the bedside CXR,ABG as clinically indicated Can transfer telemetry - continue to titrate supplemental oxygen to keep SpO2 88-90% - continue bronchodilators with pulmonary hygiene per RT - continue accuchecks with glycemic control per SSI (Target blood glucose of 140-180 mg/dL; avoid hypoglycemia) - continue to avoid benzodiazepines, reduce the possibility of delirium - Antibiotics per ID (Rocephin and Ceftriaxone) - Maintenance of sleep-wake cycle, avoid delirium - continue enteral nutritional support at goal rate as tolerated - Stress ulcer prophylaxis -VTE prophylaxis- heparin. - Monitor hemodynamics closely while on Furosemide- monitor electrolytes and renal function - continue other care per attending / other consultants - discharge planning ongoing concurrently COVID SPECIFIC INTERVENTIONS - COVID-19 PCR negative CONDITION: FAIR PROGNOSIS: GUARDED CODE STATUS: FULL CODE Subjective Date of service: 09/07/21 Principal diagnosis: Acute respiratory failure, acute HFpEF Interval history: 61-year-old male with CHF, COPD on home O2, nicotine dependence and OHS admitted with CHF exacerbation and CAP Patient is seen today for: acute and chronic resp failure on MVS; Seen and examined at bedside; 24hour events reviewed; nursing and respiratory care staff consulted; no adverse overnight events reported to me; resting in bed; s/p extubation, BIPAP at night following commands well; No N/V/F/C. Sat out of bed in chair, tolerating oral diet. Objective Vital Signs - 12hr 09/07/21 09/07/21 09/07/21 02:35 02:41 02:45 Temperature Pulse Rate 63 64 65 Pulse Rate [ Anterior Left] Pulse Rate [ Bilateral Throughout] Respiratory 23 21 21 Rate Respiratory Rate [Anterior Left] Respiratory Rate [Back] Respiratory Rate [Bilateral Throughout] Blood Pressure 117/52 117/52 117/52 O2 Sat by Pulse 93 93 93 Oximetry 09/07/21 09/07/21 09/07/21 02:51 02:55 03:00 Temperature Pulse Rate 66 65 64 Pulse Rate [ Anterior Left] Pulse Rate [ Bilateral Throughout] Respiratory 21 22 21 Rate Respiratory Rate [Anterior Left] Respiratory Rate [Back] Respiratory Rate [Bilateral Throughout] Blood Pressure 117/52 117/52 92/42 O2 Sat by Pulse 94 94 95 Oximetry 09/07/21 09/07/21 09/07/21 03:05 03:11 03:15 Temperature Pulse Rate 65 59 L 66 Pulse Rate [ Anterior Left] Pulse Rate [ Bilateral Throughout] Respiratory 21 16 21 Rate Respiratory Rate [Anterior Left] Respiratory Rate [Back] Respiratory Rate [Bilateral Throughout] Blood Pressure 92/42 92/42 92/42 O2 Sat by Pulse 95 97 97 Oximetry 09/07/21 09/07/21 09/07/21 03:21 03:25 03:31 Temperature Pulse Rate 60 64 64 Pulse Rate [ Anterior Left] Pulse Rate [ Bilateral Throughout] Respiratory 19 22 20 Rate Respiratory Rate [Anterior Left] Respiratory Rate [Back] Respiratory Rate [Bilateral Throughout] Blood Pressure 92/42 92/42 92/42 O2 Sat by Pulse 97 93 92 Oximetry 09/07/21 09/07/21 09/07/21 03:35 03:41 03:45 Temperature Pulse Rate 63 69 64 Pulse Rate [ Anterior Left] Pulse Rate [ Bilateral Throughout] Respiratory 20 18 19 Rate Respiratory Rate [Anterior Left] Respiratory Rate [Back] Respiratory Rate [Bilateral Throughout] Blood Pressure 92/42 92/42 92/42 O2 Sat by Pulse 93 95 94 Oximetry 09/07/21 09/07/21 09/07/21 03:50 03:51 03:55 Temperature 97.9 F Pulse Rate 64 59 L 64 Pulse Rate [ Anterior Left] Pulse Rate [ Bilateral Throughout] Respiratory 16 17 14 Rate Respiratory Rate [Anterior Left] Respiratory Rate [Back] Respiratory Rate [Bilateral Throughout] Blood Pressure 92/42 92/42 O2 Sat by Pulse 97 97 95 Oximetry 09/07/21 09/07/21 09/07/21 04:00 04:05 04:11 Temperature Pulse Rate 62 66 60 Pulse Rate [ Anterior Left] Pulse Rate [ Bilateral Throughout] Respiratory 10 L 22 22 Rate Respiratory Rate [Anterior Left] Respiratory Rate [Back] Respiratory Rate [Bilateral Throughout] Blood Pressure 96/49 96/49 96/49 O2 Sat by Pulse 94 95 96 Oximetry 09/07/21 09/07/21 09/07/21 04:15 04:21 04:25 Temperature Pulse Rate 62 66 68 Pulse Rate [ Anterior Left] Pulse Rate [ Bilateral Throughout] Respiratory 20 20 11 L Rate Respiratory Rate [Anterior Left] Respiratory Rate [Back] Respiratory Rate [Bilateral Throughout] Blood Pressure 96/49 96/49 96/49 O2 Sat by Pulse 93 91 92 Oximetry 09/07/21 09/07/21 09/07/21 04:31 04:35 04:41 Temperature Pulse Rate 67 62 64 Pulse Rate [ Anterior Left] Pulse Rate [ Bilateral Throughout] Respiratory 15 20 18 Rate Respiratory Rate [Anterior Left] Respiratory Rate [Back] Respiratory Rate [Bilateral Throughout] Blood Pressure 96/49 96/49 96/49 O2 Sat by Pulse 97 96 97 Oximetry 09/07/21 09/07/21 09/07/21 04:45 04:51 04:55 Temperature Pulse Rate 77 59 L 66 Pulse Rate [ Anterior Left] Pulse Rate [ Bilateral Throughout] Respiratory 20 20 21 Rate Respiratory Rate [Anterior Left] Respiratory Rate [Back] Respiratory Rate [Bilateral Throughout] Blood Pressure 96/49 96/49 96/49 O2 Sat by Pulse 96 98 94 Oximetry 09/07/21 09/07/21 09/07/21 05:00 05:05 05:11 Temperature Pulse Rate 64 64 63 Pulse Rate [ Anterior Left] Pulse Rate [ Bilateral Throughout] Respiratory 22 21 22 Rate Respiratory Rate [Anterior Left] Respiratory Rate [Back] Respiratory Rate [Bilateral Throughout] Blood Pressure 106/49 106/49 106/49 O2 Sat by Pulse 95 92 92 Oximetry 09/07/21 09/07/21 09/07/21 05:15 05:21 05:25 Temperature Pulse Rate 62 65 64 Pulse Rate [ Anterior Left] Pulse Rate [ Bilateral Throughout] Respiratory 22 22 19 Rate Respiratory Rate [Anterior Left] Respiratory Rate [Back] Respiratory Rate [Bilateral Throughout] Blood Pressure 106/49 106/49 106/49 O2 Sat by Pulse 93 92 92 Oximetry 09/07/21 09/07/21 09/07/21 05:31 05:35 05:41 Temperature Pulse Rate 60 64 64 Pulse Rate [ Anterior Left] Pulse Rate [ Bilateral Throughout] Respiratory 19 21 21 Rate Respiratory Rate [Anterior Left] Respiratory 18 Rate [Back] Respiratory Rate [Bilateral Throughout] Blood Pressure 106/49 106/49 106/49 O2 Sat by Pulse 95 93 93 Oximetry 09/07/21 09/07/21 09/07/21 05:45 05:51 05:55 Temperature Pulse Rate 61 66 63 Pulse Rate [ Anterior Left] Pulse Rate [ Bilateral Throughout] Respiratory 20 20 18 Rate Respiratory Rate [Anterior Left] Respiratory Rate [Back] Respiratory Rate [Bilateral Throughout] Blood Pressure 106/49 106/49 106/49 O2 Sat by Pulse 93 92 96 Oximetry 09/07/21 09/07/21 09/07/21 06:00 06:05 06:11 Temperature Pulse Rate 59 L 63 67 Pulse Rate [ Anterior Left] Pulse Rate [ Bilateral Throughout] Respiratory 12 22 22 Rate Respiratory Rate [Anterior Left] Respiratory Rate [Back] Respiratory Rate [Bilateral Throughout] Blood Pressure 112/50 112/50 112/50 O2 Sat by Pulse 99 92 93 Oximetry 09/07/21 09/07/21 09/07/21 06:15 06:21 06:25 Temperature Pulse Rate 62 65 62 Pulse Rate [ Anterior Left] Pulse Rate [ Bilateral Throughout] Respiratory 21 22 19 Rate Respiratory Rate [Anterior Left] Respiratory Rate [Back] Respiratory Rate [Bilateral Throughout] Blood Pressure 112/50 112/50 112/50 O2 Sat by Pulse 95 95 94 Oximetry 09/07/21 09/07/21 09/07/21 06:31 06:35 06:41 Temperature Pulse Rate 66 67 64 Pulse Rate [ Anterior Left] Pulse Rate [ Bilateral Throughout] Respiratory 21 20 20 Rate Respiratory Rate [Anterior Left] Respiratory Rate [Back] Respiratory Rate [Bilateral Throughout] Blood Pressure 112/50 112/50 112/50 O2 Sat by Pulse 96 97 97 Oximetry 09/07/21 09/07/21 09/07/21 06:45 06:51 06:55 Temperature Pulse Rate 65 69 69 Pulse Rate [ Anterior Left] Pulse Rate [ Bilateral Throughout] Respiratory 20 21 23 Rate Respiratory Rate [Anterior Left] Respiratory Rate [Back] Respiratory Rate [Bilateral Throughout] Blood Pressure 112/50 112/50 112/50 O2 Sat by Pulse 93 93 93 Oximetry 09/07/21 09/07/21 09/07/21 07:00 07:03 07:05 Temperature Pulse Rate 69 71 Pulse Rate [ 72 Anterior Left] Pulse Rate [ 70 Bilateral Throughout] Respiratory 21 23 Rate Respiratory 24 Rate [Anterior Left] Respiratory Rate [Back] Respiratory 16 Rate [Bilateral Throughout] Blood Pressure 113/56 112/50 O2 Sat by Pulse 95 93 Oximetry 09/07/21 09/07/21 09/07/21 07:11 07:15 07:21 Temperature Pulse Rate 67 67 68 Pulse Rate [ Anterior Left] Pulse Rate [ Bilateral Throughout] Respiratory 21 23 22 Rate Respiratory Rate [Anterior Left] Respiratory Rate [Back] Respiratory Rate [Bilateral Throughout] Blood Pressure 112/50 112/50 112/50 O2 Sat by Pulse 92 93 92 Oximetry 09/07/21 09/07/21 09/07/21 07:25 07:31 07:35 Temperature Pulse Rate 65 67 67 Pulse Rate [ Anterior Left] Pulse Rate [ Bilateral Throughout] Respiratory 17 14 21 Rate Respiratory Rate [Anterior Left] Respiratory Rate [Back] Respiratory Rate [Bilateral Throughout] Blood Pressure 112/50 112/50 112/50 O2 Sat by Pulse 93 92 89 Oximetry 09/07/21 09/07/21 09/07/21 07:41 07:45 07:51 Temperature Pulse Rate 65 67 76 Pulse Rate [ Anterior Left] Pulse Rate [ Bilateral Throughout] Respiratory 18 15 16 Rate Respiratory Rate [Anterior Left] Respiratory Rate [Back] Respiratory Rate [Bilateral Throughout] Blood Pressure 112/50 112/50 112/50 O2 Sat by Pulse 95 97 91 Oximetry 09/07/21 09/07/21 09/07/21 07:55 08:00 08:01 Temperature 97.8 F Pulse Rate 77 68 Pulse Rate [ Anterior Left] Pulse Rate [ Bilateral Throughout] Respiratory 16 16 Rate Respiratory Rate [Anterior Left] Respiratory Rate [Back] Respiratory Rate [Bilateral Throughout] Blood Pressure 112/50 113/36 O2 Sat by Pulse 90 90 Oximetry 09/07/21 09/07/21 09/07/21 08:05 08:10 08:11 Temperature Pulse Rate 68 69 Pulse Rate [ Anterior Left] Pulse Rate [ Bilateral Throughout] Respiratory 14 15 Rate Respiratory Rate [Anterior Left] Respiratory Rate [Back] Respiratory Rate [Bilateral Throughout] Blood Pressure 113/36 113/36 O2 Sat by Pulse 91 96 87 Oximetry 09/07/21 09/07/21 09/07/21 08:15 08:21 08:25 Temperature Pulse Rate 70 66 66 Pulse Rate [ Anterior Left] Pulse Rate [ Bilateral Throughout] Respiratory 14 24 22 Rate Respiratory Rate [Anterior Left] Respiratory Rate [Back] Respiratory Rate [Bilateral Throughout] Blood Pressure 113/36 113/36 113/36 O2 Sat by Pulse 97 89 89 Oximetry 09/07/21 09/07/21 09/07/21 08:31 08:35 08:41 Temperature Pulse Rate 74 70 68 Pulse Rate [ Anterior Left] Pulse Rate [ Bilateral Throughout] Respiratory 16 25 H 25 H Rate Respiratory Rate [Anterior Left] Respiratory Rate [Back] Respiratory Rate [Bilateral Throughout] Blood Pressure 113/36 113/36 113/36 O2 Sat by Pulse 94 90 92 Oximetry 09/07/21 09/07/21 09/07/21 08:45 08:51 08:55 Temperature Pulse Rate 71 73 71 Pulse Rate [ Anterior Left] Pulse Rate [ Bilateral Throughout] Respiratory 23 24 24 Rate Respiratory Rate [Anterior Left] Respiratory Rate [Back] Respiratory Rate [Bilateral Throughout] Blood Pressure 113/36 113/36 113/36 O2 Sat by Pulse 91 91 92 Oximetry 09/07/21 09/07/21 09/07/21 09:00 09:05 09:11 Temperature Pulse Rate 73 73 74 Pulse Rate [ Anterior Left] Pulse Rate [ Bilateral Throughout] Respiratory 22 24 24 Rate Respiratory Rate [Anterior Left] Respiratory Rate [Back] Respiratory Rate [Bilateral Throughout] Blood Pressure 105/45 105/45 105/45 O2 Sat by Pulse 92 92 94 Oximetry 09/07/21 09/07/21 09/07/21 09:15 09:21 09:25 Temperature Pulse Rate 68 71 74 Pulse Rate [ Anterior Left] Pulse Rate [ Bilateral Throughout] Respiratory 24 17 26 H Rate Respiratory Rate [Anterior Left] Respiratory Rate [Back] Respiratory Rate [Bilateral Throughout] Blood Pressure 105/45 105/45 105/45 O2 Sat by Pulse 94 95 91 Oximetry 09/07/21 09/07/21 09/07/21 09:31 09:35 09:41 Temperature Pulse Rate 73 71 73 Pulse Rate [ Anterior Left] Pulse Rate [ Bilateral Throughout] Respiratory 25 H 26 H 16 Rate Respiratory Rate [Anterior Left] Respiratory Rate [Back] Respiratory Rate [Bilateral Throughout] Blood Pressure 105/45 105/45 105/45 O2 Sat by Pulse 90 92 94 Oximetry 09/07/21 09/07/21 09/07/21 09:45 09:51 09:55 Temperature Pulse Rate 72 72 70 Pulse Rate [ Anterior Left] Pulse Rate [ Bilateral Throughout] Respiratory 20 24 22 Rate Respiratory Rate [Anterior Left] Respiratory Rate [Back] Respiratory Rate [Bilateral Throughout] Blood Pressure 105/45 105/45 105/45 O2 Sat by Pulse 91 90 91 Oximetry 09/07/21 09/07/21 09/07/21 10:00 10:02 10:03 Temperature Pulse Rate 70 70 69 Pulse Rate [ Anterior Left] Pulse Rate [ Bilateral Throughout] Respiratory 23 Rate Respiratory Rate [Anterior Left] Respiratory Rate [Back] Respiratory Rate [Bilateral Throughout] Blood Pressure 107/46 107/46 107/46 O2 Sat by Pulse 93 Oximetry 09/07/21 09/07/21 09/07/21 10:05 10:11 10:15 Temperature Pulse Rate 67 71 71 Pulse Rate [ Anterior Left] Pulse Rate [ Bilateral Throughout] Respiratory 23 11 L 19 Rate Respiratory Rate [Anterior Left] Respiratory Rate [Back] Respiratory Rate [Bilateral Throughout] Blood Pressure 107/46 107/46 107/46 O2 Sat by Pulse 93 97 91 Oximetry 09/07/21 09/07/21 09/07/21 10:21 10:25 10:39 Temperature Pulse Rate 71 77 102 H Pulse Rate [ Anterior Left] Pulse Rate [ Bilateral Throughout] Respiratory 33 H 18 21 Rate Respiratory Rate [Anterior Left] Respiratory Rate [Back] Respiratory Rate [Bilateral Throughout] Blood Pressure 107/46 107/46 107/46 O2 Sat by Pulse 93 93 91 Oximetry 09/07/21 09/07/21 09/07/21 10:41 10:45 10:51 Temperature Pulse Rate 84 81 83 Pulse Rate [ Anterior Left] Pulse Rate [ Bilateral Throughout] Respiratory 18 9 L 20 Rate Respiratory Rate [Anterior Left] Respiratory Rate [Back] Respiratory Rate [Bilateral Throughout] Blood Pressure 107/46 107/46 107/46 O2 Sat by Pulse 92 91 91 Oximetry 09/07/21 09/07/21 09/07/21 10:55 11:01 11:05 Temperature Pulse Rate 95 H 91 H 92 H Pulse Rate [ Anterior Left] Pulse Rate [ Bilateral Throughout] Respiratory 19 13 16 Rate Respiratory Rate [Anterior Left] Respiratory Rate [Back] Respiratory Rate [Bilateral Throughout] Blood Pressure 107/46 107/46 107/46 O2 Sat by Pulse 91 90 90 Oximetry 09/07/21 09/07/21 09/07/21 11:11 11:15 11:21 Temperature Pulse Rate 87 94 H 87 Pulse Rate [ Anterior Left] Pulse Rate [ Bilateral Throughout] Respiratory 13 17 13 Rate Respiratory Rate [Anterior Left] Respiratory Rate [Back] Respiratory Rate [Bilateral Throughout] Blood Pressure 107/46 107/46 107/46 O2 Sat by Pulse 88 88 90 Oximetry 09/07/21 09/07/21 09/07/21 11:25 11:31 11:35 Temperature Pulse Rate 93 H 73 86 Pulse Rate [ Anterior Left] Pulse Rate [ Bilateral Throughout] Respiratory 24 14 25 H Rate Respiratory Rate [Anterior Left] Respiratory Rate [Back] Respiratory Rate [Bilateral Throughout] Blood Pressure 107/46 107/46 107/46 O2 Sat by Pulse Oximetry 09/07/21 09/07/21 09/07/21 11:41 11:45 11:51 Temperature Pulse Rate 100 H 94 H 99 H Pulse Rate [ Anterior Left] Pulse Rate [ Bilateral Throughout] Respiratory 20 17 18 Rate Respiratory Rate [Anterior Left] Respiratory Rate [Back] Respiratory Rate [Bilateral Throughout] Blood Pressure 107/46 107/46 107/46 O2 Sat by Pulse 91 90 92 Oximetry 09/07/21 09/07/21 09/07/21 11:55 12:00 12:05 Temperature Pulse Rate 91 H 88 86 Pulse Rate [ Anterior Left] Pulse Rate [ Bilateral Throughout] Respiratory 19 14 26 H Rate Respiratory Rate [Anterior Left] Respiratory Rate [Back] Respiratory Rate [Bilateral Throughout] Blood Pressure 107/46 94/55 94/55 O2 Sat by Pulse 91 89 92 Oximetry 09/07/21 09/07/21 09/07/21 12:11 12:15 12:21 Temperature Pulse Rate 89 88 87 Pulse Rate [ Anterior Left] Pulse Rate [ Bilateral Throughout] Respiratory 21 25 H 28 H Rate Respiratory Rate [Anterior Left] Respiratory Rate [Back] Respiratory Rate [Bilateral Throughout] Blood Pressure 94/55 94/55 94/55 O2 Sat by Pulse 93 93 92 Oximetry 09/07/21 09/07/21 09/07/21 12:25 12:31 12:35 Temperature Pulse Rate 88 87 88 Pulse Rate [ Anterior Left] Pulse Rate [ Bilateral Throughout] Respiratory 19 15 17 Rate Respiratory Rate [Anterior Left] Respiratory Rate [Back] Respiratory Rate [Bilateral Throughout] Blood Pressure 94/55 94/55 94/55 O2 Sat by Pulse 93 89 90 Oximetry Constitutional: no acute distress, alert, other (middle aged morbidly obese male with mildly increased respiratory effort at rest) Eyes: non-icteric ENT: oropharynx moist, other (BIPAP with FFM) Neck: supple, no lymphadenopathy, no JVD, other (large circumference) Effort: mildly labored Ascultation: Bilateral: diminished breath sounds, wheezes (expiratory) Cardiovascular: irregular rhythm, other (S1,S2) Gastrointestinal: normoactive bowel sounds, soft, non-tender, non-distended (protuberant) Integumentary: normal Extremities: no cyanosis, pink and warm, pulses normal, no ischemia or petechiae, edema Neurologic: normal mental status, non-focal exam (grossly), pupils equal and round, CN II-XII normal, motor strength normal and Psychiatric: mood appropriate, affect normal, other CBC and BMP: 09/08/21 09:04 09/08/21 09:04 ABG, PT/INR, D-dimer: ABG ABG pH 7.331 pH Units (7.350-7.450) L 09/05/21 05:45 ABG pCO2 84.1 mm Hg 09/05/21 05:45 ABG pO2 124.8 mm Hg (80.0-90.0) H 09/05/21 05:45 ABG O2 Saturation 98.0 % (95.0-99.0) 09/05/21 05:45 PT/INR, D-dimer PT 14.3 Sec. (12.2-14.9) 09/03/21 15:00 INR 1.00 (0.87-1.13) 09/03/21 15:00 Abnormal lab findings: Abnormal Labs 09/02/21 09/02/21 09/02/21 15:50 16:21 16:21 Hgb 11.4 L Hct MCV MCH 27 L RDW 18.6 H Seg Neuts % (Manual) 92.0 H Lymphocytes % (Manual) 1.0 L Seg Neutrophils # Man 7.9 H Lymphocytes # (Manual) 0.1 L APTT Heparin Anti-Xa Level ABG pH 7.197 L* ABG pO2 98.8 H ABG HCO3 42.4 H ABG O2 Saturation ABG Base Excess 10.8 H ABG Hemoglobin 11.3 L Oxyhemoglobin 93.6 L Sodium Potassium 5.9 H Chloride 96.4 L Carbon Dioxide 32 H BUN Glucose 101 H POC Glucose Lactic Acid Phosphorus Magnesium TIBC Lactate Dehydrogenase NT-Pro-B Natriuret Pep 4080 H Albumin 09/02/21 09/02/21 09/02/21 16:21 17:42 18:40 Hgb Hct MCV MCH RDW Seg Neuts % (Manual) Lymphocytes % (Manual) Seg Neutrophils # Man Lymphocytes # (Manual) APTT Heparin Anti-Xa Level ABG pH ABG pO2 202.5 H ABG HCO3 39.2 H ABG O2 Saturation 99.2 H ABG Base Excess 11.8 H ABG Hemoglobin 11.0 L Oxyhemoglobin Sodium Potassium Chloride Carbon Dioxide BUN Glucose POC Glucose 113 H Lactic Acid 0.60 L Phosphorus Magnesium TIBC Lactate Dehydrogenase NT-Pro-B Natriuret Pep Albumin 09/02/21 09/03/21 09/03/21 23:09 04:08 04:53 Hgb 10.3 L Hct 32.1 L MCV 83 L MCH 27 L RDW 18.3 H Seg Neuts % (Manual) 94.0 H Lymphocytes % (Manual) 3.0 L Seg Neutrophils # Man Lymphocytes # (Manual) 0.2 L APTT Heparin Anti-Xa Level ABG pH ABG pO2 69.0 L ABG HCO3 42.5 H ABG O2 Saturation ABG Base Excess 15.7 H ABG Hemoglobin 10.6 L Oxyhemoglobin 94.5 L Sodium Potassium Chloride Carbon Dioxide BUN Glucose POC Glucose 154 H Lactic Acid Phosphorus Magnesium TIBC Lactate Dehydrogenase NT-Pro-B Natriuret Pep Albumin 09/03/21 09/03/21 09/03/21 04:53 06:05 10:13 Hgb Hct MCV MCH RDW Seg Neuts % (Manual) Lymphocytes % (Manual) Seg Neutrophils # Man Lymphocytes # (Manual) APTT Heparin Anti-Xa Level ABG pH ABG pO2 ABG HCO3 ABG O2 Saturation ABG Base Excess ABG Hemoglobin Oxyhemoglobin Sodium Potassium Chloride 96.6 L Carbon Dioxide 38 H BUN 25 H Glucose 130 H POC Glucose 145 H Lactic Acid Phosphorus Magnesium TIBC Lactate Dehydrogenase NT-Pro-B Natriuret Pep Albumin 3.2 L 09/03/21 09/03/21 09/03/21 11:11 15:00 15:00 Hgb 10.7 L Hct 33.1 L MCV MCH RDW Seg Neuts % (Manual) Lymphocytes % (Manual) Seg Neutrophils # Man Lymphocytes # (Manual) APTT 22.9 L Heparin Anti-Xa Level ABG pH ABG pO2 ABG HCO3 ABG O2 Saturation ABG Base Excess ABG Hemoglobin Oxyhemoglobin Sodium Potassium Chloride Carbon Dioxide BUN Glucose POC Glucose 158 H Lactic Acid Phosphorus Magnesium TIBC Lactate Dehydrogenase NT-Pro-B Natriuret Pep Albumin 09/03/21 09/03/21 09/03/21 16:39 20:52 23:55 Hgb Hct MCV MCH RDW Seg Neuts % (Manual) Lymphocytes % (Manual) Seg Neutrophils # Man Lymphocytes # (Manual) APTT Heparin Anti-Xa Level < 0.10 L ABG pH ABG pO2 ABG HCO3 ABG O2 Saturation ABG Base Excess ABG Hemoglobin Oxyhemoglobin Sodium Potassium Chloride Carbon Dioxide BUN Glucose POC Glucose 139 H 157 H Lactic Acid Phosphorus Magnesium TIBC Lactate Dehydrogenase NT-Pro-B Natriuret Pep Albumin 09/04/21 09/04/21 09/04/21 04:12 06:13 06:21 Hgb Hct MCV MCH RDW Seg Neuts % (Manual) Lymphocytes % (Manual) Seg Neutrophils # Man Lymphocytes # (Manual) APTT Heparin Anti-Xa Level 0.21 L ABG pH ABG pO2 ABG HCO3 ABG O2 Saturation ABG Base Excess ABG Hemoglobin Oxyhemoglobin Sodium Potassium Chloride 95.3 L Carbon Dioxide 37 H BUN 43 H Glucose 149 H POC Glucose 157 H Lactic Acid Phosphorus 4.70 H Magnesium 2.40 H TIBC 176 L Lactate Dehydrogenase 283 H NT-Pro-B Natriuret Pep Albumin 09/04/21 09/04/21 09/04/21 06:35 12:13 16:50 Hgb Hct MCV MCH RDW Seg Neuts % (Manual) Lymphocytes % (Manual) Seg Neutrophils # Man Lymphocytes # (Manual) APTT Heparin Anti-Xa Level ABG pH ABG pO2 72.2 L ABG HCO3 44.2 H ABG O2 Saturation 94.9 L ABG Base Excess 15.2 H ABG Hemoglobin 12.2 L Oxyhemoglobin 93.0 L Sodium Potassium Chloride Carbon Dioxide BUN Glucose POC Glucose 163 H 121 H Lactic Acid Phosphorus Magnesium TIBC Lactate Dehydrogenase NT-Pro-B Natriuret Pep Albumin 09/05/21 09/05/21 09/05/21 00:24 03:08 03:08 Hgb 10.5 L Hct 33.2 L MCV 83 L MCH 26 L RDW 18.2 H Seg Neuts % (Manual) Lymphocytes % (Manual) Seg Neutrophils # Man Lymphocytes # (Manual) APTT Heparin Anti-Xa Level ABG pH ABG pO2 ABG HCO3 ABG O2 Saturation ABG Base Excess ABG Hemoglobin Oxyhemoglobin Sodium 146 H Potassium Chloride Carbon Dioxide 40 H BUN 54 H Glucose 141 H POC Glucose 144 H Lactic Acid Phosphorus Magnesium TIBC Lactate Dehydrogenase NT-Pro-B Natriuret Pep Albumin 09/05/21 09/05/21 09/05/21 03:08 05:45 05:58 Hgb Hct MCV MCH RDW Seg Neuts % (Manual) Lymphocytes % (Manual) Seg Neutrophils # Man Lymphocytes # (Manual) APTT Heparin Anti-Xa Level 0.28 L ABG pH 7.331 L ABG pO2 124.8 H ABG HCO3 43.5 H ABG O2 Saturation ABG Base Excess 14.5 H ABG Hemoglobin 10.7 L Oxyhemoglobin Sodium Potassium Chloride Carbon Dioxide BUN Glucose POC Glucose 183 H Lactic Acid Phosphorus Magnesium TIBC Lactate Dehydrogenase NT-Pro-B Natriuret Pep Albumin 09/05/21 09/05/21 09/06/21 11:32 17:27 04:14 Hgb Hct MCV MCH RDW Seg Neuts % (Manual) Lymphocytes % (Manual) Seg Neutrophils # Man Lymphocytes # (Manual) APTT Heparin Anti-Xa Level ABG pH ABG pO2 ABG HCO3 ABG O2 Saturation ABG Base Excess ABG Hemoglobin Oxyhemoglobin Sodium 148 H Potassium Chloride 97.2 L Carbon Dioxide 44 H* BUN 45 H Glucose POC Glucose 152 H 130 H Lactic Acid Phosphorus Magnesium 2.50 H TIBC Lactate Dehydrogenase NT-Pro-B Natriuret Pep Albumin 09/06/21 09/06/21 09/07/21 11:46 21:35 04:09 Hgb 11.7 L Hct MCV MCH RDW Seg Neuts % (Manual) Lymphocytes % (Manual) Seg Neutrophils # Man Lymphocytes # (Manual) APTT Heparin Anti-Xa Level ABG pH ABG pO2 ABG HCO3 ABG O2 Saturation ABG Base Excess ABG Hemoglobin Oxyhemoglobin Sodium Potassium Chloride Carbon Dioxide BUN Glucose POC Glucose 110 H 129 H Lactic Acid Phosphorus Magnesium TIBC Lactate Dehydrogenase NT-Pro-B Natriuret Pep Albumin 09/07/21 04:09 Hgb Hct MCV MCH RDW Seg Neuts % (Manual) Lymphocytes % (Manual) Seg Neutrophils # Man Lymphocytes # (Manual) APTT Heparin Anti-Xa Level ABG pH ABG pO2 ABG HCO3 ABG O2 Saturation ABG Base Excess ABG Hemoglobin Oxyhemoglobin Sodium Potassium Chloride 93.7 L Carbon Dioxide 40 H BUN 40 H Glucose POC Glucose Lactic Acid Phosphorus Magnesium TIBC Lactate Dehydrogenase NT-Pro-B Natriuret Pep Albumin Allied health notes reviewed: RT
[2021-09-08] MEDS: BUDESONIDE 0.5 MG/2 ML NEBU IH SCH ×3 (00:08→20:00)
[2021-09-08] MEDS: IPRATROPIUM/ALBUTEROL SULFATE 3 ML AMPUL.NEB IH SCH ×4 (01:37→20:00)
[2021-09-08] MEDS: LEVOTHYROXINE 100 MCG TAB PO SCH (05:53)
[2021-09-08 09:20] LABS: Hematocrit 40.5 % (35.5-45.6); Mean Corpuscular HGB Conc 32 % (32-34); Mean Corpuscular Volume 83 fl (84-94); Platelet Count 173 K/mm3 (140-440); Red Blood Count 4.89 M/mm3 (3.65-5.03); Red Cell Distribution Width 17.7 % (13.2-15.2)
[2021-09-08 09:36] LABS: BUN/Creatinine Ratio 41; Blood Urea Nitrogen 33 mg/dL (9-20); Calcium 9.1 mg/dL (8.4-10.2); Hemolysis Index 4
[2021-09-08] MEDS ORDERED: FUROSEMIDE 20 MG/2 ML INJ IV SCH (10:00)
[2021-09-08] MEDS ORDERED: FUROSEMIDE 40 MG/4 ML INJ IV SCH (10:00)
[2021-09-08] MEDS ORDERED: predniSONE 10 MG TAB PO SCH (10:00)
[2021-09-08] MEDS: DOXAZOSIN 1 MG TAB PO SCH (10:08)
[2021-09-08] MEDS: NICOTINE 21 MG/24 HR PATCH TD SCH (10:09)
[2021-09-08] MEDS: FAMOTIDINE 20 MG TAB PO SCH ×2 (10:09→22:23)
[2021-09-08] MEDS: HEPARIN 5,000 UNIT/1 ML VIAL SUB-Q SCH ×2 (10:09→22:22)
[2021-09-08] MEDS: SENNOSIDES/DOCUSATE SODIUM 8.6/50 MG TAB PO SCH ×2 (10:12→22:22)
[2021-09-08] MEDS: METOPROLOL TARTRATE 25 MG TAB PO SCH ×2 (10:30→22:22)
[2021-09-08] MEDS ORDERED: SODIUM PHOSPHATE 30 MMOL in SODIUM CHLORIDE 0.9% 500 ML 500 ML IV ONE (11:15)
--- NOTE | 2021-09-08 11:24 | Progress Note ---
<SAVANNAHDAVIS RohitNaomi - Last Filed: 09/08/21 11:18> Assessment and Plan Assessment and plan: This is a 61-year-old male with CHF, COPD on home O2, nicotine dependence and OHS admitted with CHF exacerbation and CAP Neuro: NAD -Reorientation as needed -Maintain sleep-wake cycle -PT/OT consulted, appreciate recommendations -Home health physical therapy Cardiac: Aflutter, Acute on Chronic CHF -Cardiology consulted, appreciate recommendations -Blood pressure monitoring per protocol -Echocardiogram shows LVEF of 50 to 55%, flattened septum consistent with right ventricular volume overload, RVSP 37 mmhg -BB PO -s/p Heparin gtt->subq heparin -Lasix daily -Admit proBNP 4080 Respiratory: Acute on chronic hypoxic respiratory failure, RUL mass, h/o COPD, OHS, nicotine dependence, stage IV lung CA (in remission according to ) -CCM consulted, appreciate recommendations -Intubated on 09/02 with 8.0 OETT at 22 at the lips and extubated 09/05 -Currently on NC -Bipap qhs -Pulmonary hygiene -SPO2 monitoring -Solu-Medrol PO -MARTIN/LABA GI: Morbid obesity, mild protein calorie nutrition -24 hours -3130 mL -PPI -Passed bedside swallow eval and started on PO diet -BR: Colace : Urinary retention, Hypophosphatemia -Monitor intake and output -Renally dose medications -Avoid nephrotoxic medications -[place] replaced 09/04 but DC 09/07 -Doxazosin -s/p Diamox x2 -PO NaPhos -Trend BMP ID: CAP, Post obstructive ? -Covid 19 pcr negative -s/p Antibiotic therapy with azithro and rocephin for 4 days -Admit CXR showed right upper lobe atelectasis, patchy parenchymal opacities in both mid to lower lung zones -Chest CTA showed complete right upper lobe atelectasis, mild bronchopneumonia medial aspect left upper, right middle and both lower lobes -f/u blood culture -Monitor WBC and temperature curve Endo: h/o hypothyroidism -Avoid hypoglycemia -Resume home levothyroxine Heme/Oncology: h/o stage IV lung CA -CT chest shows RUL mass -According to patient is in remission pose radiation and chemo -Hem/Onc consulted, appreciate recommendations -Records requested from Dr. Ave Jenkins -unable to get a hold -Will need outpatient follow up with out patient oncology -Trend CBC -Transfuse hemoglobin less than 7 -SCDs to BLE while in bed The high probability of a clinically significant, sudden or life threatening det erioration of the [cardiac, pulmonary] system(s) required my full and direct attention, intervention and personal management. The aggregate critical care time was [60] minutes. This time is in addition to time spent performing reported procedures but includes the following: [x] Data Review and interpretation [x] Patient assessment and monitoring of vital signs [x] Documentation [x] Medication orders and management Disposition Plan: transer to tele Total Time Spent with Patient (Minutes): 60 History Interval history: This is a 71-year-old male with CHF, COPD on home O2, hypothyroidism, stage IV lung CA, nicotine dependence and OHS who presented to the emergency department on 09/02 with complaints of " cannot breathe" via EMS. On EMS arrival patient had a SPO2 in the 60s and was placed on supplemental oxygenation and transported to [facility]. In the emergency department patient's SPO2 was in the 70s with supplemental oxygenation and he did not have much improvement in symptoms and was placed on NiPPV and was intubated in the ED as he was found to be retracting, unable to speak, using accessory muscles to breathe, with audible wheezing and placed on ventilatory support and CXR showed bilateral PNA. He was admitted with CHF excerbation and with PNA to the hospitalist service with consults cardiology and CCM. Hospital course to date: 09/03: Remains on ventilatory support. The afternoon patient heart rate went into the 140s/150s, cardiology aware, stat ECG obtained which showed no acute findings, 2.5 metoprolol ordered. Started on fentanyl drip. Records requested from [facility] and Dr. Ave Jenkins, [place] catheter discontinued. Ventilator changes per CCM. 09/04: CCM made vent changes, decrease Solu-Medrol, COVID-19 PCR negative. [place] catheter replaced. 09/05: Patient currently on vent settings and only sedated on fentanyl. No acute events reported overnight. PSV versus remaining on AC for bronchoscopy. 09/06: Patient was extubated yesterday evening and is currently on nasal cannula, steroids will be resumed and transition to p.o., cardiology will continue Lasix. PT/OT consulted. 09/07: Cardiology has decreased Lasix to once a day, got 2 doses of Diamox. Patient wore CPAP overnight and is currently on oxygen via nasal cannula. No acute events reported overnight. Still awaiting telemetry bed. 09/08: Pending transfer to telemetry floor, DME oxygen ordered as patient stated that tank in the room was his last. Will replete phos. Hopeful DC soon when HH and DME set up. Hospitalist Physical - Constitutional Vitals: Temp Pulse Resp BP Pulse Ox 98.2 F 89 17 107/54 94 09/08/21 05:05 09/08/21 11:15 09/08/21 11:15 09/08/21 11:15 09/08/21 11:15 General appearance: Present: no acute distress, obese, other - EENT Eyes: Present: PERRL, EOM intact - Neck Neck: Present: normal ROM - Respiratory Respiratory effort: normal Respiratory: bilateral: diminished, wheezing - Cardiovascular Rhythm: regular Heart Sounds: Present: S1 & S2. Absent: systolic murmur, diastolic murmur - Extremities Extremities: no ischemia, pulses intact, pulses symmetrical, No edema, normal temperature, normal color, Full ROM Peripheral Pulses: within normal limits - Abdominal General gastrointestinal: soft, non-tender, non-distended, normal bowel sounds - Integumentary Integumentary: Present: warm, dry - Psychiatric Psychiatric: appropriate mood/affect, cooperative - Neurologic Neurologic: CNII-XII intact, no focal deficits, moves all extremities - Allied Health Allied health notes reviewed: nursing, PT, ST, OT, RT HEART Score - HEART Score Troponin: Troponin T < 0.010 ng/mL (0.00-0.029) 09/02/21 16:21 Results - Labs CBC & Chem 7: 09/08/21 09:04 09/08/21 09:04 Labs: Laboratory Last Values WBC 6.2 K/mm3 (4.5-11.0) 09/08/21 09:04 RBC 4.89 M/mm3 (3.65-5.03) 09/08/21 09:04 Hgb 13.0 gm/dl (11.8-15.2) 09/08/21 09:04 Hct 40.5 % (35.5-45.6) 09/08/21 09:04 MCV 83 fl (84-94) L 09/08/21 09:04 MCH 27 pg (28-32) L 09/08/21 09:04 MCHC 32 % (32-34) 09/08/21 09:04 RDW 17.7 % (13.2-15.2) H 09/08/21 09:04 Plt Count 173 K/mm3 (140-440) 09/08/21 09:04 Add Manual Diff Complete 09/03/21 04:53 Total Counted 100 09/03/21 04:53 Seg Neutrophils % Digital Marketing Strategist 09/03/21 04:53 Seg Neuts % (Manual) 94.0 % (40.0-70.0) H 09/03/21 04:53 Band Neutrophils % 0 % 09/03/21 04:53 Lymphocytes % (Manual) 3.0 % (13.4-35.0) L 09/03/21 04:53 Reactive Lymphs % (Man) 0 % 09/03/21 04:53 Monocytes % (Manual) 3.0 % (0.0-7.3) 09/03/21 04:53 Eosinophils % (Manual) 0 % (0.0-4.3) 09/03/21 04:53 Basophils % (Manual) 0 % (0.0-1.8) 09/03/21 04:53 Metamyelocytes % 0 % 09/03/21 04:53 Myelocytes % 0 % 09/03/21 04:53 Promyelocytes % 0 % 09/03/21 04:53 Blast Cells % 0 % 09/03/21 04:53 Nucleated RBC % Not Reportable 09/03/21 04:53 Seg Neutrophils # Man 5.5 K/mm3 (1.8-7.7) 09/03/21 04:53 Band Neutrophils # 0.0 K/mm3 09/03/21 04:53 Lymphocytes # (Manual) 0.2 K/mm3 (1.2-5.4) L 09/03/21 04:53 Abs React Lymphs (Man) 0.0 K/mm3 09/03/21 04:53 Monocytes # (Manual) 0.2 K/mm3 (0.0-0.8) 09/03/21 04:53 Eosinophils # (Manual) 0.0 K/mm3 (0.0-0.4) 09/03/21 04:53 Basophils # (Manual) 0.0 K/mm3 (0.0-0.1) 09/03/21 04:53 Metamyelocytes # 0.0 K/mm3 09/03/21 04:53 Myelocytes # 0.0 K/mm3 09/03/21 04:53 Promyelocytes # 0.0 K/mm3 09/03/21 04:53 Blast Cells # 0.0 K/mm3 09/03/21 04:53 WBC Morphology Not Reportable 09/03/21 04:53 Hypersegmented Neuts Not Reportable 09/03/21 04:53 Hyposegmented Neuts Not Reportable 09/03/21 04:53 Hypogranular Neuts Not Reportable 09/03/21 04:53 Smudge Cells Not Reportable 09/03/21 04:53 Toxic Granulation Not Reportable 09/03/21 04:53 Toxic Vacuolation Not Reportable 09/03/21 04:53 Dohle Bodies Not Reportable 09/03/21 04:53 Pelger-Huet Anomaly Not Reportable 09/03/21 04:53 Kaushik Rods Not Reportable 09/03/21 04:53 Platelet Estimate Consistent w auto 09/03/21 04:53 Clumped Platelets Not Reportable 09/03/21 04:53 Plt Clumps, EDTA Not Reportable 09/03/21 04:53 Large Platelets Not Reportable 09/03/21 04:53 Giant Platelets Not Reportable 09/03/21 04:53 Platelet Satelliting Not Reportable 09/03/21 04:53 Plt Morphology Comment Not Reportable 09/03/21 04:53 RBC Morphology Not Reportable 09/03/21 04:53 Dimorphic RBCs Not Reportable 09/03/21 04:53 Polychromasia Not Reportable 09/03/21 04:53 Hypochromasia Not Reportable 09/03/21 04:53 Poikilocytosis Not Reportable 09/03/21 04:53 Anisocytosis 1+ 09/03/21 04:53 Microcytosis Not Reportable 09/03/21 04:53 Macrocytosis Not Reportable 09/03/21 04:53 Spherocytes Not Reportable 09/03/21 04:53 Pappenheimer Bodies Not Reportable 09/03/21 04:53 Sickle Cells Not Reportable 09/03/21 04:53 Target Cells Not Reportable 09/03/21 04:53 Tear Drop Cells Not Reportable 09/03/21 04:53 Ovalocytes Not Reportable 09/03/21 04:53 Stomatocytes Rare 09/02/21 16:21 Helmet Cells Not Reportable 09/03/21 04:53 Lim-Babb Bodies Not Reportable 09/03/21 04:53 Seffner Rings Not Reportable 09/03/21 04:53 Jerry Cells Not Reportable 09/03/21 04:53 Bite Cells Not Reportable 09/03/21 04:53 Crenated Cell Not Reportable 09/03/21 04:53 Elliptocytes Not Reportable 09/03/21 04:53 Acanthocytes (Spur) Not Reportable 09/03/21 04:53 Rouleaux Not Reportable 09/03/21 04:53 Hemoglobin C Crystals Not Reportable 09/03/21 04:53 Schistocytes Not Reportable 09/03/21 04:53 Malaria parasites Not Reportable 09/03/21 04:53 Percent Retic 1.37 % (0.78-2.58) 09/04/21 10:56 Tanner Bodies Not Reportable 09/03/21 04:53 Hem Pathologist Commnt No 09/03/21 04:53 PT 14.3 Sec. (12.2-14.9) 09/03/21 15:00 INR 1.00 (0.87-1.13) 09/03/21 15:00 APTT 22.9 Sec. (24.2-36.6) L 09/03/21 15:00 Heparin Anti-Xa Level 0.43 U.I./ml (0.3-0.7) 09/06/21 04:14 ABG pH 7.331 pH Units (7.350-7.450) L 09/05/21 05:45 ABG pCO2 84.1 mm Hg 09/05/21 05:45 ABG pO2 124.8 mm Hg (80.0-90.0) H 09/05/21 05:45 ABG HCO3 43.5 mmol/L (20.0-26.0) H 09/05/21 05:45 ABG O2 Saturation 98.0 % (95.0-99.0) 09/05/21 05:45 ABG O2 Content 14.7 (0.0-44) 09/05/21 05:45 ABG Base Excess 14.5 mmol/L (-2.0-3.0) H 09/05/21 05:45 ABG Hemoglobin 10.7 gm/dl (14.0-18.0) L 09/05/21 05:45 ABG Carboxyhemoglobin 1.5 % (0.0-5.0) 09/05/21 05:45 ABG Methemoglobin 0.4 % (0.0-1.5) 09/05/21 05:45 Oxyhemoglobin 96.1 % (95.0-99.0) 09/05/21 05:45 FiO2 40 % 09/05/21 05:45 Sodium 136 mmol/L (137-145) L 09/08/21 09:04 Potassium 4.4 mmol/L (3.6-5.0) 09/08/21 09:04 Chloride 93.0 mmol/L (98-107) L 09/08/21 09:04 Carbon Dioxide 35 mmol/L (22-30) H 09/08/21 09:04 Anion Gap 12 mmol/L 09/08/21 09:04 BUN 33 mg/dL (9-20) H 09/08/21 09:04 Creatinine 0.8 mg/dL (0.8-1.3) 09/08/21 09:04 Estimated GFR > 60 ml/min 09/08/21 09:04 BUN/Creatinine Ratio 41 % 09/08/21 09:04 Glucose 162 mg/dL (75-100) H 09/08/21 09:04 POC Glucose 93 mg/dL (70-105) 09/08/21 05:58 Lactic Acid 0.60 mmol/L (0.7-2.0) L 09/02/21 16:21 Calcium 9.1 mg/dL (8.4-10.2) 09/08/21 09:04 Phosphorus 2.20 mg/dL (2.5-4.5) L 09/08/21 09:04 Magnesium 2.10 mg/dL (1.7-2.3) 09/08/21 09:04 Iron 63 ug/dL (49-181) 09/04/21 04:12 TIBC 176 mcg/dL (250-450) L 09/04/21 04:12 Ferritin 194.9 ng/mL (30.0-300.0) 09/04/21 04:12 Total Bilirubin 0.50 mg/dL (0.1-1.2) 09/03/21 10:13 Direct Bilirubin 0.2 mg/dL (0-0.2) 09/03/21 10:13 Indirect Bilirubin 0.3 mg/dL 09/03/21 10:13 AST 18 units/L (5-40) 09/03/21 10:13 ALT 16 units/L (7-56) 09/03/21 10:13 Alkaline Phosphatase 110 units/L (35-129) 09/03/21 10:13 Lactate Dehydrogenase 283 units/L (91-180) H 09/04/21 04:12 Troponin T < 0.010 ng/mL (0.00-0.029) 09/02/21 16:21 NT-Pro-B Natriuret Pep 4080 pg/mL (0-900) H 09/02/21 16:21 Total Protein 6.4 g/dL (6.3-8.2) 09/03/21 10:13 Albumin 3.2 g/dL (3.9-5) L 09/03/21 10:13 Albumin/Globulin Ratio 1.0 % 09/03/21 10:13 Procalcitonin 0.27 ng/mL (<0.15) 09/03/21 10:13 TSH 0.501 mlU/mL (0.270-4.200) 09/02/21 18:44 Free T4 1.27 ng/dL (0.76-1.46) 09/02/21 18:44 Urine Color Yellow (Yellow) 09/03/21 02:49 Urine Turbidity Slightly cloudy (Clear) 09/03/21 02:49 Urine pH 6.0 (5.0-7.0) 09/03/21 02:49 Ur Specific [place] 1.030 (1.003-1.030) 09/03/21 02:49 Urine Protein <15 mg/dl mg/dL (Negative) 09/03/21 02:49 Urine Glucose (UA) Negative mg/dL (Negative) 09/03/21 02:49 Urine Ketones Negative mg/dL (Negative) 09/03/21 02:49 Urine Blood Negative (Negative) 09/03/21 02:49 Urine Nitrite Negative (Negative) 09/03/21 02:49 Ur Reducing Substances Not Reportable 09/03/21 02:49 Urine Bilirubin Negative (Negative) 09/03/21 02:49 Urine Ictotest Not Reportable 09/03/21 02:49 Urine Urobilinogen < 2.0 mg/dL (<2.0) 09/03/21 02:49 Ur Leukocyte Esterase Negative (Negative) 09/03/21 02:49 Urine WBC (Auto) 1.0 /HPF (0.0-6.0) 09/03/21 02:49 Urine RBC (Auto) 2.0 /HPF (0.0-6.0) 09/03/21 02:49 Urine Mucus Few /HPF 09/03/21 02:49 Urine Opiates Screen Presumptive negative 09/03/21 02:49 Urine Methadone Screen Presumptive negative 09/03/21 02:49 Ur Barbiturates Screen Presumptive negative 09/03/21 02:49 Ur Phencyclidine Scrn Presumptive negative 09/03/21 02:49 Ur Amphetamines Screen Presumptive negative 09/03/21 02:49 U Benzodiazepines Scrn Presumptive negative 09/03/21 02:49 Urine Cocaine Screen Presumptive negative 09/03/21 02:49 U Marijuana (THC) Screen Presumptive positive 09/03/21 02:49 Drugs of Abuse Note Disclamer 09/03/21 02:49 Coronavirus (PCR) Negative (Negative) 09/04/21 07:18 [place]/IV: Voiding Method Urinal Active Medications - Current Medications Current Medications: Generic Name Dose Route Start Last Admin Trade Name Freq PRN Reason Stop Dose Admin Acetaminophen 650 mg 09/02/21 18:31 Acetaminophen 325 Mg Tab PO Q6H PRN Pain MILD(1-3)/Fever >100.5/ZAVALA Albuterol 2.5 mg 09/06/21 09:42 Albuterol 2.5 Mg/3 Ml Nebu IH Q4HRT PRN Shortness Of Breath Albuterol/Ipratropium 1 ampul 09/06/21 14:00 09/08/21 08:24 Ipratropium/Albuterol Sulfate 3 Ml Ampul.Neb IH 1 ampul Q6HRT MAE Administration Budesonide 0.5 mg 09/03/21 10:00 09/08/21 09:35 Budesonide 0.5 Mg/2 Ml Nebu IH 0.5 mg Q12HR MAE Administration Dextrose 50 ml 09/04/21 08:02 Dextrose 50% In Water (25gm) 50 Ml Syringe IV Q30MIN PRN Hypoglycemia Protocol Diphenhydramine HCl 25 mg 09/05/21 00:16 09/06/21 05:41 Diphenhydramine 50 Mg/Ml Vial IV 25 mg Q6H PRN Administration Itching Doxazosin Mesylate 1 mg 09/06/21 10:00 09/08/21 10:08 Doxazosin 1 Mg Tab PO 1 mg QDAY MAE Administration Famotidine 20 mg 09/06/21 10:00 09/08/21 10:09 Famotidine 20 Mg Tab PO 20 mg BID MAE Administration Furosemide 40 mg 09/08/21 10:00 09/08/21 10:09 Furosemide 40 Mg/4 Ml Inj IV 40 mg DAILY MAE Administration Heparin Sodium (Porcine) 5,000 unit 09/06/21 22:00 09/08/21 10:09 Heparin 5,000 Unit/1 Ml Vial SUB-Q 5,000 unit Q12HR MAE Administration Hydromorphone HCl 0.5 mg 09/02/21 18:31 Hydromorphone 0.5 Mg/0.5 Ml Inj IV Q8H PRN Pain , Severe (7-10) Hydrophilic Ointment 1 applic 09/03/21 13:55 Lip Therapy Vaseline TP Q2HR PRN Dry Lips Sodium Phosphate 30 mmol/ 510 mls @ 125 mls/hr 09/08/21 11:15 Sodium Chloride IV 09/08/21 15:19 ONCE ONE Levothyroxine Sodium 100 mcg 09/03/21 10:00 09/08/21 05:53 Levothyroxine 100 Mcg Tab PO 100 mcg QAM@0600 MAE Administration Metoprolol Tartrate 12.5 mg 09/06/21 10:00 09/07/21 21:44 Metoprolol Tartrate 25 Mg Tab PO Not Given BID [facility] Multi-Ingred Cream/Lotion/Oil/Oint 1 applic 09/03/21 13:55 Mineral Oil/Petrolatum, White Ophth Oint 3.5 Gm OU Q4HR PRN Dry Eye(s) Nicotine 21 mg 09/06/21 11:00 09/08/21 10:09 Nicotine 21 Mg/24 Hr Patch TD 21 mg QDAY MAE Administration Oxycodone/Acetaminophen 1 tab 09/02/21 18:31 Oxycodone /Acetaminophen 5-325mg Tab PO Q6H PRN Pain, Moderate (4-6) Prednisone 7.5 mg 09/09/21 10:00 Prednisone 5 Mg Tab PO 09/09/21 10:01 QDAY MAE Prednisone 5 mg 09/10/21 10:00 Prednisone 5 Mg Tab PO 09/12/21 10:01 QDAY MAE Senna/Docusate Sodium 1 tab 09/06/21 10:00 09/08/21 10:12 Sennosides/Docusate Sodium 8.6/50 Mg Tab PO 1 tab BID MAE Administration Sodium Chloride 10 ml 09/02/21 22:00 09/08/21 10:10 Sodium Chloride 0.9% 10 Ml Flush Syringe IV 10 ml BID MAE Administration Sodium Chloride 10 ml 09/02/21 18:31 Sodium Chloride 0.9% 10 Ml Flush Syringe IV PRN PRN LINE FLUSH Nutrition/Malnutrition Assess - Dietary Evaluation Nutrition/Malnutrition Findings: Nutrition Notes Start: 09/03/21 10:38 Freq: Status: Active Protocol: Document 09/05/21 09:43 DALE (Rec: 09/05/21 10:02 DALE [id number]) Nutrition Notes Initial or Follow up Brief Note Current Diagnosis COPD,Respiratory Failure, Malnutrition Other Pertinent Diagnosis HFpEF, CAP, Atrial Flutter/RVR , OHS, Urinary Retention, Lung Cancer, .... Current Diet TF-Promote @ 70 ml/hr (from L 09/03) Labs/Tests 09/05: Na 146, CO2 40, BUN 54, Glu 141. Pertinent Medications 09/05: Humulin R 1U, Levothyroxine, others nutritionally unremarkable. Height 5 ft 11 in Weight 127.047 kg Lawrence Body Weight (kg) 78.18 BMI 39.0 Weight change and time frame No body weight change reported in 2 days. Weight Status Obese Subjective/Other Information RD consult for routine F/U on TF tolerance/continuation. TF continues as prescribed, no further information available at the time, will assess at F /U. Pt is on Mechanical Ventilation, O2 saturation @ 96%, according to Physical Assessment History notes. Percent of energy/protein needs met: Prescribed TF-Promote @ 70 ml/ hr provides for energy/protein needs (1,670 Kcal/104 g) during LOS, 77% Kcal; 101% AA. #1 Nutrition Diagnosis Inadequate oral intake Diagnosis Progress(for reassessment Continues documentation) Is patient on ventilator? Yes Is Patient Ambulatory and/or Out of Bed No REE-([place] [facility]-confined to bed) 2533.248 Kcal/Kg value to use for calculation 17 Approximate Energy Requirements Using 2160 kcal/Kg Calculation Used for Recommendations Kcal/kg Additional Notes Protein: 0.8-1 g/Kg AdjBW; 82- 103 g/day. Fluids: 1 ml/Kcal, or as per MD. Nutrition Intervention Nutrition Support: Continue TF-Promote @ 70 ml/hr . Flush: 120 ml water Q 4 hr, or as per MD. Kcal 1,595 Protein (gm) 100 Carbohydrates (gm) 147 Fat (gm) 72 Fluid (mL) 1,078 Fiber (gm) 7 % RDI: 77% Kcal; 101% AA. Goal #1 Provide at least 75% of energy /protein needs through Enteral Feeding during LOS. Follow-Up By: 09/12/21 Additional Comments Continue monitoring TF tolerance and BM. <CRISTY KING - Last Filed: 09/09/21 07:16> Assessment and Plan Assessment and plan: I saw and evaluated the patient. I agree with the findings and the plan of care as documented in the Nurse Practitioner's~note, with the following corrections and additions. Hospitalist Physical - Constitutional Vitals: Temp Pulse Resp BP Pulse Ox 98.3 F 76 18 114/49 91 09/09/21 05:14 09/09/21 05:00 09/09/21 05:14 09/09/21 05:14 09/09/21 05:00 HEART Score - HEART Score Troponin: Troponin T < 0.010 ng/mL (0.00-0.029) 09/02/21 16:21 Results - Labs CBC & Chem 7: 09/09/21 05:37 09/09/21 05:37 Labs: Laboratory Last Values WBC 6.2 K/mm3 (4.5-11.0) 09/08/21 09:04 RBC 4.89 M/mm3 (3.65-5.03) 09/08/21 09:04 Hgb 12.8 gm/dl (11.8-15.2) 09/09/21 05:37 Hct 40.2 % (35.5-45.6) 09/09/21 05:37 MCV 83 fl (84-94) L 09/08/21 09:04 MCH 27 pg (28-32) L 09/08/21 09:04 MCHC 32 % (32-34) 09/08/21 09:04 RDW 17.7 % (13.2-15.2) H 09/08/21 09:04 Plt Count 168 K/mm3 (140-440) 09/09/21 05:37 Add Manual Diff Complete 09/03/21 04:53 Total Counted 100 09/03/21 04:53 Seg Neutrophils % Digital Marketing Strategist 09/03/21 04:53 Seg Neuts % (Manual) 94.0 % (40.0-70.0) H 09/03/21 04:53 Band Neutrophils % 0 % 09/03/21 04:53 Lymphocytes % (Manual) 3.0 % (13.4-35.0) L 09/03/21 04:53 Reactive Lymphs % (Man) 0 % 09/03/21 04:53 Monocytes % (Manual) 3.0 % (0.0-7.3) 09/03/21 04:53 Eosinophils % (Manual) 0 % (0.0-4.3) 09/03/21 04:53 Basophils % (Manual) 0 % (0.0-1.8) 09/03/21 04:53 Metamyelocytes % 0 % 09/03/21 04:53 Myelocytes % 0 % 09/03/21 04:53 Promyelocytes % 0 % 09/03/21 04:53 Blast Cells % 0 % 09/03/21 04:53 Nucleated RBC % Not Reportable 09/03/21 04:53 Seg Neutrophils # Man 5.5 K/mm3 (1.8-7.7) 09/03/21 04:53 Band Neutrophils # 0.0 K/mm3 09/03/21 04:53 Lymphocytes # (Manual) 0.2 K/mm3 (1.2-5.4) L 09/03/21 04:53 Abs React Lymphs (Man) 0.0 K/mm3 09/03/21 04:53 Monocytes # (Manual) 0.2 K/mm3 (0.0-0.8) 09/03/21 04:53 Eosinophils # (Manual) 0.0 K/mm3 (0.0-0.4) 09/03/21 04:53 Basophils # (Manual) 0.0 K/mm3 (0.0-0.1) 09/03/21 04:53 Metamyelocytes # 0.0 K/mm3 09/03/21 04:53 Myelocytes # 0.0 K/mm3 09/03/21 04:53 Promyelocytes # 0.0 K/mm3 09/03/21 04:53 Blast Cells # 0.0 K/mm3 09/03/21 04:53 WBC Morphology Not Reportable 09/03/21 04:53 Hypersegmented Neuts Not Reportable 09/03/21 04:53 Hyposegmented Neuts Not Reportable 09/03/21 04:53 Hypogranular Neuts Not Reportable 09/03/21 04:53 Smudge Cells Not Reportable 09/03/21 04:53 Toxic Granulation Not Reportable 09/03/21 04:53 Toxic Vacuolation Not Reportable 09/03/21 04:53 Dohle Bodies Not Reportable 09/03/21 04:53 Pelger-Huet Anomaly Not Reportable 09/03/21 04:53 Kaushik Rods Not Reportable 09/03/21 04:53 Platelet Estimate Consistent w auto 09/03/21 04:53 Clumped Platelets Not Reportable 09/03/21 04:53 Plt Clumps, EDTA Not Reportable 09/03/21 04:53 Large Platelets Not Reportable 09/03/21 04:53 Giant Platelets Not Reportable 09/03/21 04:53 Platelet Satelliting Not Reportable 09/03/21 04:53 Plt Morphology Comment Not Reportable 09/03/21 04:53 RBC Morphology Not Reportable 09/03/21 04:53 Dimorphic RBCs Not Reportable 09/03/21 04:53 Polychromasia Not Reportable 09/03/21 04:53 Hypochromasia Not Reportable 09/03/21 04:53 Poikilocytosis Not Reportable 09/03/21 04:53 Anisocytosis 1+ 09/03/21 04:53 Microcytosis Not Reportable 09/03/21 04:53 Macrocytosis Not Reportable 09/03/21 04:53 Spherocytes Not Reportable 09/03/21 04:53 Pappenheimer Bodies Not Reportable 09/03/21 04:53 Sickle Cells Not Reportable 09/03/21 04:53 Target Cells Not Reportable 09/03/21 04:53 Tear Drop Cells Not Reportable 09/03/21 04:53 Ovalocytes Not Reportable 09/03/21 04:53 Stomatocytes Rare 09/02/21 16:21 Helmet Cells Not Reportable 09/03/21 04:53 Lim-Babb Bodies Not Reportable 09/03/21 04:53 Seffner Rings Not Reportable 09/03/21 04:53 [place] Cells Not Reportable 09/03/21 04:53 Bite Cells Not Reportable 09/03/21 04:53 Crenated Cell Not Reportable 09/03/21 04:53 Elliptocytes Not Reportable 09/03/21 04:53 Acanthocytes (Spur) Not Reportable 09/03/21 04:53 Rouleaux Not Reportable 09/03/21 04:53 Hemoglobin C Crystals Not Reportable 09/03/21 04:53 Schistocytes Not Reportable 09/03/21 04:53 Malaria parasites Not Reportable 09/03/21 04:53 Percent Retic 1.37 % (0.78-2.58) 09/04/21 10:56 Tanner Bodies Not Reportable 09/03/21 04:53 Hem Pathologist Commnt No 09/03/21 04:53 PT 14.3 Sec. (12.2-14.9) 09/03/21 15:00 INR 1.00 (0.87-1.13) 09/03/21 15:00 APTT 22.9 Sec. (24.2-36.6) L 09/03/21 15:00 Heparin Anti-Xa Level 0.43 U.I./ml (0.3-0.7) 09/06/21 04:14 ABG pH 7.331 pH Units (7.350-7.450) L 09/05/21 05:45 ABG pCO2 84.1 mm Hg 09/05/21 05:45 ABG pO2 124.8 mm Hg (80.0-90.0) H 09/05/21 05:45 ABG HCO3 43.5 mmol/L (20.0-26.0) H 09/05/21 05:45 ABG O2 Saturation 98.0 % (95.0-99.0) 09/05/21 05:45 ABG O2 Content 14.7 (0.0-44) 09/05/21 05:45 ABG Base Excess 14.5 mmol/L (-2.0-3.0) H 09/05/21 05:45 ABG Hemoglobin 10.7 gm/dl (14.0-18.0) L 09/05/21 05:45 ABG Carboxyhemoglobin 1.5 % (0.0-5.0) 09/05/21 05:45 ABG Methemoglobin 0.4 % (0.0-1.5) 09/05/21 05:45 Oxyhemoglobin 96.1 % (95.0-99.0) 09/05/21 05:45 FiO2 40 % 09/05/21 05:45 Sodium 136 mmol/L (137-145) L 09/09/21 05:37 Potassium 4.0 mmol/L (3.6-5.0) 09/09/21 05:37 Chloride 95.6 mmol/L (98-107) L 09/09/21 05:37 Carbon Dioxide 29 mmol/L (22-30) 09/09/21 05:37 Anion Gap 15 mmol/L 09/09/21 05:37 BUN 31 mg/dL (9-20) H 09/09/21 05:37 Creatinine 0.8 mg/dL (0.8-1.3) 09/09/21 05:37 Estimated GFR > 60 ml/min 09/09/21 05:37 BUN/Creatinine Ratio 39 % 09/09/21 05:37 Glucose 99 mg/dL (75-100) 09/09/21 05:37 POC Glucose 93 mg/dL (70-105) 09/08/21 05:58 Lactic Acid 0.60 mmol/L (0.7-2.0) L 09/02/21 16:21 Calcium 9.2 mg/dL (8.4-10.2) 09/09/21 05:37 Phosphorus 2.20 mg/dL (2.5-4.5) L 09/08/21 09:04 Magnesium 2.10 mg/dL (1.7-2.3) 09/08/21 09:04 Iron 63 ug/dL (49-181) 09/04/21 04:12 TIBC 176 mcg/dL (250-450) L 09/04/21 04:12 Ferritin 194.9 ng/mL (30.0-300.0) 09/04/21 04:12 Total Bilirubin 0.50 mg/dL (0.1-1.2) 09/03/21 10:13 Direct Bilirubin 0.2 mg/dL (0-0.2) 09/03/21 10:13 Indirect Bilirubin 0.3 mg/dL 09/03/21 10:13 AST 18 units/L (5-40) 09/03/21 10:13 ALT 16 units/L (7-56) 09/03/21 10:13 Alkaline Phosphatase 110 units/L (35-129) 09/03/21 10:13 Lactate Dehydrogenase 283 units/L (91-180) H 09/04/21 04:12 Troponin T < 0.010 ng/mL (0.00-0.029) 09/02/21 16:21 NT-Pro-B Natriuret Pep 4080 pg/mL (0-900) H 09/02/21 16:21 Total Protein 6.4 g/dL (6.3-8.2) 09/03/21 10:13 Albumin 3.2 g/dL (3.9-5) L 09/03/21 10:13 Albumin/Globulin Ratio 1.0 % 09/03/21 10:13 Procalcitonin 0.27 ng/mL (<0.15) 09/03/21 10:13 TSH 0.501 mlU/mL (0.270-4.200) 09/02/21 18:44 Free T4 1.27 ng/dL (0.76-1.46) 09/02/21 18:44 Urine Color Yellow (Yellow) 09/03/21 02:49 Urine Turbidity Slightly cloudy (Clear) 09/03/21 02:49 Urine pH 6.0 (5.0-7.0) 09/03/21 02:49 Ur Specific [place] 1.030 (1.003-1.030) 09/03/21 02:49 Urine Protein <15 mg/dl mg/dL (Negative) 09/03/21 02:49 Urine Glucose (UA) Negative mg/dL (Negative) 09/03/21 02:49 Urine Ketones Negative mg/dL (Negative) 09/03/21 02:49 Urine Blood Negative (Negative) 09/03/21 02:49 Urine Nitrite Negative (Negative) 09/03/21 02:49 Ur Reducing Substances Not Reportable 09/03/21 02:49 Urine Bilirubin Negative (Negative) 09/03/21 02:49 Urine Ictotest Not Reportable 09/03/21 02:49 Urine Urobilinogen < 2.0 mg/dL (<2.0) 09/03/21 02:49 Ur Leukocyte Esterase Negative (Negative) 09/03/21 02:49 Urine WBC (Auto) 1.0 /HPF (0.0-6.0) 09/03/21 02:49 Urine RBC (Auto) 2.0 /HPF (0.0-6.0) 09/03/21 02:49 Urine Mucus Few /HPF 09/03/21 02:49 Urine Opiates Screen Presumptive negative 09/03/21 02:49 Urine Methadone Screen Presumptive negative 09/03/21 02:49 Ur Barbiturates Screen Presumptive negative 09/03/21 02:49 Ur Phencyclidine Scrn Presumptive negative 09/03/21 02:49 Ur Amphetamines Screen Presumptive negative 09/03/21 02:49 U Benzodiazepines Scrn Presumptive negative 09/03/21 02:49 Urine Cocaine Screen Presumptive negative 09/03/21 02:49 U Marijuana (THC) Screen Presumptive positive 09/03/21 02:49 Drugs of Abuse Note Disclamer 09/03/21 02:49 Coronavirus (PCR) Negative (Negative) 09/04/21 07:18 [place]/IV: Voiding Method Toilet Active Medications - Current Medications Current Medications: Generic Name Dose Route Start Last Admin Trade Name Freq PRN Reason Stop Dose Admin Acetaminophen 650 mg 09/02/21 18:31 Acetaminophen 325 Mg Tab PO Q6H PRN Pain MILD(1-3)/Fever >100.5/ZAVALA Albuterol 2.5 mg 09/06/21 09:42 Albuterol 2.5 Mg/3 Ml Nebu IH Q4HRT PRN Shortness Of Breath Albuterol/Ipratropium 1 ampul 09/06/21 14:00 09/09/21 02:00 Ipratropium/Albuterol Sulfate 3 Ml Ampul.Neb IH 1 ampul Q6HRT MAE Administration Budesonide 0.5 mg 09/03/21 10:00 09/08/21 20:00 Budesonide 0.5 Mg/2 Ml Nebu IH 0.5 mg Q12HR MAE Administration Dextrose 50 ml 09/04/21 08:02 Dextrose 50% In Water (25gm) 50 Ml Syringe IV Q30MIN PRN Hypoglycemia Protocol Diphenhydramine HCl 25 mg 09/05/21 00:16 09/06/21 05:41 Diphenhydramine 50 Mg/Ml Vial IV 25 mg Q6H PRN Administration Itching Doxazosin Mesylate 1 mg 09/06/21 10:00 09/08/21 10:08 Doxazosin 1 Mg Tab PO 1 mg QDAY MAE Administration Famotidine 20 mg 09/06/21 10:00 09/08/21 22:23 Famotidine 20 Mg Tab PO 20 mg BID MAE Administration Furosemide 20 mg 09/09/21 10:00 Furosemide 40 Mg Tab PO QDAY MAE Heparin Sodium (Porcine) 5,000 unit 09/06/21 22:00 09/08/21 22:22 Heparin 5,000 Unit/1 Ml Vial SUB-Q 5,000 unit Q12HR MAE Administration Hydrophilic Ointment 1 applic 09/03/21 13:55 Lip Therapy Vaseline TP Q2HR PRN Dry Lips Levothyroxine Sodium 100 mcg 09/03/21 10:00 09/09/21 05:09 Levothyroxine 100 Mcg Tab PO 100 mcg QAM@0600 MAE Administration Metoprolol Tartrate 12.5 mg 09/06/21 10:00 09/08/21 22:22 Metoprolol Tartrate 25 Mg Tab PO 12.5 mg BID MAE Administration Multi-Ingred Cream/Lotion/Oil/Oint 1 applic 09/03/21 13:55 Mineral Oil/Petrolatum, White Ophth Oint 3.5 Gm OU Q4HR PRN Dry Eye(s) Nicotine 21 mg 09/06/21 11:00 09/08/21 10:09 Nicotine 21 Mg/24 Hr Patch TD 21 mg QDAY MAE Administration Oxycodone/Acetaminophen 1 tab 09/02/21 18:31 Oxycodone /Acetaminophen 5-325mg Tab PO Q6H PRN Pain, Moderate (4-6) Potassium Phos/Sodium Phos 1 each 09/08/21 14:00 09/09/21 05:09 Phos-Nak Powder Packet PO 09/10/21 13:59 1 each Q8HR MAE Administration Prednisone 7.5 mg 09/09/21 10:00 Prednisone 5 Mg Tab PO 09/09/21 10:01 QDAY MAE Prednisone 5 mg 09/10/21 10:00 Prednisone 5 Mg Tab PO 09/12/21 10:01 QDAY MAE Senna/Docusate Sodium 1 tab 09/06/21 10:00 09/08/21 22:22 Sennosides/Docusate Sodium 8.6/50 Mg Tab PO 1 tab BID MAE Administration Sodium Chloride 10 ml 09/02/21 22:00 09/08/21 22:23 Sodium Chloride 0.9% 10 Ml Flush Syringe IV 10 ml BID MAE Administration Sodium Chloride 10 ml 09/02/21 18:31 Sodium Chloride 0.9% 10 Ml Flush Syringe IV PRN PRN LINE FLUSH Nutrition/Malnutrition Assess - Dietary Evaluation Nutrition/Malnutrition Findings: Nutrition Notes Start: 09/03/21 10:38 Freq: Status: Active Protocol: Document 09/05/21 09:43 DALE (Rec: 09/05/21 10:02 DALE [id number]) Nutrition Notes Initial or Follow up Brief Note Current Diagnosis COPD,Respiratory Failure, Malnutrition Other Pertinent Diagnosis HFpEF, CAP, Atrial Flutter/RVR , OHS, Urinary Retention, Lung Cancer, .... Current Diet TF-Promote @ 70 ml/hr (from L 09/03) Labs/Tests 09/05: Na 146, CO2 40, BUN 54, Glu 141. Pertinent Medications 09/05: Humulin R 1U, Levothyroxine, others nutritionally unremarkable. Height 5 ft 11 in Weight 127.047 kg [place] Body Weight (kg) 78.18 BMI 39.0 Weight change and time frame No body weight change reported in 2 days. Weight Status Obese Subjective/Other Information RD consult for routine F/U on TF tolerance/continuation. TF continues as prescribed, no further information available at the time, will assess at F /U. Pt is on Mechanical Ventilation, O2 saturation @ 96%, according to Physical Assessment History notes. Percent of energy/protein needs met: Prescribed TF-Promote @ 70 ml/ hr provides for energy/protein needs (1,670 Kcal/104 g) during LOS, 77% Kcal; 101% AA. #1 Nutrition Diagnosis Inadequate oral intake Diagnosis Progress(for reassessment Continues documentation) Is patient on ventilator? Yes Is Patient Ambulatory and/or Out of Bed No REE-([place]-confined to bed) 2533.248 Kcal/Kg value to use for calculation 17 Approximate Energy Requirements Using 2160 kcal/Kg Calculation Used for Recommendations Kcal/kg Additional Notes Protein: 0.8-1 g/Kg AdjBW; 82- 103 g/day. Fluids: 1 ml/Kcal, or as per MD. Nutrition Intervention Nutrition Support: Continue TF-Promote @ 70 ml/hr . Flush: 120 ml water Q 4 hr, or as per MD. Kcal 1,595 Protein (gm) 100 Carbohydrates (gm) 147 Fat (gm) 72 Fluid (mL) 1,078 Fiber (gm) 7 % RDI: 77% Kcal; 101% AA. Goal #1 Provide at least 75% of energy /protein needs through Enteral Feeding during LOS. Follow-Up By: 09/12/21 Additional Comments Continue monitoring TF tolerance and BM.
--- NOTE | 2021-09-08 13:18 | Progress Note ---
Assessment and Plan Acute on chronic hypoxic respiratory failure s/p MVS RUL mass COPD on home O2 at 2-3L LEYDA/OHS h/o nicotine dependence- Tobacco use disorder- ongoing stage IV lung CA (in remission according to ) h/o stage IV lung CA-s/p chemoradiation -CT chest shows RUL mass Morbid obesity BMI 37.5 Urinary retention-[place] catheter CAP vs Post obstructive PNA h/o hypothyroidism HFpEF and Pulm HTN (mild to moderate) Hypernatremia Continue with bronchodilators, BIPAP qhs Smoking cessation counselling done , ongoing CXR,ABG as clinically indicated Discharge planning, early outpatient pulmonary follow up post discharge - continue to titrate supplemental oxygen to keep SpO2 88-90% - continue bronchodilators with pulmonary hygiene per RT - continue accuchecks with glycemic control per SSI (Target blood glucose of 140-180 mg/dL; avoid hypoglycemia) - continue to avoid benzodiazepines, reduce the possibility of delirium - Antibiotics per ID (Rocephin and Ceftriaxone) - Maintenance of sleep-wake cycle, avoid delirium - continue enteral nutritional support at goal rate as tolerated - Stress ulcer prophylaxis -VTE prophylaxis- heparin. - Monitor hemodynamics closely while on Furosemide- monitor electrolytes and renal function COVID SPECIFIC INTERVENTIONS - COVID-19 PCR negative CONDITION: FAIR PROGNOSIS: GUARDED CODE STATUS: FULL CODE Subjective Date of service: 09/08/21 Principal diagnosis: Acute respiratory failure, acute HFpEF Interval history: 61-year-old male with CHF, COPD on home O2, nicotine dependence and OHS admitted with CHF exacerbation and CAP Patient is seen today for: acute and chronic resp failure s/p MVS; Seen and examined at bedside; 24hour events reviewed; nursing and respiratory care staff consulted; no adverse overnight events reported to me; resting in bed; BIPAP at night following commands well; No N/V/F/C. Currently on BIPAP, catching a nap Objective Vital Signs - 12hr 09/08/21 09/08/21 09/08/21 01:21 01:25 01:37 Temperature Pulse Rate 65 70 Pulse Rate [ 71 Anterior Bilateral] Respiratory 18 17 Rate Respiratory 20 Rate [Anterior Bilateral] Blood Pressure 94/58 94/58 O2 Sat by Pulse 97 96 Oximetry 09/08/21 09/08/21 09/08/21 01:45 01:51 01:55 Temperature Pulse Rate 70 72 80 Pulse Rate [ Anterior Bilateral] Respiratory 21 23 18 Rate Respiratory Rate [Anterior Bilateral] Blood Pressure 94/58 94/58 94/58 O2 Sat by Pulse 96 96 99 Oximetry 09/08/21 09/08/21 09/08/21 02:00 02:05 02:11 Temperature Pulse Rate 70 68 71 Pulse Rate [ Anterior Bilateral] Respiratory 15 21 16 Rate Respiratory Rate [Anterior Bilateral] Blood Pressure 108/58 108/58 108/58 O2 Sat by Pulse 96 94 95 Oximetry 09/08/21 09/08/21 09/08/21 02:15 02:21 02:25 Temperature Pulse Rate 69 85 Pulse Rate [ Anterior Bilateral] Respiratory 13 19 Rate Respiratory Rate [Anterior Bilateral] Blood Pressure 108/58 108/58 108/58 O2 Sat by Pulse 95 95 99 Oximetry 09/08/21 09/08/21 09/08/21 02:31 02:35 02:41 Temperature Pulse Rate Pulse Rate [ Anterior Bilateral] Respiratory Rate Respiratory Rate [Anterior Bilateral] Blood Pressure 108/58 108/58 108/58 O2 Sat by Pulse 97 99 96 Oximetry 09/08/21 09/08/21 09/08/21 02:45 02:51 02:55 Temperature Pulse Rate Pulse Rate [ Anterior Bilateral] Respiratory Rate Respiratory Rate [Anterior Bilateral] Blood Pressure 108/58 108/58 108/58 O2 Sat by Pulse 98 97 95 Oximetry 09/08/21 09/08/21 09/08/21 03:00 03:05 03:11 Temperature Pulse Rate 66 66 68 Pulse Rate [ Anterior Bilateral] Respiratory 10 L 14 12 Rate Respiratory Rate [Anterior Bilateral] Blood Pressure 102/49 102/49 102/49 O2 Sat by Pulse 95 96 92 Oximetry 09/08/21 09/08/21 09/08/21 03:15 03:21 03:25 Temperature Pulse Rate 67 67 68 Pulse Rate [ Anterior Bilateral] Respiratory 10 L 12 14 Rate Respiratory Rate [Anterior Bilateral] Blood Pressure 102/49 102/49 102/49 O2 Sat by Pulse 96 95 94 Oximetry 09/08/21 09/08/21 09/08/21 03:31 03:35 03:41 Temperature Pulse Rate 70 73 72 Pulse Rate [ Anterior Bilateral] Respiratory 13 26 H 21 Rate Respiratory Rate [Anterior Bilateral] Blood Pressure 102/49 102/49 102/49 O2 Sat by Pulse 93 91 91 Oximetry 09/08/21 09/08/21 09/08/21 03:45 03:51 03:55 Temperature Pulse Rate 69 71 74 Pulse Rate [ Anterior Bilateral] Respiratory 20 20 18 Rate Respiratory Rate [Anterior Bilateral] Blood Pressure 102/49 102/49 102/49 O2 Sat by Pulse 92 89 93 Oximetry 09/08/21 09/08/21 09/08/21 04:00 04:05 04:11 Temperature Pulse Rate 72 64 75 Pulse Rate [ Anterior Bilateral] Respiratory 21 17 24 Rate Respiratory Rate [Anterior Bilateral] Blood Pressure 114/53 114/53 114/53 O2 Sat by Pulse 93 97 96 Oximetry 09/08/21 09/08/21 09/08/21 04:15 04:21 04:25 Temperature Pulse Rate 70 74 79 Pulse Rate [ Anterior Bilateral] Respiratory 22 23 22 Rate Respiratory Rate [Anterior Bilateral] Blood Pressure 114/53 114/53 114/53 O2 Sat by Pulse 95 94 97 Oximetry 09/08/21 09/08/21 09/08/21 04:31 04:35 04:41 Temperature Pulse Rate 70 68 73 Pulse Rate [ Anterior Bilateral] Respiratory 16 14 22 Rate Respiratory Rate [Anterior Bilateral] Blood Pressure 114/53 114/53 114/53 O2 Sat by Pulse 95 99 93 Oximetry 09/08/21 09/08/21 09/08/21 04:45 04:51 04:55 Temperature Pulse Rate 74 77 71 Pulse Rate [ Anterior Bilateral] Respiratory 24 25 H 23 Rate Respiratory Rate [Anterior Bilateral] Blood Pressure 114/53 114/53 114/53 O2 Sat by Pulse 92 94 96 Oximetry 09/08/21 09/08/21 09/08/21 04:57 05:00 05:05 Temperature 98.2 F Pulse Rate 72 75 71 Pulse Rate [ Anterior Bilateral] Respiratory 26 H 25 H 22 Rate Respiratory Rate [Anterior Bilateral] Blood Pressure 114/53 124/59 124/59 O2 Sat by Pulse 96 97 99 Oximetry 09/08/21 09/08/21 09/08/21 05:11 05:15 05:21 Temperature Pulse Rate 73 74 74 Pulse Rate [ Anterior Bilateral] Respiratory 22 23 21 Rate Respiratory Rate [Anterior Bilateral] Blood Pressure 124/59 124/59 124/59 O2 Sat by Pulse 95 93 94 Oximetry 09/08/21 09/08/21 09/08/21 05:25 05:31 05:35 Temperature Pulse Rate 75 77 77 Pulse Rate [ Anterior Bilateral] Respiratory 21 23 21 Rate Respiratory Rate [Anterior Bilateral] Blood Pressure 124/59 124/59 124/59 O2 Sat by Pulse 93 94 93 Oximetry 09/08/21 09/08/21 09/08/21 05:41 05:45 05:51 Temperature Pulse Rate 76 75 83 Pulse Rate [ Anterior Bilateral] Respiratory 21 21 20 Rate Respiratory Rate [Anterior Bilateral] Blood Pressure 124/59 124/59 124/59 O2 Sat by Pulse 93 95 93 Oximetry 09/08/21 09/08/21 09/08/21 05:55 06:00 06:05 Temperature Pulse Rate 82 75 75 Pulse Rate [ Anterior Bilateral] Respiratory 18 16 23 Rate Respiratory Rate [Anterior Bilateral] Blood Pressure 124/59 95/39 95/39 O2 Sat by Pulse 98 95 95 Oximetry 09/08/21 09/08/21 09/08/21 06:11 06:15 06:21 Temperature Pulse Rate 74 72 71 Pulse Rate [ Anterior Bilateral] Respiratory 24 21 22 Rate Respiratory Rate [Anterior Bilateral] Blood Pressure 95/39 95/39 95/39 O2 Sat by Pulse 96 96 93 Oximetry 09/08/21 09/08/21 09/08/21 06:25 06:30 06:31 Temperature Pulse Rate 71 77 74 Pulse Rate [ Anterior Bilateral] Respiratory 18 23 Rate Respiratory Rate [Anterior Bilateral] Blood Pressure 95/39 95/39 O2 Sat by Pulse 98 96 95 Oximetry 09/08/21 09/08/21 09/08/21 06:35 06:41 06:45 Temperature Pulse Rate 72 73 72 Pulse Rate [ Anterior Bilateral] Respiratory 21 25 H 24 Rate Respiratory Rate [Anterior Bilateral] Blood Pressure 95/39 95/39 95/39 O2 Sat by Pulse 94 97 96 Oximetry 09/08/21 09/08/21 09/08/21 06:51 06:55 07:00 Temperature Pulse Rate 71 75 83 Pulse Rate [ Anterior Bilateral] Respiratory 21 20 22 Rate Respiratory Rate [Anterior Bilateral] Blood Pressure 95/39 95/39 111/54 O2 Sat by Pulse 97 95 96 Oximetry 09/08/21 09/08/21 09/08/21 07:05 07:11 07:15 Temperature Pulse Rate 72 74 77 Pulse Rate [ Anterior Bilateral] Respiratory 24 22 22 Rate Respiratory Rate [Anterior Bilateral] Blood Pressure 111/54 111/54 111/54 O2 Sat by Pulse 94 94 95 Oximetry 07/09/08/21 09/08/21 07:21 07:25 07:31 Temperature Pulse Rate 69 71 69 Pulse Rate [ Anterior Bilateral] Respiratory 17 21 19 Rate Respiratory Rate [Anterior Bilateral] Blood Pressure 111/54 111/54 111/54 O2 Sat by Pulse 99 96 98 Oximetry 09/08/21 09/08/21 09/08/21 07:35 07:41 07:45 Temperature Pulse Rate 71 73 73 Pulse Rate [ Anterior Bilateral] Respiratory 13 19 22 Rate Respiratory Rate [Anterior Bilateral] Blood Pressure 111/54 111/54 111/54 O2 Sat by Pulse 97 94 93 Oximetry 09/08/21 09/08/21 09/08/21 07:51 07:55 08:00 Temperature Pulse Rate 75 72 90 Pulse Rate [ Anterior Bilateral] Respiratory 21 17 17 Rate Respiratory Rate [Anterior Bilateral] Blood Pressure 111/54 111/54 111/59 O2 Sat by Pulse 93 99 99 Oximetry 09/08/21 09/08/21 09/08/21 08:05 08:11 08:15 Temperature Pulse Rate 78 70 71 Pulse Rate [ Anterior Bilateral] Respiratory 17 20 21 Rate Respiratory Rate [Anterior Bilateral] Blood Pressure 111/59 111/59 111/59 O2 Sat by Pulse 94 95 96 Oximetry 09/08/21 09/08/21 09/08/21 08:21 08:24 08:25 Temperature Pulse Rate 84 78 Pulse Rate [ 82 Anterior Bilateral] Respiratory 23 25 H Rate Respiratory 20 Rate [Anterior Bilateral] Blood Pressure 111/59 111/59 O2 Sat by Pulse 98 95 Oximetry 09/08/21 09/08/21 09/08/21 08:31 08:35 08:41 Temperature Pulse Rate 81 72 79 Pulse Rate [ Anterior Bilateral] Respiratory 18 14 16 Rate Respiratory Rate [Anterior Bilateral] Blood Pressure 111/59 111/59 111/59 O2 Sat by Pulse 95 94 93 Oximetry 09/08/21 09/08/21 09/08/21 08:45 08:51 08:55 Temperature Pulse Rate 79 89 77 Pulse Rate [ Anterior Bilateral] Respiratory 14 24 16 Rate Respiratory Rate [Anterior Bilateral] Blood Pressure 111/59 111/59 111/59 O2 Sat by Pulse 94 96 93 Oximetry 09/08/21 09/08/21 09/08/21 09:00 09:05 09:11 Temperature Pulse Rate 78 83 81 Pulse Rate [ Anterior Bilateral] Respiratory 10 L 18 17 Rate Respiratory Rate [Anterior Bilateral] Blood Pressure 104/54 104/54 111/59 O2 Sat by Pulse 93 94 94 Oximetry 09/08/21 09/08/21 09/08/21 09:15 09:21 09:25 Temperature Pulse Rate 77 83 80 Pulse Rate [ Anterior Bilateral] Respiratory 16 20 20 Rate Respiratory Rate [Anterior Bilateral] Blood Pressure 111/59 111/59 111/59 O2 Sat by Pulse 93 93 92 Oximetry 09/08/21 09/08/21 09/08/21 09:31 09:35 09:41 Temperature Pulse Rate 80 79 78 Pulse Rate [ 82 Anterior Bilateral] Respiratory 21 16 13 Rate Respiratory 16 Rate [Anterior Bilateral] Blood Pressure 111/59 111/59 104/54 O2 Sat by Pulse 94 94 94 Oximetry 09/08/21 09/08/21 09/08/21 09:45 09:51 09:55 Temperature Pulse Rate 78 76 84 Pulse Rate [ Anterior Bilateral] Respiratory 14 17 18 Rate Respiratory Rate [Anterior Bilateral] Blood Pressure 104/54 104/54 104/54 O2 Sat by Pulse 94 94 95 Oximetry 09/08/21 09/08/21 09/08/21 10:00 10:01 10:05 Temperature Pulse Rate 81 89 Pulse Rate [ Anterior Bilateral] Respiratory 16 21 23 Rate Respiratory Rate [Anterior Bilateral] Blood Pressure 103/62 103/62 O2 Sat by Pulse 96 92 93 Oximetry 09/08/21 09/08/21 09/08/21 10:08 10:11 10:15 Temperature Pulse Rate 83 81 Pulse Rate [ Anterior Bilateral] Respiratory 15 17 Rate Respiratory Rate [Anterior Bilateral] Blood Pressure 103/62 103/62 103/62 O2 Sat by Pulse 92 92 Oximetry 09/08/21 09/08/21 09/08/21 10:21 10:25 10:31 Temperature Pulse Rate 78 79 81 Pulse Rate [ Anterior Bilateral] Respiratory 18 19 17 Rate Respiratory Rate [Anterior Bilateral] Blood Pressure 103/62 103/62 103/62 O2 Sat by Pulse 90 90 91 Oximetry 09/08/21 09/08/21 09/08/21 10:35 10:41 10:45 Temperature Pulse Rate 79 74 76 Pulse Rate [ Anterior Bilateral] Respiratory 15 18 20 Rate Respiratory Rate [Anterior Bilateral] Blood Pressure 103/62 103/62 103/62 O2 Sat by Pulse 93 90 91 Oximetry 09/08/21 09/08/2122 10:51 10:55 11:00 Temperature Pulse Rate 90 81 79 Pulse Rate [ Anterior Bilateral] Respiratory 14 15 17 Rate Respiratory Rate [Anterior Bilateral] Blood Pressure 103/62 103/62 107/54 O2 Sat by Pulse 91 95 95 Oximetry 09/08/21 09/08/21 09/08/21 11:05 11:11 11:15 Temperature Pulse Rate 85 88 89 Pulse Rate [ Anterior Bilateral] Respiratory 23 16 17 Rate Respiratory Rate [Anterior Bilateral] Blood Pressure 107/54 107/54 107/54 O2 Sat by Pulse 95 96 94 Oximetry 09/08/21 12:00 Temperature Pulse Rate 93 H Pulse Rate [ Anterior Bilateral] Respiratory 16 Rate Respiratory Rate [Anterior Bilateral] Blood Pressure 108/60 O2 Sat by Pulse 92 Oximetry Constitutional: no acute distress, alert, other (middle aged morbidly obese male with mildly increased respiratory effort at rest) Eyes: non-icteric ENT: oropharynx moist, other (BIPAP with FFM) Neck: supple, no lymphadenopathy, no JVD, other (large circumference) Effort: mildly labored Ascultation: Bilateral: diminished breath sounds, wheezes (expiratory), rhonchi Percussion: Bilateral: not dull Cardiovascular: irregular rhythm, other (S1,S2) Gastrointestinal: normoactive bowel sounds, soft, non-tender, non-distended (protuberant) Integumentary: normal Extremities: no cyanosis, pink and warm, pulses normal, no ischemia or petechiae, edema Neurologic: normal mental status, non-focal exam (grossly), pupils equal and round, CN II-XII normal, motor strength normal and Psychiatric: mood appropriate, affect normal, other CBC and BMP: 09/09/21 05:37 09/09/21 05:37 ABG, PT/INR, D-dimer: ABG ABG pH 7.331 pH Units (7.350-7.450) L 09/05/21 05:45 ABG pCO2 84.1 mm Hg 09/05/21 05:45 ABG pO2 124.8 mm Hg (80.0-90.0) H 09/05/21 05:45 ABG O2 Saturation 98.0 % (95.0-99.0) 09/05/21 05:45 PT/INR, D-dimer PT 14.3 Sec. (12.2-14.9) 09/03/21 15:00 INR 1.00 (0.87-1.13) 09/03/21 15:00 Abnormal lab findings: Abnormal Labs 09/02/21 09/02/21 09/02/21 15:50 16:21 16:21 Hgb 11.4 L Hct MCV MCH 27 L RDW 18.6 H Seg Neuts % (Manual) 92.0 H Lymphocytes % (Manual) 1.0 L Seg Neutrophils # Man 7.9 H Lymphocytes # (Manual) 0.1 L APTT Heparin Anti-Xa Level ABG pH 7.197 L* ABG pO2 98.8 H ABG HCO3 42.4 H ABG O2 Saturation ABG Base Excess 10.8 H ABG Hemoglobin 11.3 L Oxyhemoglobin 93.6 L Sodium Potassium 5.9 H Chloride 96.4 L Carbon Dioxide 32 H BUN Glucose 101 H POC Glucose Lactic Acid Phosphorus Magnesium TIBC Lactate Dehydrogenase NT-Pro-B Natriuret Pep 4080 H Albumin 09/02/21 09/02/21 09/02/21 16:21 17:42 18:40 Hgb Hct MCV MCH RDW Seg Neuts % (Manual) Lymphocytes % (Manual) Seg Neutrophils # Man Lymphocytes # (Manual) APTT Heparin Anti-Xa Level ABG pH ABG pO2 202.5 H ABG HCO3 39.2 H ABG O2 Saturation 99.2 H ABG Base Excess 11.8 H ABG Hemoglobin 11.0 L Oxyhemoglobin Sodium Potassium Chloride Carbon Dioxide BUN Glucose POC Glucose 113 H Lactic Acid 0.60 L Phosphorus Magnesium TIBC Lactate Dehydrogenase NT-Pro-B Natriuret Pep Albumin 09/02/21 09/03/21 09/03/21 23:09 04:08 04:53 Hgb 10.3 L Hct 32.1 L MCV 83 L MCH 27 L RDW 18.3 H Seg Neuts % (Manual) 94.0 H Lymphocytes % (Manual) 3.0 L Seg Neutrophils # Man Lymphocytes # (Manual) 0.2 L APTT Heparin Anti-Xa Level ABG pH ABG pO2 69.0 L ABG HCO3 42.5 H ABG O2 Saturation ABG Base Excess 15.7 H ABG Hemoglobin 10.6 L Oxyhemoglobin 94.5 L Sodium Potassium Chloride Carbon Dioxide BUN Glucose POC Glucose 154 H Lactic Acid Phosphorus Magnesium TIBC Lactate Dehydrogenase NT-Pro-B Natriuret Pep Albumin 09/03/21 09/03/21 09/03/21 04:53 06:05 10:13 Hgb Hct MCV MCH RDW Seg Neuts % (Manual) Lymphocytes % (Manual) Seg Neutrophils # Man Lymphocytes # (Manual) APTT Heparin Anti-Xa Level ABG pH ABG pO2 ABG HCO3 ABG O2 Saturation ABG Base Excess ABG Hemoglobin Oxyhemoglobin Sodium Potassium Chloride 96.6 L Carbon Dioxide 38 H BUN 25 H Glucose 130 H POC Glucose 145 H Lactic Acid Phosphorus Magnesium TIBC Lactate Dehydrogenase NT-Pro-B Natriuret Pep Albumin 3.2 L 09/03/21 09/03/21 09/03/21 11:11 15:00 15:00 Hgb 10.7 L Hct 33.1 L MCV MCH RDW Seg Neuts % (Manual) Lymphocytes % (Manual) Seg Neutrophils # Man Lymphocytes # (Manual) APTT 22.9 L Heparin Anti-Xa Level ABG pH ABG pO2 ABG HCO3 ABG O2 Saturation ABG Base Excess ABG Hemoglobin Oxyhemoglobin Sodium Potassium Chloride Carbon Dioxide BUN Glucose POC Glucose 158 H Lactic Acid Phosphorus Magnesium TIBC Lactate Dehydrogenase NT-Pro-B Natriuret Pep Albumin 09/03/21 09/03/21 09/03/21 16:39 20:52 23:55 Hgb Hct MCV MCH RDW Seg Neuts % (Manual) Lymphocytes % (Manual) Seg Neutrophils # Man Lymphocytes # (Manual) APTT Heparin Anti-Xa Level < 0.10 L ABG pH ABG pO2 ABG HCO3 ABG O2 Saturation ABG Base Excess ABG Hemoglobin Oxyhemoglobin Sodium Potassium Chloride Carbon Dioxide BUN Glucose POC Glucose 139 H 157 H Lactic Acid Phosphorus Magnesium TIBC Lactate Dehydrogenase NT-Pro-B Natriuret Pep Albumin 09/04/21 09/04/21 09/04/21 04:12 06:13 06:21 Hgb Hct MCV MCH RDW Seg Neuts % (Manual) Lymphocytes % (Manual) Seg Neutrophils # Man Lymphocytes # (Manual) APTT Heparin Anti-Xa Level 0.21 L ABG pH ABG pO2 ABG HCO3 ABG O2 Saturation ABG Base Excess ABG Hemoglobin Oxyhemoglobin Sodium Potassium Chloride 95.3 L Carbon Dioxide 37 H BUN 43 H Glucose 149 H POC Glucose 157 H Lactic Acid Phosphorus 4.70 H Magnesium 2.40 H TIBC 176 L Lactate Dehydrogenase 283 H NT-Pro-B Natriuret Pep Albumin 09/04/21 09/04/21 09/04/21 06:35 12:13 16:50 Hgb Hct MCV MCH RDW Seg Neuts % (Manual) Lymphocytes % (Manual) Seg Neutrophils # Man Lymphocytes # (Manual) APTT Heparin Anti-Xa Level ABG pH ABG pO2 72.2 L ABG HCO3 44.2 H ABG O2 Saturation 94.9 L ABG Base Excess 15.2 H ABG Hemoglobin 12.2 L Oxyhemoglobin 93.0 L Sodium Potassium Chloride Carbon Dioxide BUN Glucose POC Glucose 163 H 121 H Lactic Acid Phosphorus Magnesium TIBC Lactate Dehydrogenase NT-Pro-B Natriuret Pep Albumin 09/05/21 09/05/21 09/05/21 00:24 03:08 03:08 Hgb 10.5 L Hct 33.2 L MCV 83 L MCH 26 L RDW 18.2 H Seg Neuts % (Manual) Lymphocytes % (Manual) Seg Neutrophils # Man Lymphocytes # (Manual) APTT Heparin Anti-Xa Level ABG pH ABG pO2 ABG HCO3 ABG O2 Saturation ABG Base Excess ABG Hemoglobin Oxyhemoglobin Sodium 146 H Potassium Chloride Carbon Dioxide 40 H BUN 54 H Glucose 141 H POC Glucose 144 H Lactic Acid Phosphorus Magnesium TIBC Lactate Dehydrogenase NT-Pro-B Natriuret Pep Albumin 09/05/21 09/05/21 09/05/21 03:08 05:45 05:58 Hgb Hct MCV MCH RDW Seg Neuts % (Manual) Lymphocytes % (Manual) Seg Neutrophils # Man Lymphocytes # (Manual) APTT Heparin Anti-Xa Level 0.28 L ABG pH 7.331 L ABG pO2 124.8 H ABG HCO3 43.5 H ABG O2 Saturation ABG Base Excess 14.5 H ABG Hemoglobin 10.7 L Oxyhemoglobin Sodium Potassium Chloride Carbon Dioxide BUN Glucose POC Glucose 183 H Lactic Acid Phosphorus Magnesium TIBC Lactate Dehydrogenase NT-Pro-B Natriuret Pep Albumin 09/05/21 09/05/21 09/06/21 11:32 17:27 04:14 Hgb Hct MCV MCH RDW Seg Neuts % (Manual) Lymphocytes % (Manual) Seg Neutrophils # Man Lymphocytes # (Manual) APTT Heparin Anti-Xa Level ABG pH ABG pO2 ABG HCO3 ABG O2 Saturation ABG Base Excess ABG Hemoglobin Oxyhemoglobin Sodium 148 H Potassium Chloride 97.2 L Carbon Dioxide 44 H* BUN 45 H Glucose POC Glucose 152 H 130 H Lactic Acid Phosphorus Magnesium 2.50 H TIBC Lactate Dehydrogenase NT-Pro-B Natriuret Pep Albumin 09/06/21 09/06/21 09/07/21 11:46 21:35 04:09 Hgb 11.7 L Hct MCV MCH RDW Seg Neuts % (Manual) Lymphocytes % (Manual) Seg Neutrophils # Man Lymphocytes # (Manual) APTT Heparin Anti-Xa Level ABG pH ABG pO2 ABG HCO3 ABG O2 Saturation ABG Base Excess ABG Hemoglobin Oxyhemoglobin Sodium Potassium Chloride Carbon Dioxide BUN Glucose POC Glucose 110 H 129 H Lactic Acid Phosphorus Magnesium TIBC Lactate Dehydrogenase NT-Pro-B Natriuret Pep Albumin 09/07/21 09/08/21 09/08/21 04:09 09:04 09:04 Hgb Hct MCV 83 L MCH 27 L RDW 17.7 H Seg Neuts % (Manual) Lymphocytes % (Manual) Seg Neutrophils # Man Lymphocytes # (Manual) APTT Heparin Anti-Xa Level ABG pH ABG pO2 ABG HCO3 ABG O2 Saturation ABG Base Excess ABG Hemoglobin Oxyhemoglobin Sodium 136 L Potassium Chloride 93.7 L 93.0 L Carbon Dioxide 40 H 35 H BUN 40 H 33 H Glucose 162 H POC Glucose Lactic Acid Phosphorus 2.20 L Magnesium TIBC Lactate Dehydrogenase NT-Pro-B Natriuret Pep Albumin Allied health notes reviewed: RT
[2021-09-08] MEDS: PHOS-NAK POWDER PACKET PO SCH ×2 (14:01→22:22)
--- NOTE | 2021-09-08 16:38 | Progress Note ---
Assessment and Plan DC IV Lasix. Switch to 20 mg daily in a.m. depending on renal indices and electrolytes. - Patient Problems (1) Acute on chronic respiratory failure with hypoxia and hypercapnia Current Visit: Yes Status: Acute (2) Lung cancer Current Visit: Yes Status: Chronic (3) COPD exacerbation Current Visit: Yes Status: Acute (4) Obesity hypoventilation syndrome Current Visit: Yes Status: Chronic (5) LEYDA (obstructive sleep apnea) Current Visit: Yes Status: Chronic Subjective Date of service: 09/08/21 Principal diagnosis: Acute respiratory failure, Lung CA Interval history: He feels better. Less short of breath. Objective Vital Signs Temp Pulse Pulse Resp Resp Resp BP 09/08/21 15:00 84 20 109/63 09/08/21 14:41 85 17 09/08/21 14:00 91 H 24 109/63 09/08/21 13:00 86 16 108/60 09/08/21 12:00 93 H 16 108/60 09/08/21 11:15 89 17 107/54 09/08/21 11:11 88 16 107/54 09/08/21 11:05 85 23 107/54 09/08/21 11:00 79 17 107/54 09/08/21 10:55 81 15 103/62 09/08/21 10:51 90 14 103/62 09/08/21 10:45 76 20 103/62 09/08/21 10:41 74 18 103/62 09/08/21 10:35 79 15 103/62 09/08/21 10:31 81 17 103/62 09/08/21 10:25 79 19 103/62 09/08/21 10:21 78 18 103/62 09/08/21 10:15 81 17 103/62 09/08/21 10:11 83 15 103/62 09/08/21 10:08 103/62 09/08/21 10:05 89 23 103/62 09/08/21 10:01 81 21 103/62 09/08/21 10:00 16 09/08/21 09:55 84 18 104/54 09/08/21 09:51 76 17 104/54 09/08/21 09:45 78 14 104/54 09/08/21 09:41 78 13 104/54 09/08/21 09:35 79 82 16 16 111/59 09/08/21 09:31 80 21 111/59 09/08/21 09:25 80 20 111/59 09/08/21 09:21 83 20 111/59 09/08/21 09:15 77 16 111/59 09/08/21 09:11 81 17 111/59 09/08/21 09:05 83 18 104/54 09/08/21 09:00 78 10 L 104/54 09/08/21 08:55 77 16 111/59 09/08/21 08:51 89 24 111/59 09/08/21 08:45 79 14 111/59 09/08/21 08:41 79 16 111/59 09/08/21 08:35 72 14 111/59 09/08/21 08:31 81 18 111/59 09/08/21 08:25 78 25 H 111/59 09/08/21 08:24 82 20 09/08/21 08:21 84 23 111/59 09/08/21 08:15 71 21 111/59 09/08/21 08:11 70 20 111/59 09/08/21 08:05 78 17 111/59 09/08/21 08:00 90 17 111/59 09/08/21 07:55 72 17 111/54 09/08/21 07:51 75 21 111/54 09/08/21 07:45 73 22 111/54 09/08/21 07:41 73 19 111/54 09/08/21 07:35 71 13 111/54 09/08/21 07:31 69 19 111/54 09/08/21 07:25 71 21 111/54 09/08/21 07:21 69 17 111/54 09/08/21 07:15 77 22 111/54 09/08/21 07:11 74 22 111/54 09/08/21 07:05 72 24 111/54 09/08/21 07:00 83 22 111/54 09/08/21 06:55 75 20 95/39 09/08/21 06:51 71 21 95/39 09/08/21 06:45 72 24 95/39 09/08/21 06:41 73 25 H 95/39 09/08/21 06:35 72 21 95/39 09/08/21 06:31 74 23 95/39 09/08/21 06:30 77 07/30/22 06:25 71 18 95/39 09/08/21 06:21 71 22 95/39 09/08/21 06:15 72 21 95/39 09/08/21 06:11 74 24 95/39 09/08/21 06:05 75 23 95/39 09/08/21 06:00 75 16 95/39 09/08/21 05:55 82 18 124/59 09/08/21 05:51 83 20 124/59 09/08/21 05:45 75 21 124/59 09/08/21 05:41 76 21 124/59 09/08/21 05:35 77 21 124/59 09/08/21 05:31 77 23 124/59 09/08/21 05:25 75 21 124/59 09/08/21 05:21 74 21 124/59 09/08/21 05:15 74 23 124/59 09/08/21 05:11 73 22 124/59 09/08/21 05:05 98.2 F 71 22 124/59 09/08/21 05:00 75 25 H 124/59 09/08/21 04:57 72 26 H 114/53 09/08/21 04:55 71 23 114/53 09/08/21 04:51 77 25 H 114/53 09/08/21 04:45 74 24 114/53 09/08/21 04:41 73 22 114/53 09/08/21 04:35 68 14 114/53 09/08/21 04:31 70 16 114/53 09/08/21 04:25 79 22 114/53 09/08/21 04:21 74 23 114/53 09/08/21 04:15 70 22 114/53 09/08/21 04:11 75 24 114/53 09/08/21 04:05 64 17 114/53 09/08/21 04:00 72 21 114/53 09/08/21 03:55 74 18 102/49 09/08/21 03:51 71 20 102/49 09/08/21 03:45 69 20 102/49 09/08/21 03:41 72 21 102/49 09/08/21 03:35 73 26 H 102/49 09/08/21 03:31 70 13 102/49 09/08/21 03:25 68 14 102/49 09/08/21 03:21 67 12 102/49 09/08/21 03:15 67 10 L 102/49 09/08/21 03:11 68 12 102/49 09/08/21 03:05 66 14 102/49 09/08/21 03:00 66 10 L 102/49 09/08/21 02:55 108/58 09/08/21 02:51 108/58 09/08/21 02:45 108/58 09/08/21 02:41 108/58 09/08/21 02:35 108/58 09/08/21 02:31 108/58 09/08/21 02:25 108/58 09/08/21 02:21 85 19 108/58 09/08/21 02:15 69 13 108/58 09/08/21 02:11 71 16 108/58 09/08/21 02:05 68 21 108/58 09/08/21 02:00 70 15 108/58 09/08/21 01:55 80 18 94/58 09/08/21 01:51 72 23 94/58 09/08/21 01:45 70 21 94/58 09/08/21 01:37 71 20 09/08/21 01:25 70 17 94/58 09/08/21 01:21 65 18 94/58 09/08/21 01:15 70 22 94/58 09/08/21 01:11 66 12 94/58 09/08/21 01:05 66 19 94/58 09/08/21 01:01 68 13 94/58 09/08/21 00:55 69 22 100/61 09/08/21 00:51 71 20 100/61 09/08/21 00:45 72 22 100/61 09/08/21 00:41 69 21 100/61 09/08/21 00:35 70 21 100/61 09/08/21 00:31 71 22 100/61 09/08/21 00:25 71 18 100/61 09/08/21 00:21 72 22 100/61 09/08/21 00:15 71 22 100/61 09/08/21 00:11 74 17 100/61 09/08/21 00:05 72 24 100/61 09/08/21 00:00 70 20 100/61 09/07/21 23:55 74 20 105/57 09/07/21 23:51 70 21 105/57 09/07/21 23:45 70 21 105/57 09/07/21 23:41 72 22 105/57 09/07/21 23:37 73 26 H 105/57 09/07/21 23:35 72 9 L 105/57 09/07/21 23:31 80 17 105/57 09/07/21 23:30 98.2 F 72 18 09/07/21 23:25 72 15 105/57 09/07/21 23:21 72 20 105/57 09/07/21 23:15 70 20 105/57 09/07/21 23:11 72 23 105/57 09/07/21 23:05 71 18 105/57 09/07/21 23:00 65 13 105/57 09/07/21 22:55 70 16 101/52 09/07/21 22:51 69 21 101/52 09/07/21 22:45 69 20 101/52 09/07/21 22:41 70 21 101/52 09/07/21 22:35 67 20 101/52 09/07/21 22:31 68 17 101/52 09/07/21 22:25 64 12 101/52 09/07/21 22:21 65 9 L 101/52 09/07/21 22:15 65 12 101/52 09/07/21 22:11 76 16 101/52 09/07/21 22:05 66 13 101/52 09/07/21 22:00 65 12 101/52 09/07/21 21:55 68 15 109/53 09/07/21 21:51 68 17 109/53 09/07/21 21:45 70 13 18 109/53 09/07/21 21:44 75 109/53 09/07/21 21:41 69 10 L 109/53 09/07/21 21:35 77 12 109/53 09/07/21 21:31 71 15 109/53 09/07/21 21:25 73 9 L 109/53 09/07/21 21:21 75 20 109/53 09/07/21 21:15 72 20 109/53 09/07/21 21:11 80 21 109/53 09/07/21 21:05 69 18 109/53 09/07/21 21:00 75 15 109/53 09/07/21 20:55 72 12 119/51 09/07/21 20:51 87 21 119/51 09/07/21 20:45 73 19 119/51 09/07/21 20:41 78 21 119/51 09/07/21 20:35 68 16 119/51 09/07/21 20:31 69 17 119/51 09/07/21 20:25 70 18 119/51 09/07/21 20:21 72 20 119/51 09/07/21 20:15 77 24 119/51 09/07/21 20:11 80 22 119/51 09/07/21 20:05 76 21 119/51 09/07/21 20:00 73 18 119/51 09/07/21 19:55 76 23 110/52 09/07/21 19:51 75 21 110/52 09/07/21 19:45 78 22 110/52 09/07/21 19:41 76 23 110/52 09/07/21 19:36 71 16 09/07/21 19:35 75 21 110/52 09/07/21 19:33 69 16 110/52 09/07/21 19:31 75 21 110/52 09/07/21 19:25 78 22 110/52 09/07/21 19:21 76 22 110/52 09/07/21 19:15 76 20 110/52 09/07/21 19:11 74 19 110/52 09/07/21 19:05 97.9 F 78 18 18 110/52 09/07/21 19:00 98.2 F 69 12 110/52 09/07/21 18:55 70 16 96/54 09/07/21 18:51 76 16 96/54 09/07/21 18:45 71 18 96/54 09/07/21 18:41 76 26 H 96/54 09/07/21 18:35 73 24 96/54 09/07/21 18:31 67 19 96/54 09/07/21 18:25 79 23 96/54 09/07/21 18:21 71 14 96/54 09/07/21 18:15 69 13 96/54 09/07/21 18:11 68 15 96/54 09/07/21 18:05 71 11 L 96/54 09/07/21 18:00 77 11 L 96/54 09/07/21 17:55 88 21 117/58 09/07/21 17:51 78 24 117/58 09/07/21 17:45 78 22 117/58 09/07/21 17:41 73 17 117/58 09/07/21 17:35 78 23 117/58 09/07/21 17:31 78 24 117/58 09/07/21 17:25 81 24 117/58 09/07/21 17:21 80 24 117/58 09/07/21 17:15 81 25 H 117/58 09/07/21 17:11 82 27 H 117/58 09/07/21 17:05 79 25 H 117/58 09/07/21 17:00 76 24 117/58 09/07/21 16:55 77 25 H 107/09/07/21 16:51 77 17 107/52 09/07/21 16:45 80 20 10709/07/21 16:41 84 18 [id number] 09/07/21 16:35 96 H 20 107 Last Vital Signs Temp 98.2 F 09/08/21 05:05 Pulse 84 09/08/21 15:00 Resp 20 09/08/21 15:00 BP 109/63 09/08/21 15:00 Pulse Ox 94 09/08/21 15:00 - Physical Examination General: No Apparent Distress HEENT: Positive: EOMI, Normocephaly, Mucus Membranes Moist Neck: Positive: neck supple, trachea midline Cardiac: Positive: Reg Rate and Rhythm, S1/S2 Lungs: Positive: Wheezes, Rhonchi Neuro: Positive: Grossly Intact Abdomen: Positive: Soft, Active Bowel Sounds. Negative: Tender Skin: Negative: Rash Musculoskeletal: Normal Range of Motion Extremities: Absent: edema - Labs and Meds CBC 09/08/21 Range/Units 09:04 WBC 6.2 (4.5-11.0) K/mm3 RBC 4.89 (3.65-5.03) M/mm3 Hgb 13.0 (11.8-15.2) gm/dl Hct 40.5 (35.5-45.6) % Plt Count 173 (140-440) K/mm3 Comprehensive Metabolic Panel 09/08/21 Range/Units 09:04 Sodium 136 L (137-145) mmol/L Potassium 4.4 (3.6-5.0) mmol/L Chloride 93.0 L (98-107) mmol/L Carbon Dioxide 35 H (22-30) mmol/L BUN 33 H (9-20) mg/dL Creatinine 0.8 (0.8-1.3) mg/dL Glucose 162 H (75-100) mg/dL Calcium 9.1 (8.4-10.2) mg/dL - Telemetry EKG Rhythm: Sinus Rhythm AV and intraventricular conduction: right bundle branch block - Allied health notes Allied health notes reviewed: RT
[2021-09-09] MEDS: IPRATROPIUM/ALBUTEROL SULFATE 3 ML AMPUL.NEB IH SCH ×2 (02:00→08:30)
[2021-09-09] MEDS: PHOS-NAK POWDER PACKET PO SCH (05:09)
[2021-09-09] MEDS: LEVOTHYROXINE 100 MCG TAB PO SCH (05:09)
[2021-09-09 06:12] LABS: Hematocrit 40.2 % (35.5-45.6); Hemoglobin 12.8 gm/dl (11.8-15.2)
[2021-09-09 06:16] LABS: BUN/Creatinine Ratio 39; Blood Urea Nitrogen 31 mg/dL (9-20); Calcium 9.2 mg/dL (8.4-10.2); Hemolysis Index 6
--- NOTE | 2021-09-09 08:51 | Discharge Summary ---
Providers - Providers Date of Admission: 09/02/21 18:31 Attending physician: CRISTY KING MD 09/02/21 19:33 Consult to Cardiology [CONS] Routine Consulting Provider: TIRSO AMEZCUA Reason For Exam: chf Consult to Physician [CONS] Routine Comment: Consulting Provider: RICHI DUMAS Physician Instructions: Reason For Exam: Respiratory failure 09/03/21 07:39 Consult to Dietitian/Nutrition [CONS] Routine Physician Instructions: Reason For Exam: Reason for Consult: Write/Manage Tube Feeding 09/03/21 13:22 Consult to Physician [CONS] Routine Comment: Consulting Provider: NATAN VIRAMONTES Physician Instructions: Reason For Exam: Lung Cancer 09/05/21 17:06 Occupational Therapy Evaluate and Treat [CONS] Routine Comment: Reason For Exam: post extubation Physical Therapy Evaluation and Treat [CONS] Routine Comment: Reason For Exam: post extubation Speech Therapy Evaluation and Treat [CONS] Routine Reason For Exam: post extubation 09/09/21 08:48 Consult to Case Management [CONS] Routine Services Needed at Discharge: Home O2 Notified:: NO Primary care physician: PARLOR MAID Hospitalization Reason for admission: Acute hypoxic respiratory Condition: Stable Hospital course: This is a 71-year-old male with CHF, COPD on home O2, hypothyroidism, stage IV lung CA, nicotine dependence and OHS who presented to the emergency department on 09/02 with complaints of " cannot breathe" via EMS. On EMS arrival patient had a SPO2 in the 60s and was placed on supplemental oxygenation and transported to [facility]. In the emergency department patient's SPO2 was in the 70s with supplemental oxygenation and he did not have much improvement in symptoms and was placed on NiPPV and was intubated in the ED as he was found to be retracting, unable to speak, using accessory muscles to breathe, with audible wheezing and placed on ventilatory support and CXR showed bilateral PNA. He was admitted with CHF excerbation and with PNA to the hospitalist service with consults cardiology and CCM. Hospital course to date: 09/03: Remains on ventilatory support. The afternoon patient heart rate went into the 140s/150s, cardiology aware, stat ECG obtained which showed no acute findings, 2.5 metoprolol ordered. Started on fentanyl drip. Records requested from [facility] and Dr. Ave Jenkins, [place] catheter discontinued. Ventilator changes per CCM. 09/04: CCM made vent changes, decrease Solu-Medrol, COVID-19 PCR negative. [place] catheter replaced. 09/05: Patient currently on vent settings and only sedated on fentanyl. No acute events reported overnight. PSV versus remaining on AC for bronchoscopy. 09/06: Patient was extubated yesterday evening and is currently on nasal cannula, steroids will be resumed and transition to p.o., cardiology will continue Lasix. PT/OT consulted. 09/07: Cardiology has decreased Lasix to once a day, got 2 doses of Diamox. Patient wore CPAP overnight and is currently on oxygen via nasal cannula. No acute events reported overnight. Still awaiting telemetry bed. 09/08: Pending transfer to telemetry floor, DME oxygen ordered as patient stated that tank in the room was his last. Will replete phos. Hopeful DC soon when HH and DME set up. 09/09: Patient seen and examined at the bedside states that he is at his baseline. No new complaints. Discussed with them they are following up with [employer] which is the oxygen company they do have a concentration in the house. They would like to be discharged today. We will work with case management to ensure that in a.m. that [employer] comes out to the house to make sure they have portable oxygen for go to doctor's appointment or going out to get food. Neuro: NAD -Reorientation as needed -Maintain sleep-wake cycle -PT/OT consulted, appreciate recommendations -Home health physical therapy Cardiac: Aflutter, Acute on Chronic CHF with preserved EF -Cardiology consulted, appreciate recommendations -Blood pressure monitoring per protocol -Echocardiogram shows LVEF of 50 to 55%, flattened septum consistent with right ventricular volume overload, RVSP 37 mmhg -BB PO -s/p Heparin gtt->subq heparin -Lasix daily -Admit proBNP 4080 Respiratory: Acute on chronic hypoxic respiratory failure, RUL mass, h/o COPD, OHS, nicotine dependence, stage IV lung CA (in remission according to ) -CCM consulted, appreciate recommendations -Intubated on 09/02 with 8.0 OETT at 22 at the lips and extubated 09/05 -Currently on NC -Bipap qhs -Pulmonary hygiene -SPO2 monitoring -Solu-Medrol PO -MARTIN/LABA GI: Morbid obesity, mild protein calorie nutrition -24 hours -3130 mL -PPI -Passed bedside swallow eval and started on PO diet -BR: Colace : Urinary retention, Hypophosphatemia -Monitor intake and output -Renally dose medications -Avoid nephrotoxic medications -[place] replaced 09/04 but DC 09/07 -Doxazosin -s/p Diamox x2 -PO NaPhos -Trend BMP ID: CAP, Post obstructive ? -Covid 19 pcr negative -s/p Antibiotic therapy with azithro and rocephin for 4 days -Admit CXR showed right upper lobe atelectasis, patchy parenchymal opacities in both mid to lower lung zones -Chest CTA showed complete right upper lobe atelectasis, mild bronchopneumonia medial aspect left upper, right middle and both lower lobes -f/u blood culture -Monitor WBC and temperature curve Endo: h/o hypothyroidism -Avoid hypoglycemia -Resume home levothyroxine Heme/Oncology: h/o stage IV lung CA -CT chest shows RUL mass -According to patient is in remission pose radiation and chemo -Hem/Onc consulted, appreciate recommendations -Records requested from Dr. Ave Jenkins -unable to get a hold -Will need outpatient follow up with out patient oncology -Trend CBC -Transfuse hemoglobin less than 7 -SCDs to BLE while in bed Disposition: 30 STILL A PATIENT Final Discharge Diagnosis (Prints w/discharge instructions): Acute hypoxic respiratory failure. Stage IV lung cancer. Atrial flutter. Acute on chronic heart failure with preserved EF Time spent for discharge: 35-minute Core Measure Documentation - Palliative Care Palliative Care/ Comfort Measures: Not Applicable - Core Measures Any of the following diagnoses?: heart failure - Heart Failure Discharge Requirements ISA/ARB for LVSD if EF <40%: Yes Beta king at discharge: Yes Exam - Physical Exam Narrative exam: General appearance: Present: no acute distress on O2 3 L, obese, other, missing dentition - EENT Eyes: Present: PERRL, EOM intact - Neck Neck: Present: normal ROM - Respiratory Respiratory effort: normal Respiratory: bilateral: diminished, wheezing - Cardiovascular Rhythm: regular Heart Sounds: Present: S1 & S2. Absent: systolic murmur, diastolic murmur - Extremities Extremities: no ischemia, pulses intact, pulses symmetrical, No edema, normal temperature, normal color, Full ROM Peripheral Pulses: within normal limits - Abdominal General gastrointestinal: soft, non-tender, non-distended, normal bowel sounds - Integumentary Integumentary: Present: warm, dry - Psychiatric Psychiatric: appropriate mood/affect, cooperative - Neurologic Neurologic: CNII-XII intact, no focal deficits, moves all extremities - Allied Health Allied health notes reviewed: nursing, PT, ST, OT, RT - Constitutional Vitals: Temp Pulse Resp BP Pulse Ox 98.6 F 70 20 109/51 100 09/09/21 07:29 09/09/21 07:29 09/09/21 07:29 09/09/21 07:09/09/21 07:29 Plan Activity: advance as tolerated, fall precautions Diet: low salt Special Instructions: restrict fluid intake to (1000CC/DAY), record daily weights, record daily BP diary Care Plan Goals: MUST FOLLOW WITH YOUR ONCOLOGIST Follow up with: PRIMARY CAREMD [Primary Care Provider] - 3-5 Days RAJ ABARCA MD [Staff Physician] - 7 Days TIRSO AMEZCUA MD [Staff Physician] - 7 Days Prescriptions: Arformoterol Nebu [Brovana Nebu] 15 mcg IH Q12HR #120 ml Doxazosin [Cardura] 1 mg PO QDAY #30 tablet Mometasone/Formoterol [Dulera 200 Mcg-5 Mcg Inhaler] 8.8 gm IH BID #1 can Ipratropium/Albuterol Sulfate [DUONEB *Not for PRN Use*] 1 ampul IH Q6HRT #120 ampul.neb Nicotine [Habitrol] 21 mg TD QDAY #30 patch Furosemide [Lasix] 20 mg PO QDAY #30 tablet Metoprolol [Lopressor TAB] 12.5 mg PO BID #60 tablet Prednisone [predniSONE 5 mg (6-Day Pack, 21 Tabs)] 5 mg PO .TAPER #1 ALBUTEROL NEB's [Proventil 0.083% NEBS] 2.5 mg IH TID PRN #90 neb PRN Reason: Wheezing Budesonide [Pulmicort Respules] 0.5 mg IH Q12HR #120 ml Sennosides/Docusate [Senokot S] 1 tab PO BID #30 tablet Levothyroxine [Synthroid] 100 mcg PO QAM #30 tab
[2021-09-09] MEDS: BUDESONIDE 0.5 MG/2 ML NEBU IH SCH (09:00)
[2021-09-09] MEDS: METOPROLOL TARTRATE 25 MG TAB PO SCH (09:44)
[2021-09-09] MEDS: HEPARIN 5,000 UNIT/1 ML VIAL SUB-Q SCH (09:44)
[2021-09-09] MEDS: SENNOSIDES/DOCUSATE SODIUM 8.6/50 MG TAB PO SCH (09:45)
[2021-09-09] MEDS: DOXAZOSIN 1 MG TAB PO SCH (09:46)
[2021-09-09] MEDS: FAMOTIDINE 20 MG TAB PO SCH (09:47)
[2021-09-09] MEDS: NICOTINE 21 MG/24 HR PATCH TD SCH (09:47)
[2021-09-09 09:54] VITALS: BP 109/52
[2021-09-09] MEDS ORDERED: FUROSEMIDE 40 MG TAB PO SCH (10:00)
[2021-09-09] MEDS ORDERED: predniSONE 5 MG TAB PO SCH (10:00)
[2021-09-10] MEDS ORDERED: predniSONE 5 MG TAB PO SCH (10:00)
== END 2021-09-09 10:05 | disposition home or self-care (01) | DRG 208 ==
LOC: ED 14:38 → CC1 18:31 → 4A 09-08 15:25
PROVIDERS: ADMIT Internal Medicine; ATTEND Internal Medicine
PROC: 5A1945Z Respiratory Ventilation, 24-96 Consecutive Hours (ICD-10-PCS; principal; 2021-09-02)
PROC: 0BH17EZ Insertion of Endotracheal Airway into Trachea, Via Natural or Artificial Opening (ICD-10-PCS; 2021-09-02)
PROC: 5A09357 Assistance with Respiratory Ventilation, Less than 24 Consecutive Hours, Continuous Positive Airway Pressure (ICD-10-PCS; 2021-09-02)
PROC: 02HV33Z Insertion of Infusion Device into Superior Vena Cava, Percutaneous Approach (ICD-10-PCS; 2021-09-02)
PROC: B548ZZA Ultrasonography of Superior Vena Cava, Guidance (ICD-10-PCS; 2021-09-02)
PROC: 4A033R1 Measurement of Arterial Saturation, Peripheral, Percutaneous Approach (ICD-10-PCS; 2021-09-03)
PROC: 5A09457 Assistance with Respiratory Ventilation, 24-96 Consecutive Hours, Continuous Positive Airway Pressure (ICD-10-PCS; 2021-09-05)
DX: J96.21 Acute and chronic respiratory failure with hypoxia (principal); I50.33 Acute on chronic diastolic (congestive) heart failure; J18.9 Pneumonia, unspecified organism; E66.2 Morbid (severe) obesity with alveolar hypoventilation; E44.1 Mild protein-calorie malnutrition; J44.0 Chronic obstructive pulmonary disease with (acute) lower respiratory infection; F17.213 Nicotine dependence, cigarettes, with withdrawal; I48.92 Unspecified atrial flutter; E87.0 Hyperosmolality and hypernatremia; Z20.822 Contact with and (suspected) exposure to COVID-19; R33.9 Retention of urine, unspecified; J96.22 Acute and chronic respiratory failure with hypercapnia; E87.5 Hyperkalemia; E03.9 Hypothyroidism, unspecified; Z85.118 Personal history of other malignant neoplasm of bronchus and lung; Z68.37 Body mass index [BMI] 37.0-37.9, adult; I27.20 Pulmonary hypertension, unspecified; E83.39 Other disorders of phosphorus metabolism; Z88.8 Allergy status to other drugs, medicaments and biological substances; Z71.6 Tobacco abuse counseling; Z82.49 Family history of ischemic heart disease and other diseases of the circulatory system
CPT/HCPCS: 36415; 36600; 71045; 71275; 74018; 80048; 80076; 80307; 81001; 82140; 82728; 82803; 82962; 83550; 83615; 83735; 83880; 84100; 84145; 84439; 84443; 84484; 85007; 85014; 85018; 85025; 85027; 85045; 85049; 85520; 85610; 85730; 87070; 87205; 93005; 93306; 94002; 94003; 94640; 94660; 94760; 99406; G0378; J3490; Q9967; C8929; J0610; J0696; J1120; J1200; J1644; J1815; J1940; J2060; J2704; J2920; J3010; J7512; U0003